=== PATIENT | female | born 1965 | race Two or more races ===

== ENCOUNTER 2024-05-15 13:49 | Emergency (ER) | payer MEDICARE, MEDICAID, SELFPAY ==
[2024-05-15] VITALS (8 sets, daily range): BP systolic 103–125; BP diastolic 66–76; PULSE 85–108; RESP 17–20; TEMP 36.8–37.8; O2SAT 91–99
--- NOTE | 2024-05-15 13:56 | EDNOTE_ITS ---
ED General RME/HPI General Chief complaint: Shortness of Breath/Dyspnea Stated complaint: SOB Time Seen by Provider: 05/15/24 13:55 Arrival date/time: 05/15/24 13:49 CC: Shortness of breath HPI ongoing for 1 week, EMS report the patient has been worsening shortness of breath from the [facility] where the patient is currently residing. EMS reports stable vital signs with an oxygen saturation of 93% on 6 L nasal cannula. Patient has a history of pulmonary fibrosis. EMS report that she has been recovering from a respiratory infection , but has not significant improved. Patient is awake and alert. States that she is usually on 3 L nasal cannula however that has been turned up to 4 in the past 3 to 4 days and to 5 today due to shortness of breath. Related Data Home Medications ?Medication ?Instructions ?Recorded ?Confirmed Levothyroxine * (SYNTHROID *) 125 mcg PO ACBR #0 tabs 07/30/15 07/04/23 atorvastatin 20 mg tablet (Lipitor) 20 mg PO QHS 01/13/24 01/13/24 furosemide 40 mg tablet 40 mg PO QAM 01/13/24 01/13/24 spironolactone 25 mg tablet 25 mg PO QDAY 01/13/24 01/13/24 tizanidine 2 mg tablet 2 mg PO Q8H PRN 01/13/24 01/13/24 Previous Rx's ?Medication ?Instructions ?Recorded ondansetron 4 mg disintegrating 4 mg PO Q8H PRN nausea and 07/12/23 tablet vomiting #20 tabs sertraline 25 mg tablet 25 mg PO QDAY 30 days #30 tabs 07/12/23 levofloxacin 750 mg tablet 750 mg PO Q24H #7 tabs 05/15/24 Allergies Allergy/AdvReac Type Severity Reaction Status Date / Time codeine Allergy Severe Chest Pain Verified 01/13/24 11:59 diphenhydramine Allergy Severe Chest Pain Verified 01/13/24 11:59 [From Benadryl] hydrocodone bit Allergy Severe DIZZY, Verified 01/13/24 11:59 DYSPNEA tramadol Allergy Verified 01/13/24 11:59 Review of Systems Review of Systems Narrative Review of Systems: GEN: No fever, no chills, no weight loss EYES: No discharge, no visual changes, no pain HEENT: No ear pain, no congestion, no sore throat PULM: + shortness of breath, no cough, no congestion CV: No chest pain, no dyspnea on exertion, no palpitations GI: No nausea, no vomiting, no diarrhea, no pain, no constipation : No frequency, no urgency, no dysuria MUSC/SKEL: No joint pain, no back pain SKIN: No rash PSYCH: No hallucinations, no depression HEME/LYMPH: No easy bleeding or bruising tendencies NEURO: No weakness, no headache Past Medical History Past Medical History NEUROLOGIC: Negative Cerebrovascular Accident, Migraine or Head Trauma CARDIAC: Positive Cardiac Disorders, Hypercholesterolemia and Edema; Negative Congestive Heart Failure RESPIRATORY: Positive Chronic Obstructive Pulmonary Disease (COPD), Pulmonary Fibrosis, Dyspnea, Cough and Sputum Production; Negative Asthma GENITOURINARY: Negative Renal Disease REPRODUCTIVE: Positive Previous Pregnancies (); Negative Pelvic Inflammatory Disease (+ for cervical CA) ENT: Negative Head Trauma ENDOCRINE: Positive Hypothyroidism; Negative Diabetes Mellitus Type 1 or Diabetes Mellitus Type 2 HEMATOLOGIC: Positive Anemia (in july); Negative Sickle Cell Disease PSYCHO/SOCIAL: Positive Anxiety OTHER HISTORY: Positive Hospitalization (july 2023), Chemotherapy (last october 2021), Radiation Therapy (october 2021), Cancer and Cervical Cancer; Negative Blood Transfusions or Anesthesia Reactions Social History SMOKING STATUS: Never smoker ED Exam Narrative Physical exam: [General: Mild discomfort but not in any acute distress Head normocephalic HEENT: Within acceptable limits Neck is supple nontender Chest equal chest rise nontender to palpation Respiratory: End expiratory crackles, pursed lip breathing, speaking with sentences of 5-6 words. CV: Rate rhythm is regular no murmurs rubs or clicks Abdomen is soft nontender no masses positive bowel sounds all 4 quadrants Back: No CVA tenderness no spinous process tenderness from cervical spine thoracic and lumbar spine Skin: Intact no petechiae rash induration ulceration or crepitus Extremities: Moving all extremity against resistance cap refill less than 2 seconds neurosensory intact Neuro: Awake alert oriented x2, person and place, Glascow coma 15 no focal deficits] Course Quality Measures none Orders Category Date Time Status EKG (ED ONLY) *Do not use* NOW Care 05/15/24 14:01 Completed EKG (ED Only) Stat Exams 05/15/24 14:01 Draft XR chest 1V Stat Exams 05/15/24 14:01 Completed B-Type Natriuretic Peptide Stat Lab 05/15/24 15:03 Completed Blood Culture (Lab) Stat Lab 05/15/24 16:18 Received CBC Stat Lab 05/15/24 15:03 Completed Comprehensive Metabolic Panel Stat Lab 05/15/24 15:03 Completed Drug Screen,Urine Stat Lab 05/15/24 18:13 Completed LDH (Lactate Dehydrogenase) Stat Lab 05/15/24 15:03 Completed Lactic Acid [Lactate (Lactic Acid)] Stat Lab 05/15/24 16:18 Completed Magnesium Stat Lab 05/15/24 15:03 Completed Partial Thromboplastin Time Stat Lab 05/15/24 15:03 Completed Procalcitonin Stat Lab 05/15/24 16:18 Completed Prothrombin Time with INR Stat Lab 05/15/24 15:03 Completed Troponin I Stat Lab 05/15/24 15:03 Completed Urinalysis Stat Lab 05/15/24 18:13 Received Acetaminophen Tab [Tylenol Tab] Med 05/15/24 16:03 Discontinued 650 mg PO X1 ONE Sodium Chloride 0.9% 1000 ml [Ns] 1,000 ml Med 05/15/24 16:03 Discontinued IV 999 mls/hr cefTRIAXone/D5w 1gm IV premix [Rocephin/D5w 1gm IV Med 05/15/24 17:08 Discontinued premix] 50 ml IV X1 Vital Signs Vital signs: Vital Signs Temperature 99.0 F 05/15/24 13:52 Pulse Rate 105 H 05/15/24 13:52 Respiratory Rate 18 05/15/24 13:52 Blood Pressure 124/76 05/15/24 13:52 Pulse Oximetry (%) 96 05/15/24 13:52 Oxygen Delivery Method Nasal Cannula 05/15/24 13:52 Oxygen Flow Rate 8 05/15/24 13:52 [facility] Patient data External records reviewed:: [facility] previous records and EMS form Clinical information provided by:: patient and EMS Social determinants that could affect healthcare access:: none Patient has the following chronic illnesses:: Pulmonary fibrosis congestive heart failure recurrent pleural effusion anemia, cervical cancer with chemoradiation How is presenting disease/condition affected by chronic disease/condition?: e xacerbated by Evaluation data The following diagnostics were reviewed and interpreted by me:: lab results and radiology exam(s) Lab and/or radiology exams considered but not ordered:: EKG performed at 1531 shows a ventricular rate of 90 HI interval 128 QRS of 9 7 QTc of 396 this is normal sinus rhythm nonspecific T wave abnormality. CBC shows no acute leukocytosis anemia thrombocytopenia Coags within acceptable limits CMP shows no significant electrolyte imbalances renal impairment transaminitis or T. bili elevation Mag 1.9 Troponin is mildly elevated at 0.067 but has been elevated similarly in the past BNP is 248 Interpretation Summary: Questionable pneumonia on top of the pulmonary fibrosis. Patient is afebrile lactic is negative Pro-Madan is negative. Patient is a DNR selective treatment. This time we will give her IV antibiotics and discharge her back to the assisted care facility. Chest x-ray shows a possible superimposed pneumonia on her pulmonary fibrosis. Patient does not have a white count or fever, dressed with antibiotics little bit of fluid. Patient's oxygen saturations maintaining at 90% on 5 L nasal cannula at this time patient will be discharged back to the facility. Patient UDS also shows he is positive for fentanyl this could also be contributing to her hypoxemia although the fentanyl has a very short half-life. And patient is not on a fentanyl patch. Please note the patient is a DNR limited treatment. Medications Medications considered but not ordered:: None Medication administrations:: Medication Administration History Discontinued Medications Acetaminophen (Acetaminophen 325 Mg Tablet) 650 mg PO X1 ONE Stop: 05/15/24 16:04 Last Admin: 05/15/24 16:19 Dose: 650 mg Documented By: WANDA Sodium Chloride (Ns) 1,000 mls @ 999 mls/hr IV .Q1H1M ONE Stop: 05/15/24 17:03 Last Infusion: 05/15/24 18:13 Dose: Infused Documented By: Admin: 05/15/24 16:33 Dose: 999 mls/hr Documented By: WANDA Ceftriaxone Sodium/Dextrose (Rocephin/D5w 1gm Iv Premix) 50 mls @ 100 mls/hr IV X1 ONE Stop: 05/15/24 17:37 Last Admin: 05/15/24 17:50 Dose: 100 mls/hr Documented By: WANDA None Consultations Consultation(s) initiated? (list below): No Diagnosis Differential Diagnosis ED Complaint MDM: Pneumonia pulmonary fibrosis confusion Most likely diagnosis given after review of the tests above:: Pulmonary fibrosis, possible superimposed pneumonia. Admission Indicated Admission indicated?: not indicated Explain why admission is indicated or not indicated:: Stable for discharge Admission Request Was there a request for admission?: No Disposition Plan Disposition Plan: Discharge Discharge Attestation Discharge Attestation: The patient and all family members were given an opportunity to ask questions and understood the discharge instructions. Discharge instructions specifically effects, indications for sooner follow up or return to the emergency department, and the expected course of current diagnosis. Patient condition: Stable Medical Decision Making Differential Diagnosis Differential Diagnosis: Pneumonia pulmonary fibrosis confusion Lab Data 05/15/24 15:03 05/15/24 15:03 Labs: Lab Results 05/15/24 05/15/24 05/15/24 Range/Units 15:03 16:18 18:13 WBC 10.5 (3.6-11.0) Thou/mm3 RBC 4.13 (4.00-5.20) Miln/mm3 Hgb 11.8 L (12.0-16.0) g/dL Hct 38.9 (36.0-46.0) % MCV 94 (80-100) fL MCH 28.6 (25.0-35.0) pg MCHC 30.3 L (31.0-37.0) g/dl RDW Std Deviation 50.2 H (36.4-46.3) fL Plt Count 239 (140-440) Thou/mm3 Neut % (Auto) 73 (37-80) % Lymph % (Auto) 17 (10-50) % [place] % (Auto) 10 (0-12) % Eos % (Auto) 0 (0-10) % Baso % (Auto) 0 (0-2.5) % Neut # (Auto) 7.6 (1.8-7.7) Thou/mm3 Lymph # (Auto) 1.7 (1.0-4.8) Thou/mm3 [place] # (Auto) 1.1 H (0.0-0.8) Thou/mm3 Eos # (Auto) 0.0 (0.0-0.5) Thou/mm3 Baso # (Auto) 0.0 (0.0-0.2) Thou/mm3 Immature Gran # (Auto) 0.02 H (0.00-0.00) Thou/mm3 Absolute Nucleated RBC 0.00 (0.00-0.00) Thou/mm3 Immature Gran % 0 (0-0) % Nucleated RBC % 0 (0) /100 WBC PT 11.8 (9.0-12.2) Seconds INR 1.1 (0.9-1.3) APTT 30.3 (22.0-36.0) Seconds Sodium 137 (136-145) mMol/L Potassium 4.4 (3.4-5.1) mMol/L Chloride 98 (98-107) mMol/L Carbon Dioxide 34.0 H (20.0-31.0) mMol/L Anion Gap 5 L (7-16) BUN 14 (9-23) mg/dL Creatinine 0.7 (0.6-1.3) mg/dL Estim Creat Clear Calc 75.5 (>60) mL/min eGFR > 60 (60 - ) See Note BUN/Creatinine Ratio 20 (12-20) Ratio Glucose 112 H (74-106) mg/dL Calculated Osmolality 275 (275-295) Lactic Acid 1.0 (0.4-2.0) mMol/L Calcium 9.0 (8.3-10.6) mg/dL Corrected Calcium 9.0 (8.5-10.1) mg/dL Magnesium 1.9 (1.6-2.6) mg/dL Total Bilirubin 0.4 (0.3-1.2) mg/dL AST 29 (0-34) U/L ALT 18 (10-49) U/L Alkaline Phosphatase 82 (46-116) U/L Lactate Dehydrogenase 343 H (120-246) U/L Troponin I 0.067 H* (0.0-0.045) ng/mL B-Natriuretic Peptide 248 H (0-100) pg/mL Total Protein 7.6 (5.7-8.2) gm/dL Albumin 4.0 (3.5-5.0) gm/dL Globulin 3.6 H (2.3-3.5) gm/dL Albumin/Globulin Ratio 1.1 L (1.2-2.2) Procalcitonin 0.05 (0.0-0.49) ng/ml Urine Opiates Screen Negative (Negative) Urine Fentanyl Screen Positive A (Negative) Ur Barbiturates Screen Negative (Negative) U Amphetamin/Meth Scrn Negative (Negative) U Benzodiazepines Scrn Negative (Negative) U Cocaine Metab Screen Negative (Negative) U Marijuana (THC) Screen Negative (Negative) Discharge Plan Plan Patient Disposition: HOME (Self Care) Patient condition on transfer: Stable Prescriptions/Referrals Prescriptions/Med Rec: New levofloxacin 750 mg tablet 750 mg PO Q24H Qty: 7 0RF No Action furosemide 40 mg tablet 40 mg PO QAM atorvastatin [Lipitor] 20 mg tablet 20 mg PO QHS spironolactone 25 mg tablet 25 mg PO QDAY tizanidine 2 mg tablet 2 mg PO Q8H PRN Levothyroxine * (SYNTHROID *) 125 MCG tablet 125 mcg PO ACBR Qty: 0 ondansetron 4 mg tablet,disintegrating 4 mg PO Q8H MDD no more than 4 tabs a day PRN (Reason: nausea and vomiting) Qty: 20 0RF sertraline 25 mg tablet 25 mg PO QDAY 30 Days Qty: 30 2RF Referrals: No Primary/Family,Physician [Primary Care Provider] - In 1 week Desmond Martinez MD [Physician] - In 1 week Problem List Clinical Impression: Hypoxia, Pneumonia Patient/Caregiver Discharge Instructions Other Activity Instructions:: Take the medications as prescribed continue to stay on 5 L nasal cannula. Education Materials: ED Pneumonia (Adult) Print Language: Khmer Stand Alone Forms: Tammi Award Info., Patient Portal Info Letter, Work/School Release PA/AUTOMOTIVE CONSULTANT Supervising Physician PA/AUTOMOTIVE CONSULTANT Supervising Physician: Jose Eduardo Hernandez ENP
--- NOTE | 2024-05-15 14:01 | XR_ITS ---
Examination: AP chest single view Technique one AP portable semiupright chest single view Exam date and time: May 15, 2024 1513 hours Comparison September 04, 2023 INDICATIONS: Shortness breath chest pain several days. FINDINGS: Prominent CHF Mild to moderate enlargement left ventricle Prominent vascular congestion with bilateral perihilar edema Consider superimposed bilateral pneumonia Prominent osteopenia IMPRESSION: Prominent CHF Consider superimposed bilateral pneumonia
--- NOTE | 2024-05-15 14:01 | EKG_ITS ---
[facility] Test Date: 2024-05-15 Pat Name: TERESO BYRD Department: Room: - Gender: Female Networker: : 1965 Requested By: Jose Eduardo Rinaldi Order Number: [id number] Reading MD: Jose Eduardo Rinaldi Measurements Intervals [place] Rate: 98 P: 8 GA: 128 QRS: 85 QRSD: 97 T: 4 QT: 340 QTc: 436 Interpretive Statements SINUS RHYTHM NONSPECIFIC T-WAVE ABNORMALITY Compared to ECG 07/04/2023 15:52:23 T-wave abnormality now present Sinus tachycardia no longer present /store/S0/[id number].pdf
[2024-05-15 15:16] LABS: Basophils % (Auto) 0 % (0-2.5); Eosinophils % (Auto) 0 % (0-10); Hematocrit 38.9 % (36.0-46.0); Hemoglobin 11.8 g/dL (12.0-16.0); Immature Granulocytes % (Auto) 0 % (0-0); Immature Granulocytes Auto 0.02 Thou/mm3 (0.00-0.00); Lymphocytes # (Auto) 1.7 Thou/mm3 (1.0-4.8); Lymphocytes % (Auto) 17 % (10-50); Mean Corpuscular HGB Conc 30.3 g/dl (31.0-37.0); Mean Corpuscular Hemoglobin 28.6 pg (25.0-35.0); Mean Corpuscular Volume 94 fL (80-100); Monocytes # (Auto) 1.1 Thou/mm3 (0.0-0.8); Monocytes % (Auto) 10 % (0-12); Neutrophils # (Auto) 7.6 Thou/mm3 (1.8-7.7); Neutrophils % (Auto) 73 % (37-80); Nucleated Red Blood Cell % 0 /100 WBC (0); Platelet Count 239 Thou/mm3 (140-440); RDW Standard Deviation 50.2 fL (36.4-46.3); Red Blood Count 4.13 Miln/mm3 (4.00-5.20); White Blood Count 10.5 Thou/mm3 (3.6-11.0)
[2024-05-15 15:32] LABS: INR 1.1 (0.9-1.3); Partial Thromboplastin Time 30.3 Seconds (22.0-36.0); Prothrombin Time 11.8 Seconds (9.0-12.2)
[2024-05-15 15:36] LABS: B-Type Natriuretic Peptide 248 pg/mL (0-100)
[2024-05-15 15:45] LABS: Alanine Aminotransferase 18 U/L (10-49); Albumin/Globulin Ratio 1.1 (1.2-2.2); Alkaline Phosphatase 82 U/L (46-116); Anion Gap 5 (7-16); Aspartate Amino Transferase 29 U/L (0-34); BUN/Creatinine Ratio 20 Ratio (12-20); Bilirubin,Total 0.4 mg/dL (0.3-1.2); Blood Urea Nitrogen 14 mg/dL (9-23); Chloride 98 mMol/L (98-107); Creatinine (Component) 0.7 mg/dL (0.6-1.3); Estimated Creatinine Clearance 75.5 mL/min (>60); Globulin 3.6 gm/dL (2.3-3.5); Glucose 112 mg/dL (74-106); LDH (Lactate Dehydrogenase) 343 U/L (120-246); Magnesium 1.9 mg/dL (1.6-2.6); Osmolality,Calculated 275 (275-295); Potassium 4.4 mMol/L (3.4-5.1); Sodium 137 mMol/L (136-145); Total Protein 7.6 gm/dL (5.7-8.2); eGFR > 60 See Note
[2024-05-15 15:47] LABS: Troponin I 0.067 ng/mL (0.0-0.045)
--- NOTE | 2024-05-15 16:05 | PC.NURSE ---
Mack Hernandez SUPERVISING BAILIFF made aware that pt tachycardic in 108's with a rectal temp. of 100.0F. Per David, no SEPSIS alert initiation at this time.
[2024-05-15] MEDS: ACETAMINOPHEN 325 MG TABLET 650 MG PO (16:19)
[2024-05-15] MEDS: SODIUM CHLORIDE 0.9% 1000 ML 1,000 ML 999 ML IV (16:33)
[2024-05-15 16:59] LABS: Procalcitonin 0.05 ng/ml (0.0-0.49)
[2024-05-15] MEDS: cefTRIAXone/D5w 1gm IV premix 50 ML IV (17:50)
[2024-05-15 18:28] LABS: Collection Type, Urine Clean Catch
[2024-05-15 18:41] LABS: Amphetamine/Methamp Scrn,U Negative (Negative); Barbiturate Screen,Urine Negative (Negative); Benzodiazepines Screen,Urine Negative (Negative); Benzoylecgonine Screen, Ur Negative (Negative); Fentanyl Screen,Urine Positive (Negative); Opiate Screen,Urine Negative (Negative); THC Screen,Urine Negative (Negative)
--- NOTE | 2024-05-15 18:56 | PC.NURSE ---
SPOKE TO Shannan EDWARDS FROM [facility] FOR RN-RN REPORT; WILL HAVE [facility] SET UP TRANSPORTATION FOR PT BACK TO SNF.
[2024-05-15 19:06] LABS: Bacteria,Urine 1+; Bilirubin,Urine Negative (Negative); Blood,Urine Negative (Negative); Clarity,Urine Clear (Clear/Hazy); Color,Urine Colorless (Lt Yel-Yel); Glucose, Urine Negative (Negative); Ketones,Urine Negative (Negative); Leukocyte Esterase,Urine Negative (Negative); Nitrite,Urine Negative (Negative); PH,Urine 6.5 (5.0-7.0); Protein,Urine Negative (Neg - Trace); RBC,Urine 2 /hpf (0-3); Squamous Epithelial Cell,Urine < 1 /hpf (0-5); Urobilinogen,Urine Negative mg/dL (0.0-1.0); WBC,Urine 5 /hpf (0-5)
== END 2024-05-15 19:47 | disposition home or self-care (01) ==
PROVIDERS: Registered Nurse General Practice; Emergency Provider Emergency Medicine
DX: J18.9 Pneumonia, unspecified organism (principal); R09.02 Hypoxemia
CPT/HCPCS: 36415; 71045; 80053; 80307; 81001; 83605; 83615; 83735; 83880; 84145; 84484; 85025; 85610; 85730; 87040; 93005; 96360; 96361; 99284; J0696; J7030; A9270

== ENCOUNTER → 2025-01-12 | Outpatient (CLI) | payer MEDICARE, MEDICAID, SELFPAY ==
--- NOTE | 2025-01-12 10:30 | XR_ITS ---
Examination: CT chest with intravenous contrast CT abdomen with intravenous contrast CT pelvis with intravenous contrast 2-D coronal and sagittal reconstructions Time of exam: January 12, 2025 1114 hours, comparison October 14, 2023 INDICATIONS: Diagnosis cervical carcinoma 2 years ago, restaging CTDI: vol (mGy) : 41.32 DLP: (mGycm): 850 Technique: Multiple axial images of the chest, abdomen and pelvis with intravenous contrast, 3.0 mm slice thickness. Images obtained post intravenous injection Isovue 370 60 cc. 2-D sagittal and coronal reconstructions. Low dose protocols were performed. One or more of the following dose reduction techniques were used; automated exposure control, adjustment of the mA and/or KV according to patient size, use of iterative reconstruction technique. Findings: No thoracic aortic aneurysmal dilatation No pulmonary artery filling defects Subtle precarinal subcarinal and bilateral hilar as well as left tracheobronchial lymphadenopathy Prominent vascular congestion 8mm pulmonary nodule right upper lobe No visualized liver or splenic lesions Gallstones. No adrenal mass. No pancreatic mass. No hydronephrosis. 6 mm left lateral periaortic lymph node 18 mm fat-containing a buckle hernia. Normal appendix No pelvic mass Urinary bladder intact Severe osteopenia IMPRESSION: Heart failure pattern Subtle mediastinal lymphadenopathy Persistent 8mm pulmonary nodule right upper lobe, suggest continued CT chest post contrast follow-up No liver or splenic lesions No adrenal mass Stable 6 mm left lateral periaortic lymph node, no interval abdominal or pelvic lymphadenopathy
== END | disposition home or self-care (01) ==
PROVIDERS: PCP Hospitalist; Referring Provider Hospitalist; Visit Provider Hospitalist
DX: R59.0 Localized enlarged lymph nodes (principal); R91.1 Solitary pulmonary nodule; C53.9 Malignant neoplasm of cervix uteri, unspecified
CPT/HCPCS: 71260; 74177; A4649; Q9967

== ENCOUNTER 2025-02-09 16:40 | Inpatient (IN) | payer MEDICARE, MEDICAID, SELFPAY ==
[2025-02-09] VITALS (13 sets, daily range): BP systolic 102–156; BP diastolic 68–89; PULSE 80–104; RESP 12–35; TEMP 36.7–37.3; O2SAT 78–98
--- NOTE | 2025-02-09 16:59 | XR_ITS ---
EXAMINATION: AP chest portable upright single view TECHNIQUE: AP portable upright chest single view Date and time: February 09, 2025, 7205 hours INDICATIONS: Hypoxia shortness of breath today. FINDINGS: Moderate CHF Enlarged cardiac contour with prominent vascular congestion and perihilar edema Prominent osteopenia IMPRESSION: Moderate CHF
--- NOTE | 2025-02-09 16:59 | EKG_ITS ---
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
[2025-02-09 17:14] LABS: Collection Type, Urine Clean Catch
--- NOTE | 2025-02-09 17:18 | EDNOTE_ITS ---
ED SOB =RME/HPI General Chief Complaint: Shortness of Breath/Dyspnea Stated Complaint: SOB Time Seen by Provider: 02/09/25 16:49 Arrival date/time: 02/09/25 16:40 Limitations: no limitations RME / HPI RME / HPI Narrative: 59 year old female with history of pulmonary fibrosis on home oxygen, hypothyroidism, presents to the ED from [facility] for evaluation of shortness of breath today. Per medics, PA staff reported patient was saturating low 70s on room air and placed on 6L nasal cannula with improvement to 88%. On arrival to ED, patient was placed on 15L Oxy mask with improvement to 92%. Per medics, PA staff reported the patient is receiving 1 gram a day of Rocephin a day for pneumonia. In the ED, patient also complains of constipation and has not had a bowel movement for 4 days. Related Data Home Medications ?Medication ?Instructions ?Recorded ?Confirmed Levothyroxine * (SYNTHROID *) 125 mcg PO ACBR #0 tabs 07/30/14 07/04/23 atorvastatin 20 mg tablet (Lipitor) 20 mg PO QHS 01/1201/13/24 furosemide 40 mg tablet 40 mg PO QAM 01/13/24 spironolactone 25 mg tablet 25 mg PO QDAY 01/13/2404/25 tizanidine 2 mg tablet 2 mg PO Q8H PRN 01/13/2404/25 Previous Rx's ?Medication ?Instructions ?Recorded ondansetron 4 mg disintegrating 4 mg PO Q8H PRN nausea and 07/12/23 tablet vomiting #20 tabs sertraline 25 mg tablet 25 mg PO QDAY 30 days #30 ta bs 07/12/23 levofloxacin 750 mg tablet 750 mg PO Q24H #7 tabs 05/03 07/25 Allergies Allergy/AdvReac Type Severity Reaction Status Date / Time codeine Allergy Severe Chest Pain Verified 01/13/24 11:59 diphenhydramine (From Allergy Severe Chest Pain Verified 01/13/24 11:59 Benadryl) hydrocodone bit Allergy Severe DIZZY, Verified 01/13/24 11:59 DYSPNEA tramadol Allergy Verified 01/13/24 11:59 Review of Systems Review of Systems Systems Reviewed: All systems reviewed, normal except as documented Past Medical History Past Medical History CARDIAC: Positive Cardiac Disorders, Hypercholesterolemia and Edema RESPIRATORY: Positive Chronic Obstructive Pulmonary Disease (COPD), Pulmonary Fibrosis, Dyspnea, Cough and Sputum Production REPRODUCTIVE: Positive Previous Pregnancies ENDOCRINE: Positive Hypothyroidism HEMATOLOGIC: Positive Anemia PSYCHO/SOCIAL: Positive Anxiety OTHER HISTORY: Positive Hospitalization, Chemotherapy, Radiation Therapy, Cancer and Cervical Cancer Social History SMOKING STATUS: Never smoker ED Exam General Limitations: Present no limitations General appearance: Present alert and in no apparent distress Head Head exam: Present atraumatic, normocephalic and normal inspection Eye Eye exam: Present normal appearance, PERRL and EOMI ENT ENT exam: Present normal exam, normal oropharynx and mucous membranes moist Neck Neck exam: Present normal inspection, full ROM and trachea midline Chest Chest inspection: Present normal inspection and symmetric chest wall rise Respiratory Respiratory exam: Present other (Crackles bilateral lung burgess, no rales) Cardiovascular Cardiovascular exam: Present normal rhythm, tachycardia and normal heart sounds Abdominal Exam Abdominal exam: Present soft and normal bowel sounds; Absent tenderness, guarding, rebound or mass Extremities Exam Extremities exam: Present other (2+ edema bilateral lower extremities) Back Exam Back exam: Present normal inspection and full ROM Neurological Exam Neurological exam: Present alert, oriented X3 and CN II-XII intact Psychiatric Psychiatric exam: Present normal affect and normal mood Skin Skin exam: Present warm, dry, intact and normal color Course Quality Measures none Orders Category Date Time Status Bedside COVID-19 Antigen Test NOW Care 02/09/25 16:59 Active Bedside Influenza A&B Antigen Test NOW Care 02/09/25 17:[address] Screening NOW Care 02/09/25 20:23 Active Yard Operator NOW Care 02/09/25 16:59 Active Continuous Pulse Oximetry NOW Care 02/09/25 16:59 Completed EKG (ED ONLY) *Do not use* NOW Care 02/09/25 16:59 Completed In and Out Catheter X1 Care 02/09/25 16:59 Completed Insert IV NOW Care 02/09/25 16:59 Active MRI Screening NOW Care 02/10/25 02:53 Active Diet Cardiac Diet 02/10/[address] angio chest abdomen pelvis Stat Exams 02/09/25 20:23 Completed EKG (ED Only) Stat Exams 02/09/25 16:59 Draft MR MRCP Stat Exams 02/10/25 Completed XR chest 1V portable Stat Exams 02/09/25 16:59 Completed ABG [Arterial Blood Gas] Stat Lab 02/09/25 17:37 Completed BNP [B-Type Natriuretic Peptide] Stat Lab 02/09/25 17:20 Completed Blood Culture (Lab) Stat Lab 02/09/25 17:20 Results CBC Stat Lab 02/09/25 17:20 Completed Comprehensive Metabolic Panel Stat Lab 02/09/25 17:20 Completed D-Dimer Stat Lab 02/09/25 17:00 Completed FLU A&B [Influenza A & B Rapid Panel] Stat Lab 02/09/25 18:04 Completed Lactic Acid [Lactate (Lactic Acid)] Stat Lab 02/09/25 17:20 Completed Partial Thromboplastin Time Stat Lab 02/09/25 17:20 Completed Procalcitonin Stat Lab 02/09/25 17:20 Completed Prothrombin Time with INR Stat Lab 02/09/25 17:20 Completed Troponin I Stat Lab 02/09/25 17:20 Completed Urinalysis Stat Lab 02/09/25 17:10 Completed Albuterol/Ipratr Rt Quiana [Duoneb Rt Quiana] Med 02/09/25 17:01 Discontinued 3 ml INH X1 ONE Azithromycin Inj [Zithromax Inj] 500 mg Med 02/10/25 13:00 Discontinued Sodium Chloride 0.9% 250 ml [Ns] 250 ml IV 02/10/25 Azithromycin Inj [Zithromax Inj] 500 mg Med 02/09/25 17:01 Pending Sodium Chloride 0.9% 250 ml [Ns] 250 ml IV QDAY Azithromycin Inj [Zithromax Inj] 500 mg Med 02/09/25 17:15 Discontinued Sodium Chloride 0.9% 250 ml [Ns] 250 ml IV X1 Furosemide Inj [Lasix Inj] Med 02/09/25 17:33 Discontinued 40 mg IVP X1 ONE Sodium Chloride 0.9% 1000 ml [Ns] 1,000 ml Med 02/09/25 16:59 Discontinued IV 100 mls/hr cefTRIAXone [Rocephin] 2 gm Med 02/09/25 16:59 Discontinued SODIUM CHLORIDE 0.9% (Popper) [Ns 0.9% (P)] 50 ml IV X1 Late Tray Request Routine Oth 02/10/25 14:04 Active BiPAP / CPAP NEEDED RT 02/09/25 20:28 Active Oxygen Delivery NOW RT 02/09/25 16:59 Active Vital Signs Vital signs: Vital Signs Temperature 99.2 F 02/09/25 16:50 Pulse Rate 102 H 02/09/25 16:50 Respiratory Rate 20 02/09/25 16:50 Blood Pressure 129/88 H 02/09/25 16:50 Pulse Oximetry (%) 81 L 02/09/25 16:50 Oxygen Delivery Method Nasal Cannula 02/09/25 16:50 Oxygen Flow Rate 6 02/09/25 16:50 Shortness of Breath / Dyspnea MDM Narrative MDM Narrative:: Briana Dodd am scribing for and in the presence of Dr. Soriano. 1800p: Patient signed out to Dr. Soriano pending labs and final disposition. Patient data External records reviewed:: [facility] previous records, EMS form and Longterm records (I reviewed pmhx and medication list from [facility] ) Clinical information provided by:: patient and EMS Social determinants that could affect healthcare access:: none Patient has the following chronic illnesses:: pulmonary fibrosis on home oxygen, hypothyroidism How is presenting disease/condition affected by chronic disease/condition?: exacerbated by Evaluation data The following diagnostics were reviewed and interpreted by me:: lab results, radiology exam(s) and EKG tracing(s) (EKG @ 17:14p. Sinus tachycardia, rate 102, no STEMI. ) Lab and/or radiology exams considered but not ordered:: None Interpretation Summary: Ordering Physician: Rusty Soriano MD Date of Service: 02/09/25 Procedure(s): XR chest 1V portable Accession Number(s): [id number] cc: Rusty Soriano MD; Gary Strickland MD; NO PRIMARY/FAMILY,PHYSICIAN~ EXAMINATION: AP chest portable upright single view TECHNIQUE: AP portable upright chest single view Date and time: February 09, 2025, 7205 hours INDICATIONS: Hypoxia shortness of breath today. FINDINGS: Moderate CHF Enlarged cardiac contour with prominent vascular congestion and perihilar edema Prominent osteopenia IMPRESSION: Moderate CHF Dictated By: Gary Strickland MD Signed By: <Electronically signed by Gary Strickland MD in OV> 02/09/25 3801 Medications / Prescriptions Medications or Prescriptions considered but not ordered:: None Medication administrations:: Medication Administration History Azithromycin 500 mg/ Sodium (Chloride) 250 mls @ 250 mls/hr IV QDAY KATIE Stop: 10/17/25 17:00 Discontinued Medications Albuterol/Ipratropium (Albuterol/Ipratropium (Duoneb) Rt Quiana 3 Ml Nebu) 3 ml INH X1 ONE Stop: 02/09/25 17:02 Last Admin: 02/09/25 17:38 Dose: 3 ml Documented By: SC Furosemide (Furosemide Inj 10 Mg/Ml 4ml Vial) 40 mg IVP X1 ONE Stop: 02/09/25 17:34 Last Admin: 02/09/25 17:54 Dose: 40 mg Documented By: TM Ceftriaxone Sodium 2 gm/ (Sodium Chloride) 50 mls @ 100 mls/hr IV X1 ONE Stop: 02/09/25 17:28 Last Infusion: 02/09/25 18:13 Dose: Infused Documented By: Admin: 02/09/25 17:43 Dose: 100 mls/hr Documented By: TM Sodium Chloride (Ns) 1,000 mls @ 100 mls/hr IV .Q10H ONE Stop: 02/10/25 02:58 Last Infusion: 02/10/25 04:19 Dose: Infused Documented By: Admin: 02/09/25 17:38 Dose: 100 mls/hr Documented By: TM Azithromycin 500 mg/ Sodium (Chloride) 250 mls @ 250 mls/hr IV X1 ONE Stop: 02/09/25 18:14 Last Infusion: 02/09/25 19:07 Dose: Infused Documented By: Admin: 02/09/25 17:50 Dose: 250 mls/hr Documented By: TM Azithromycin 500 mg/ Sodium (Chloride) 250 mls @ 250 mls/hr IV 02/10/25 ONE Stop: 02/10/25 13:59 Last Infusion: 02/10/25 14:37 Dose: Infused Documented By: Admin: 02/10/25 13:32 Dose: 250 mls/hr Documented By: TM see above Consultations Consultation(s) initiated? (list below): No Diagnosis Shortness of Breath Differential Diagnosis: acute exacerbation of chronic obstructive airways disease, congestive heart failure and community acquired pneumonia Most likely diagnosis given after review of the tests above:: Pneumonia Admission Indicated Admission indicated?: not indicated Explain why admission is indicated or not indicated:: Signed out pending final disposition Admission Request Was there a request for admission?: No Disposition Plan Disposition Plan: other (specify) (Signed out to Dr. Howe ) Discharge Plan Prescriptions/Referrals Prescriptions/Med Rec: No Action furosemide 40 mg tablet 40 mg PO QAM atorvastatin [Lipitor] 20 mg tablet 20 mg PO QHS spironolactone 25 mg tablet 25 mg PO QDAY tizanidine 2 mg tablet 2 mg PO Q8H PRN Levothyroxine * (SYNTHROID *) 125 MCG tablet 125 mcg PO ACBR Qty: 0 ondansetron 4 mg tablet,disintegrating 4 mg PO Q8H MDD no more than 4 tabs a day PRN (Reason: nausea and vomiting) Qty: 20 0RF sertraline 25 mg tablet 25 mg PO QDAY 30 Days Qty: 30 2RF levofloxacin 750 mg tablet 750 mg PO Q24H Qty: 7 0RF Referrals: No Primary/Family,Physician [Primary Care Provider] - In 1 week Problem List Clinical Impression: Acute CHF, Ileus Patient/Caregiver Discharge Instructions Print Language: Hebrew
[2025-02-09 17:29] LABS: Bilirubin,Urine Negative (Negative); Blood,Urine Negative (Negative); Clarity,Urine Clear (Clear/Hazy); Color,Urine Yellow (Lt Yel-Yel); Glucose, Urine Negative (Negative); Hyaline Casts,Urine < 1 /hpf (0-1); Ketones,Urine Negative (Negative); Leukocyte Esterase,Urine Negative (Negative); Nitrite,Urine Negative (Negative); PH,Urine 6.5 (5.0-7.0); Protein,Urine 2+ (Neg - Trace); RBC,Urine 4 /hpf (0-3); Specific Gravity,Urine 1.040 (1.001-1.035); Squamous Epithelial Cell,Urine 1 /hpf (0-5); Urobilinogen,Urine 3.0 mg/dL (0.0-1.0); WBC,Urine 7 /hpf (0-5)
[2025-02-09] MEDS: ALBUTEROL/IPRATROPIUM (Duoneb) RT SOL 3 ML NEBU INH (17:38)
[2025-02-09] MEDS: SODIUM CHLORIDE 0.9% 1000 ML 1,000 ML 100 ML IV (17:38)
[2025-02-09] MEDS: cefTRIAXone 2 GM in SODIUM CHLORIDE 0.9% (Popper) 50 ML IV (17:43)
[2025-02-09 17:47] LABS: Base Excess 10 (-3-3); HCO3 39 mEq/L (20-26); Inspired O2, VO2 Liters 15 L/min; O2 Saturation 93 % (91-98); PCO2 77 mmHg (32.0-48.0); PO2 69 mmHg (83-108); Puncture Site Left Brachial; pH, Arterial 7.31 (7.35-7.45)
[2025-02-09 17:47] LABS: Lactate (Lactic Acid) 1.2 mMol/L (0.4-2.0)
[2025-02-09 17:48] LABS: Allen Test Performed/OK
[2025-02-09 17:49] LABS: Basophils # (Auto) 0.0 Thou/mm3 (0.0-0.2); Basophils % (Auto) 0 % (0-2.5); Eosinophils # (Auto) 0.0 Thou/mm3 (0.0-0.5); Eosinophils % (Auto) 0 % (0-10); Hematocrit 41.8 % (36.0-46.0); Hemoglobin 12.1 g/dL (12.0-16.0); Immature Granulocytes Auto 0.05 Thou/mm3 (0.00-0.00); Lymphocytes # (Auto) 1.0 Thou/mm3 (1.0-4.8); Lymphocytes % (Auto) 7 % (10-50); Mean Corpuscular HGB Conc 28.9 g/dl (31.0-37.0); Mean Corpuscular Hemoglobin 27.4 pg (25.0-35.0); Mean Corpuscular Volume 95 fL (80-100); Monocytes # (Auto) 0.8 Thou/mm3 (0.0-0.8); Monocytes % (Auto) 5 % (0-12); Neutrophils # (Auto) 12.9 Thou/mm3 (1.8-7.7); Neutrophils % (Auto) 87 % (37-80); Nucleated Red Blood Cell # 0.00 Thou/mm3 (0.00-0.00); Nucleated Red Blood Cell % 0 /100 WBC (0); Platelet Count 252 Thou/mm3 (140-440); RDW Standard Deviation 57.0 fL (36.4-46.3); Red Blood Count 4.41 Miln/mm3 (4.00-5.20); White Blood Count 14.8 Thou/mm3 (3.6-11.0)
[2025-02-09] MEDS: AZITHROMYCIN INJ 500 MG in SODIUM CHLORIDE 0.9% 250 ML 250 ML 250 MG IV (17:50)
[2025-02-09] MEDS: FUROSEMIDE INJ 10 MG/ML 4ML VIAL 40 MG IVP (17:54)
[2025-02-09 18:07] LABS: INR 1.1 (0.9-1.3); Partial Thromboplastin Time 27.0 Seconds (22.0-36.0); Prothrombin Time 11.9 Seconds (9.0-12.2)
[2025-02-09 18:21] LABS: Alanine Aminotransferase 26 U/L (10-49); Albumin, Serum 4.1 gm/dL (3.4-4.8); Albumin/Globulin Ratio 1.1 (1.2-2.2); Alkaline Phosphatase 111 U/L (46-116); Anion Gap 7 (7-16); Aspartate Amino Transferase 39 U/L (0-34); BUN/Creatinine Ratio 34 Ratio (12-20); Bilirubin,Total 0.4 mg/dL (0.3-1.2); Blood Urea Nitrogen 27 mg/dL (9-23); Calcium 9.5 mg/dL (8.3-10.6); Calcium (Corrected) 9.5 mg/dL (8.5-10.1); Carbon Dioxide 37.0 mMol/L (20.0-31.0); Chloride 100 mMol/L (98-107); Creatinine (Component) 0.8 mg/dL (0.6-1.3); Estimated Creatinine Clearance 2.7 mL/min (>60); Globulin 3.8 gm/dL (2.3-3.5); Glucose 118 mg/dL (74-106); Osmolality,Calculated 292 (275-295); Potassium 4.1 mMol/L (3.4-5.1); Procalcitonin 0.04 ng/ml (0.0-0.49); Sodium 144 mMol/L (136-145); Total Protein 7.9 gm/dL (5.7-8.2); eGFR > 60 See Note
--- NOTE | 2025-02-09 18:23 | PD.EDADDENDU ---
Emergency Room Addendum Addendum Narrative: 1800: Care assumed from Dr. Soriano (emergency physician). Past medical, surgical, social and family history reviewed. Vitals and home medications reviewed. Results and treatment plan discussed. I will assume the care of the patient at this time and will follow the patient, pending labs. The following addendum documentation note is intended to reflect any pending information, findings, or radiology results not included in the patient?s initial chart by the previous shift scribe. RADIOLOGY Chest/Abdomen/Pelvis CTA: Findings: No thoracic aortic aneurysm dilatation or dissection. Main pulmonary artery segment 33 mm No pulmonary artery emboli Bilateral hilar lymphadenopathy Prominent vascular congestion with extensive septal edema No visualized liver or splenic lesion Gallbladder is not visualized No pancreatic mass No renal or ureteral calculi, no hydronephrosis No bowel obstruction Normal appendix Calcific structure in the sigmoid colon Intact bladder No pelvic mass Severe osteopenia IMPRESSION: Prominent CHF Negative for pulmonary artery emboli Gallbladder is not visualized 28 mm calcified mass in the sigmoid colon without visualization of the gallbladder, I do not have a history of cholecystectomy, consider gallbladder ileus Recommend hepatobiliary sonography follow-up Kindly assumed care of this pleasant 59 y/o female with Hx of pulmonary fibrosis recently treated for PNA. Patient was hypoxic in the field with O2 sats in the 80 percentile correcting on low flow non-rebreather. D-Dimer markedly elevated prompting CTA. Patient diaeresis well and clinically stable. CT confirmed CHF in which patient will likely require in-house IV diaeresis however, patient also complains of RUQ abdominal pain and exam demonstrates marked tenderness prompting imaging of the abdomen/pelvis which demonstrates ? gall bladder ileus. MRCP will be obtained in the AM and final disposition will be determined. Fial diagnoses include acute CHF, Hypoxia, Hx of Pulmonary fibrosis, and R/O Gall Bladder Ileus. 06:00 - Care assumed by Dr. Feliz (emergency physician). Past medical, surgical, social and family history reviewed. Vitals and home medications reviewed. Results and treatment plan discussed. They will assume the care of the patient at this time and will follow the patient, pending MRCP.
[2025-02-09 18:29] LABS: Troponin I 0.055 ng/mL (0.0-0.045)
[2025-02-09 18:44] LABS: D-Dimer 3680 ng/mL (<600)
[2025-02-09 18:44] LABS: Influenza A Ag Negative; Influenza B Ag Negative
[2025-02-09 18:45] LABS: B-Type Natriuretic Peptide 1165 pg/mL (0-100)
--- NOTE | 2025-02-09 20:23 | XR_ITS ---
Examination: CTA chest, with intravenous contrast. CTA abdomen, with intravenous contrast. CTA pelvis, with intravenous contrast. 2-D sagittal and coronal reconstructions. 3-D reconstructions. Date and time of exam: February 09, 2025, 2047 hours INDICATIONS: Onset chest and abdominal pain today, clinical diagnosis pulmonary embolus CTDI vol (mgy) 13.19 DLP (MGycm) 669 Technique: Multiple CTA images, 2.0 mm slice thickness, obtained chest, abdomen, pelvis, with the high-resolution 64 slice scanner. 100 cc Isovue-370 is administered intravenously. Sagittal and coronal 2-D reconstructions are obtained. 3-D reconstructions, angiographic images are obtained. 3-D postprocessing, including vascular maximum intensity projections. Low dose protocols were performed. One or more of the following dose reduction techniques were used; automated exposure control, adjustment of the mA and/or KV according to patient size, use of iterative reconstruction technique. Findings: No thoracic aortic aneurysm dilatation or dissection. Main pulmonary artery segment 33 mm No pulmonary artery emboli Bilateral hilar lymphadenopathy Prominent vascular congestion with extensive septal edema No visualized liver or splenic lesion Gallbladder is not visualized No pancreatic mass No renal or ureteral calculi, no hydronephrosis No bowel obstruction Normal appendix Calcific structure in the sigmoid colon Intact bladder No pelvic mass Severe osteopenia IMPRESSION: Prominent CHF Negative for pulmonary artery emboli Gallbladder is not visualized 28 mm calcified mass in the sigmoid colon without visualization of the gallbladder, I do not have a history of cholecystectomy, consider gallbladder ileus Recommend hepatobiliary sonography follow-up
--- NOTE | 2025-02-09 20:35 | PC.RT ---
Patient placed on NIV of 12/6, RR12, FiO2 of 60% due to Respiratory distress and hypoxia. Patient tolerating settings as charted. Patient educated on how to remove mask if needed. NIV alarms on and audible.
[2025-02-10] VITALS (15 sets, daily range): BP systolic 106–125; BP diastolic 67–88; PULSE 78–100; RESP 12–30; TEMP 36.7–37.2; O2SAT 92–99
--- NOTE | 2025-02-10 | XR_ITS ---
MRI abdomen, without contrast. MRCP Date and time of exam: February 10, 2025, 1650 hours INDICATIONS: Abdominal pain shortness of breath chest pain today, CTA chest abdomen pelvis today prominent CHF gallbladder is not visualized 28 mm calcified mass in the sigmoid colon Technique: Multiple axial and coronal images of the abdomen have been obtained with the Siemens 1.5T MRI scanner. Images obtained included T1 weighted transverse images, T2-weighted transverse images, T2-weighted transverse images fat-suppressed, T2 weighted haste fat suppressed transverse images, T1 weighted images, in and out of phase images, T2-weighted coronal images, breath hold, T2 weighted haze coronal images as well as T2 weighted coronal thick slab images, MRCP. Findings: No focal liver lesions Gallbladder is not visualized Spleen is not enlarged Common hepatic common bile duct are not enlarged No pancreatic mass or edema No bowel obstruction Minimal bilateral hydronephrosis Edema in the subcutaneous fatty tissues at the flanks, clinical correlation advised IMPRESSION: Gallbladder is not visualized, I do not have a history of cholecystectomy, recommend gallbladder sonography follow-up as clinically warranted Common hepatic duct common bile duct normal size no stones Negative for pancreatitis No free fluid in the abdomen Aorta normal size
--- NOTE | 2025-02-10 06:26 | PD.EDADDENDU ---
Emergency Room Addendum Addendum Narrative: 0600: Care assumed from Dr. Howe, the previous shift emergency physician. Past medical, surgical, social and family history reviewed. Vitals and home medications reviewed. I will assume the care of the patient at this time, pending MRCP and final disposition. Please refer to the emergency department record for history and examination from initial visit.? Physical exam by me shows patient under no acute distress at this time. 1800: Patient was signed out to Dr. Howe. Past medical, surgical, social and family history reviewed. Vitals and home medications reviewed. Results and treatment plan discussed. They will assume the care of the patient at this time and will follow the patient, pending MRCP report.
--- NOTE | 2025-02-10 06:54 | PC.NURSE ---
PT DID WELL THROUGHOUT THE NIGHT, PT STATES SHE WOULS LIKE A BREAK FROM BIPAP IN A BIT, PT WAITING FOR MRCP THIS AM, NO COMPLAINTS THROUGHOUT THE NIGHT. WILL CONTINUE WITH PLAN OF CARE
[2025-02-10] MEDS: AZITHROMYCIN INJ 500 MG in SODIUM CHLORIDE 0.9% 250 ML 250 ML 250 MG IV (13:32)
--- NOTE | 2025-02-10 16:16 | PC.NURSE ---
1544 SPOKE W/RT AND MRI TO NOTIFY PT TAKEN OF BI-PAP PER MRI PT NEEDS TO BE OFF BI-PAP TO GET MRI, PT TOLERATING 6L NC WELL MAINTAINING 97%. MR STATED THEY WILL CALL BACK AT A LATER TIME TO COORDINATE PT GOING FOR IMG, PADDED PRODUCTS FINISHER MADE AWARE.
--- NOTE | 2025-02-10 16:51 | PC.NURSE ---
PT TO MRI AT THIS TIME.
--- NOTE | 2025-02-10 17:42 | PC.CC ---
Tyra Larkin is a 59-year-old female admitted for SOB. [employer] Salesperson made contact with Pt at bedside to complete initial and discuss discharge disposition. Pt brijesh Evans [phone] at bedside. Role and reason for the contact was explained to Pt. Demographic information was verified. Pt identified Brijesh Disla [phone] as surrogate decision maker. Pt needs support with all ADLs. Pt is bedbound and utilizes 4L of oxygen as source of DME. Pt?s choice of pharmacy is [facility]. PCP is [facility]. At time of discharge patient will return [facility], transportation will be needed. Discharge Plan: [facility] Next of Kin: Brijesh Disla [phone] PCP: [facility]
--- NOTE | 2025-02-10 18:07 | PD.EDADDENDU ---
Emergency Room Addendum Addendum Narrative: 1800: Care assumed from Dr. Feliz (emergency physician). Past medical, surgical, social and family history reviewed. Vitals and home medications reviewed. Results and treatment plan discussed. I will assume the care of the patient at this time and will follow the patient, pending MRCP radiology report. The following addendum documentation note is intended to reflect any pending information, findings, or radiology results not included in the patient?s initial chart by the previous shift scribe. RADIOLOGY Findings: No focal liver lesions Gallbladder is not visualized Spleen is not enlarged Common hepatic common bile duct are not enlarged No pancreatic mass or edema No bowel obstruction Minimal bilateral hydronephrosis Edema in the subcutaneous fatty tissues at the flanks, clinical correlation advised IMPRESSION: Gallbladder is not visualized, I do not have a history of cholecystectomy, recommend gallbladder sonography follow-up as clinically warranted Common hepatic duct common bile duct normal size no stones Negative for pancreatitis No free fluid in the abdomen Aorta normal size 19:26 - Discussed with resident for Dr. Torres for admission. Reviewed the patient?s HPI, PMHx, lab and/or radiology results. Discussed treatment plan. Will consult an admission to the hospitalist. Kindly asked to F/U on MRCP for this pleasant patient presenting with a acute CHF currently decreasing oxygen requirements. MRCP without acute process patient may likely require HIDA scan. Case discussed at length with hospitalist who agrees to access for observational hold. Final diagnosis acute exacerbation of CHF, Biliary colic, and Hx of Pulmonary fibrosis.
--- NOTE | 2025-02-10 20:41 | ECHO_ITS ---
Transthoracic Echo Report Ht (in): 60 Wt (lb): 162 Exam Location: Echo Lab Status: Inpatient Speedboat Driver: Carolyne Hall Indications: Procedure Performed: BP: 119 / 71 HR: 88 Technical Quality: Technically difficult study MEASUREMENTS (Male / Female) Normal Values 2D ECHO LV Diastolic Diameter PLAX 4.4 cm 4.2 - 5.9 / 3.9 - 5.3 cm LV Systolic Diameter PLAX 3.0 cm IVS Diastolic Thickness 0.6 cm 0.6 - 1.0 / 0.6 - 0.9 cm LVPW Diastolic Thickness 0.6 cm 0.6 - 1.0 / 0.6 - 0.9 cm LV Relative Wall Thickness 0.3 LVOT Diameter 1.9 cm Aortic Root Diameter 2.3 cm LA Systolic Diameter LX 2.8 cm 3.0 - 4.0 / 2.7 - 3.8 cm LV Ejection Fraction MOD BP 53.1 % >= 55 % LV Cardiac Index MOD BP 1245.6 cm?/min?m? LV Ejection Fraction MOD 4C 59.2 % LV Cardiac Index MOD 4C 2162.6 cm?/min?m? LV Ejection Fraction 4C AL 61.3 % LV Cardiac Index 4C AL 2367.7 cm?/min?m? LV Ejection Fraction MOD 2C 51.0 % LV Cardiac Index MOD 2C 716.0 cm?/min?m? LV Ejection Fraction 2C AL 48.4 % LV Cardiac Index 2C AL 705.1 cm?/min?m? LA Volume Index 15.4 cm?/m? 16 - 28 cm?/m? M-MODE Aortic Root Diameter MM 2.7 cm LA Systolic Diameter MM 3.4 cm LA Ao Ratio MM 1.3 AV Cusp Separation MM 1.7 cm DOPPLER AV Peak Velocity 151.0 cm/s AV Peak Gradient 9.1 mmHg AV Mean Gradient 5.0 mmHg AV Velocity Time Integral 27.9 cm LVOT Peak Velocity 105.0 cm/s LVOT Peak Gradient 4.4 mmHg LVOT Velocity Time Integral 16.8 cm LVOT Cardiac Index 2335.9 cm?/min?m? AV Area Cont Eq vti 1.7 cm? AV Area Cont Eq pk 2.0 cm? MV Area PHT 6.1 cm? Mitral E Point Velocity 52.4 cm/s Mitral A Point Velocity 51.4 cm/s Mitral E to A Ratio 1.0 LV E' Lateral Velocity 8.8 cm/s Mitral E to LV E' Lateral Ratio 5.9 LV E' Septal Velocity 6.2 cm/s Mitral E to LV E' Septal Ratio 8.5 TR Peak Velocity 376.0 cm/s TR Peak Gradient 56.6 mmHg FINDINGS Left Ventricle Normal left ventricular size, wall thickness, systolic function with no obvious regional wall motion abnormalities. Normal left ventricular diastolic filling pattern for age. The ejection fraction is visually estimated at 55-60 %. Right Ventricle The RV size is moderately increased with moderately decreases systolic function. The estimated right ventricular systolic pressure, 72 mmHg. RAP 15. Left Atrium The left atrium is normal by two-dimensional, color flow and Doppler imaging with no structural abnormalities, no thrombus formation present. Right Atrium The right atrial cavity size is severely increased. Atrial Septum The interatrial septum appears normal with no evidence of a shunt. Aorta The aorta is normal by two-dimensional, color flow and Doppler interrogation. Mitral Valve The mitral valve is normal by two-dimensional, color flow and Doppler interrogation. There is no significant mitral valve regurgitation, stenosis or prolapse. Aortic Valve The aortic valve is trileaflet and normal by two-dimensional, color flow and Doppler interrogation. There is no significant aortic valve regurgitation. Tricuspid Valve The tricuspid valve is normal by two-dimensional, color flow and Doppler interrogation. There is moderate tricuspid regurgitation. Pulmonic Valve The pulmonic valve is not well visualized. Vessels Less than 50% respiratory change in dimension of the inferior vena cava abnormal. Pericardium The pericardium is normal by two-dimensional imaging. There is no significant pericardial effusion. CONCLUSIONS Indication: CHF exacerbation Normal LV size, wall thickness. Normal LV diastolic filling pattern for age. Estimated EF at 55-60 %. The RV size is moderately increased with moderately decreases systolic function. The estimated RVSP, 72 mmHg. RAP 15. The RA cavity size is severely increased. Moderate TR. Less than 50% respiratory change in dimension of the inferior vena cava abnormal. Jaydon Cano (Electronically Signed) Final Date: 12 February 2025 07:37
--- NOTE | 2025-02-10 20:51 | PD.RESHP ---
Documentation for date of: 02/10/25 HPI History of Present Illness Chief complaint: Shortness of breath History of present illness: This is a 59 years old female with past medical history of CHF, hypothyroidism, anxiety presented to the ED with complaints of shortness of breath, leg swelling, abdominal pain, urinary frequency. At baseline she lives at her acute rehab and gets short of breath when she exerts. She has been experiencing shortness of breath and bilateral leg swelling since last 2 weeks. This leg swelling is progressively worsened and involves the abdomen face underneath the eyes and lips. She has been experiencing short of breath since 2 weeks even at rest. She denies any chest pain, chest palpitations but endorses occasional cough with sputum which is initially yellow in color but now it is clear. She admits she has been experiencing right upper quadrant abdominal pain after eating which is 10 out of 10 on pain scale on and off in nature since last 2 weeks. She endorses burning pain, frequency for 2 weeks but denies any flank pain, nausea and vomiting. ED visit today: Initial vitals BP 106/69, pulse rate 100, respiratory rate 20, temperature 98.3 saturating 88% on 4 L of oxygen. Pertinent labs are WBC 14.8 with neutrophil 87%, D-dimer 3680, BNP 1165, troponin 0.055 BUN 27, ABG?pH 7.31, pCO2 77, HCO3 39. Urine protein 3+, RBC 4+ creatinine clearance 2.7. Imaging chest x-ray on 02/09 shows enlarged cardiac contour with perihilar congestion Moderate CHF. EKG shows sinus tachycardia CT scan shows no gallbladder visualization and 28 mm calcified stone in sigmoid colon suspicious for gallbladder ileus. ED visit on 02/09-given Azithromycin 500 mg, ceftriaxone 2gm,1 L NS and furosemide Past medical history: Diagnosis of pulmonary fibrosis in 2019. CHF was diagnosed last year when she had exacerbation. History of hospitalization for pneumonia on 01/24. Hypothyroidism takes levothyroxine and anxiety takes sertraline. Past surgical history: 2 sections. Allergic history: Codeine, Benadryl, hydrocodone Social history: Denies alcohol smoking or any other drug usage. Review of Systems Review of Systems Systems Reviewed: All systems reviewed, normal except as documented Exam Vital Signs Temp Pulse Resp BP Pulse Ox O2 Del Method O2 Flow Rate 98.3 F 91 20 106/69 96 Nasal Cannula 5 02/10/25 18:14 02/10/25 18:14 02/10/25 18:14 02/10/25 18:14 02/10/25 18:14 02/10/25 18:14 02/10/25 18:14 FiO2 50 02/10/25 14:00 Narrative Exam GENERAL: NAD, AAOx3 HEENT: Moist mucosa. Eyes open, symmetrical, & clear CARDIO: Rapid regular rhythm Noted. No Murmurs. PULM: B/L Crackles noted on both lungs and wheezing. GI: Abdomen soft, distended and tenderness on RUQ ,suprapubic and left lower quadrant areas SKIN/MSK/EXT: No wounds/rashes/amputations, no pain on palpation.Edema on B/L legs upto knee 3+. Pedal pulses present B/L NEURO: AAOx3, no focal neuro deficits, able to move all 4 extremities Results: Labs 02/11/25 04:47 02/09/25 17:20 ABG Interpretation ABG results: 02/09/25 17:37 ABG pH 7.31 L ABG pCO2 77 H* ABG pO2 69 L ABG HCO3 39 H ABG O2 Saturation 93 ABG Base Excess 10 H Quality Measures Quality Measures none Medications Home Medications and Allergies Home Medications ?Medication ?Instructions ?Recorded ?Confirmed ?Type Levothyroxine * (SYNTHROID *) 125 mcg PO ACBR #0 tabs 07/30/14 02/11/25 History atorvastatin 20 mg tablet (Lipitor) 20 mg PO QHS hypercholesterolemia 01/13/24 02/11/25 History furosemide 40 mg tablet 40 mg PO QAM chf 01/13/24 02/11/25 History spironolactone 25 mg tablet 25 mg PO QDAY 01/13/24 02/11/25 History tizanidine 2 mg tablet 2 mg PO Q8H PRN muscle spasms 01/13/24 02/11/25 History acetaminophen 325 mg tablet 650 mg PO Q6H PRN fever or pain 02/11/25 02/11/25 History albuterol 90 mcg-budesonide 80 2 inh inhalation Q4H PRN shortness 02/11/25 02/11/25 History mcg/actuation HFA aerosol inhaler of breath aluminum-mag hydroxide-simethicone 10 ml PO Q8HR PRN acid indigestion 02/11/25 02/11/25 History 200 mg-200 mg-20 mg/5 mL oral susp (Advanced Antacid-Antigas) ascorbic acid (vitamin C) 500 mg 1,000 mg PO QDAY for supplement 02/11/25 02/11/25 History tablet (Vitamin C) azithromycin 250 mg tablet 250 mg PO QDAY pneumonia 02/11/25 02/11/25 History bisacodyl 10 mg rectal suppository 10 mg NC Q72H PRN constipation 02/11/25 02/11/25 History (Dulcolax (bisacodyl)) calcium carbonate 1,000 mg PO Q8HR PRN acid reflux 02/11/25 02/11/25 History ceftriaxone-lidocaine 1 g IM .pm pneumonia 02/11/25 02/11/25 History cranberry 1 tab PO DAILY supplement 02/11/25 02/11/25 History dextromethorphan HBr 15 ml PO [id number] PRN cough 02/11/25 02/11/25 History diclofenac sodium 1 % topical gel 1 ea topical Q12HR PRN mild pain 02/11/25 02/11/25 History (Arthritis Pain (diclofenac)) ipratropium 0.5 mg-albuterol 3 mg 3 ml inhalation Q6H PRN shortness 02/11/25 02/11/25 History (2.5 mg base)/3 mL nebulization of breath soln lactobacillus 1 cap PO DAILY probiotic supplement 02/11/25 02/11/25 History levothyroxine 150 mcg tablet 150 mcg PO QDAY hypothyroidism 02/11/25 02/11/25 History (Synthroid) magnesium hydroxide 400 mg/5 mL 30 ml PO Q72H PRN constipation 02/11/25 02/11/25 History oral suspension peg [id number] 1 1 drp ophthalmic (eye) Q4H PRN dry 02/11/25 02/11/25 History %-0.2 %-0.2 % eye drops eyes (Artificial Tears ([id number])) sertraline 25 mg tablet 50 mg PO HS depression 02/11/25 02/11/25 History simethicone 2 tab PO Q4HR PRN gas 02/11/25 02/11/25 History sodium phosphates 19 gram-7 118 ml NC Q72H PRN constipation 02/11/25 02/11/25 History gram/118 mL enema (Enema) zinc oxide 1 ea topical .q shift excoriation 02/11/25 02/11/25 History Allergies Allergy/AdvReac Type Severity Reaction Status Date / Time codeine Allergy Severe Chest Pain Verified 02/11/25 01:16 diphenhydramine (From Allergy Severe Chest Pain Verified 02/11/25 01:16 Benadryl) hydrocodone bit Allergy Severe DIZZY, Verified 02/11/25 01:16 DYSPNEA tramadol Allergy Verified 02/11/25 01:16 Visit Medications Acetaminophen (Acetaminophen 325 Mg Tablet) 650 mg PO Q6H PRN PRN Reason: Fever >100.4 Stop: 03/12/25 20:27 Acetaminophen (Acetaminophen 325 Mg Tablet) 650 mg PO Q6H PRN PRN Reason: PAIN SCALE 1-3 (mild Stop: 03/12/25 20:27 Bumetanide (Bumetanide Inj 0.25 Mg/Ml Vial 4 Ml) 1 mg IVP QDAY KATIE Stop: 03/13/25 08:59 Heparin Sodium (Porcine) (Heparin Sod Inj 5000 Unit/Ml Vial) 5,000 unit SC BID KATIE Stop: 02/24/25 20:59 Azithromycin 500 mg/ Sodium (Chloride) 250 mls @ 250 mls/hr IV QDAY KATIE Stop: 02/16/25 17:00 Azithromycin 500 mg/ Sodium (Chloride) 250 mls @ 250 mls/hr IV QDAY KATIE Stop: 02/17/25 20:44 Cefepime HCl 1 gm/ Sodium (Chloride) 50 mls @ 100 mls/hr IV Q8HR KATIE Stop: 02/17/25 20:43 Ondansetron HCl (Ondansetron Inj 2 Mg/Ml Inj 2 Ml) 4 mg IVP Q6H PRN; Protocol PRN Reason: NAUSEA OR VOMITING Stop: 03/12/25 20:27 Sennosides (Senna Tablet) 1 tab PO QDAY PRN; Protocol PRN Reason: constipation Stop: 03/12/25 20:27 Discontinued Medications Albuterol/Ipratropium (Albuterol/Ipratropium (Duoneb) Rt Quiana 3 Ml Nebu) 3 ml INH X1 ONE Stop: 02/09/25 17:02 Last Admin: 02/09/25 17:38 Dose: 3 ml Furosemide (Furosemide Inj 10 Mg/Ml 4ml Vial) 40 mg IVP X1 ONE Stop: 02/09/25 17:34 Last Admin: 02/09/25 17:54 Dose: 40 mg Ceftriaxone Sodium 2 gm/ (Sodium Chloride) 50 mls @ 100 mls/hr IV X1 ONE Stop: 02/09/25 17:28 Last Infusion: 02/09/25 18:13 Dose: Infused Sodium Chloride (Ns) 1,000 mls @ 100 mls/hr IV .Q10H ONE Stop: 02/10/25 02:58 Last Infusion: 02/10/25 04:19 Dose: Infused Azithromycin 500 mg/ Sodium (Chloride) 250 mls @ 250 mls/hr IV X1 ONE Stop: 02/09/25 18:14 Last Infusion: 02/09/25 19:07 Dose: Infused Azithromycin 500 mg/ Sodium (Chloride) 250 mls @ 250 mls/hr IV 02/10/25 ONE Stop: 02/10/25 13:59 Last Infusion: 02/10/25 14:37 Dose: Infused Assessment & Plan Plan This is a 59 years old female with past medical history of CHF, hypothyroidism, anxiety presented with shortness of breath, bilateral leg swelling, abdominal pain and burning pee. She was admitted for acute exacerbation of CHF. # Acute Exacerbation of CHF. # Pulmonary hypertension Shortness of breath, bilateral leg swelling, facial swelling. History of CHF and not taking water pills since 4 days Saturating 88% on 4 L of oxygen and pulse rate 100. On physical examination bilateral crackles over the both lungs. BNP 1165, D-dimer 368 0, Trope 0.055 Chest x-ray bilateral pulmonary congestion and enlarged cardiac contour. ?Ordered BiPAP. ?Ordered echo sees Dr. Garrido. ?Strict inputs and outputs and water restriction of 1.8 L. Strict weight monitoring. ?Bumex 1 g ordered. ?Ordered PT. # Acute hypoxic respiratory failure # Suspect atypical versus gram negative dalia pneumonia #pulmonary fibrosis WBC 14.8, ABG?pH 7.31, pCO2 77, HCO3 39 Sent for Blood cultures yesterday. ?Started on cefepime and azithromycin. ?Ordered ABG after starting BiPAP. #28mm calcified mass on sigmoid colon # Right upper quadrant pain Pain after meals since 2 weeks. ?CT abdomen and MRCP shows no gallbladder visualization but 28 mm calcified mass in sigmoid colon. - Will consult GI regarding calcified mass Consider Hida scan ?#Hypothyroidism Started on home medication levothyroxine 125 mcg. ?#Anxiety Started on home medication sertraline. Code status: Full DVT prophylaxis: Heparin Diet: Cardiac. Cardoza: None Lines: PIV Supplemental O2: BipaP Disposition: Tele I discussed this case with my senior Dr. Davenport and my attending Dr. Torres. Juarez Santos MD PGY1 Attending Provider Attestation/Addendum I, Debby Torres, DO, attest that I was physically present for the dodge portions of the service and evaluated the patient with the resident and I reviewed and discussed the case with the resident and agree with the resident's findings and plans of care as documented above Patient is an 59-year-old female with past medical history of pulmonary fibrosis on 4 L oxygen at home, hypothyroidism, cervical cancer status post chemoradiation, pulmonary hypertension who presented to the ED due to lethargy and worsening dyspnea on exertion.? She states that this has been ongoing for the past 2 weeks and progressively worse with swelling in her bilateral lower extremities and abdomen.? Patient at baseline is very weak and only able to transfer to use the restroom, but mostly wheelchair-bound.? Patient was recently treated for pneumonia at her SNF with Rocephin, but no improvements of her respiratory status.? She endorses having cough and productive sputum.? In the ED, patient was noted to have an elevated D-dimer.? She underwent chest abdomen pelvis CTA, particularly since she was noted to have abdominal pain on exam in the ED.? CTA shows prominent CHF, negative for pulmonary artery emboli and a calcified mass in the sigmoid colon.? An MRCP was done as the gallbladder was not visualized.? There are no stones in her common hepatic duct.? No evidence of pancreatitis or free fluid in the abdomen.? However, she is noted to have some edema that appears consistent with colopathy.? Patient is quite tender on palpation, particularly in the right upper quadrant.? She is noted also to have edema in her subcutaneous tissues on CT.? She was able to tolerate her diet in the ED and denies any nausea or, vomiting or diarrhea at this time.? Decision was made to admit patient to telemetry for further workup of acute on chronic respiratory failure secondary to acute CHF exacerbation.? Will start patient on azithromycin and cefepime as she is noted to still have some infiltrates in her right lower lobe.? Will start patient on Bumex 1 mg IV daily given worsening edema.? Will check TSH and repeat echocardiogram.? Patient denies any fevers or chills otherwise.? ABG showed CO2 retention, will place patient on BiPAP.? Will repeat ABG after BiPAP placement. Calcified colon mass noted on CTA, will consult GI as thaty may also be contributing to patient's abdominal pain.
[2025-02-10] MEDS: CEFEPIME INJ 1 GM in SODIUM CHLORIDE 0.9% (Popper) 50 ML IV (21:19)
[2025-02-10] MEDS: HEPARIN SOD INJ 5000 UNIT/ML VIAL SC (21:19)
[2025-02-10] MEDS: ATORVASTATIN CALCIUM 20 MG TABLET PO (21:19)
[2025-02-11] VITALS (14 sets, daily range): BP systolic 99–159; BP diastolic 63–109; PULSE 70–99; RESP 12–28; TEMP 36.6–37.1; O2SAT 90–99; BMI 32.3; BMI 12.0
[2025-02-11 00:12] LABS: Base Excess 9 (-3-3); HCO3 39 mEq/L (20-26); Inspired O2, VO2 Liters 6 L/min; O2 Saturation 94 % (91-98); PCO2 81 mmHg (32.0-48.0); PO2 72 mmHg (83-108); pH, Arterial 7.29 (7.35-7.45)
[2025-02-11 00:13] LABS: Allen Test Performed/OK; Puncture Site Left Radial
[2025-02-11 02:15] LABS: Base Excess 9 (-3-3); HCO3 39 mEq/L (20-26); Inspired Oxygen, FIO2 50 %; O2 Saturation 95 % (91-98); PCO2 79 mmHg (32.0-48.0); PO2 76 mmHg (83-108); pH, Arterial 7.30 (7.35-7.45)
[2025-02-11 02:17] LABS: Puncture Site Left Radial
[2025-02-11 02:18] LABS: Allen Test Performed/OK
[2025-02-11 05:06] LABS: Base Excess 10 (-3-3); HCO3 39 mEq/L (20-26); Inspired Oxygen, FIO2 50 %; O2 Saturation 95 % (91-98); PCO2 77 mmHg (32.0-48.0); PO2 73 mmHg (83-108); pH, Arterial 7.32 (7.35-7.45)
[2025-02-11 05:08] LABS: Allen Test Performed/OK; Puncture Site Left Radial
[2025-02-11] MEDS: CEFEPIME INJ 1 GM in SODIUM CHLORIDE 0.9% (Popper) 50 ML IV ×3 (05:16→21:52)
[2025-02-11] MEDS: LEVOTHYROXINE SODIUM 125 MCG TABLET PO (05:44)
[2025-02-11 05:47] LABS: Basophils # (Auto) 0.0 Thou/mm3 (0.0-0.2); Basophils % (Auto) 0 % (0-2.5); Eosinophils # (Auto) 0.0 Thou/mm3 (0.0-0.5); Eosinophils % (Auto) 0 % (0-10); Hematocrit 42.3 % (36.0-46.0); Hemoglobin 12.0 g/dL (12.0-16.0); Immature Granulocytes Auto 0.04 Thou/mm3 (0.00-0.00); Lymphocytes # (Auto) 1.1 Thou/mm3 (1.0-4.8); Lymphocytes % (Auto) 9 % (10-50); Mean Corpuscular HGB Conc 28.4 g/dl (31.0-37.0); Mean Corpuscular Hemoglobin 26.7 pg (25.0-35.0); Mean Corpuscular Volume 94 fL (80-100); Monocytes # (Auto) 1.6 Thou/mm3 (0.0-0.8); Monocytes % (Auto) 12 % (0-12); Neutrophils # (Auto) 10.3 Thou/mm3 (1.8-7.7); Neutrophils % (Auto) 78 % (37-80); Nucleated Red Blood Cell # 0.00 Thou/mm3 (0.00-0.00); Nucleated Red Blood Cell % 0 /100 WBC (0); Platelet Count 247 Thou/mm3 (140-440); RDW Standard Deviation 56.3 fL (36.4-46.3); Red Blood Count 4.49 Miln/mm3 (4.00-5.20); White Blood Count 13.1 Thou/mm3 (3.6-11.0)
[2025-02-11 06:22] LABS: Alanine Aminotransferase 25 U/L (10-49); Albumin, Serum 3.7 gm/dL (3.4-4.8); Albumin/Globulin Ratio 1.1 (1.2-2.2); Alkaline Phosphatase 111 U/L (46-116); Anion Gap 8 (7-16); Aspartate Amino Transferase 33 U/L (0-34); BUN/Creatinine Ratio 27 Ratio (12-20); Bilirubin,Total 0.4 mg/dL (0.3-1.2); Blood Urea Nitrogen 16 mg/dL (9-23); Calcium 9.4 mg/dL (8.3-10.6); Calcium (Corrected) 9.6 mg/dL (8.5-10.1); Carbon Dioxide 33.5 mMol/L (20.0-31.0); Cardiac Risk Estimate 4.2 RATIO (3.7-5.6); Chloride 102 mMol/L (98-107); Cholesterol 127 mg/dL (132-200); Creatinine (Component) 0.6 mg/dL (0.6-1.3); Estimated Creatinine Clearance 90.2 mL/min (>60); Globulin 3.5 gm/dL (2.3-3.5); Glucose 95 mg/dL (74-106); HDL Cholesterol 30 mg/dL (40-60); LDL Cholesterol,Calculated 83 mg/dL (0-130); Magnesium 2.5 mg/dL (1.6-2.6); Osmolality,Calculated 286 (275-295); Phosphorous 3.2 mg/dL (2.4-5.1); Potassium 4.7 mMol/L (3.4-5.1); Sodium 143 mMol/L (136-145); Thyroid Stimulating Hormone 0.36 uIU/mL (0.55-4.78); Total Protein 7.2 gm/dL (5.7-8.2); Triglycerides 68 mg/dL (30-150); eGFR > 60 See Note
--- NOTE | 2025-02-11 08:01 | PC.NURSE ---
Notified MD Quresh in regards to pts current full status d/t having a POLST from [facility] being DNR. Per md will come see pt to confirm code status and update
--- NOTE | 2025-02-11 08:19 | PC.RT ---
Patient taken off BIPAP to eat breakfast at 0808 and placed on 6L nasal cannula patient tolerated NC well saturation was 96/97. Educated patient to call once she was done eating or if she felt short of breath so bipap could be placed back on bipap.
[2025-02-11] MEDS: HEPARIN SOD INJ 5000 UNIT/ML VIAL SC ×2 (09:34→21:25)
[2025-02-11] MEDS: ACETAMINOPHEN 325 MG TABLET 650 MG PO (09:34)
[2025-02-11] MEDS: AZITHROMYCIN INJ 500 MG in SODIUM CHLORIDE 0.9% 250 ML 250 ML 250 MG IV (09:34)
[2025-02-11] MEDS: BUMETANIDE INJ 0.25 MG/ML VIAL 4 ML 1 MG IVP (09:35)
--- NOTE | 2025-02-11 09:45 | PD.RESPRO ---
Documentation for date of: 02/11/25 Subjective Subjective Interval history: Patient was admitted overnight. Reports two weeks of lower abdominal pain with associated shortness of breath and leg swelling. Denies any history of right upper quadrant pain. Reports that occasionally senior living hold her Lasix dose if her blood pressures are soft. Per daughter at bedside, patient has had stone in gallbladder for years now but no surgical intervention because they believed her heart was not in good condition. Had appointment with Dr. Bui tomorrow but has rescheduled. Labs reviewed. WBC 13.1, potassium 4.7, bicarb decreased from 37-33. BUN 16, creatinine 0.6 CTA showed no PE but is not visualized, Demeter calcified mass in sigmoid colon. MRCP realized. Bladder ultrasound, gallbladder not visualized. Continue IV diuresis of IV Bumex 1 mg daily. Continue cefepime and azithromycin for possible pneumonia. GI consulted for gallstone and sigmoid colon pain management with Tylenol and ketorolac as patient is allergic to codeine, hydrocodone and tramadol. Continue home medications of Synthroid and sertraline. Exam Vital Signs Temp Pulse Resp BP Pulse Ox O2 Del Method O2 Flow Rate 97.9 F 94 23 H 159/109 H 97 BiPAP 6 02/11/25 08:00 02/11/25 08:08 02/11/25 08:08 02/11/25 08:00 02/11/25 08:08 02/11/25 08:00 02/11/25 00:00 FiO2 50 02/11/25 08:08 Narrative Exam GENERAL: AOx3, in significant pain, breathing shallow due to pain HEENT: mucous membranes moist, bilateral sclera anicteric CARDIOVASCULAR: regular rate and rhythm, S1/S2 present, no murmurs appreciated PULMONARY: decreased breath sounds bilaterally, b/l crackles ABDOMINAL: soft, non-distended, no rebound/guarding, bowel sounds present, moderate tenderness to palpation lower abdomen/suprapubic EXTREMITIES: BLE trace pitting edema up to hips SKIN: warm and dry, intact, no rashes NEURO: CN II-XII grossly intact, no focal deficits, alert, following commands Objective Labs 02/11/25 04:47 02/11/25 04:47 Labs: Laboratory Results - last 24 hr 02/11/25 02/11/25 02/11/25 00:05 02:08 04:47 WBC 13.1 H RBC 4.49 Hgb 12.0 Hct 42.3 MCV 94 MCH 26.7 MCHC 28.4 L RDW Std Deviation 56.3 H Plt Count 247 Neut % (Auto) 78 Lymph % (Auto) 9 L Dolores % (Auto) 12 Eos % (Auto) 0 Baso % (Auto) 0 Neut # (Auto) 10.3 H Lymph # (Auto) 1.1 Dolores # (Auto) 1.6 H Eos # (Auto) 0.0 Baso # (Auto) 0.0 Immature Gran # (Auto) 0.04 H Absolute Nucleated RBC 0.00 Immature Gran % 0 Nucleated RBC % 0 Puncture Site Left Radial Left Radial ABG pH 7.29 L 7.30 L ABG pCO2 81 H* 79 H* ABG pO2 72 L 76 L ABG HCO3 39 H 39 H ABG O2 Saturation 94 95 ABG Base Excess 9 H 9 H Oxygen Liter Flow 6 FiO2 50 Sodium 143 Potassium 4.7 D Chloride 102 Carbon Dioxide 33.5 H Anion Gap 8 BUN 16 Creatinine 0.6 Estim Creat Clear Calc 90.2 eGFR > 60 BUN/Creatinine Ratio 27 H Glucose 95 Calculated Osmolality 286 Calcium 9.4 Corrected Calcium 9.6 Phosphorus 3.2 Magnesium 2.5 Total Bilirubin 0.4 AST 33 ALT 25 Alkaline Phosphatase 111 Total Protein 7.2 Albumin 3.7 Globulin 3.5 Albumin/Globulin Ratio 1.1 L Triglycerides 68 Cholesterol 127 L LDL Cholesterol, Calc 83 HDL Cholesterol 30 L Cholesterol/HDL Ratio 4.2 TSH 0.36 L 02/11/25 05:00 WBC RBC Hgb Hct MCV MCH MCHC RDW Std Deviation Plt Count Neut % (Auto) Lymph % (Auto) Dolores % (Auto) Eos % (Auto) Baso % (Auto) Neut # (Auto) Lymph # (Auto) Dolores # (Auto) Eos # (Auto) Baso # (Auto) Immature Gran # (Auto) Absolute Nucleated RBC Immature Gran % Nucleated RBC % Puncture Site Left Radial ABG pH 7.32 L ABG pCO2 77 H* ABG pO2 73 L ABG HCO3 39 H ABG O2 Saturation 95 ABG Base Excess 10 H Oxygen Liter Flow FiO2 50 Sodium Potassium Chloride Carbon Dioxide Anion Gap BUN Creatinine Estim Creat Clear Calc eGFR BUN/Creatinine Ratio Glucose Calculated Osmolality Calcium Corrected Calcium Phosphorus Magnesium Total Bilirubin AST ALT Alkaline Phosphatase Total Protein Albumin Globulin Albumin/Globulin Ratio Triglycerides Cholesterol LDL Cholesterol, Calc HDL Cholesterol Cholesterol/HDL Ratio TSH ABG Interpretation ABG results: 02/09/25 02/11/25 02/11/25 17:37 00:05 02:08 ABG pH 7.31 L 7.29 L 7.30 L ABG pCO2 77 H* 81 H* 79 H* ABG pO2 69 L 72 L 76 L ABG HCO3 39 H 39 H 39 H ABG O2 Saturation 93 94 95 ABG Base Excess 10 H 9 H 9 H 02/11/25 05:00 ABG pH 7.32 L ABG pCO2 77 H* ABG pO2 73 L ABG HCO3 39 H ABG O2 Saturation 95 ABG Base Excess 10 H Quality Measures Quality Measures none Assessment & Plan Assessment Current Active Medications: Generic Name Dose Route Start Last Admin Trade Name Freq PRN Reason Stop Dose Admin Acetaminophen 650 mg 02/10/25 20:28 Acetaminophen 325 Mg Tablet PO 03/12/25 20:27 Q6H PRN Fever >100.4 Acetaminophen 650 mg 02/10/25 20:28 Acetaminophen 325 Mg Tablet PO 03/12/25 20:27 Q6H PRN PAIN SCALE 1-3 (mild Atorvastatin Calcium 20 mg 02/10/25 21:00 02/10/25 21:19 Atorvastatin Calcium 20 Mg Tablet PO 03/12/25 20:59 20 mg HS KATIE Administration Bumetanide 1 mg 02/11/25 09:00 Bumetanide Inj 0.25 Mg/Ml Vial 4 Ml IVP 03/13/25 08:59 QDAY KATIE Heparin Sodium (Porcine) 5,000 unit 02/10/25 21:00 02/10/25 21:19 Heparin Sod Inj 5000 Unit/Ml Vial SC 02/24/25 20:59 5,000 unit BID KATIE Administration Azithromycin 500 mg/ Sodium 250 mls @ 250 mls/hr 02/11/25 09:00 Chloride IV 02/18/25 08:59 QDAY KATIE Cefepime HCl 1 gm/ Sodium 50 mls @ 100 mls/hr 02/11/25 06:00 02/11/25 05:16 Chloride IV 02/18/25 05:59 100 mls/hr Q8HR KATIE Administration Levothyroxine Sodium 125 mcg 02/11/25 06:00 02/11/25 05:44 Levothyroxine Sodium 125 Mcg Tablet PO 03/13/25 05:59 125 mcg ACBR KATIE Administration Ondansetron HCl 4 mg 02/10/25 20:28 Ondansetron Inj 2 Mg/Ml Inj 2 Ml IVP 03/12/25 20:27 Q6H PRN NAUSEA OR VOMITING Protocol Sennosides 1 tab 02/10/25 20:28 02/11/25 05:44 Senna Tablet PO 03/12/25 20:27 1 tab QDAY PRN Administration constipation Protocol Sertraline HCl 50 mg 02/11/25 21:00 Sertraline Hcl 25 Mg Tablet PO 03/13/25 20:59 HS KATIE Plan Tyra Larkin 59F pmhx significant for HFpEF (60-65%, 07/2023), 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 #Acute hypoxic respiratory failure 2/2 #Acute on chronic HFpEF (60-65%, 07/2023) #Respiratory acidosis #Leukocytosis #Moderate pulmonary hypertension #NSTEMI likely type II, 2/2 fluid overload Presents with dyspnea at rest, worsening SOB, BLE swelling, and facial swelling on home O2 4L. Patient reports rehab center occasionally holds her Lasix due to soft BP. On admission saturating 88% on 4 L of oxygen, HR 100, WBC 14.8, BNP 1165, D-dimer 368, troponin 0.055->0.028, ABG 7.31/77/69/39 with repeat ABGs pH 7.29-7.32. On physical examination bilateral crackles over the both lungs. Follows Dr. Garrido and Dr. Kim outpatient. 02/09 CXR bilateral pulmonary congestion and enlarged cardiac contour. 02/09 CTA chest/AP showed prominent CHF, negative for PE, bilateral hilar lymphadenopathy, GB not visualized, 28mm calcified mass in sigmoid colon wo visualization of GB BCx NGTD Ddx: likely HFpEF exacerbation vs worsening pulmonary fibrosis vs aspiration PNA vs CAP vs reactive leukocytosis Plan: - IV bumex 1 mg QD with net goal neg 2-3L over 24h - Cefepime (02/10- ) and azithromycin (02/11- - F/u echo - Strict I&Os, daily weights, 1.8L fluid restriction - BiPAP and supplemental O2 as needed to keep SpO2 >90% #28mm calcified mass on sigmoid colon, likely gallstone #Severe lower abdominal pain Pain after meals since 2 weeks 02/09 at lower abdomen/suprapubic area. Extremely tender to palpation. States no BM for the past 5 days prior to admission. Denies hx of cholcystectomy. 07/2023 Liver US, showed 2 cm gallstone. 08/2024 CTAP showed 3 cm gallstone with calcification. 10/2024 CTAP on reivew showed same large stone in GB. 02/09 CTA chest/AP showed prominent CHF, negative for PE, bilateral hilar lymphadenopathy, GB not visualized, 28mm calcified mass in sigmoid colon wo visualization of GB 02/10 MRCP: GB not visualized, common hepatic duct common bile duct normal size no stones, neg pancreatitis, no free fluid in abdomen, aorta normal size, minimal bilateral hydrenophrosis, edema in subcutaneous fatty tissues at the flanks 02/10 GB US: GB not visualized Plan: - GI consulted, recs appreciated #Hypothyroidism TSH low 0.36 T4 wnl 1.39. Plan: - Restart home medication levothyroxine 150 mcg ACBR #Anxiety Restart home medication sertraline 50 mg qhs #Pulmonary fibrosis 2/ pesticides Stated has appointment tomorrow with Dr. Kim. Has never been on medication for pulmonary fibrosis. Plan: - CTM O2 saturation and if patient cannot tolerate deescalation of O2 despite IV diuresis, consider consulting pulmonology Hospital management: Lines: PIV Diet: cardiac Bowel: Senna prn GI prophylaxis: famotidine 20 mg BID DVT prophylaxis: heparin q12h Disposition: med tele pending GI consult and for IV diuresis CODE STATUS: FULL CODE Plan of care discussed with attending Dr. Umanzor. Shaina Scott DO PGY-1 Internal Medicine Attending Provider Attestation/Addendum I have discussed and was present for the essential components of the history, physical examination, diagnosis, and treatment plan with the resident. I agree with the patient's care as documented by the resident and amended herein by me. Hira Umanzor DO. Although this document has been carefully reviewed, there may still be some phonetic and other typographical errors. These errors are purely grammatical due to imperfections in the software program and should not be construed in any way to compromise the substance of the patient's medical care during this visit.
--- NOTE | 2025-02-11 10:04 | XR_ITS ---
Examination: Abdomen sonogram, Limited Date and time of exam: February 11, 2025, 1210 hours INDICATIONS: Upper abdominal pain this week Technique: Real-time delaney scale transabdominal sonographic images of the upper abdomen obtained. Findings: Gallbladder not visualized Normal common bile duct 0.2 cm Pancreatic head 2.4 cm Liver 12.4 cm mildly irregular contour Normal hepatopetal portal venous flow Patent IVC IMPRESSION: Gallbladder not visualized. Normal common bile duct
[2025-02-11 11:34] LABS: Base Excess, Venous 12 (-3-3); O2 Saturation, Venous 100 % (96-97); PCO2, Venous 53 mmHg (36-56); PO2, Venous 147 mmHg (15-58); pH, Venous 7.47 (7.33-7.66)
[2025-02-11 13:11] LABS: Free T4 (Free Thyroxine) 1.39 ng/dL (0.89-1.76); Troponin I 0.028 ng/mL (0.0-0.045)
--- NOTE | 2025-02-11 14:52 | PC.SS ---
Rounding note: Dr. Washington consulted; patient has mass in colon. Patient to return to [facility] when appropriate.
[2025-02-11] MEDS: KETOROLAC INJ 30 MG/ML VIAL IVP (14:53)
--- NOTE | 2025-02-11 17:00 | PD.RESCONSUL ---
HPI Data of Consult Requesting Physician: Debby Torres DO Admitting Provider: Debby Torres DO Attending Provider: Debby Torres DO Primary Care Provider: Physician No Primary/Family Consult Narrative Reason for consult: 28mm suspected GB in the sigmoid colon History of present illness: Ms. Colon is a 59 yo woman with HFpEF (60-65 2023 echo), pesticide enduced pulmonary fibrosis, hypothyroidsim, depression, and known gall stones with no reported history of cholecystectomy who was admitted for acute hypoxic respiratory failure. On admission she endorced 02/09 post prandial lower abdominal pain. She has not had a BM for the pas 7 days. On this admission GB has not been visualized on imaging, CTAP, Abdominal US, nor MRCP. on prior imaging studies, a 2-3cm stone has been visualized on US and on CTAP in the GB. On this admission GB is abscent and in the sigmoid colon there is a 28cm mass, suspected to be the stone previously seen in the GB. Common hepatic duct and common bile duct are visualized. Pt is currently undergoing IV diuresis with Bumex for CHF exaccerbation and acute hypoxic respiratry failure. cc:: cc: Debby Torres DO Exam Vital Signs Temp Pulse Resp BP Pulse Ox O2 Del Method O2 Flow Rate 98.2 F 97 18 99/63 94 L Nasal Cannula 5 02/11/25 16:00 02/11/25 16:00 02/11/25 16:00 02/11/25 16:00 02/11/25 16:00 02/11/25 16:00 02/11/25 16:00 FiO2 50 02/11/25 08:08 Narrative Exam GENERAL: no acute distress, AAO x3, comfortably laying in bed HEENT: Head AT/ NC. Mucous membranes moist. PERRL. NECK: Supple, no lymphadenopathy, no carotid bruits. CARDIOVASCULAR: RRR. Normal S1/S2, No m/r/g. trace edema bilaterall RESPIRATORY: bilateral crackles. speaks in short sentences GASTROINTESTINAL: Abdomen soft, diffusely tender, worse suprapubic but tender to light palpation and percussion. Bowel sounds hypoactive MUSCULOSKELETAL:? No cyanosis or edema, no visible joint swelling. NEUROLOGICAL: CN II-XII grossly intact. No focal deficits. Sensation intact, symmetric. PSYCHIATRIC: Awake and alert, not agitated, normal mood and affect. SKIN: No obvious rashes, no jaundice, normal turgor. Results Labs 02/12/25 07:00 02/12/25 07:00 Labs: Short CBC 02/11/25 Range/Units 04:47 WBC 13.1 H (3.6-11.0) Thou/mm3 Hgb 12.0 (12.0-16.0) g/dL Hct 42.3 (36.0-46.0) % Plt Count 247 (140-440) Thou/mm3 BMP 02/11/25 04:47 Sodium 143 Potassium 4.7 D Chloride 102 Carbon Dioxide 33.5 H BUN 16 Creatinine 0.6 Glucose 95 Calcium 9.4 Cardiac Enzymes 02/11/25 Range/Units 11:20 Troponin I 0.028 (0.0-0.045) ng/mL Liver Function 02/11/25 Range/Units 04:47 Total Bilirubin 0.4 (0.3-1.2) mg/dL AST 33 (0-34) U/L ALT 25 (10-49) U/L Alkaline Phosphatase 111 (46-116) U/L Albumin 3.7 (3.4-4.8) gm/dL ABG Interpretation ABG results: 02/09/25 02/11/25 02/11/25 17:37 00:05 02:08 ABG pH 7.31 L 7.29 L 7.30 L ABG pCO2 77 H* 81 H* 79 H* ABG pO2 69 L 72 L 76 L ABG HCO3 39 H 39 H 39 H ABG O2 Saturation 93 94 95 ABG Base Excess 10 H 9 H 9 H VBG pH VBG pCO2 VBG pO2 VBG Base Excess 02/11/25 02/11/25 05:00 11:20 ABG pH 7.32 L ABG pCO2 77 H* ABG pO2 73 L ABG HCO3 39 H ABG O2 Saturation 95 ABG Base Excess 10 H VBG pH 7.47 VBG pCO2 53 VBG pO2 147 H VBG Base Excess 12 H Quality Measures Quality Measures VTE prophylaxis Medications Home Medications and Allergies Home Medications ?Medication ?Instructions ?Recorded ?Confirmed ?Type Levothyroxine * (SYNTHROID *) 125 mcg PO ACBR #0 tabs 07/30/14 02/11/25 History atorvastatin 20 mg tablet (Lipitor) 20 mg PO QHS hypercholesterolemia 01/13/24 02/11/25 History furosemide 40 mg tablet 40 mg PO QAM chf 01/13/24 02/11/25 History spironolactone 25 mg tablet 25 mg PO QDAY 01/13/24 02/11/25 History tizanidine 2 mg tablet 2 mg PO Q8H PRN muscle spasms 01/13/24 02/11/25 History acetaminophen 325 mg tablet 650 mg PO Q6H PRN fever or pain 02/11/25 02/11/25 History albuterol 90 mcg-budesonide 80 2 inh inhalation Q4H PRN shortness 02/11/25 02/11/25 History mcg/actuation HFA aerosol inhaler of breath aluminum-mag hydroxide-simethicone 10 ml PO Q8HR PRN acid indigestion 02/11/25 02/11/25 History 200 mg-200 mg-20 mg/5 mL oral susp (Advanced Antacid-Antigas) ascorbic acid (vitamin C) 500 mg 1,000 mg PO QDAY for supplement 02/11/25 02/11/25 History tablet (Vitamin C) azithromycin 250 mg tablet 250 mg PO QDAY pneumonia 02/11/25 02/11/25 History bisacodyl 10 mg rectal suppository 10 mg DC Q72H PRN constipation 02/11/25 02/11/25 History (Dulcolax (bisacodyl)) calcium carbonate 1,000 mg PO Q8HR PRN acid reflux 02/11/25 02/11/25 History ceftriaxone-lidocaine 1 g IM .pm pneumonia 02/11/25 02/11/25 History cranberry 1 tab PO DAILY supplement 02/11/25 02/11/25 History dextromethorphan HBr 15 ml PO [id number] PRN cough 02/11/25 02/11/25 History diclofenac sodium 1 % topical gel 1 ea topical Q12HR PRN mild pain 02/11/25 02/11/25 History (Arthritis Pain (diclofenac)) ipratropium 0.5 mg-albuterol 3 mg 3 ml inhalation Q6H PRN shortness 02/11/25 02/11/25 History (2.5 mg base)/3 mL nebulization of breath soln lactobacillus 1 cap PO DAILY probiotic supplement 02/11/25 02/11/25 History levothyroxine 150 mcg tablet 150 mcg PO QDAY hypothyroidism 02/11/25 02/11/25 History (Synthroid) magnesium hydroxide 400 mg/5 mL 30 ml PO Q72H PRN constipation 02/11/25 02/11/25 History oral suspension peg [id number] 1 1 drp ophthalmic (eye) Q4H PRN dry 02/11/25 02/11/25 History %-0.2 %-0.2 % eye drops eyes (Artificial Tears ([id number])) sertraline 25 mg tablet 50 mg PO HS depression 02/11/25 02/11/25 History simethicone 2 tab PO Q4HR PRN gas 02/11/25 02/11/25 History sodium phosphates 19 gram-7 118 ml DC Q72H PRN constipation 02/11/25 02/11/25 History gram/118 mL enema (Enema) zinc oxide 1 ea topical .q shift excoriation 02/11/25 02/11/25 History Allergies Allergy/AdvReac Type Severity Reaction Status Date / Time codeine Allergy Severe Chest Pain Verified 02/11/25 01:16 diphenhydramine (From Allergy Severe Chest Pain Verified 02/11/25 01:16 Benadryl) hydrocodone bit Allergy Severe DIZZY, Verified 02/11/25 01:16 DYSPNEA tramadol Allergy Verified 02/11/25 01:16 Visit Medications Acetaminophen (Acetaminophen 325 Mg Tablet) 650 mg PO Q6H PRN PRN Reason: Fever >100.4 Stop: 03/12/25 20:27 Acetaminophen (Acetaminophen 325 Mg Tablet) 650 mg PO Q6H PRN PRN Reason: PAIN SCALE 1-3 (mild Stop: 03/12/25 20:27 Last Admin: 02/11/25 09:34 Dose: 650 mg Atorvastatin Calcium (Atorvastatin Calcium 20 Mg Tablet) 20 mg PO HS KATIE Stop: 03/12/25 20:59 Last Admin: 02/10/25 21:19 Dose: 20 mg Bumetanide (Bumetanide Inj 0.25 Mg/Ml Vial 4 Ml) 1 mg IVP QDAY KATIE Stop: 03/13/25 08:59 Last Admin: 02/11/25 09:35 Dose: 1 mg Famotidine (Famotidine Inj 10 Mg/Ml Vial 2 Ml) 20 mg IVP BID [facility] Stop: 03/13/25 20:59 Heparin Sodium (Porcine) (Heparin Sod Inj 5000 Unit/Ml Vial) 5,000 unit SC BID KATIE Stop: 02/24/25 20:59 Last Admin: 02/11/25 09:34 Dose: 5,000 unit Azithromycin 500 mg/ Sodium (Chloride) 250 mls @ 250 mls/hr IV QDAY KATIE Stop: 02/18/25 08:59 Last Admin: 02/11/25 09:34 Dose: 250 mls/hr Cefepime HCl 1 gm/ Sodium (Chloride) 50 mls @ 100 mls/hr IV Q8HR [facility] Stop: 02/18/25 05:59 Last Admin: 02/11/25 14:54 Dose: 100 mls/hr Ketorolac Tromethamine (Ketorolac Inj 30 Mg/Ml Vial) 30 mg IVP Q6HR PRN PRN Reason: PAIN SCALE 6-10(Mod-Sev Stop: 02/16/25 12:21 Last Admin: 02/11/25 14:53 Dose: 30 mg Levothyroxine Sodium 125 mcg/ (Levothyroxine Sodium 25 mcg) 150 mcg PO ACBR [facility] Stop: 03/14/25 05:59 Ondansetron HCl (Ondansetron Inj 2 Mg/Ml Inj 2 Ml) 4 mg IVP Q6H PRN; Protocol PRN Reason: NAUSEA OR VOMITING Stop: 03/12/25 20:27 Sennosides (Senna Tablet) 1 tab PO QDAY PRN; Protocol PRN Reason: constipation Stop: 03/12/25 20:27 Last Admin: 02/11/25 05:44 Dose: 1 tab Sertraline HCl (Sertraline Hcl 25 Mg Tablet) 50 mg PO HS [facility] Stop: 03/13/25 20:59 Discontinued Medications Albuterol/Ipratropium (Albuterol/Ipratropium (Duoneb) Rt Quiana 3 Ml Nebu) 3 ml INH X1 ONE Stop: 02/09/25 17:02 Last Admin: 02/09/25 17:38 Dose: 3 ml Furosemide (Furosemide Inj 10 Mg/Ml 4ml Vial) 40 mg IVP X1 ONE Stop: 02/09/25 17:34 Last Admin: 02/09/25 17:54 Dose: 40 mg Ceftriaxone Sodium 2 gm/ (Sodium Chloride) 50 mls @ 100 mls/hr IV X1 ONE Stop: 02/09/25 17:28 Last Infusion: 02/09/25 18:13 Dose: Infused Sodium Chloride (Ns) 1,000 mls @ 100 mls/hr IV .Q10H ONE Stop: 02/10/25 02:58 Last Infusion: 02/10/25 04:19 Dose: Infused Azithromycin 500 mg/ Sodium (Chloride) 250 mls @ 250 mls/hr IV X1 ONE Stop: 02/09/25 18:14 Last Infusion: 02/09/25 19:07 Dose: Infused Azithromycin 500 mg/ Sodium (Chloride) 250 mls @ 250 mls/hr IV 02/10/25 ONE Stop: 02/10/25 13:59 Last Infusion: 02/10/25 14:37 Dose: Infused Azithromycin 500 mg/ Sodium (Chloride) 250 mls @ 250 mls/hr IV QDAY KATIE Stop: 02/17/25 08:59 Cefepime HCl 1 gm/ Sodium (Chloride) 50 mls @ 100 mls/hr IV X1 ONE Stop: 02/10/25 21:29 Last Infusion: 02/10/25 22:19 Dose: Infused Levothyroxine Sodium (Levothyroxine Sodium 125 Mcg Tablet) 125 mcg PO ACBR [facility] Stop: 03/13/25 05:59 Last Admin: 02/11/25 05:44 Dose: 125 mcg Levothyroxine Sodium (Levothyroxine Sodium 125 Mcg Tablet) 150 mcg PO ACBR [facility] Stop: 03/13/25 10:14 Levothyroxine Sodium (Levothyroxine Sodium 25 Mcg Tablet) 25 mcg PO X1 ONE Stop: 02/11/25 10:16 Last Admin: 02/11/25 11:47 Dose: Not Given Assessment & Plan Plan Ms. 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 She has not had BM to date and has diffusely tender abdomen. She also has history of abdominal surgeries and radiation. consider surgical consult. #28mm calcified mass on sigmoid colon, suspect gallstone #Severe lower abdominal pain Pain after meals since 2 weeks 02/09 at lower abdomen/suprapubic area. Extremely tender to palpation. States no BM for the past 5 days prior to admission. Denies hx of cholcystectomy. 07/2023 Liver US, showed 2 cm gallstone. 08/2024 CTAP showed 3 cm gallstone with calcification. 10/2024 CTAP on reivew showed same large stone in GB. 01/2025 CTA chest/AP showed prominent CHF, negative for PE, bilateral hilar lymphadenopathy, GB not visualized, 28mm calcified mass in sigmoid colon wo visualization of GB 01/2025 MRCP: GB not visualized, common hepatic duct common bile duct normal size no stones, neg pancreatitis, no free fluid in abdomen, aorta normal size, minimal bilateral hydrenophrosis, edema in subcutaneous fatty tissues at the flanks 01/2025 GB US: GB not visualized Anticipate that she will pass the stone naturally without intervention. Possible that she has obstruction of the cystic duct or fibrosis or scarring causing a shrunken GB. Her abdominal pain is diffuse, nonfocal. 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 Felix Roth MD PGY1 Attending Provider Attestation/Addendum Patient examined by me and evaluated by me All the laboratory workup and the imaging studies reviewed Plan is to get a CCK HIDA scan with ejection fraction tomorrow Further evaluation after above Thank you very much for the opportunity to participate in the care of this patient
--- NOTE | 2025-02-11 20:33 | XR_ITS ---
Examination: DOUGLAS, hepatobiliary radioisotope scan Date and time of exam: February 12, 2025, 1904 hours INDICATIONS: Upper abdominal pain elevated D-dimer, colic this week Technique: 5.9 mCi of 99M Hepatolite administered. Serial imaging then obtained from immediate through 60 minutes. Findings: Radioisotope activity within the liver is reasonably homogenous. Common bile duct small bowel activity noted Impression: No gallbladder activity
[2025-02-11] MEDS: FAMOTIDINE INJ 10 MG/ML VIAL 2 ML 20 MG IVP (21:19)
[2025-02-11] MEDS: ATORVASTATIN CALCIUM 20 MG TABLET PO (21:20)
[2025-02-11] MEDS: SERTRALINE HCL 25 MG TABLET 50 MG PO (21:20)
[2025-02-12] VITALS (11 sets, daily range): BP systolic 100–126; BP diastolic 74–80; PULSE 83–99; RESP 17–22; TEMP 36.2–36.8; O2SAT 91–99; BMI 32.3
[2025-02-12] MEDS: CEFEPIME INJ 1 GM in SODIUM CHLORIDE 0.9% (Popper) 50 ML IV ×3 (06:06→21:58)
[2025-02-12] MEDS: BUMETANIDE INJ 0.25 MG/ML VIAL 4 ML 1 MG IVP (08:11)
[2025-02-12] MEDS: HEPARIN SOD INJ 5000 UNIT/ML VIAL SC ×2 (08:13→20:30)
[2025-02-12] MEDS: FAMOTIDINE INJ 10 MG/ML VIAL 2 ML 20 MG IVP ×2 (08:13→20:32)
[2025-02-12] MEDS: AZITHROMYCIN INJ 500 MG in SODIUM CHLORIDE 0.9% 250 ML 250 ML 250 MG IV (08:13)
[2025-02-12 08:21] LABS: Basophils # (Auto) 0.0 Thou/mm3 (0.0-0.2); Basophils % (Auto) 0 % (0-2.5); Eosinophils # (Auto) 0.0 Thou/mm3 (0.0-0.5); Eosinophils % (Auto) 0 % (0-10); Hematocrit 44.0 % (36.0-46.0); Hemoglobin 12.6 g/dL (12.0-16.0); Immature Granulocytes Auto 0.03 Thou/mm3 (0.00-0.00); Lymphocytes # (Auto) 0.7 Thou/mm3 (1.0-4.8); Lymphocytes % (Auto) 8 % (10-50); Mean Corpuscular HGB Conc 28.6 g/dl (31.0-37.0); Mean Corpuscular Hemoglobin 26.9 pg (25.0-35.0); Mean Corpuscular Volume 94 fL (80-100); Monocytes # (Auto) 0.4 Thou/mm3 (0.0-0.8); Monocytes % (Auto) 5 % (0-12); Neutrophils # (Auto) 7.5 Thou/mm3 (1.8-7.7); Neutrophils % (Auto) 87 % (37-80); Nucleated Red Blood Cell # 0.00 Thou/mm3 (0.00-0.00); Nucleated Red Blood Cell % 0 /100 WBC (0); Platelet Count 286 Thou/mm3 (140-440); RDW Standard Deviation 56.9 fL (36.4-46.3); Red Blood Count 4.69 Miln/mm3 (4.00-5.20); White Blood Count 8.7 Thou/mm3 (3.6-11.0)
[2025-02-12 08:28] LABS: Alanine Aminotransferase 20 U/L (10-49); Albumin, Serum 3.6 gm/dL (3.4-4.8); Albumin/Globulin Ratio 1.0 (1.2-2.2); Alkaline Phosphatase 97 U/L (46-116); Anion Gap 8 (7-16); Aspartate Amino Transferase 23 U/L (0-34); BUN/Creatinine Ratio 49 Ratio (12-20); Bilirubin,Total 0.5 mg/dL (0.3-1.2); Blood Urea Nitrogen 34 mg/dL (9-23); Calcium 9.6 mg/dL (8.3-10.6); Calcium (Corrected) 9.9 mg/dL (8.5-10.1); Carbon Dioxide 36.3 mMol/L (20.0-31.0); Chloride 100 mMol/L (98-107); Creatinine (Component) 0.7 mg/dL (0.6-1.3); Estimated Creatinine Clearance 77.3 mL/min (>60); Globulin 3.5 gm/dL (2.3-3.5); Glucose 91 mg/dL (74-106); Magnesium 2.2 mg/dL (1.6-2.6); Osmolality,Calculated 294 (275-295); Phosphorous 3.9 mg/dL (2.4-5.1); Potassium 4.9 mMol/L (3.4-5.1); Sodium 144 mMol/L (136-145); Total Protein 7.1 gm/dL (5.7-8.2); eGFR > 60 See Note
[2025-02-12] MEDS: ALBUTEROL/IPRATROPIUM (Duoneb) RT SOL 3 ML NEBU INH (12:59)
--- NOTE | 2025-02-12 14:32 | ESPR_ITS ---
<Statement entered by Nadeem Diezt MD - 02/12/25 16:48> Patient was seen and examined at bedside this morning. No acute overnight events. Patient was given DuoNebs today for some wheezing and was given 1 dose of Diamox due to metabolic alkalosis likely secondary to diuresis. Patient also underwent HIDA scan today, pending read for prior to consulting general surgery for possible intervention. She was complaining of abdominal pain today. I have reviewed the note and agree with the resident's assessment & plan with exceptions as above. I have personally reviewed labs, imaging, home meds/prior records, examined the patient, formulated and discussed management plan with my attending Nadeem Dietz PGY2 Disclaimer: Even though this this note was dictated by speech recognition and even though it was carefully revised there may still be minor errors in wine maker due to voice recognition software. Documentation for date of: 02/12/25 Subjective Subjective Interval history: No acute overnight events. Patient seen and examined at bedside. Patient reports persistent however better abdominal pain that is alleviated with ketorolac and Tylenol. Denies right upper quadrant pain, chest pain or fever/chills. No new complaints. Reports that he uses albuterol nebulizer 3 times a day at rehab center. Vitals and labs reviewed. SBP [id number]. Heart rate 90s. Saturating 90% on 5 L nasal cannula. WBC decreased from 13.1 to 8.7. Hemoglobin stable low at 12.6. Bicarb increased from 33 to 36. BUN increased from 16-34. Creatinine stable 0.7. Started acetazolamide 500 mg x 1 and DuoNeb treatments every 6 hours as needed. Continue IV Bumex tomorrow. Continue cefepime and azithromycin. HIDA scan to be done today per GI. Possible surgical consultation depending on HIDA scan read and per GI. Exam Vital Signs Temp Pulse Resp BP Pulse Ox O2 Del Method O2 Flow Rate 97.8 F 95 20 122/80 99 Nasal Cannula 5 02/12/25 08:00 02/12/25 12:59 02/12/25 12:59 02/12/25 08:11 02/12/25 12:59 02/12/25 08:00 02/12/25 12:59 FiO2 50 02/11/25 08:08 Narrative Exam GENERAL: AOx3, sleeping comfortably, fatigued HEENT: mucous membranes moist, bilateral sclera anicteric CARDIOVASCULAR: regular rate and rhythm, S1/S2 present, no murmurs appreciated PULMONARY: decreased breath sounds bilaterally, b/l crackles at bases, mild wheezes ABDOMINAL: soft, non-distended, no rebound/guarding, bowel sounds present, m oderate tenderness to palpation lower abdomen/suprapubic EXTREMITIES: BLE trace pitting edema up to hips SKIN: warm and dry, intact, no rashes NEURO: CN II-XII grossly intact, no focal deficits, alert, following commands Objective Labs 02/12/25 07:00 02/12/25 07:00 Labs: Laboratory Results - last 24 hr 02/12/25 07:00 WBC 8.7 RBC 4.69 Hgb 12.6 Hct 44.0 MCV 94 MCH 26.9 MCHC 28.6 L RDW Std Deviation 56.9 H Plt Count 286 D Neut % (Auto) 87 H Lymph % (Auto) 8 L [place] % (Auto) 5 Eos % (Auto) 0 Baso % (Auto) 0 Neut # (Auto) 7.5 Lymph # (Auto) 0.7 L [place] # (Auto) 0.4 Eos # (Auto) 0.0 Baso # (Auto) 0.0 Immature Gran # (Auto) 0.03 H Absolute Nucleated RBC 0.00 Immature Gran % 0 Nucleated RBC % 0 Sodium 144 Potassium 4.9 Chloride 100 Carbon Dioxide 36.3 H Anion Gap 8 BUN 34 H Creatinine 0.7 Estim Creat Clear Calc 77.3 eGFR > 60 BUN/Creatinine Ratio 49 H Glucose 91 Calculated Osmolality 294 Calcium 9.6 Corrected Calcium 9.9 Phosphorus 3.9 Magnesium 2.2 Total Bilirubin 0.5 AST 23 ALT 20 Alkaline Phosphatase 97 Total Protein 7.1 Albumin 3.6 Globulin 3.5 Albumin/Globulin Ratio 1.0 L ABG Interpretation ABG results: 02/09/25 02/11/25 02/11/25 17:37 00:05 02:08 ABG pH 7.31 L 7.29 L 7.30 L ABG pCO2 77 H* 81 H* 79 H* ABG pO2 69 L 72 L 76 L ABG HCO3 39 H 39 H 39 H ABG O2 Saturation 93 94 95 ABG Base Excess 10 H 9 H 9 H VBG pH VBG pCO2 VBG pO2 VBG Base Excess 02/11/25 02/11/25 05:00 11:20 ABG pH 7.32 L ABG pCO2 77 H* ABG pO2 73 L ABG HCO3 39 H ABG O2 Saturation 95 ABG Base Excess 10 H VBG pH 7.47 VBG pCO2 53 VBG pO2 147 H VBG Base Excess 12 H Quality Measures Quality Measures VTE prophylaxis Assessment & Plan Assessment Current Active Medications: Generic Name Dose Route Start Last Admin Trade Name Freq PRN Reason Stop Dose Admin Acetaminophen 650 mg 02/10/25 20:28 Acetaminophen 325 Mg Tablet PO 03/12/25 20:27 Q6H PRN Fever >100.4 Acetaminophen 650 mg 02/10/25 20:28 02/11/25 09:34 Acetaminophen 325 Mg Tablet PO 03/12/25 20:27 650 mg Q6H PRN Administration PAIN SCALE 1-3 (mild Albuterol/Ipratropium 3 ml 02/12/25 11:26 Albuterol/Ipratropium (Duoneb) Rt Quiana 3 Ml Nebu INH 03/14/25 12:59 Q6HRRT PRN wheezing and SOB Atorvastatin Calcium 20 mg 02/10/25 21:00 02/11/25 21:20 Atorvastatin Calcium 20 Mg Tablet PO 03/12/25 20:59 20 mg HS KATIE Administration Bumetanide 1 mg 02/11/25 09:00 02/12/25 08:11 Bumetanide Inj 0.25 Mg/Ml Vial 4 Ml IVP 03/13/25 08:59 1 mg QDAY KATIE Administration Famotidine 20 mg 02/11/25 21:00 02/12/25 08:13 Famotidine Inj 10 Mg/Ml Vial 2 Ml IVP 03/13/25 20:59 20 mg BID KATEI Administration Heparin Sodium (Porcine) 5,000 unit 02/10/25 21:00 02/12/25 08:13 Heparin Sod Inj 5000 Unit/Ml Vial SC 02/24/25 20:59 5,000 unit BID KATIE Administration Azithromycin 500 mg/ Sodium 250 mls @ 250 mls/hr 02/11/25 09:00 02/12/25 08:13 Chloride IV 02/18/25 08:59 250 mls/hr QDAY KATIE Administration Cefepime HCl 1 gm/ Sodium 50 mls @ 100 mls/hr 02/11/25 06:00 02/12/25 13:47 Chloride IV 02/18/25 05:59 100 mls/hr Q8HR KATIE Administration Ketorolac Tromethamine 30 mg 02/11/25 12:22 02/11/25 14:53 Ketorolac Inj 30 Mg/Ml Vial IVP 02/16/25 12:21 30 mg Q6HR PRN Administration PAIN SCALE 6-10(Mod-Sev Levothyroxine Sodium 125 mcg/ 150 mcg 02/12/25 06:00 02/12/25 06:04 Levothyroxine Sodium 25 mcg PO 03/14/25 05:59 Not Given ACBR KATIE Ondansetron HCl 4 mg 02/10/25 20:28 Ondansetron Inj 2 Mg/Ml Inj 2 Ml IVP 03/12/25 20:27 Q6H PRN NAUSEA OR VOMITING Protocol Sennosides 1 tab 02/10/25 20:28 02/11/25 05:44 Senna Tablet PO 03/12/25 20:27 1 tab QDAY PRN Administration constipation Protocol Sertraline HCl 50 mg 02/11/25 21:00 02/11/25 21:20 Sertraline Hcl 25 Mg Tablet PO 03/13/25 20:59 25 mg HS KATIE Administration Plan Tyra Chaya 59F pmhx significant for HFpEF (60-65%, 07/2023), 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 ED 02/11 with lower abdominal pain, SOB, BLE swelling, and dysuria, admitted for acute on chronic HFpEF and for 28mm suspected GB stone in sigmoid colon. #Acute hypoxic respiratory failure 2/2 #Acute on chronic HFpEF (60-65%, 07/2023) #Severe pulmonary hypertension #NSTEMI likely type II, 2/2 fluid overload Presents with dyspnea at rest, worsening SOB, BLE swelling, and facial swelling on home O2 4L. Patient reports rehab center occasionally holds her Lasix due to soft BP. On admission saturating 88% on 4 L of oxygen, HR 100, WBC 14.8, BNP 1165, D-dimer 368, troponin 0.055->0.028, ABG 7.31/77/69/39 with repeat ABGs pH 7.29-7.32. On physical examination bilateral crackles over the both lungs. Follows Dr. Garrido and Dr. Kim outpatient. 02/09 CXR bilateral pulmonary congestion and enlarged cardiac contour. 02/09 CTA chest/AP showed prominent CHF, negative for PE, bilateral hilar lymphadenopathy, GB not visualized, 28mm calcified mass in sigmoid colon wo visualization of GB 02/10 TTE Normal LV size, wall thickness. Normal LV diastolic filling pattern for age. Estimated EF at 55-60 %. The RV size is moderately increased with moderately decreases systolic function. The estimated RVSP, 72 mmHg. RAP 15. The RA cavity size is severely increased. Moderate TR. Less than 50% respiratory change in dimension of the inferior vena cava abnormal. BCx NGTD Ddx: likely HFpEF exacerbation vs worsening pulmonary fibrosis vs aspiration PNA vs CAP vs reactive leukocytosis Plan: - IV bumex 1 mg QD with net goal neg 2-3L over 24h - Acetazolamide 500 mg x1 today due to contraction alkalosis, plan to resume bumex tomorrow - Cefepime (02/10- ) and azithromycin (02/11- - Strict I&Os, daily weights, 1.8L fluid restriction - BiPAP and supplemental O2 as needed to keep SpO2 >90% #28mm calcified mass on sigmoid colon, likely gallstone #Severe lower abdominal pain Pain after meals since 2 weeks 02/09 at lower abdomen/suprapubic area. Extremely tender to palpation. States no BM for the past 5 days prior to admission. Denies hx of cholcystectomy. 07/2023 Liver US, showed 2 cm gallstone. 08/2024 CTAP showed 3 cm gallstone with calcification. 10/2024 CTAP on reivew showed same large stone in GB. 02/09 CTA chest/AP showed prominent CHF, negative for PE, bilateral hilar lymphadenopathy, GB not visualized, 28mm calcified mass in sigmoid colon wo visualization of GB 02/10 MRCP: GB not visualized, common hepatic duct common bile duct normal size no stones, neg pancreatitis, no free fluid in abdomen, aorta normal size, minimal bilateral hydrenophrosis, edema in subcutaneous fatty tissues at the flanks 02/10 GB US: GB not visualized Plan: - GI consulted, recs appreciated: HIDA scan today #Hypothyroidism TSH low 0.36 T4 wnl 1.39. Plan: - Restart home medication levothyroxine 150 mcg ACBR #Anxiety Restart home medication sertraline 50 mg qhs #Pulmonary fibrosis 2/ pesticides Stated has appointment tomorrow with Dr. Kim. Has never been on medication for pulmonary fibrosis. Plan: - CTM O2 saturation and if patient cannot tolerate deescalation of O2 despite IV diuresis, consider consulting pulmonology - Duoneb q6h prn #Respiratory acidosis, resolved #Leukocytosis, resolved Hospital management: Lines: PIV Diet: cardiac Bowel: Senna prn GI prophylaxis: famotidine 20 mg BID DVT prophylaxis: heparin q12h Disposition: med tele pending GI consult and for IV diuresis CODE STATUS: FULL CODE Plan of care discussed with attending Dr. Umanzor. Shaina Scott DO PGY-1 Internal Medicine Attending Provider Attestation/Addendum I have discussed and was present for the essential components of the history, physical examination, diagnosis, and treatment plan with the resident. I agree with the patient's care as documented by the resident and amended herein by me. Hira Umanzor DO. Although this document has been carefully reviewed, there may still be some phonetic and other typographical errors. These errors are purely grammatical due to imperfections in the software program and should not be construed in any way to compromise the substance of the patient's medical care during this visit. Patient seen and evaluated this AM. No acute events overnight, vital signs stable, patient afebrile, CBC largely unremarkable, bicarb 36.3, BUN 34, normal creatinine. HIDA scan demonstrated no gallbladder activity however no ejection fraction was calculated, per gastroenterology, complete activity was noted and he would speak to the radiologist for an ejection fraction. Contrast material present in the CBD. We will wait for further recommendations. As far as the patient's colonic mass which possibly gallstone, will likely pass on its own in time. Echo was performed demonstrating RVSP of 72 and ejection fraction 55%. For the patient's pulmonary fibrosis, possible pneumonia and CHF exacerbation, will continue Bumex 1 mg IV daily, cefepime and azithromycin for now.
--- NOTE | 2025-02-12 19:19 | PD.IMPROG ---
Documentation for date of: 02/12/25 Subjective Subjective Interval history: CCK HIDA scan shows complete activity of the gallbladder as well as flow into the common bile duct however no ejection fraction was calculated I will speak with the radiologist Exam Vital Signs Temp Pulse Resp BP Pulse Ox O2 Del Method O2 Flow Rate 97.9 F 83 22 H 101/79 93 L Nasal Cannula 5 02/12/25 16:00 02/12/25 18:31 02/12/25 18:31 02/12/25 16:00 02/12/25 18:31 02/12/25 16:00 02/12/25 18:31 FiO2 50 02/11/25 08:08 Objective Labs 02/12/25 07:00 02/12/25 07:00 Labs: Laboratory Results - last 24 hr 02/12/25 07:00 WBC 8.7 RBC 4.69 Hgb 12.6 Hct 44.0 MCV 94 MCH 26.9 MCHC 28.6 L RDW Std Deviation 56.9 H Plt Count 286 D Neut % (Auto) 87 H Lymph % (Auto) 8 L [place] % (Auto) 5 Eos % (Auto) 0 Baso % (Auto) 0 Neut # (Auto) 7.5 Lymph # (Auto) 0.7 L [place] # (Auto) 0.4 Eos # (Auto) 0.0 Baso # (Auto) 0.0 Immature Gran # (Auto) 0.03 H Absolute Nucleated RBC 0.00 Immature Gran % 0 Nucleated RBC % 0 Sodium 144 Potassium 4.9 Chloride 100 Carbon Dioxide 36.3 H Anion Gap 8 BUN 34 H Creatinine 0.7 Estim Creat Clear Calc 77.3 eGFR > 60 BUN/Creatinine Ratio 49 H Glucose 91 Calculated Osmolality 294 Calcium 9.6 Corrected Calcium 9.9 Phosphorus 3.9 Magnesium 2.2 Total Bilirubin 0.5 AST 23 ALT 20 Alkaline Phosphatase 97 Total Protein 7.1 Albumin 3.6 Globulin 3.5 Albumin/Globulin Ratio 1.0 L Impressions Impression: No evidence of gallbladder disease as per the CCK HIDA scan ejection fraction so far is not calculated Not much right upper quadrant pain Advance diet as tolerated ABG Interpretation ABG results: 02/09/25 02/11/25 02/11/25 17:37 00:05 02:08 ABG pH 7.31 L 7.29 L 7.30 L ABG pCO2 77 H* 81 H* 79 H* ABG pO2 69 L 72 L 76 L ABG HCO3 39 H 39 H 39 H ABG O2 Saturation 93 94 95 ABG Base Excess 10 H 9 H 9 H VBG pH VBG pCO2 VBG pO2 VBG Base Excess 02/11/25 02/11/25 05:00 11:20 ABG pH 7.32 L ABG pCO2 77 H* ABG pO2 73 L ABG HCO3 39 H ABG O2 Saturation 95 ABG Base Excess 10 H VBG pH 7.47 VBG pCO2 53 VBG pO2 147 H VBG Base Excess 12 H Assessment & Plan Time Spent With Patient Time: Total time spent is greater than 50% in coordination of care (as documented) at patient's floor/unit and/or counseling patient:
[2025-02-12] MEDS: SERTRALINE HCL 25 MG TABLET 50 MG PO (20:31)
[2025-02-12] MEDS: ATORVASTATIN CALCIUM 20 MG TABLET PO (20:32)
[2025-02-13] VITALS (71 sets, daily range): BP systolic 68–122; BP diastolic 47–85; PULSE 71–112; RESP 0–32; TEMP 36.1–36.7; O2SAT 94–100; BMI 32.3
[2025-02-13] MEDS: LEVOTHYROXINE SODIUM 125 MCG, LEVOTHYROXINE SODIUM 25 MCG 150 MCG PO (05:37)
[2025-02-13 05:40] LABS: Basophils # (Auto) 0.0 Thou/mm3 (0.0-0.2); Basophils % (Auto) 1 % (0-2.5); Eosinophils # (Auto) 0.0 Thou/mm3 (0.0-0.5); Eosinophils % (Auto) 0 % (0-10); Hematocrit 47.1 % (36.0-46.0); Hemoglobin 13.4 g/dL (12.0-16.0); Immature Granulocytes Auto 0.01 Thou/mm3 (0.00-0.00); Lymphocytes # (Auto) 0.4 Thou/mm3 (1.0-4.8); Lymphocytes % (Auto) 9 % (10-50); Mean Corpuscular HGB Conc 28.5 g/dl (31.0-37.0); Mean Corpuscular Hemoglobin 26.6 pg (25.0-35.0); Mean Corpuscular Volume 94 fL (80-100); Monocytes # (Auto) 0.3 Thou/mm3 (0.0-0.8); Monocytes % (Auto) 6 % (0-12); Neutrophils # (Auto) 4.2 Thou/mm3 (1.8-7.7); Neutrophils % (Auto) 85 % (37-80); Nucleated Red Blood Cell # 0.02 Thou/mm3 (0.00-0.00); Nucleated Red Blood Cell % 0 /100 WBC (0); Platelet Count 281 Thou/mm3 (140-440); RDW Standard Deviation 56.8 fL (36.4-46.3); Red Blood Count 5.03 Miln/mm3 (4.00-5.20); White Blood Count 5.0 Thou/mm3 (3.6-11.0)
[2025-02-13] MEDS: CEFEPIME INJ 1 GM in SODIUM CHLORIDE 0.9% (Popper) 50 ML IV (05:44)
[2025-02-13 06:10] LABS: Alanine Aminotransferase 18 U/L (10-49); Albumin, Serum 3.8 gm/dL (3.4-4.8); Albumin/Globulin Ratio 1.0 (1.2-2.2); Alkaline Phosphatase 85 U/L (46-116); Anion Gap 8 (7-16); Aspartate Amino Transferase 28 U/L (0-34); BUN/Creatinine Ratio 36 Ratio (12-20); Bilirubin,Total 0.6 mg/dL (0.3-1.2); Blood Urea Nitrogen 25 mg/dL (9-23); Calcium 10.1 mg/dL (8.3-10.6); Calcium (Corrected) 10.3 mg/dL (8.5-10.1); Carbon Dioxide 33.9 mMol/L (20.0-31.0); Chloride 100 mMol/L (98-107); Creatinine (Component) 0.7 mg/dL (0.6-1.3); Estimated Creatinine Clearance 77.3 mL/min (>60); Globulin 3.8 gm/dL (2.3-3.5); Glucose 119 mg/dL (74-106); Magnesium 2.2 mg/dL (1.6-2.6); Osmolality,Calculated 288 (275-295); Phosphorous 3.4 mg/dL (2.4-5.1); Potassium 4.7 mMol/L (3.4-5.1); Sodium 142 mMol/L (136-145); Total Protein 7.6 gm/dL (5.7-8.2); eGFR > 60 See Note
[2025-02-13] MEDS: AZITHROMYCIN INJ 500 MG in SODIUM CHLORIDE 0.9% 250 ML 250 ML 250 MG IV (08:16)
[2025-02-13] MEDS: BUMETANIDE INJ 0.25 MG/ML VIAL 4 ML 1 MG IVP (08:16)
[2025-02-13] MEDS: HEPARIN SOD INJ 5000 UNIT/ML VIAL SC ×2 (08:17→21:48)
[2025-02-13] MEDS: FAMOTIDINE INJ 10 MG/ML VIAL 2 ML 20 MG IVP (08:17)
--- NOTE | 2025-02-13 09:05 | XR_ITS ---
EXAMINATION: AP chest single view TECHNIQUE: AP portable semiupright chest single view Date and time: February 13, 2025, 0946 hours, comparison February 09, 2025 INDICATIONS: Shortness of breath today FINDINGS: Free air beneath the right hemidiaphragm Enlarged cardiac contour with pulmonary vascular congestion and edema and/or pneumonia throughout the lungs Prominent osteopenia IMPRESSION: Pneumoperitoneum, clinical correlation advised Heart failure with possible superimposed bilateral pneumonia
--- NOTE | 2025-02-13 10:20 | XR_ITS ---
Examination: CT abdomen and pelvis without contrast. Coronal 3-D reconstructions. Sagittal 2-D reconstructions. Date and time of exam: February 13, 2025, 1050 hours INDICATIONS: Abdominal pain chest pain today, free air beneath the right hemidiaphragm on chest x-ray today CTDI: vol (mGy): 9.18 DLP: (mGycm): 556 Technique: Axial images of the abdomen have been obtained, 3 mm slice thickness Intravenous contrast material has not been administered. Low dose protocols were performed. One or more of the following dose reduction techniques were used; automated exposure control, adjustment of the mA and/or KV according to patient size, use of iterative reconstruction technique. Findings: Prominent vascular congestion Pneumonia and/or edema in the right lower and left lower lung zone Mild enlargement cardiac contour Extensive pneumoperitoneum Gallstones Gallbladder wall appears thickened No pancreatic or adrenal mass No renal or ureteral calculi, anasarca Mild free fluid throughout the abdomen Multiple abnormal small bowel loops, air and fluid distended with prominent wall thickening Air droplets outside the abnormal small bowel loops Normal appendix There remains a calcific mass in the sigmoid colon, 26 mm which may represent gallstone ileus Urinary bladder intact Severe osteopenia IMPRESSION: Prominent vascular congestion Pneumonia and/or edema in the lower lung zones Extensive pneumoperitoneum Cholelithiasis, but gallbladder wall appears thickened suspicious for cholecystitis Multiple abnormal small bowel loops air and fluid distended with prominent wall thickening, differential would include small bowel obstruction, ischemic bowel There remains a calcified mass in the sigmoid colon, 26 mm, consider gallstone ileus Recommend surgical consultation
[2025-02-13] MEDS: metroNIDAZOLE/NS 500 MG IVPB 500 MG/100 ML BAG 200 MG IV ×2 (11:21→21:48)
[2025-02-13 11:42] LABS: Lactate (Lactic Acid) 1.5 mMol/L (0.4-2.0)
[2025-02-13 12:05] LABS: Albumin, Serum 3.8 gm/dL (3.4-4.8); Anion Gap 6 (7-16); BUN/Creatinine Ratio 44 Ratio (12-20); Blood Urea Nitrogen 35 mg/dL (9-23); Calcium 9.8 mg/dL (8.3-10.6); Calcium (Corrected) 10.0 mg/dL (8.5-10.1); Carbon Dioxide 36.9 mMol/L (20.0-31.0); Chloride 99 mMol/L (98-107); Creatinine (Component) 0.8 mg/dL (0.6-1.3); Estimated Creatinine Clearance 67.7 mL/min (>60); Glucose 149 mg/dL (74-106); Osmolality,Calculated 294 (275-295); Phosphorous 3.1 mg/dL (2.4-5.1); Potassium 4.6 mMol/L (3.4-5.1); Sodium 142 mMol/L (136-145); eGFR > 60 See Note
--- NOTE | 2025-02-13 12:14 | PD.SURCONS ---
HPI Consult details Consult date: 02/13/25 Reason for consultation narrative: Pneumoperitoneum History of present illness: 59-year-old female with history of pulmonary fibrosis, CHF, hypothyroid, hyperlipidemia, cervical cancer status post chemo and radiation and history of large gallstone was admitted with CHF exacerbation. CT scan of chest, abdomen and pelvis was obtained, in addition to other findings she was noted to have a large stone in the sigmoid colon. During hospitalization she developed acute onset of abdominal pain, repeat CT scan revealed pneumoperitoneum likely from the large stone in sigmoid colon. Meds Home Medications and Allergies Home Medications ?Medication ?Instructions ?Recorded ?Confirmed ?Type Levothyroxine * (SYNTHROID *) 125 mcg PO ACBR #0 tabs 07/30/14 02/11/25 History atorvastatin 20 mg tablet (Lipitor) 20 mg PO QHS hypercholesterolemia 01/13/24 02/11/25 History furosemide 40 mg tablet 40 mg PO QAM chf 01/13/24 02/11/25 History spironolactone 25 mg tablet 25 mg PO QDAY 01/13/24 02/11/25 History tizanidine 2 mg tablet 2 mg PO Q8H PRN muscle spasms 01/13/24 02/11/25 History acetaminophen 325 mg tablet 650 mg PO Q6H PRN fever or pain 02/11/25 02/11/25 History albuterol 90 mcg-budesonide 80 2 inh inhalation Q4H PRN shortness 02/11/25 02/11/25 History mcg/actuation HFA aerosol inhaler of breath aluminum-mag hydroxide-simethicone 10 ml PO Q8HR PRN acid indigestion 02/11/25 02/11/25 History 200 mg-200 mg-20 mg/5 mL oral susp (Advanced Antacid-[place]) ascorbic acid (vitamin C) 500 mg 1,000 mg PO QDAY for supplement 02/11/25 02/11/25 History tablet (Vitamin C) azithromycin 250 mg tablet 250 mg PO QDAY pneumonia 02/11/25 02/11/25 History bisacodyl 10 mg rectal suppository 10 mg ME Q72H PRN constipation 02/11/25 02/11/25 History (Dulcolax (bisacodyl)) calcium carbonate 1,000 mg PO Q8HR PRN acid reflux 02/11/25 02/11/25 History ceftriaxone-lidocaine 1 g IM .pm pneumonia 02/11/25 02/11/25 History cranberry 1 tab PO DAILY supplement 02/11/25 02/11/25 History dextromethorphan HBr 15 ml PO [id number] PRN cough 02/11/25 02/11/25 History diclofenac sodium 1 % topical gel 1 ea topical Q12HR PRN mild pain 02/11/25 02/11/25 History (Arthritis Pain (diclofenac)) ipratropium 0.5 mg-albuterol 3 mg 3 ml inhalation Q6H PRN shortness 02/11/25 02/11/25 History (2.5 mg base)/3 mL nebulization of breath soln lactobacillus 1 cap PO DAILY probiotic supplement 02/11/25 02/11/25 History levothyroxine 150 mcg tablet 150 mcg PO QDAY hypothyroidism 02/11/25 02/11/25 History (Synthroid) magnesium hydroxide 400 mg/5 mL 30 ml PO Q72H PRN constipation 02/11/25 02/11/25 History oral suspension peg [id number] 1 1 drp ophthalmic (eye) Q4H PRN dry 02/11/25 02/11/25 History %-0.2 %-0.2 % eye drops eyes (Artificial Tears ([id number])) sertraline 25 mg tablet 50 mg PO HS depression 02/11/25 02/11/25 History simethicone 2 tab PO Q4HR PRN gas 02/11/25 02/11/25 History sodium phosphates 19 gram-7 118 ml ME Q72H PRN constipation 02/11/25 02/11/25 History gram/118 mL enema (Enema) zinc oxide 1 ea topical .q shift excoriation 02/11/25 02/11/25 History Allergies Allergy/AdvReac Type Severity Reaction Status Date / Time codeine Allergy Severe Chest Pain Verified 02/11/25 01:16 diphenhydramine (From Allergy Severe Chest Pain Verified 02/11/25 01:16 Benadryl) hydrocodone bit Allergy Severe DIZZY, Verified 02/11/25 01:16 DYSPNEA tramadol Allergy Verified 02/11/25 01:16 Exam Vital Signs Temp Pulse Resp BP Pulse Ox O2 Del Method O2 Flow Rate 97.2 F 94 23 H 118/70 99 BiPAP 5 02/13/25 08:00 02/13/25 08:16 02/13/25 08:00 02/13/25 08:16 02/13/25 08:00 02/13/25 08:00 02/13/25 08:00 FiO2 60 02/13/25 08:00 Constitutional Constitutional: obtunded Routine Abdominal Exam Comments: Abdomen is distended and rigid with diffuse peritonitis Assessment & Plan Additional Assessment Additional comments: Pneumoperitoneum likely from perforated sigmoid colon Plan Patient will require emergent exploratory laparotomy, possible bowel resection and colostomy. Patient appears to be confused and obtunded, risks, benefits and alternatives to procedure discussed with patient's daughter Romana Stiles via telephone conversation that was witnessed by patient's nurse and residents. Risks include but not limited to infection, bleeding, injury to bowel, surround neurovascular structures, possible malfunctioning and or necrosis of colostomy, prolonged need for ventilator support, possible need for tracheostomy discussed with patient's daughter via telephone conversation. All her questions answered, she voiced understanding and gave verbal consent to proceed with the operation.
--- NOTE | 2025-02-13 14:57 | ESPR_ITS ---
<Statement entered by Nadeem Dietz MD - 02/13/25 17:48> I have reviewed the note and agree with the resident's assessment & plan with exceptions as below. I have personally reviewed labs, imaging, home meds/prior records, examined the patient, formulated and discussed management plan with my attending Patient was seen and evaluated at bedside this morning. No acute events, but on my assessment patient appeared to be more lethargic and appeared to be more confused as well. She also appeared to be in more respiratory distress with increased respiratory rate and increased work of breathing. She also seem uncomfortable when abdomen was palpated she seems to be grimacing and crackles were heard bilateral on auscultation of the lungs. Given this chest x-ray was ordered as which showed pneumoperitoneum therefore abdomen/pelvis CT was ordered to confirm stat and GI specialist was updated. At this time general surgery was also consulted as high suspicion for perforation and free air in the abdomen. General surgery saw the patient and patient's daughter consented for surgical intervention at this time therefore patient was taken into the OR for emergent surgery and postoperatively patient will be upgraded to the ICU given history of pulmonary fibrosis and other comorbidities. Nadeem Dietz PGY2 Disclaimer: Even though this this note was dictated by speech recognition and even though it was carefully revised there may still be minor errors in pharmaceutical salesperson due to voice recognition software. Documentation for date of: 02/13/25 Subjective Subjective Interval history: No acute overnight events. Patient seen examined at bedside. Patient is on BiPAP however appears more confused and oriented x 1 only to name. Able to communicate that she has diffuse abdominal pain. Guarding on abdominal palpation. Vitals labs reviewed. SBP [id number]. Heart rate high 90s low 100s. Respiration rate high 20s low 30s. Saturating 99% on BiPAP. Significant labs include bicarb 33, BUN 25. Afternoon BMP bicarb 36, BUN 35. Due to continued abdominal pain and altered mental status, chest x-ray ordered showing pneumoperitoneum PE. CTAP ordered showing extensive pneumoperitoneum. Surgery consulted, plan for ex lap today. As patient was confused, daughter Romana was called and consensus was made to proceed with surgery. Patient will require ICU level of care postsurgery. Exam Vital Signs Temp Pulse Resp BP Pulse Ox O2 Del Method O2 Flow Rate 98.1 F 98 29 H 122/80 95 BiPAP 5 02/13/25 12:00 02/13/25 12:00 02/13/25 12:00 02/13/25 12:00 02/13/25 12:00 02/13/25 12:00 02/13/25 12:00 FiO2 60 02/13/25 12:00 Narrative Exam GENERAL: Alert, oriented x1 (name only), pale, diaphoretic HEENT: mucous membranes dry, bilateral sclera anicteric CARDIOVASCULAR: regular rate and rhythm, S1/S2 present, no murmurs appreciated PULMONARY: decreased breath sounds bilaterally, b/l crackles at bases, mild wheezes ABDOMINAL: soft, non-distended, no rebound/guarding, bowel sounds present, d iffuse abdominal tenderness to palpation greatest lower abdomen/suprapubic EXTREMITIES: BLE trace pitting edema up to hips SKIN: warm and dry, intact, no rashes NEURO: CN II-XII grossly intact, alert, following commands Objective Labs 02/14/25 04:32 02/14/25 04:32 Labs: Laboratory Results - last 24 hr 02/13/25 02/13/25 05:00 11:32 WBC 5.0 D RBC 5.03 Hgb 13.4 Hct 47.1 H MCV 94 MCH 26.6 MCHC 28.5 L RDW Std Deviation 56.8 H Plt Count 281 Neut % (Auto) 85 H Lymph % (Auto) [address] [place] % (Auto) 6 Eos % (Auto) 0 Baso % (Auto) 1 Neut # (Auto) 4.2 Lymph # (Auto) 0.[address] [place] # (Auto) 0.3 Eos # (Auto) 0.0 Baso # (Auto) 0.0 Immature Gran # (Auto) 0.01 H Absolute Nucleated RBC 0.02 H Immature Gran % 0 Nucleated RBC % 0 Sodium 142 142 Potassium 4.7 4.6 Chloride 100 99 Carbon Dioxide 33.9 H 36.9 H Anion Gap 8 6 L BUN 25 H 35 H Creatinine 0.7 0.8 Estim Creat Clear Calc 77.3 67.7 eGFR > 60 > 60 BUN/Creatinine Ratio 36 H 44 H Glucose 119 H 149 H Calculated Osmolality 288 294 Lactic Acid 1.5 Calcium 10.1 9.8 Corrected Calcium 10.3 H 10.0 Phosphorus 3.4 3.1 Magnesium 2.2 Total Bilirubin 0.6 AST 28 ALT 18 Alkaline Phosphatase 85 Total Protein 7.6 Albumin 3.8 3.8 Globulin 3.8 H Albumin/Globulin Ratio 1.0 L ABG Interpretation ABG results: 02/09/25 02/11/25 02/11/25 17:37 00:05 02:08 ABG pH 7.31 L 7.29 L 7.30 L ABG pCO2 77 H* 81 H* 79 H* ABG pO2 69 L 72 L 76 L ABG HCO3 39 H 39 H 39 H ABG O2 Saturation 93 94 95 ABG Base Excess 10 H 9 H 9 H VBG pH VBG pCO2 VBG pO2 VBG Base Excess 02/11/25 02/11/25 05:00 11:20 ABG pH 7.32 L ABG pCO2 77 H* ABG pO2 73 L ABG HCO3 39 H ABG O2 Saturation 95 ABG Base Excess 10 H VBG pH 7.47 VBG pCO2 53 VBG pO2 147 H VBG Base Excess 12 H Quality Measures Quality Measures VTE prophylaxis Assessment & Plan Assessment Current Active Medications: Generic Name Dose Route Start Last Admin Trade Name Freq PRN Reason Stop Dose Admin Acetaminophen 650 mg 02/10/25 20:28 Acetaminophen 325 Mg Tablet PO 03/12/25 20:27 Q6H PRN Fever >100.4 Acetaminophen 650 mg 02/10/25 20:28 02/11/25 09:34 Acetaminophen 325 Mg Tablet PO 03/12/25 20:27 650 mg Q6H PRN Administration PAIN SCALE 1-3 (mild Albuterol/Ipratropium 3 ml 02/12/25 11:26 Albuterol/Ipratropium (Duoneb) Rt Quiana 3 Ml Nebu INH 03/14/25 12:59 Q6HRRT PRN wheezing and SOB Atorvastatin Calcium 20 mg 02/10/25 21:00 02/12/25 20:32 Atorvastatin Calcium 20 Mg Tablet PO 03/12/25 20:59 20 mg HS KATIE Administration Bumetanide 1 mg 02/11/25 09:00 02/13/25 08:16 Bumetanide Inj 0.25 Mg/Ml Vial 4 Ml IVP 03/13/25 08:59 1 mg QDAY KATIE Administration Heparin Sodium (Porcine) 5,000 unit 02/10/25 21:00 02/13/25 08:17 Heparin Sod Inj 5000 Unit/Ml Vial SC 02/24/25 20:59 5,000 unit BID KATIE Administration Hydromorphone HCl 0.5 mg 02/13/25 11:03 Hydromorphone Inj 2 Mg/Ml Vial IVP 02/18/25 11:02 Q4HR PRN PAIN SCALE 7-10 (Severe Azithromycin 500 mg/ Sodium 250 mls @ 250 mls/hr 02/11/25 09:00 02/13/25 08:16 Chloride IV 02/18/25 08:59 250 mls/hr QDAY KATIE Administration Cefepime HCl 1 gm/ Sodium 50 mls @ 100 mls/hr 02/11/25 06:00 02/13/25 13:39 Chloride IV 02/18/25 05:59 Not Given Q8HR KATIE Metronidazole 500 mg in 100 mls @ 200 mls/hr 02/13/25 11:08 02/13/25 13:40 Flagyl 500 Mg Iv IV 02/20/25 11:07 Not Given Q8HR KATIE Levothyroxine Sodium 125 mcg/ 150 mcg 02/12/25 06:00 02/13/25 05:37 Levothyroxine Sodium 25 mcg PO 03/14/25 05:59 150 mcg ACBR KATIE Administration Ondansetron HCl 4 mg 02/10/25 20:28 Ondansetron Inj 2 Mg/Ml Inj 2 Ml IVP 03/12/25 20:27 Q6H PRN NAUSEA OR VOMITING Protocol Pantoprazole Sodium 40 mg 02/13/25 11:15 02/13/25 11:20 Pantoprazole Inj 40 Mg Vial IVP 03/15/25 11:14 40 mg QDAY KATIE Administration Sennosides 1 tab 02/10/25 20:28 02/13/25 05:37 Senna Tablet PO 03/12/25 20:27 1 tab QDAY PRN Administration constipation Protocol Sertraline HCl 50 mg 02/11/25 21:00 02/12/25 20:31 Sertraline Hcl 25 Mg Tablet PO 03/13/25 20:59 25 mg HS KATIE Administration Plan Tyra Larkin 59F pmhx significant for HFpEF (60-65%, 07/2023), 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 #Bowel perforation #Severe lower abdominal pain #28mm calcified mass on sigmoid colon, likely gallstone Pain after meals since 2 weeks 02/09 at lower abdomen/suprapubic area. Extremely tender to palpation. States no BM for the past 5 days prior to admission. Denies hx of cholcystectomy. 07/2023 Liver US, showed 2 cm gallstone. 08/2024 CTAP showed 3 cm gallstone with calcification. 10/2024 CTAP on reivew showed same large stone in GB. 02/09 CTA chest/AP showed prominent CHF, negative for PE, bilateral hilar lymphadenopathy, GB not visualized, 28mm calcified mass in sigmoid colon wo visualization of GB 02/10 MRCP: GB not visualized, common hepatic duct common bile duct normal size no stones, neg pancreatitis, no free fluid in abdomen, aorta normal size, minimal bilateral hydrenophrosis, edema in subcutaneous fatty tissues at the flanks; GB US: GB not visualized On 02/13, patient appeared more confused with significant abdominal tenderness and SOB. CXR: pneumoperitoneum; CTAP: Prominent vascular congestion, pneumonia and/or edema in lower lung zones, extensive pneumoperitoneum, cholelithiasis but gallbladder wall appears thickened but no abnormal small air and fluid distended with prominent wall thickening, remains calcified mass in sigmoid colon 26 mm. Plan: - GI consulted, recs appreciated - Surgery consulted, recs appreciated: ex lap today with possible bowel resection and colostomy - Patient will require ICU level of care post surgery due to pulmonary fibrosis #Acute hypoxic respiratory failure 2/2 #Acute on chronic HFpEF (60-65%, 07/2023) #Severe pulmonary hypertension #NSTEMI likely type II, 2/2 fluid overload Presents with dyspnea at rest, worsening SOB, BLE swelling, and facial swelling on home O2 4L. Patient reports rehab center occasionally holds her Lasix due to soft BP. On admission saturating 88% on 4 L of oxygen, HR 100, WBC 14.8, BNP 1165, D-dimer 368, troponin 0.055->0.028, ABG 7.31/77/69/39 with repeat ABGs pH 7.29-7.32. On physical examination bilateral crackles over the both lungs. Follows Dr. Garrido and Dr. Kim outpatient. 02/09 CXR bilateral pulmonary congestion and enlarged cardiac contour. 02/09 CTA chest/AP showed prominent CHF, negative for PE, bilateral hilar lymphadenopathy, GB not visualized, 28mm calcified mass in sigmoid colon wo visualization of GB 02/10 TTE Normal LV size, wall thickness. Normal LV diastolic filling pattern for age. Estimated EF at 55-60 %. The RV size is moderately increased with moderately decreases systolic function. The estimated RVSP, 72 mmHg. RAP 15. The RA cavity size is severely increased. Moderate TR. Less than 50% respiratory change in dimension of the inferior vena cava abnormal. BCx NGTD Ddx: likely HFpEF exacerbation vs worsening pulmonary fibrosis vs aspiration PNA vs CAP vs reactive leukocytosis Plan: - IV bumex 1 mg QD with net goal neg 2-3L over 24h - Cefepime (02/10- ) and azithromycin (02/11- - Strict I&Os, daily weights, 1.8L fluid restriction - BiPAP and supplemental O2 as needed to keep SpO2 >90% #Hypothyroidism TSH low 0.36 T4 wnl 1.39. Plan: - Restart home medication levothyroxine 150 mcg ACBR #Anxiety Restart home medication sertraline 50 mg qhs #Pulmonary fibrosis / pesticides Stated has appointment tomorrow with Dr. Kim. Has never been on medication for pulmonary fibrosis. Plan: - CTM O2 saturation and if patient cannot tolerate deescalation of O2 despite IV diuresis, consider consulting pulmonology - Duoneb q6h prn #Respiratory acidosis, resolved #Leukocytosis, resolved Hospital management: Lines: PIV Diet: NPO now Bowel: Senna prn GI prophylaxis: famotidine 20 mg BID DVT prophylaxis: heparin q12h Disposition: bowel perforation, surgery, ICU post surgery CODE STATUS: FULL CODE Plan of care discussed with attending Dr. Wolff and PGY-2 Dr. Hanna. Shaina Scott DO PGY-1 Internal Medicine Attending Provider Attestation/Addendum I have examined the patient, reviewed labs and imaging findings, discussed the case with the resident(s), and reviewed entered orders. I agree with the plan of care as outlined in this note, with these additional summaries/recommendations: Patient seen at bedside. Chest x-ray was obtained this morning which revealed pneumoperitoneum. She then underwent CT of abdomen and pelvis which showed extensive pneumoperitoneum with abnormal small bowel loops and fluid distended with prominent wall thickening, and 26 mm gallstone ileus. Given these findings stat surgical consultation was obtained. Patient will be taken for ex lap. Patient is encephalopathic and consent obtained via daughter with all risks and benefits of surgery explained. Continue pain management postoperatively. Patient also diagnosed with acute hypoxic respiratory failure and has underlying pulmonary hypertension. Given this history she will likely require ICU monitoring postsurgery. Continue breathing treatments as needed. We will follow-up with patient postoperatively. Please see residents note for additional details and management. Dr. New MD
--- NOTE | 2025-02-13 15:46 | PD.SUROPNT ---
Date of Procedure 02/13/25 Pre Op Diagnosis Pneumoperitoneum Post Op Diagnosis Perforated sigmoid colon from a large gallstone Feculent peritonitis Procedure Exploratory laparotomy, sigmoid colectomy, end descending colostomy Findings Large gallstone causing large perforation in sigmoid colon. Moderate amount of feculent fluid in the pelvis and throughout the abdomen Anesthesia GETA Pathology / specimen Other (Sigmoid colon) Estimated Blood Loss 100 Condition Critical Disposition ICU Surgeon Jossie Velez MD Surgical Staff Operation Date: 02/13/25 13:15 Case Staff Anesthesiologist: Dickson Guerrero RN First Assistant: Di Brady
[2025-02-13] MEDS: RINGERS LACTATED 1000 ML 1,000 ML 999 ML IV (16:15)
[2025-02-13] MEDS: MIDAZOLAM/NS 100 MG IVPB 100 MG/100 ML BAG IV (16:44)
[2025-02-13] MEDS: fentaNYL 2,500 MCG/250 ML BAG 2,500 MCG/250 ML BAG IV (16:46)
[2025-02-13] MEDS: SODIUM CHLORIDE 0.9% 1000 ML 1,000 ML 999 ML IV (17:15)
[2025-02-13 17:22] LABS: Base Excess 6 (-3-3); HCO3 36 mEq/L (20-26); Inspired Oxygen, FIO2 60 %; O2 Saturation 96 % (91-98); PCO2 89 mmHg (32.0-48.0); PO2 86 mmHg (83-108); pH, Arterial 7.22 (7.35-7.45)
[2025-02-13 17:23] LABS: Allen Test Not Performed; Puncture Site Left Radial
--- NOTE | 2025-02-13 17:35 | XR_ITS ---
EXAMINATION: AP chest single view TECHNIQUE: AP portable supine chest single view Date and time: February 13, 2025, 1753 hours, comparison February 13, 2025 0946 hours INDICATIONS: Post central line placement. FINDINGS: Right intraobserver central line tip right atrium, no pneumothorax Again noted extensive bilateral pneumonia and/or pulmonary edema Endotracheal tube tip 23 mm above brian IMPRESSION: Interval right internal jugular central line tip, right atrium No pneumothorax
--- NOTE | 2025-02-13 17:49 | ESOP_ITS ---
<Statement entered by Tunde Sethi MD - 02/16/25 09:45> Attending Attestation: I was present for entire procedure. No immediate complications. Follow up chest film with no post procedure PTX and adequate position of tip of the catheter. PROCEDURES: Procedure Date / Time 02/13/25 3480 Procedure Narrative Procedure Narrative: Right IJV central Line placement A time out was performed. My hands were washed immediately prior to the procedure. I wore a surgical cap, mask with protective eyewear, full gown and sterile gloves throughout the procedure. The patient was placed in Trendelenburg position. Right chest region was prepped using chlorhexidine scrub and draped in sterile fashion using a full drape and sterile probe cover and sterile gel employed. The medial and lateral heads of the sternocleidomastoid muscle were identified as was the carotid pulse. The Right Internal Jugular vein was identified using the ultrasound. Anesthesia was achieved over the vein using 1% lidocaine. Using real-time out of plane guidance, the introducer needle was inserted into the Right Internal Jugular vein under direct ultrasound visualization. Venous blood was withdrawn. The syringe was removed and a guidewi re was advanced into the introducer needle. The guidewire was visualized in the Internal Jugular Vein by ultrasound. A small incision was made at the skin surface with a scalpel and the introducer needle was exchanged for a dilator over the guidewire. After appropriate dilation was obtained, the dilator was exchanged over the wire for a central venous catheter. The wire was removed and the catheter was sutured in place. A sterile sorbaview shield was placed over the catheter at the insertion site. The patient tolerated the procedure without any hemodynamic compromise. At time of procedure completion, all ports aspirated and flushed properly. Post-procedure chest x-ray is pending at this time. Estimated blood loss is <5cc. -- Proceedure performed under the supervision of ICU attending,Dr Jossie Payne MD PGY1 Central Line Placement Right IJ: Indication(s): poor, or inadequate peripheral venous access Informed consent obtained: obtained from surrogate decision maker Time out done, and the following verified: correct patient, side and site, procedure, patient position and implants and/or equipment Patient placed on monitor/pulse ox: Yes Hand Hygiene: scrub, soap & water, alcohol-based hand rub and other Max Sterile Barrier Techniques used: cap, mask, sterile gown and sterile gloves Central line prep: Chlorhexidine scrub and sterile drapes applied Local anesthesia used: other anesthetic (Patient sedated - fentanyl ggt) Amount of anesthesia used (mL): 0 (Fentanyl ggt sedation) Ultrasound used for placement: Yes Sterile Technique if Ultrasound used, including sterile gel: yes Central line lumen inserted: triple Post procedure: sutured in place, good blood return, all ports aspirated, flushed, capped and sterile dressing applied Post procedure x-ray: tip of catheter in good position and no pneumothorax seen Patient tolerated procedure: well and no complications EBL(ml): 1 Complications: none
[2025-02-13] MEDS: cefTRIAXone 2 GM in SODIUM CHLORIDE 0.9% (Popper) 50 ML IV (18:13)
--- NOTE | 2025-02-13 18:27 | ESCONSULT_ITS ---
<Statement entered by Donato Hendrix MD - 02/13/25 20:47> I discussed and supervised with the production internship physician who took care of this patient. I personally saw and examined the patient. I agree with most of the assessment and plan. Disclaimer: Despite multiple revisions, due to the dictation software being used, the document bellow may not be free of grammatical errors including phonetic/typographic errors. However, this does not deter from our commitment to providing health care in the patient's best interest in mind. Plan of care discussed with attending Physician Dr. 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 At baseline she lives at her acute rehab and gets short of breath when she exerts. She has been experiencing shortness of breath and bilateral leg swelling since last 2 weeks. This leg swelling is progressively worsened and involves the abdomen face underneath the eyes and lips. She has been experiencing short of breath since 2 weeks even at rest. She denies any chest pain, chest palpitations but endorses occasional cough with sputum which is initially yellow in color but now it is clear. ED visit: Initial vitals BP 106/69, pulse rate 100, respiratory rate 20, temperature 98.3 saturating 88% on 4 L of oxygen. Pertinent ED labs are WBC 14.8 with neutrophil 87%, D-dimer 3680, BNP 1165, troponin 0.055 BUN 27, ABG?pH 7.31, pCO2 77, HCO3 39. Urine protein 3+, RBC 4+ creatinine clearance 2.7. Imaging chest x-ray on 02/09 shows enlarged cardiac contour with perihilar congestion Moderate CHF. EKG shows sinus tachycardia. CT scan shows no gallbladder visualization and 28 mm calcified stone in sigmoid colon suspicious for gallbladder ileus.In the ED, was given Azithromycin 500 mg, ceftriaxone 2gm,1 L NS and furosemide. Hospital course Interval History: Patient initially was diuresed daily with bumex 1 mg daily (now being held for soft BP) for dyspnea and leg swelling. Has been on cefepime and azithromycin for possible pneumonia. GI consulted for gallstone and sigmoid colon pain management with Tylenol and ketorolac as patient is allergic to codeine, hydrocodone and tramadol. Abdomina pain marginally decreased 2 days after admission, had been stable. Possible surgical consultation depending on HIDA scan read and per GI. Today patient was noted to be on BiPAP but confused and A&O x1 to only to name, stating she had dfifuse abdominal pain. CXR ordered and showed pneumoperitoneum. CTAP showed similar thing, surgery was consulted and planned for ex lap today after patient's daughter Romana was asked and approved for consent. Patient planned to be upgraded to ICU after surgery needing ICU level care, given history of pulmonary fibrosis and other comorbidities. cc:: cc: Tex Umanzor, DO Exam Vital Signs Temp Pulse Resp BP Pulse Ox O2 Del Method O2 Flow Rate 98.1 F 100 9 L 81/57 L 96 BiPAP 5 02/13/25 12:00 02/13/25 17:25 02/13/25 17:25 02/13/25 17:25 02/13/25 17:25 02/13/25 12:00 02/13/25 12:00 FiO2 60 02/13/25 16:20 Narrative Exam GENERAL: Alert, oriented x1 (name only), pale, diaphoretic HEENT: mucous membranes dry, bilateral sclera anicteric CARDIOVASCULAR: regular rate and rhythm, S1/S2 present, no murmurs appreciated PULMONARY: decreased breath sounds bilaterally, b/l crackles at bases, mild wheezes ABDOMINAL: soft, non-distended, no rebound/guarding, bowel sounds present, d iffuse abdominal tenderness to palpation greatest lower abdomen/suprapubic EXTREMITIES: BLE trace pitting edema up to hips SKIN: warm and dry, intact, no rashes NEURO: CN II-XII grossly intact, alert, following commands Results Labs 02/18/25 04:20 02/18/25 04:20 Labs: Short CBC 02/13/25 Range/Units 05:00 WBC 5.0 D (3.6-11.0) Thou/mm3 Hgb 13.4 (12.0-16.0) g/dL Hct 47.1 H (36.0-46.0) % Plt Count 281 (140-440) Thou/mm3 BMP 02/13/25 02/13/25 05:00 11:32 Sodium 142 142 Potassium 4.7 4.6 Chloride 100 99 Carbon Dioxide 33.9 H 36.9 H BUN 25 H 35 H Creatinine 0.7 0.8 Glucose 119 H 149 H Calcium 10.1 9.8 Liver Function 02/13/25 02/13/25 Range/Units 05:00 11:32 Total Bilirubin 0.6 (0.3-1.2) mg/dL AST 28 (0-34) U/L ALT 18 (10-49) U/L Alkaline Phosphatase 85 (46-116) U/L Albumin 3.8 3.8 (3.4-4.8) gm/dL ABG Interpretation ABG results: 02/09/25 02/11/25 02/11/25 17:37 00:05 02:08 ABG pH 7.31 L 7.29 L 7.30 L ABG pCO2 77 H* 81 H* 79 H* ABG pO2 69 L 72 L 76 L ABG HCO3 39 H 39 H 39 H ABG O2 Saturation 93 94 95 ABG Base Excess 10 H 9 H 9 H VBG pH VBG pCO2 VBG pO2 VBG Base Excess 02/11/25 02/11/25 02/13/25 05:00 11:20 17:05 ABG pH 7.32 L 7.22 L D ABG pCO2 77 H* 89 H* D ABG pO2 73 L 86 ABG HCO3 39 H 36 H ABG O2 Saturation 95 96 ABG Base Excess 10 H 6 H VBG pH 7.47 VBG pCO2 53 VBG pO2 147 H VBG Base Excess 12 H Quality Measures Quality Measures VTE prophylaxis Medications Home Medications and Allergies Home Medications ?Medication ?Instructions ?Recorded ?Confirmed ?Type Levothyroxine * (SYNTHROID *) 125 mcg PO ACBR #0 tabs 07/30/14 02/11/25 History atorvastatin 20 mg tablet (Lipitor) 20 mg PO QHS hyper cholesterolemia 01/13/24 02/11/25 History furosemide 40 mg tablet 40 mg PO QAM chf 01/13/24 History spironolactone 25 mg tablet 25 mg PO QDAY 01/13/2404/26 History tizanidine 2 mg tablet 2 mg PO Q8H PRN muscle spasm s 01/13/24 02/11/25 History acetaminophen 325 mg tablet 650 mg PO Q6H PRN fever or pain 02/11/25 02/11/25 History albuterol 90 mcg-budesonide 80 2 inh inhalation Q4H NE N shortness 02/11/25 02/11/25 History mcg/actuation HFA aerosol inhaler of breath aluminum-mag hydroxide-simethicone 10 ml PO Q8HR PRN a martha indigestion 02/11/25 02/11/25 History 200 mg-200 mg-20 mg/5 mL oral susp (Advanced Antacid-[place]as) ascorbic acid (vitamin C) 500 mg 1,000 mg PO QDAY for supplement 02/11/25 02/11/25 History tablet (Vitamin C) azithromycin 250 mg tablet 250 mg PO QDAY pneumonia 02/11/25 History bisacodyl 10 mg rectal suppository 10 mg NE Q72H PRN c onstipation 02/11/25 02/11/25 History (Dulcolax (bisacodyl)) calcium carbonate 1,000 mg PO Q8HR PRN acid re flux 02/11/25 02/11/25 History ceftriaxone-lidocaine 1 g IM .pm pneumonia 5 02/11/25 History cranberry 1 tab PO DAILY supplement 02/11/25 History dextromethorphan HBr 15 ml PO [id number] PRN cough 1 02/11/25 History diclofenac sodium 1 % topical gel 1 ea topical Q12HR P RN mild pain 02/11/25 02/11/25 History (Arthritis Pain (diclofenac)) ipratropium 0.5 mg-albuterol 3 mg 3 ml inhalation Q6H PRN shortness 02/11/25 02/11/25 History (2.5 mg base)/3 mL nebulization of breath soln lactobacillus 1 cap PO DAILY probiotic sup plement 02/11/25 02/11/25 History levothyroxine 150 mcg tablet 150 mcg PO QDAY hypothyro idism 02/11/25 02/11/25 History (Synthroid) magnesium hydroxide 400 mg/5 mL 30 ml PO Q72H PRN cons tipation 02/11/25 02/11/25 History oral suspension peg [id number] 1 1 drp ophthalmic (eye) Q4H PRN dry 02/11/25 02/11/25 History %-0.2 %-0.2 % eye drops eyes (Artificial Tears ([id number])) sertraline 25 mg tablet 50 mg PO HS depression 02/1102/11/25 History simethicone 2 tab PO Q4HR PRN gas 02/11/25 History sodium phosphates 19 gram-7 118 ml NE Q72H PRN constip ation 02/11/25 02/11/25 History gram/118 mL enema (Enema) zinc oxide 1 ea topical .q shift excori ation 02/11/25 02/11/25 History Allergies Allergy/AdvReac Type Severity Reaction Status Date / Time codeine Allergy Severe Chest Pain Verified 02/11/25 01:16 diphenhydramine (From Allergy Severe Chest Pain Verified 02/11/25 01:16 Benadryl) hydrocodone bit Allergy Severe DIZZY, Verified 02/11/25 01:16 DYSPNEA tramadol Allergy Verified 02/11/25 01:16 Visit Medications Acetaminophen (Acetaminophen 325 Mg Tablet) 650 mg PO Q6H PRN PRN Reason: Fever >100.4 Stop: 03/12/25 20:27 Acetaminophen (Acetaminophen 325 Mg Tablet) 650 mg PO Q6H PRN PRN Reason: PAIN SCALE 1-3 (mild Stop: 03/12/25 20:27 Last Admin: 02/11/25 09:34 Dose: 650 mg Albuterol/Ipratropium (Albuterol/Ipratropium (Duoneb) Rt Quiana 3 Ml Nebu) 3 ml INH Q6HRRT PRN PRN Reason: wheezing and SOB Stop: 03/14/25 12:59 Atorvastatin Calcium (Atorvastatin Calcium 20 Mg Tablet) 20 mg PO HS KATIE Stop: 03/12/25 20:59 Last Admin: 02/12/25 20:32 Dose: 20 mg Bumetanide (Bumetanide Inj 0.25 Mg/Ml Vial 4 Ml) 1 mg IVP QDAY [facility] On Hold: 02/13/25 15:07 Stop: 03/13/25 08:59 Last Admin: 02/13/25 08:16 Dose: 1 mg Heparin Sodium (Porcine) (Heparin Sod Inj 5000 Unit/Ml Vial) 5,000 unit SC BID [facility] Stop: 02/24/25 20:59 Last Admin: 02/13/25 08:17 Dose: 5,000 unit Hydromorphone HCl (Hydromorphone Inj 2 Mg/Ml Vial) 0.5 mg IVP Q4HR PRN PRN Reason: PAIN SCALE 7-10 (Severe Stop: 02/18/25 11:02 Azithromycin 500 mg/ Sodium (Chloride) 250 mls @ 250 mls/hr IV QDAY [facility] Stop: 02/18/25 08:59 Last Admin: 02/13/25 08:16 Dose: 250 mls/hr Metronidazole (Flagyl 500 Mg Iv) 500 mg in 100 mls @ 200 mls/hr IV Q8HR [facility] Stop: 02/20/25 11:07 Last Admin: 02/13/25 13:40 Dose: Not Given Ceftriaxone Sodium 2 gm/ (Sodium Chloride) 50 mls @ 100 mls/hr IV QDAY [facility] Stop: 02/20/25 15:16 Last Admin: 02/13/25 18:13 Dose: 100 mls/hr Fentanyl Citrate (Sublimaze Inj 2,500 Mcg/250 Ml Bag) 2,500 mcg in 250 mls @ 2.5 mls/hr IV .Q24H PRN; Protocol PRN Reason: PER PROTOCOL Stop: 02/18/25 16:20 Last Admin: 02/13/25 16:46 Dose: 25 mcg/hr, 2.5 mls/hr Midazolam HCl (Versed Pf Inj In Ns Premix) 100 mg in 100 mls @ 1 mls/hr IV .Q24H PRN; Protocol PRN Reason: PER PROTOCOL Stop: 02/18/25 16:20 Last Admin: 02/13/25 16:44 Dose: 1 mg/hr, 1 mls/hr Norepinephrine/Dextrose (Levophed In D5w 8mg/250ml) 8 mg in 250 mls @ 7.032 mls/hr IV .Q24H PRN; Protocol PRN Reason: PER PROTOCOL Stop: 03/15/25 16:21 Levothyroxine Sodium 125 mcg/ (Levothyroxine Sodium 25 mcg) 150 mcg PO ACBR KATIE Stop: 03/14/25 05:59 Last Admin: 02/13/25 05:37 Dose: 150 mcg Ondansetron HCl (Ondansetron Inj 2 Mg/Ml Inj 2 Ml) 4 mg IVP Q6H PRN; Protocol PRN Reason: NAUSEA OR VOMITING Stop: 03/12/25 20:27 Pantoprazole Sodium (Pantoprazole Inj 40 Mg Vial) 40 mg IVP QDAY KATIE Stop: 03/15/25 11:14 Last Admin: 02/13/25 11:20 Dose: 40 mg Sennosides (Senna Tablet) 1 tab PO QDAY PRN; Protocol PRN Reason: constipation Stop: 03/12/25 20:27 Last Admin: 02/13/25 05:37 Dose: 1 tab Sertraline HCl (Sertraline Hcl 25 Mg Tablet) 50 mg PO HS [facility] Stop: 03/13/25 20:59 Last Admin: 02/12/25 20:31 Dose: 25 mg Discontinued Medications Acetazolamide Sodium (Acetazolamide Sod 500 Mg Vial) 500 mg IVP X1 ONE Stop: 02/12/25 11:26 Last Admin: 02/12/25 13:39 Dose: 500 mg Albuterol/Ipratropium (Albuterol/Ipratropium (Duoneb) Rt Quiana 3 Ml Nebu) 3 ml INH X1 ONE Stop: 02/09/25 17:02 Last Admin: 02/09/25 17:38 Dose: 3 ml Albuterol/Ipratropium (Albuterol/Ipratropium (Duoneb) Rt Quiana 3 Ml Nebu) 3 ml INH X1 ONE Stop: 02/12/25 11:27 Last Admin: 02/12/25 12:59 Dose: 3 ml Famotidine (Famotidine Inj 10 Mg/Ml Vial 2 Ml) 20 mg IVP BID KATIE Stop: 03/13/25 20:59 Last Admin: 02/13/25 08:17 Dose: 20 mg Furosemide (Furosemide Inj 10 Mg/Ml 4ml Vial) 40 mg IVP X1 ONE Stop: 02/09/25 17:34 Last Admin: 02/09/25 17:54 Dose: 40 mg Hydromorphone HCl (Hydromorphone Inj 2 Mg/Ml Vial) 1 mg IVP X1 ONE Stop: 02/13/25 16:11 Ceftriaxone Sodium 2 gm/ (Sodium Chloride) 50 mls @ 100 mls/hr IV X1 ONE Stop: 02/09/25 17:28 Last Infusion: 02/09/25 18:13 Dose: Infused Sodium Chloride (Ns) 1,000 mls @ 100 mls/hr IV .Q10H ONE Stop: 02/10/25 02:58 Last Infusion: 02/10/25 04:19 Dose: Infused Azithromycin 500 mg/ Sodium (Chloride) 250 mls @ 250 mls/hr IV X1 ONE Stop: 02/09/25 18:14 Last Infusion: 02/09/25 19:07 Dose: Infused Azithromycin 500 mg/ Sodium (Chloride) 250 mls @ 250 mls/hr IV 02/10/25 ONE Stop: 02/10/25 13:59 Last Infusion: 02/10/25 14:37 Dose: Infused Azithromycin 500 mg/ Sodium (Chloride) 250 mls @ 250 mls/hr IV QDAY KATIE Stop: 02/17/25 08:59 Cefepime HCl 1 gm/ Sodium (Chloride) 50 mls @ 100 mls/hr IV Q8HR KATIE Stop: 02/18/25 05:59 Last Admin: 02/13/25 13:39 Dose: Not Given Cefepime HCl 1 gm/ Sodium (Chloride) 50 mls @ 100 mls/hr IV X1 ONE Stop: 02/10/25 21:29 Last Infusion: 02/10/25 22:19 Dose: Infused Lactated Ringer's (Lactated Ringers) 500 mls @ 999 mls/hr IV .Q31M ONE Stop: 02/13/25 11:34 Last Admin: 02/13/25 11:14 Dose: Not Given Lactated Ringer's (Lactated Ringers) 1,000 mls @ 999 mls/hr IV .Q1H1M ONE Stop: 02/13/25 17:10 Last Admin: 02/13/25 16:15 Dose: 999 mls/hr Sodium Chloride (Ns) 1,000 mls @ 999 mls/hr IV .Q1H1M ONE Stop: 02/13/25 17:10 Last Admin: 02/13/25 17:15 Dose: 999 mls/hr Propofol (Diprivan Ivpb) 1,000 mg in 100 mls @ 2.25 mls/hr IV .Q24H PRN; Protocol PRN Reason: PER PROTOCOL Stop: 03/15/25 16:11 Fentanyl Citrate (Sublimaze Inj 2,500 Mcg/250 Ml Bag) 2,500 mcg in 250 mls @ 2.5 mls/hr IV .Q24H PRN; Protocol PRN Reason: PER PROTOCOL Stop: 02/18/25 16:13 Ketorolac Tromethamine (Ketorolac Inj 30 Mg/Ml Vial) 30 mg IVP Q6HR PRN PRN Reason: PAIN SCALE 6-10(Mod-Sev Stop: 02/16/25 12:21 Last Admin: 02/11/25 14:53 Dose: 30 mg Levothyroxine Sodium (Levothyroxine Sodium 125 Mcg Tablet) 125 mcg PO ACBR KATIE Stop: 03/13/25 05:59 Last Admin: 02/11/25 05:44 Dose: 125 mcg Levothyroxine Sodium (Levothyroxine Sodium 125 Mcg Tablet) 150 mcg PO ACBR KATIE Stop: 03/13/25 10:14 Levothyroxine Sodium (Levothyroxine Sodium 25 Mcg Tablet) 25 mcg PO X1 ONE Stop: 02/11/25 10:16 Last Admin: 02/11/25 11:47 Dose: Not Given Assessment & Plan Plan Tyra Chaya 59F pmhx significant for HFpEF (60-65%, 07/2023), 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 Planned to upgrade to ICU needing ICU level care, ex-lap surgery today, and given history of pulmonary fibrosis and other comorbidities. Neurology #Acute Encephalopathy DDx: Infection (GI) vs acidosis vs less likely metabolic vs toxic Dx: -Patient A&Ox1 this morning from baseline of x3 -CXR and CTAP showed pneumoperitoneum -No notable electrolyte abnormalities, no toxins noted Rx: -Treating underlying infection with abx, surgery ex-lap today. Cardiovascular #Acute on chronic HFpEF (60-65%, 07/2023) #Severe pulmonary hypertension DDx: Dx: -Presents with dyspnea at rest, worsening SOB, BLE swelling, and facial swelling -Lasix reportedly occasionally held due to soft BP outpatient at rehab center -BNP 1165 -02/10 TTE Normal LV size, wall thickness. Normal LV diastolic filling pattern for age. Estimated EF at 55-60 %. The RV size is moderately increased with moderately decreases systolic function. The estimated RVSP, 72 mmHg. RAP 15. The RA cavity size is severely increased. Moderate TR. Less than 50% respiratory change in dimension of the inferior vena cava abnormal. Rx: -HOLDING IV bumex 1 mg qd -Strict I&Os, daily weights, 1.8L fluid restriction #NSTEMI likely type II, 2/2 fluid overload Dx: -troponin 0.055->0.028 Rx: -will monitor for chest pain #HLD Dx: -Lipid panel unremarkable other than mildly decreased HDL, 30. Rx: -Continuing home med atorvastatin 20 mg po hs Respiratory #Acute hypoxic respiratory failure DDx: combination of acute on chronic heart failure exacerbation vs worsening pulmonary fibrosis vs aspiration PNA vs CAP, less likely PE Dx: -Presents with dyspnea at rest, worsening SOB, BLE swelling, and facial swelling on home O2 4L. On physical examination bilateral crackles over the both lungs. Follows Dr. Garrido and Dr. Kim outpatient. -On admission saturating 88% on 4 L of oxygen -ABG 7.31/77/69/39 with repeat ABGs pH 7.29-7.32. 02/09 CXR bilateral pulmonary congestion and enlarged cardiac contour. 02/09 CTA chest/AP showed prominent CHF, negative for PE Rx: - Ceftriaxone (02/13- and azithromycin (02/11- - BiPAP and supplemental O2 as needed to keep SpO2 >90% RRx: -Cefepime (02/10 - 02/13) #Pulmonary fibrosis 2/2 pesticides Stated has appointment tomorrow with Dr. Kim. Has never been on medication for pulmonary fibrosis. Plan: - CTM O2 saturation and if patient cannot tolerate deescalation of O2 despite IV diuresis, consider consulting pulmonology - Duoneb q6h prn GI and F/E/N #Bowel perforation #Severe lower abdominal pain #28mm calcified mass on sigmoid colon, likely gallstone - On admission patient had pain after meals since 2 weeks 02/09 at lower abdomen/suprapubic area. Extremely tender to palpation. Stated no BM for the past 5 days prior to admission. Denies hx of cholcystectomy. -02/09 CTA chest/AP: GB not visualized, 28mm calcified mass in sigmoid colon w/o visualization of GB -02/10 MRCP: GB not visualized, common hepatic duct common bile duct normal size no stones, neg pancreatitis, no free fluid in abdomen, aorta normal size, minimal bilateral hydrenophrosis, edema in subcutaneous fatty tissues at the flanks; GB US: GB not visualized -On 02/13, patient appeared more confused with significant abdominal tenderness and SOB. CXR: pneumoperitoneum; CTAP: Extensive pneumoperitoneum, cholelithiasis but gallbladder wall appears thickened but no abnormal small air and fluid distended with prominent wall thickening, remains calcified mass in sigmoid colon 26 mm. Rx: - GI consulted, recs appreciated - Surgery consulted, recs appreciated: ex lap today with possible bowel resection and colostomy - Patient will require ICU level of care post surgery due to pulmonary fibrosis Renal No acute problems Heme No acute problems Endo #hypothyroidism Dx: -TSH 0.36, T4 1.39 Rx: -Continuing home med levothyroxine 150 mcg ACBR ID #Likely GI infection Patient's imaging showing pneumoperitonitis (perforation) likely cause of infection Dx: -02/09 Blood cultures x2 No growth after 48 hours -02/11 MRSA nares positive -02/13 No white count, afebrile Rx: -Ceftriaxone (02/13- and azithromycin (02/11- -02/13 - Blood cultures x2 ordered RRx: -Cefepime (02/10 - 02/13) Disposition: ICU after ex-lap DVT prophylaxis: heparin 5000 u sc bid GI prophylaxis: Protonix 40 mg IV qday Diet: NPO Cardoza: yes Lines: Peripherals Drips: n/a Vent: n/a CODE STATUS: Full Code Patient plan of care was discussed with the attending physician, Dr. Sethi & senior resident Dr. Simeon Payne MD PGY-1 Attending Provider Attestation/Addendum Patient seen and examined with the above resident, Clive Payne MD. I agree with the findings, assessment, and plan of care as documented except for any differences below. Patient post-op after exploratory laporatomy for colonic perforation 2/2 gall stone. Patient remains on low dose vasopressor support with septic shock. May prove difficult to extubate due to underlying pulmonary fibrosis from prior pesticide exposure. Empiric antibiotics initiated for intarbdominal infection treatment with cefepime/ flagyl, stop azithromycin. Appropriate prophylaxis started. Total critical care time: I personally spent 40 minutes for review of physiologic parameters, directing plan of care, coordination of care with other specialists, and counseling patient's family at bedside. This is exclusive of time spent teaching housestaff or performing any separate billable procedures. Patient remains at significant risk for further morbidity and mortality warranting close monitoring and care only available in the ICU. Critical care services required for septic shock, perforated vicsus s/p partial colectomy/ diverting ostomy, acute respirtaory failure, and acute encephalopathy.
[2025-02-13 18:43] LABS: Basophils # (Auto) 0.1 Thou/mm3 (0.0-0.2); Basophils % (Auto) 1 % (0-2.5); Eosinophils # (Auto) 0.0 Thou/mm3 (0.0-0.5); Eosinophils % (Auto) 0 % (0-10); Hematocrit 37.7 % (36.0-46.0); Hemoglobin 10.9 g/dL (12.0-16.0); Immature Granulocytes Auto 0.03 Thou/mm3 (0.00-0.00); Lymphocytes # (Auto) 0.5 Thou/mm3 (1.0-4.8); Lymphocytes % (Auto) 7 % (10-50); Mean Corpuscular HGB Conc 28.9 g/dl (31.0-37.0); Mean Corpuscular Hemoglobin 27.0 pg (25.0-35.0); Mean Corpuscular Volume 94 fL (80-100); Monocytes # (Auto) 0.3 Thou/mm3 (0.0-0.8); Monocytes % (Auto) 4 % (0-12); Neutrophils # (Auto) 6.8 Thou/mm3 (1.8-7.7); Neutrophils % (Auto) 88 % (37-80); Nucleated Red Blood Cell # 0.04 Thou/mm3 (0.00-0.00); Nucleated Red Blood Cell % 1 /100 WBC (0); Platelet Count 274 Thou/mm3 (140-440); RDW Standard Deviation 57.1 fL (36.4-46.3); Red Blood Count 4.03 Miln/mm3 (4.00-5.20); White Blood Count 7.7 Thou/mm3 (3.6-11.0)
[2025-02-13] MEDS: Norepinephrine/D5W 8mg/250ml 8 MG/250 ML BAG 7.032 MG IV (18:43)
[2025-02-13 18:56] LABS: Anion Gap 6 (7-16); BUN/Creatinine Ratio 49 Ratio (12-20); Blood Urea Nitrogen 34 mg/dL (9-23); Calcium 8.4 mg/dL (8.3-10.6); Carbon Dioxide 35.3 mMol/L (20.0-31.0); Chloride 103 mMol/L (98-107); Creatinine (Component) 0.7 mg/dL (0.6-1.3); Estimated Creatinine Clearance 77.3 mL/min (>60); Glucose 124 mg/dL (74-106); Osmolality,Calculated 295 (275-295); Potassium 4.3 mMol/L (3.4-5.1); Sodium 144 mMol/L (136-145); eGFR > 60 See Note
[2025-02-13 19:06] LABS: Base Excess 7 (-3-3); HCO3 35 mEq/L (20-26); Inspired O2, VO2 Liters 99 L/min; Inspired Oxygen, FIO2 60 %; O2 Saturation 100 % (91-98); PCO2 70 mmHg (32.0-48.0); PO2 137 mmHg (83-108); pH, Arterial 7.31 (7.35-7.45)
[2025-02-13 19:07] LABS: Puncture Site Right Radial
[2025-02-13 19:08] LABS: Allen Test Performed/OK
--- NOTE | 2025-02-13 20:08 | PD.IMPROG ---
Documentation for date of: 02/13/25 Subjective Subjective Interval history: Sigmoid perforation status post exploratory laparotomy due to most likely the large gallstone Exam Vital Signs Temp Pulse Resp BP Pulse Ox O2 Del Method O2 Flow Rate 98.1 F 86 22 H 99/66 99 BiPAP 5 02/13/25 12:00 02/13/25 19:50 02/13/25 19:20 02/13/25 19:50 02/13/25 19:50 02/13/25 12:00 02/13/25 12:00 FiO2 60 02/13/25 19:50 Objective Labs 02/13/25 18:06 02/13/25 18:06 Labs: Laboratory Results - last 24 hr 02/13/25 02/13/25 02/13/25 05:00 11:32 17:05 WBC 5.0 D RBC 5.03 Hgb 13.4 Hct 47.1 H MCV 94 MCH 26.6 MCHC 28.5 L RDW Std Deviation 56.8 H Plt Count 281 Neut % (Auto) 85 H Lymph % (Auto) 9 L Barnwell % (Auto) 6 Eos % (Auto) 0 Baso % (Auto) 1 Neut # (Auto) 4.2 Lymph # (Auto) 0.4 L Barnwell # (Auto) 0.3 Eos # (Auto) 0.0 Baso # (Auto) 0.0 Immature Gran # (Auto) 0.01 H Absolute Nucleated RBC 0.02 H Immature Gran % 0 Nucleated RBC % 0 Puncture Site Left Radial ABG pH 7.22 L D ABG pCO2 89 H* D ABG pO2 86 ABG HCO3 36 H ABG O2 Saturation 96 ABG Base Excess 6 H Oxygen Liter Flow FiO2 60 Sodium 142 142 Potassium 4.7 4.6 Chloride 100 99 Carbon Dioxide 33.9 H 36.9 H Anion Gap 8 6 L BUN 25 H 35 H Creatinine 0.7 0.8 Estim Creat Clear Calc 77.3 67.7 eGFR > 60 > 60 BUN/Creatinine Ratio 36 H 44 H Glucose 119 H 149 H Calculated Osmolality 288 294 Lactic Acid 1.5 Calcium 10.1 9.8 Corrected Calcium 10.3 H 10.0 Phosphorus 3.4 3.1 Magnesium 2.2 Total Bilirubin 0.6 AST 28 ALT 18 Alkaline Phosphatase 85 Total Protein 7.6 Albumin 3.8 3.8 Globulin 3.8 H Albumin/Globulin Ratio 1.0 L 02/13/25 02/13/25 18:06 18:58 WBC 7.7 D RBC 4.03 Hgb 10.9 L D Hct 37.7 MCV 94 MCH 27.0 MCHC 28.9 L RDW Std Deviation 57.1 H Plt Count 274 Neut % (Auto) 88 H Lymph % (Auto) 7 L Barnwell % (Auto) 4 Eos % (Auto) 0 Baso % (Auto) 1 Neut # (Auto) 6.8 Lymph # (Auto) 0.5 L Barnwell # (Auto) 0.3 Eos # (Auto) 0.0 Baso # (Auto) 0.1 Immature Gran # (Auto) 0.03 H Absolute Nucleated RBC 0.04 H Immature Gran % 0 Nucleated RBC % 1 H Puncture Site Right Radial ABG pH 7.31 L ABG pCO2 70 H D ABG pO2 137 H D ABG HCO3 35 H ABG O2 Saturation 100 H ABG Base Excess 7 H Oxygen Liter Flow 99 FiO2 60 Sodium 144 Potassium 4.3 Chloride 103 Carbon Dioxide 35.3 H Anion Gap 6 L BUN 34 H Creatinine 0.7 Estim Creat Clear Calc 77.3 eGFR > 60 BUN/Creatinine Ratio 49 H Glucose 124 H Calculated Osmolality 295 Lactic Acid Calcium 8.4 Corrected Calcium Phosphorus Magnesium Total Bilirubin AST ALT Alkaline Phosphatase Total Protein Albumin Globulin Albumin/Globulin Ratio Impressions Impression: Sigmoid colon perforation most likely due to large gallstone calcified status post exploratory laparotomy Continue current management ABG Interpretation ABG results: 02/09/25 02/11/25 02/11/25 17:37 00:05 02:08 ABG pH 7.31 L 7.29 L 7.30 L ABG pCO2 77 H* 81 H* 79 H* ABG pO2 69 L 72 L 76 L ABG HCO3 39 H 39 H 39 H ABG O2 Saturation 93 94 95 ABG Base Excess 10 H 9 H 9 H VBG pH VBG pCO2 VBG pO2 VBG Base Excess 02/11/25 02/11/25 02/13/25 05:00 11:20 17:05 ABG pH 7.32 L 7.22 L D ABG pCO2 77 H* 89 H* D ABG pO2 73 L 86 ABG HCO3 39 H 36 H ABG O2 Saturation 95 96 ABG Base Excess 10 H 6 H VBG pH 7.47 VBG pCO2 53 VBG pO2 147 H VBG Base Excess 12 H 02/13/25 18:58 ABG pH 7.31 L ABG pCO2 70 H D ABG pO2 137 H D ABG HCO3 35 H ABG O2 Saturation 100 H ABG Base Excess 7 H VBG pH VBG pCO2 VBG pO2 VBG Base Excess Assessment & Plan Time Spent With Patient Time: Total time spent is greater than 50% in coordination of care (as documented) at patient's floor/unit and/or counseling patient:
[2025-02-14] VITALS (137 sets, daily range): BP systolic 68–126; BP diastolic 52–75; PULSE 34–188; RESP 10–27; TEMP 36.7–37.9; O2SAT 43–100; BMI 33.8
[2025-02-14 00:15] LABS: Base Excess 4 (-3-3); HCO3 35 mEq/L (20-26); Inspired Oxygen, FIO2 55 %; O2 Saturation 97 % (91-98); PCO2 97 mmHg (32.0-48.0); PO2 95 mmHg (83-108)
[2025-02-14 00:16] LABS: Allen Test Performed/OK; Puncture Site Right Radial; pH, Arterial 7.17 (7.35-7.45)
--- NOTE | 2025-02-14 00:45 | PC.NURSE ---
informed Dr Trinh of low urine output 10cc in last 2 hrs
[2025-02-14] MEDS: ACETAMINOPHEN IVPB 1,000 MG/100 ML VIAL 250 MG IV (01:19)
--- NOTE | 2025-02-14 01:26 | PC.RT ---
Due to ABG and co2 incline, Vent mode was changed to provide a Volume and RR was increased. MD was bedside and aware of changes. Also sent to [facility] for approval.. End Co2 dropped from 80's to 60's. MD is aware of Peak pressures but it is expected if we want to ventilate and decrease the Co2.
[2025-02-14] MEDS: RINGERS LACTATED 1000 ML 500 ML 999 ML IV (01:32)
[2025-02-14 02:08] LABS: Base Excess, Venous 7 (-3-3); O2 Saturation, Venous 93 % (96-97); PCO2, Venous 70 mmHg (36-56); PO2, Venous 64 mmHg (15-58); pH, Venous 7.31 (7.33-7.66)
[2025-02-14 02:09] LABS: Lactate (Lactic Acid) 1.2 mMol/L (0.4-2.0)
[2025-02-14 05:11] LABS: Base Excess 7 (-3-3); HCO3 35 mEq/L (20-26); Inspired Oxygen, FIO2 55 %; O2 Saturation 100 % (91-98); PCO2 63 mmHg (32.0-48.0); PO2 129 mmHg (83-108); pH, Arterial 7.35 (7.35-7.45)
[2025-02-14] MEDS: metroNIDAZOLE/NS 500 MG IVPB 500 MG/100 ML BAG 200 MG IV ×3 (05:14→21:00)
[2025-02-14 05:18] LABS: Allen Test Not Performed; Puncture Site Right Radial
[2025-02-14 05:19] LABS: Basophils # (Auto) 0.0 Thou/mm3 (0.0-0.2); Basophils % (Auto) 0 % (0-2.5); Eosinophils # (Auto) 0.0 Thou/mm3 (0.0-0.5); Eosinophils % (Auto) 0 % (0-10); Hematocrit 40.1 % (36.0-46.0); Hemoglobin 11.7 g/dL (12.0-16.0); Immature Granulocytes Auto 0.15 Thou/mm3 (0.00-0.00); Lymphocytes # (Auto) 1.0 Thou/mm3 (1.0-4.8); Lymphocytes % (Auto) 5 % (10-50); Mean Corpuscular HGB Conc 29.2 g/dl (31.0-37.0); Mean Corpuscular Hemoglobin 27.1 pg (25.0-35.0); Mean Corpuscular Volume 93 fL (80-100); Monocytes # (Auto) 0.6 Thou/mm3 (0.0-0.8); Monocytes % (Auto) 3 % (0-12); Neutrophils # (Auto) 16.9 Thou/mm3 (1.8-7.7); Neutrophils % (Auto) 91 % (37-80); Nucleated Red Blood Cell # 0.07 Thou/mm3 (0.00-0.00); Nucleated Red Blood Cell % 0 /100 WBC (0); Platelet Count 378 Thou/mm3 (140-440); RDW Standard Deviation 56.4 fL (36.4-46.3); Red Blood Count 4.32 Miln/mm3 (4.00-5.20); White Blood Count 18.6 Thou/mm3 (3.6-11.0)
[2025-02-14 05:51] LABS: Alanine Aminotransferase 12 U/L (10-49); Albumin, Serum 2.9 gm/dL (3.4-4.8); Albumin/Globulin Ratio 1.0 (1.2-2.2); Alkaline Phosphatase 68 U/L (46-116); Anion Gap 7 (7-16); Aspartate Amino Transferase 32 U/L (0-34); BUN/Creatinine Ratio 47 Ratio (12-20); Bilirubin,Total 0.4 mg/dL (0.3-1.2); Blood Urea Nitrogen 42 mg/dL (9-23); Calcium 9.4 mg/dL (8.3-10.6); Calcium (Corrected) 10.3 mg/dL (8.5-10.1); Carbon Dioxide 35.6 mMol/L (20.0-31.0); Chloride 101 mMol/L (98-107); Creatinine (Component) 0.9 mg/dL (0.6-1.3); Estimated Creatinine Clearance 61.5 mL/min (>60); Globulin 2.9 gm/dL (2.3-3.5); Glucose 114 mg/dL (74-106); Magnesium 2.6 mg/dL (1.6-2.6); Osmolality,Calculated 298 (275-295); Phosphorous 3.2 mg/dL (2.4-5.1); Potassium 4.4 mMol/L (3.4-5.1); Sodium 144 mMol/L (136-145); Total Protein 5.8 gm/dL (5.7-8.2); eGFR > 60 See Note
[2025-02-14] MEDS: cefTRIAXone 2 GM in SODIUM CHLORIDE 0.9% (Popper) 50 ML IV (08:40)
[2025-02-14] MEDS: HEPARIN SOD INJ 5000 UNIT/ML VIAL SC ×2 (08:41→21:00)
--- NOTE | 2025-02-14 10:43 | PD.SURPROG ---
Documentation for date of: 02/14/25 Subjective Subjective Narrative: Patient is seen and examined in ICU. Currently intubated. Overnight she had low urine output. Her pressor requirement is decreasing Exam Vital Signs Temp Pulse Resp BP Pulse Ox O2 Del Method O2 Flow Rate 98.2 F 80 25 H 94/60 99 Mechanical Ventilation 5 02/14/25 08:15 02/14/25 10:06 02/14/25 06:38 02/14/25 10:06 02/14/25 10:06 02/14/25 03:30 02/13/25 12:00 FiO2 55 02/14/25 10:06 Constitutional Comments: Intubated Routine Abdominal Exam Comments: Abdomen is soft and mildly distended. Incision with dressings clean, dry and intact. Colostomy is pink, present, mildly edematous, not productive at this time Assessment & Plan Assessment Additional comments: Postop day #1 status post exploratory laparotomy with sigmoid colectomy and end colostomy Plan Continue IV antibiotics. Sedations have been turned off in anticipation for weaning from the ventilator and possible extubation. PROCEDURES: Procedures Exploratory laparotomy, sigmoid colectomy, end descending colostomy
[2025-02-14] MEDS: RINGERS LACTATED 1000 ML 1,000 ML 999 ML IV (11:06)
[2025-02-14] MEDS: BUMETANIDE INJ 0.25 MG/ML VIAL 4 ML 1 MG IVP (11:09)
--- NOTE | 2025-02-14 12:26 | ESPR_ITS ---
<Statement entered by Donato Hendrix MD - 02/14/25 12:31> I discussed and supervised with the internet sourcer physician who took care of this patient. I personally saw and examined the patient. I agree with most of the assessment and plan. Disclaimer: Despite multiple revisions, due to the dictation software being used, the document bellow may not be free of grammatical errors including phonetic/typographic errors. However, this does not deter from our commitment to providing health care in the patient's best interest in mind. Plan of care discussed with attending Physician Dr. 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 At baseline she lives at her acute rehab and gets short of breath when she exerts. She has been experiencing shortness of breath and bilateral leg swelling since last 2 weeks. This leg swelling is progressively worsened and involves the abdomen face underneath the eyes and lips. She has been experiencing short of breath since 2 weeks even at rest. She denies any chest pain, chest palpitations but endorses occasional cough with sputum which is initially yellow in color but now it is clear. ED visit: Initial vitals BP 106/69, pulse rate 100, respiratory rate 20, temperature 98.3 saturating 88% on 4 L of oxygen. Pertinent ED labs are WBC 14.8 with neutrophil 87%, D-dimer 3680, BNP 1165, troponin 0.055 BUN 27, ABG?pH 7.31, pCO2 77, HCO3 39. Urine protein 3+, RBC 4+ creatinine clearance 2.7. Imaging chest x-ray on 02/09 shows enlarged cardiac contour with perihilar congestion Moderate CHF. EKG shows sinus tachycardia. CT scan shows no gallbladder visualization and 28 mm calcified stone in sigmoid colon suspicious for gallbladder ileus.In the ED, was given Azithromycin 500 mg, ceftriaxone 2gm,1 L NS and furosemide. Hospital course Interval History 02/10 - 02/13 Patient initially was diuresed daily with bumex 1 mg daily (now being held for soft BP) for dyspnea and leg swelling. Has been on cefepime and azithromycin for possible pneumonia. GI consulted for gallstone and sigmoid colon pain management with Tylenol and ketorolac as patient is allergic to codeine, hydrocodone and tramadol. Abdomina pain marginally decreased 2 days after admission, had been stable. Possible surgical consultation depending on HIDA scan read and per GI. Today patient was noted to be on BiPAP but confused and A&O x1 to only to name, stating she had dfifuse abdominal pain. CXR ordered and showed pneumoperitoneum. CTAP showed similar thing, surgery was consulted and planned for ex lap today after patient's daughter Romana was asked and approved for consent. Patient planned to be upgraded to ICU after surgery needing ICU level care, given history of pulmonary fibrosis and other comorbidities. 02/14/2025: Overnight patient was changed from pressure control ventilation to PRVC due to some decrease in blood pressure and after patient's ABG at midnight showed pH 7.17 and pco2 97. Repeat ABG later in the morning was improved at 7.35 pH and pco2 of 63 after vent settings were adjusted. Patient was on levophed 0.07 overnight with MAP's > 65. Patient was given 500 ml bolu and had cheetah done showing fluid responsiveness. Patient was noted to have 10-15 cc/hr of urine overnight. Patient's RASS was set to -5, had sedation decreased, RASS was -1/-2 on reassessment. Patient started appearing to be in pain and had RASS score goal was decreased back to -5. Patient did not have any bowel movements overnight. In the morning on assessment patient's vitals were notable for MAP 69, saturating 99% O2 on 55%FiO2. In the morning, in attempt to wean patient off of sedation, we turned off the Versed and continued the fentanyl at 25 mcg/hr. Exam Vital Signs Temp Pulse Resp BP Pulse Ox O2 Del Method O2 Flow Rate 98.2 F 97 25 H 107/62 97 Mechanical Ventilation 5 02/14/25 12:00 02/14/25 12:00 02/14/25 06:38 02/14/25 12:00 02/14/25 12:00 02/14/25 03:30 02/13/25 12:00 FiO2 55 02/14/25 10:06 Narrative Exam General: Sedated, Intubated. Skin: Warm, dry, intact, no obvious rash. HENT: NCAT, PERRL, not icteric. External ears normal. No rhinorrhea. Dry mucous membranes Cardiovascular: Regular rate and rhythm, no murmur, +S1/S2. Respiratory: Lungs CTAB GI: Soft, nontender, non-distended. Abdominal Wound s/p ex-lap dressed clean/intact. No guarding or rebound tenderness. : No suprapubic tenderness. No flank tenderness bilaterally. Extremities: trace bilateral lower extremity edema up to hip, no cyanosis, no clubbing. Extremity pulses present Neuro: PERRL, gag reflex intact; RASS -4. Objective Labs 02/18/25 04:20 02/18/25 04:20 Labs: Laboratory Results - last 24 hr 02/13/25 02/13/25 02/13/25 17:05 18:06 18:58 WBC 7.7 D RBC 4.03 Hgb 10.9 L D Hct 37.7 MCV 94 MCH 27.0 MCHC 28.9 L RDW Std Deviation 57.1 H Plt Count 274 Neut % (Auto) 88 H Lymph % (Auto) 7 L Carlisle % (Auto) 4 Eos % (Auto) 0 Baso % (Auto) 1 Neut # (Auto) 6.8 Lymph # (Auto) 0.5 L Carlisle # (Auto) 0.3 Eos # (Auto) 0.0 Baso # (Auto) 0.1 Immature Gran # (Auto) 0.03 H Absolute Nucleated RBC 0.04 H Immature Gran % 0 Nucleated RBC % 1 H Puncture Site Left Radial Right Radial ABG pH 7.22 L D 7.31 L ABG pCO2 89 H* D 70 H D ABG pO2 86 137 H D ABG HCO3 36 H 35 H ABG O2 Saturation 96 100 H ABG Base Excess 6 H 7 H VBG pH VBG pCO2 VBG pO2 VBG O2 Sat (Alexsander) VBG Base Excess Oxygen Liter Flow 99 FiO2 60 60 Sodium 144 Potassium 4.3 Chloride 103 Carbon Dioxide 35.3 H Anion Gap 6 L BUN 34 H Creatinine 0.7 Estim Creat Clear Calc 77.3 eGFR > 60 BUN/Creatinine Ratio 49 H Glucose 124 H Calculated Osmolality 295 Lactic Acid Calcium 8.4 Corrected Calcium Phosphorus Magnesium Total Bilirubin AST ALT Alkaline Phosphatase Total Protein Albumin Globulin Albumin/Globulin Ratio 02/14/25 02/14/25 02/14/25 00:08 01:56 04:32 WBC 18.6 H D RBC 4.32 Hgb 11.7 L Hct 40.1 MCV 93 MCH 27.1 MCHC 29.2 L RDW Std Deviation 56.4 H Plt Count 378 D Neut % (Auto) 91 H Lymph % (Auto) 5 L Carlisle % (Auto) 3 Eos % (Auto) 0 Baso % (Auto) 0 Neut # (Auto) 16.9 H Lymph # (Auto) 1.0 Carlisle # (Auto) 0.6 Eos # (Auto) 0.0 Baso # (Auto) 0.0 Immature Gran # (Auto) 0.15 H Absolute Nucleated RBC 0.07 H Immature Gran % 1 H Nucleated RBC % 0 Puncture Site Right Radial ABG pH 7.17 L* D ABG pCO2 97 H* D ABG pO2 95 D ABG HCO3 35 H ABG O2 Saturation 97 ABG Base Excess 4 H VBG pH 7.31 L VBG pCO2 70 H D VBG pO2 64 H D VBG O2 Sat (Alexsander) 93 L VBG Base Excess 7 H Oxygen Liter Flow FiO2 55 Sodium 144 Potassium 4.4 Chloride 101 Carbon Dioxide 35.6 H Anion Gap 7 BUN 42 H Creatinine 0.9 Estim Creat Clear Calc 61.5 eGFR > 60 BUN/Creatinine Ratio 47 H Glucose 114 H Calculated Osmolality 298 H Lactic Acid 1.2 Calcium 9.4 Corrected Calcium 10.3 H Phosphorus 3.2 Magnesium 2.6 Total Bilirubin 0.4 AST 32 ALT 12 Alkaline Phosphatase 68 Total Protein 5.8 Albumin 2.9 L D Globulin 2.9 Albumin/Globulin Ratio 1.0 L 02/14/25 04:50 WBC RBC Hgb Hct MCV MCH MCHC RDW Std Deviation Plt Count Neut % (Auto) Lymph % (Auto) Carlisle % (Auto) Eos % (Auto) Baso % (Auto) Neut # (Auto) Lymph # (Auto) Carlisle # (Auto) Eos # (Auto) Baso # (Auto) Immature Gran # (Auto) Absolute Nucleated RBC Immature Gran % Nucleated RBC % Puncture Site Right Radial ABG pH 7.35 D ABG pCO2 63 H D ABG pO2 129 H D ABG HCO3 35 H ABG O2 Saturation 100 H ABG Base Excess 7 H VBG pH VBG pCO2 VBG pO2 VBG O2 Sat (Alexsander) VBG Base Excess Oxygen Liter Flow FiO2 55 Sodium Potassium Chloride Carbon Dioxide Anion Gap BUN Creatinine Estim Creat Clear Calc eGFR BUN/Creatinine Ratio Glucose Calculated Osmolality Lactic Acid Calcium Corrected Calcium Phosphorus Magnesium Total Bilirubin AST ALT Alkaline Phosphatase Total Protein Albumin Globulin Albumin/Globulin Ratio ABG Interpretation ABG results: 02/09/25 02/11/25 02/11/25 17:37 00:05 02:08 ABG pH 7.31 L 7.29 L 7.30 L ABG pCO2 77 H* 81 H* 79 H* ABG pO2 69 L 72 L 76 L ABG HCO3 39 H 39 H 39 H ABG O2 Saturation 93 94 95 ABG Base Excess 10 H 9 H 9 H VBG pH VBG pCO2 VBG pO2 VBG Base Excess 02/11/25 02/11/25 02/13/25 05:00 11:20 17:05 ABG pH 7.32 L 7.22 L D ABG pCO2 77 H* 89 H* D ABG pO2 73 L 86 ABG HCO3 39 H 36 H ABG O2 Saturation 95 96 ABG Base Excess 10 H 6 H VBG pH 7.47 VBG pCO2 53 VBG pO2 147 H VBG Base Excess 12 H 02/13/25 02/14/25 02/14/25 18:58 00:08 01:56 ABG pH 7.31 L 7.17 L* D ABG pCO2 70 H D 97 H* D ABG pO2 137 H D 95 D ABG HCO3 35 H 35 H ABG O2 Saturation 100 H 97 ABG Base Excess 7 H 4 H VBG pH 7.31 L VBG pCO2 70 H D VBG pO2 64 H D VBG Base Excess 7 H 02/14/25 04:50 ABG pH 7.35 D ABG pCO2 63 H D ABG pO2 129 H D ABG HCO3 35 H ABG O2 Saturation 100 H ABG Base Excess 7 H VBG pH VBG pCO2 VBG pO2 VBG Base Excess Quality Measures Quality Measures VTE prophylaxis Assessment & Plan Assessment Current Active Medications: Generic Name Dose Route Start Last Admin Trade Name Freq PRN Reason Stop Dose Admin Acetaminophen 650 mg 02/10/25 20:28 Acetaminophen 325 Mg Tablet PO 03/12/25 20:27 Q6H PRN Fever >100.4 Acetaminophen 650 mg 02/10/25 20:28 02/11/25 09:34 Acetaminophen 325 Mg Tablet PO 03/12/25 20:27 650 mg Q6H PRN Administration PAIN SCALE 1-3 (mild Albuterol/Ipratropium 3 ml 02/12/25 11:26 Albuterol/Ipratropium (Duoneb) Rt Quiana 3 Ml Nebu INH 03/14/25 12:59 Q6HRRT PRN wheezing and SOB Atorvastatin Calcium 20 mg 02/10/25 21:00 02/13/25 21:39 Atorvastatin Calcium 20 Mg Tablet PO 03/12/25 20:59 Not Given HS KATIE Bumetanide 1 mg 02/11/25 09:00 02/13/25 08:16 Bumetanide Inj 0.25 Mg/Ml Vial 4 Ml IVP 03/13/25 08:59 1 mg On Hold: 02/13/25 15:07 QDAY KATIE Administration Heparin Sodium (Porcine) 5,000 unit 02/10/25 21:00 02/14/25 08:41 Heparin Sod Inj 5000 Unit/Ml Vial SC 02/24/25 20:59 5,000 unit BID KATIE Administration Hydromorphone HCl 0.5 mg 02/13/25 11:03 Hydromorphone Inj 2 Mg/Ml Vial IVP 02/18/25 11:02 On Hold: 02/14/25 08:31 Q4HR PRN Comment: PATIENT RECEIVING PAIN SCALE 7-10 (Severe FENTANYL gtts. Metronidazole 500 mg in 100 mls @ 200 mls/hr 02/13/25 11:08 02/14/25 05:14 Flagyl 500 Mg Iv IV 02/20/25 11:07 200 mls/hr Q8HR KATIE Administration Ceftriaxone Sodium 2 gm/ 50 mls @ 100 mls/hr 02/13/25 15:17 02/14/25 08:40 Sodium Chloride IV 02/20/25 15:16 100 mls/hr QDAY KATIE Administration Fentanyl Citrate 2,500 mcg in 250 mls @ 2.5 mls/hr 02/13/25 16:21 02/14/25 11:05 Sublimaze Inj 2,500 Mcg/250 Ml Bag IV 02/18/25 16:20 0 mcg/hr .Q24H PRN 0 mls/hr PER PROTOCOL Titration Protocol 25 MCG/HR Midazolam HCl 100 mg in 100 mls @ 1 mls/hr 02/13/25 16:21 02/14/25 08:30 Versed Pf Inj In Ns Premix IV 02/18/25 16:20 0 mg/hr .Q24H PRN 0 mls/hr PER PROTOCOL Titration Protocol 1 MG/HR Norepinephrine/Dextrose 8 mg in 250 mls @ 7.032 mls/hr 02/13/25 16:22 02/14/25 11:00 Levophed In D5w 8mg/250ml IV 03/15/25 16:21 0.07 mcg/kg/min .Q24H PRN 9.845 mls/hr PER PROTOCOL Titration Protocol 0.05 MCG/KG/MIN Levothyroxine Sodium 125 mcg/ 150 mcg 02/12/25 06:00 02/13/25 05:37 Levothyroxine Sodium 25 mcg PO 03/14/25 05:59 150 mcg On Hold: 02/14/25 01:15 ACBR KATIE Administration Levothyroxine Sodium 112.5 mcg 02/14/25 01:20 02/14/25 08:45 Levothyroxine Inj 100 Mcg Vial IV 03/16/25 01:19 112.5 mcg DAILY KATIE Administration Ondansetron HCl 4 mg 02/10/25 20:28 Ondansetron Inj 2 Mg/Ml Inj 2 Ml IVP 03/12/25 20:27 Q6H PRN NAUSEA OR VOMITING Protocol Pantoprazole Sodium 40 mg 02/13/25 11:15 02/14/25 08:46 Pantoprazole Inj 40 Mg Vial IVP 03/15/25 11:14 40 mg QDAY KATIE Administration Sennosides 1 tab 02/10/25 20:28 02/13/25 05:37 Senna Tablet PO 03/12/25 20:27 1 tab QDAY PRN Administration constipation Protocol Sertraline HCl 50 mg 02/11/25 21:00 02/13/25 21:39 Sertraline Hcl 25 Mg Tablet PO 03/13/25 20:59 Not Given HS KATIE Plan Tyra Larkin 59F pmhx significant for HFpEF (60-65%, 07/2023), 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 Planned to upgrade to ICU needing ICU level care, ex-lap surgery today, and given history of pulmonary fibrosis and other comorbidities. Neurology #[facility] In setting of altered mental status 02/13 pre surgery. Dx: -RASS goal of -5, sedation temporarily decreased 02/14 AM, found to be in pain, put sedation back on. Found to have RASS -5 on 02/14 AM assessment. Rx: -Turned off Versed sedation -Continuing low dose Fentanyl sedation #Acute Encephalopathy, resolved DDx: Infection (GI) vs acidosis vs less likely metabolic vs toxic Dx: -Patient A&Ox1 02/13 from baseline of x3 -CXR and CTAP showed pneumoperitoneum -No notable electrolyte abnormalities, no toxins noted Rx: -Treating underlying infection with abx, surgery ex-lap today. Cardiovascular #Sepsis #Hypotension DDx: GI infection vs less likely pneumonia Dx: -MAP has been upper 60s today and overnight on Levophed -Pneumoperitoneum on imaging, s/p partial colectomy, colostomy Rx: -Treating underlying infection with abx -Levophed currently with MAP goal >65 #Acute on chronic HFpEF (60-65%, 07/2023) #Severe pulmonary hypertension DDx: Dx: -Presents with dyspnea at rest, worsening SOB, BLE swelling, and facial swelling -Lasix reportedly occasionally held due to soft BP outpatient at rehab center -BNP 1165 -02/10 TTE Normal LV size, wall thickness. Normal LV diastolic filling pattern for age. Estimated EF at 55-60 %. The RV size is moderately increased with moderately decreases systolic function. The estimated RVSP, 72 mmHg. RAP 15. The RA cavity size is severely increased. Moderate TR. Less than 50% respiratory change in dimension of the inferior vena cava abnormal. Rx: -Gave Bumex 1 mg x1 for to help kidney after 1 L bolus given -Strict I&Os, daily weights, 1.8L fluid restriction #NSTEMI likely type II, 2/2 fluid overload, resolved Dx: -troponin 0.055->0.028 Rx: -will monitor for chest pain #HLD Dx: -Lipid panel unremarkable other than mildly decreased HDL, 30. Rx: -Continuing home med atorvastatin 20 mg po hs Respiratory #Mechanical Ventilation DDx: due to airway protection in setting of altered mental status before surgery 02/13 Dx: -02/14 ABG pH 7.35, pco2 63, po2 129, Bicarb 35 -Patient likely has contraction alkalosis from diuretic use -Will plan to put on pressure support for mentation assessment in AM -Continue vent settings for now #Acute hypoxic respiratory failure, resolved DDx: combination of acute on chronic heart failure exacerbation vs worsening pulmonary fibrosis vs aspiration PNA vs CAP, less likely PE Dx: -Presents with dyspnea at rest, worsening SOB, BLE swelling, and facial swelling on home O2 4L. On physical examination bilateral crackles over the both lungs. Follows Dr. Garrido and Dr. Kim outpatient. -On admission saturating 88% on 4 L of oxygen -ABG 7.31/77/69/39 with repeat ABGs pH 7.29-7.32. 02/09 CXR bilateral pulmonary congestion and enlarged cardiac contour. 02/09 CTA chest/AP showed prominent CHF, negative for PE Rx: - Ceftriaxone (02/13- and Flagyl (02/13- - Mechanical Ventilated RRx: -Cefepime (02/10 - 02/13), azithromycin (02/11-02/13) -BiPAP (02/11 - 02/13) #Pulmonary fibrosis 2/2 pesticides Stated has appointment tomorrow with Dr. Kim. Has never been on medication for pulmonary fibrosis. Plan: - CTM O2 saturation and if patient cannot tolerate deescalation of O2 despite IV diuresis, consider consulting pulmonology - Duoneb q6h prn GI and F/E/N #Bowel perforation #Severe lower abdominal pain #28mm calcified mass on sigmoid colon, likely gallstone - On admission patient had pain after meals since 2 weeks 02/09 at lower abdomen/suprapubic area. Extremely tender to palpation. Stated no BM for the past 5 days prior to admission. Denies hx of cholcystectomy. -02/09 CTA chest/AP: GB not visualized, 28mm calcified mass in sigmoid colon w/o visualization of GB -02/10 MRCP: GB not visualized, common hepatic duct common bile duct normal size no stones, neg pancreatitis, no free fluid in abdomen, aorta normal size, minimal bilateral hydrenophrosis, edema in subcutaneous fatty tissues at the flanks; GB US: GB not visualized -On 02/13, patient appeared more confused with significant abdominal tenderness and SOB. CXR: pneumoperitoneum; CTAP: Extensive pneumoperitoneum, cholelithiasis but gallbladder wall appears thickened but no abnormal small air and fluid distended with prominent wall thickening, remains calcified mass in sigmoid colon 26 mm. Rx: - GI consulted, recs appreciated - Surgery consulted, recs appreciated: s/p ex lap with possible bowel resection &colostomy 02/13 - Will start tube feeds when Levophed is weaned - Patient will require ICU level of care post surgery due to pulmonary fibrosis Renal #ERMELINDA DDx: pre-renal vs intra-renal. fluid losses from surgery vs dehydration vs contrast use vs abdominal compartment syndrome. Patient did have surgery yesterday and has been NPO. Patient was given contrast for scans. Patient's abdomen is not hard or distended, less likely abd compartment syndrome. Dx: - Cr 1.0 (baseline around ~0.7), BUN 43 - Urine output has been decreased - Gave 1 L LR bolus this morning with 1 mg bumex following resulting in improved urine output. Heme #leukocytosis DDx: Surgery yesterday vs infection vs inflammation Dx: -WBC 18.6 (7.7 Rx: -Treating underlying infection. #anemia DDx: surgery vs IV fluids Dx: -Hgb 11.6, stable Rx: -will continue to trend hgb, monitor for signs of bleeding Endo #hypothyroidism Dx: -home med levothyroxine 150 mcg ACBR -TSH 0.36, T4 1.39 Rx: -On Levothyroxine IV 112.5 mg IV qd ID #Likely GI infection Patient's imaging showing pneumoperitonitis (perforation) likely cause of infection Dx: -02/09 Blood cultures x2 No growth after 48 hours -02/11 MRSA POSITIVE (NARES) -02/13 No white count, afebrile Rx: -Ceftriaxone (02/13- and Flagyl (02/13- -02/13 - GPC x1 blood cx RRx: -azithromycin (02/11-02/13) -Cefepime DC'd (02/10 - 02/13) Disposition: ICU s/p ex-lap partial colectomy, colostomy (02/13) DVT prophylaxis: heparin 5000 u sc bid GI prophylaxis: Protonix 40 mg IV qday Diet: NPO Cardoza: yes Lines: Peripherals, Central Line Drips: Levophed Vent: A/CMV, VC CODE STATUS: Full Code Patient plan of care was discussed with the attending physician, Dr. Sethi & senior resident Dr. Simeon Payne MD PGY-1 Attending Provider Attestation/Addendum Patient seen and examined with the above resident, Clive Payne MD. I agree with the findings, assessment, and plan of care as documented except for any differences below. Given improvement, stop sedation with versed and being weaning fentanyl to comfort. Component of renal injury in setting of septic shock. Maintain MAP>65 and optimize fluid status. Appropriate resuscitation with plan to challenge with fluids for limited UOP. If fails to improve, consider bumex alternatively- taken at home with HFpEF. Maintain on antibiotic regimen, ceftriaxone/ flagyl likely adequate for GI organisms unless clinically or micro data suggest otherwise. Aggressively wean pressors and initiate TF when cleared form surgical perspective. Started on prophylaxis appropriately. Total critical care time: I personally spent 35 minutes for review of physiologic parameters, directing plan of care, coordination of care with other specialists, and counseling patient's family at bedside. This is exclusive of time spent teaching housestaff or performing any separate billable procedures. Patient remains at significant risk for further morbidity and mortality warranting close monitoring and care only available in the ICU. Critical care services required for septic shock, perforated vicsus s/p partial colectomy/ diverting ostomy, acute respirtaory failure, and acute renal failure.
[2025-02-14] MEDS: EPINEPHrine INJ 0.1 MG/ML SYRINGE 10ML 1 MG IVP (13:21)
[2025-02-14] MEDS: AMIODARONE 50 MG/ML 150 MG IV (13:26)
[2025-02-14] MEDS: AMIODARONE 360 MG IVPB 360 MG/200 ML BAG 16.667 MG IV (13:29)
[2025-02-14] MEDS: MIDAZOLAM INJ 1 MG/ML VIAL 2 ML 2.5 MG IVP (13:30)
[2025-02-14] MEDS: SODIUM CHLORIDE 0.9% 1000 ML 1,000 ML 999 ML IV (13:34)
[2025-02-14 13:45] LABS: Lactate (Lactic Acid) 3.5 mMol/L (0.4-2.0)
[2025-02-14 13:48] LABS: Basophils # (Auto) 0.0 Thou/mm3 (0.0-0.2); Basophils % (Auto) 0 % (0-2.5); Eosinophils # (Auto) 0.0 Thou/mm3 (0.0-0.5); Eosinophils % (Auto) 0 % (0-10); Hematocrit 39.3 % (36.0-46.0); Hemoglobin 11.6 g/dL (12.0-16.0); Immature Granulocytes Auto 0.24 Thou/mm3 (0.00-0.00); Lymphocytes # (Auto) 1.7 Thou/mm3 (1.0-4.8); Lymphocytes % (Auto) 8 % (10-50); Mean Corpuscular HGB Conc 29.5 g/dl (31.0-37.0); Mean Corpuscular Hemoglobin 26.9 pg (25.0-35.0); Mean Corpuscular Volume 91 fL (80-100); Monocytes # (Auto) 0.6 Thou/mm3 (0.0-0.8); Monocytes % (Auto) 3 % (0-12); Neutrophils # (Auto) 20.4 Thou/mm3 (1.8-7.7); Neutrophils % (Auto) 89 % (37-80); Nucleated Red Blood Cell # 0.13 Thou/mm3 (0.00-0.00); Nucleated Red Blood Cell % 1 /100 WBC (0); Platelet Count 421 Thou/mm3 (140-440); RDW Standard Deviation 56.1 fL (36.4-46.3); Red Blood Count 4.31 Miln/mm3 (4.00-5.20); White Blood Count 23.0 Thou/mm3 (3.6-11.0)
[2025-02-14 13:53] LABS: Base Excess, Venous 2 (-3-3); O2 Saturation, Venous 99 % (96-97); PCO2, Venous 55 mmHg (36-56); PO2, Venous 118 mmHg (15-58); pH, Venous 7.34 (7.33-7.66)
--- NOTE | 2025-02-14 13:56 | EVENTNT_ITS ---
<Statement entered by Tunde Sethi MD - 02/16/25 09:42> I was present and directed plan of care as documented. Documentation for date of: 02/14/25 Event Note Event Note: At around 13:20 pm, patient was desaturating rapidly after being found with her jaw clamped hard down on her ET tube. Patient had shock pads put on. Patient was then bradycardic to 30s and then was given 1 mg epinephrine at 13:21 followed by patient going into Vtach with a pulse. Patient had a new pulse ox put on. Patient's blood sugar was noted to be 99 at 13:26. At 13:26, patient was given Amiodarone 150 mg for Vtach. At 13:28, AED synchronized. At 13:29, Amiodarone ggt was started. At 13:30, EKG was done that showed afib. Patient was given Versed 2.5 mg. At 13:32, AED was synchronized and charged to 100 J, 'CLEAR' was announced and patient was shocked into sinus tachycardia. 13:34, Patient was then given 1 L NS bolus. Labs were drawn at 13:37. Levo was started at 0.07 and then immediately increased to 0.1 at 13:38. At 13:40 bronchoscopy was done which was unremarkable. At 13:42, patient was put back on mechanical ventilation. Patient's MAP was increasing and was at 69 at the conclusion of the event with oxygen saturations in the high 90s. Stat CXR and VBG were ordered after. Patient plan of care was discussed with the attending physician, Dr. Sethi & senior resident Dr. Simeon Payne MD PGY-1
--- NOTE | 2025-02-14 14:00 | XR_ITS ---
EXAMINATION: AP chest single view TECHNIQUE: AP portable semiupright chest single view Date and time: February 14, 2025, 1402 hours, comparison February 13, 2025 INDICATIONS: Acute hypoxia O2 desaturation today. FINDINGS: Tracheal tube 2.9 cm above brian. Moderate CHF, moderate enlargement cardiac contour prominent vascular congestion and perihilar edema Consider superimposed bilateral pneumonia Right internal jugular central line tip satisfactory position. IMPRESSION: Moderate CHF Consider superimposed bilateral pneumonia throughout the lungs
[2025-02-14 14:18] LABS: Alanine Aminotransferase 15 U/L (10-49); Albumin, Serum 3.1 gm/dL (3.4-4.8); Albumin/Globulin Ratio 1.0 (1.2-2.2); Alkaline Phosphatase 69 U/L (46-116); Anion Gap 11 (7-16); Aspartate Amino Transferase 44 U/L (0-34); BUN/Creatinine Ratio 43 Ratio (12-20); Bilirubin,Total 0.3 mg/dL (0.3-1.2); Blood Urea Nitrogen 43 mg/dL (9-23); Calcium 9.2 mg/dL (8.3-10.6); Calcium (Corrected) 9.9 mg/dL (8.5-10.1); Carbon Dioxide 29.3 mMol/L (20.0-31.0); Chloride 103 mMol/L (98-107); Creatinine (Component) 1.0 mg/dL (0.6-1.3); Estimated Creatinine Clearance 55.3 mL/min (>60); Globulin 3.1 gm/dL (2.3-3.5); Glucose 143 mg/dL (74-106); Magnesium 2.6 mg/dL (1.6-2.6); Osmolality,Calculated 297 (275-295); Phosphorous 5.1 mg/dL (2.4-5.1); Potassium 4.4 mMol/L (3.4-5.1); Sodium 143 mMol/L (136-145); Total Protein 6.2 gm/dL (5.7-8.2); eGFR > 60 See Note
--- NOTE | 2025-02-14 14:20 | PC.SS ---
HIGH SCHOOL B[employer] TEACHER confirmed that patient?s daughter, Romana Hughes ; has agreed to designate brother, Carlo Disla ; as surrogate medical decision maker.? ICU resident present to witness confirmation.? HIGH SCHOOL BAND TEACHER updated ICU community action worker.
[2025-02-14 14:22] LABS: Base Excess, Venous 3 (-3-3); O2 Saturation, Venous 76 % (96-97); PCO2, Venous 70 mmHg (36-56); PO2, Venous 44 mmHg (15-58); pH, Venous 7.27 (7.33-7.66)
[2025-02-14 14:23] LABS: Troponin I 0.072 ng/mL (0.0-0.045)
[2025-02-14 14:24] LABS: B-Type Natriuretic Peptide 801 pg/mL (0-100)
[2025-02-14] MEDS: Norepinephrine/D5W 8mg/250ml 8 MG/250 ML BAG 28.13 MG IV (15:29)
--- NOTE | 2025-02-14 15:38 | PC.DIETICIAN ---
Nutrition prescription Vital 1.2 at 20 ml/hr via OG tube by pump. Advance 10 ml every 8 hrs to goal rate of 50 ml/hr x 22 hrs. If no IV fluids, water flushes of 25 ml/hr (or per MD). -Hold TF for one hour before and after levothyroxine administration-
[2025-02-14 15:51] LABS: Band Neutrophils (Manual) 29 % (0-6); Lymphocytes (Manual) 7 % (20-44); Monocytes (Manual) 3 % (2-9); Neutrophils (Manual) 57 % (50-70)
[2025-02-14 15:52] LABS: Metamyelocytes (Manual) 2 % (0-0); Myelocytes (Manual) 2 % (0-0)
--- NOTE | 2025-02-14 16:13 | PC.NURSE ---
at approximately 1315 patient began to bite on tube which lead to desaturating into the 50s, pt blood pressure was in the 80s. 1 mg of epinephrine given per MD orders at bedside. Pt began to go into Ventricular tachycardia and was then synchronized and cardioverted . pts heart rate was still in the 180, amiodarone bolus given and infusion was started , levophed increased per MD, patient stablized
[2025-02-14 16:44] LABS: Reflex Lactate? Y
[2025-02-14 17:19] LABS: Lactic Acid, 3 HR 1.0 mMol/L (0.4-2.0)
[2025-02-14 17:48] LABS: Ammonia < 10 uMol/L (11-32)
[2025-02-14 19:49] LABS: Albumin, Serum 3.2 gm/dL (3.4-4.8); Anion Gap 7 (7-16); BUN/Creatinine Ratio 56 Ratio (12-20); Blood Urea Nitrogen 45 mg/dL (9-23); Calcium 9.1 mg/dL (8.3-10.6); Calcium (Corrected) 9.7 mg/dL (8.5-10.1); Carbon Dioxide 34.3 mMol/L (20.0-31.0); Chloride 103 mMol/L (98-107); Creatinine (Component) 0.8 mg/dL (0.6-1.3); Estimated Creatinine Clearance 67.5 mL/min (>60); Glucose 124 mg/dL (74-106); Magnesium 2.2 mg/dL (1.6-2.6); Osmolality,Calculated 299 (275-295); Phosphorous 2.7 mg/dL (2.4-5.1); Potassium 4.2 mMol/L (3.4-5.1); Sodium 144 mMol/L (136-145); eGFR > 60 See Note
--- NOTE | 2025-02-14 20:37 | ESPR_ITS ---
Documentation for date of: 02/14/25 Subjective Subjective Interval history: Patient is status post sigmoid colectomy and end colostomy Had a stormy afternoon with desaturation going into V. tach and atrial fibrillation requiring cardioversion On pressors Levophed for hypotension Mechanically ventilated Exam Vital Signs Temp Pulse Resp BP Pulse Ox O2 Del Method O2 Flow Rate 99.3 F 89 25 H 100/64 99 Mechanical Ventilation 5 02/14/25 20:00 02/14/25 20:30 02/14/25 06:38 02/14/25 20:30 02/14/25 20:30 02/14/25 03:30 02/13/25 12:00 FiO2 50 02/14/25 19:50 Objective Labs 02/14/25 13:37 02/14/25 19:24 Labs: Laboratory Results - last 24 hr 02/14/25 02/14/25 02/14/25 00:08 01:56 04:32 WBC 18.6 H D RBC 4.32 Hgb 11.7 L Hct 40.1 MCV 93 MCH 27.1 MCHC 29.2 L RDW Std Deviation 56.4 H Plt Count 378 D Neut % (Auto) 91 H Lymph % (Auto) 5 L [place] % (Auto) 3 Eos % (Auto) 0 Baso % (Auto) 0 Neut # (Auto) 16.9 H Lymph # (Auto) 1.0 [place] # (Auto) 0.6 Eos # (Auto) 0.0 Baso # (Auto) 0.0 Immature Gran # (Auto) 0.15 H Absolute Nucleated RBC 0.07 H Immature Gran % 1 H Neutrophils % (Manual) Monocytes % (Manual) Metamyelocytes % Myelocytes % Nucleated RBC % 0 Band Neutrophils Lymphocytes (Manual) Puncture Site Right Radial ABG pH 7.17 L* D ABG pCO2 97 H* D ABG pO2 95 D ABG HCO3 35 H ABG O2 Saturation 97 ABG Base Excess 4 H VBG pH 7.31 L VBG pCO2 70 H D VBG pO2 64 H D VBG O2 Sat ([place]) 93 L VBG Base Excess 7 H FiO2 55 Sodium 144 Potassium 4.4 Chloride 101 Carbon Dioxide 35.6 H Anion Gap 7 BUN 42 H Creatinine 0.9 Estim Creat Clear Calc 61.5 eGFR > 60 BUN/Creatinine Ratio 47 H Glucose 114 H Calculated Osmolality 298 H Lactic Acid 1.2 Calcium 9.4 Corrected Calcium 10.3 H Phosphorus 3.2 Magnesium 2.6 Total Bilirubin 0.4 AST 32 ALT 12 Alkaline Phosphatase 68 Ammonia Troponin I B-Natriuretic Peptide Total Protein 5.8 Albumin 2.9 L D Globulin 2.9 Albumin/Globulin Ratio 1.0 L 02/14/25 02/14/25 02/14/25 04:50 13:37 16:44 WBC 23.0 H RBC 4.31 Hgb 11.6 L Hct 39.3 MCV 91 MCH 26.9 MCHC 29.5 L RDW Std Deviation 56.1 H Plt Count 421 D Neut % (Auto) 89 H Lymph % (Auto) 8 L [place] % (Auto) 3 Eos % (Auto) 0 Baso % (Auto) 0 Neut # (Auto) 20.4 H Lymph # (Auto) 1.7 [place] # (Auto) 0.6 Eos # (Auto) 0.0 Baso # (Auto) 0.0 Immature Gran # (Auto) 0.24 H Absolute Nucleated RBC 0.13 H Immature Gran % 1 H Neutrophils % (Manual) 57 Monocytes % (Manual) 3 Metamyelocytes % 2 H Myelocytes % 2 H Nucleated RBC % 1 H Band Neutrophils 29 H Lymphocytes (Manual) 7 L Puncture Site Right Radial ABG pH 7.35 D ABG pCO2 63 H D ABG pO2 129 H D ABG HCO3 35 H ABG O2 Saturation 100 H ABG Base Excess 7 H VBG pH 7.34 VBG pCO2 55 D VBG pO2 118 H D VBG O2 Sat ([place]) 99 H VBG Base Excess 2 FiO2 55 Sodium 143 Potassium 4.4 Chloride 103 Carbon Dioxide 29.3 Anion Gap 11 BUN 43 H Creatinine 1.0 Estim Creat Clear Calc 55.3 L eGFR > 60 BUN/Creatinine Ratio 43 H Glucose 143 H Calculated Osmolality 297 H Lactic Acid 3.5 H 1.0 Calcium 9.2 Corrected Calcium 9.9 Phosphorus 5.1 Magnesium 2.6 Total Bilirubin 0.3 AST 44 H ALT 15 Alkaline Phosphatase 69 Ammonia Troponin I 0.072 H* B-Natriuretic Peptide 801 H* Total Protein 6.2 Albumin 3.1 L Globulin 3.1 Albumin/Globulin Ratio 1.0 L 02/14/25 02/14/25 02/14/25 17:13 19:24 Unknown WBC RBC Hgb Hct MCV MCH MCHC RDW Std Deviation Plt Count Neut % (Auto) Lymph % (Auto) [place] % (Auto) Eos % (Auto) Baso % (Auto) Neut # (Auto) Lymph # (Auto) [place] # (Auto) Eos # (Auto) Baso # (Auto) Immature Gran # (Auto) Absolute Nucleated RBC Immature Gran % Neutrophils % (Manual) Monocytes % (Manual) Metamyelocytes % Myelocytes % Nucleated RBC % Band Neutrophils Lymphocytes (Manual) Puncture Site ABG pH ABG pCO2 ABG pO2 ABG HCO3 ABG O2 Saturation ABG Base Excess VBG pH 7.27 L VBG pCO2 70 H D VBG pO2 44 D VBG O2 Sat ([place]) 76 L VBG Base Excess 3 FiO2 Sodium 144 Potassium 4.2 Chloride 103 Carbon Dioxide 34.3 H Anion Gap 7 BUN 45 H Creatinine 0.8 Estim Creat Clear Calc 67.5 eGFR > 60 BUN/Creatinine Ratio 56 H Glucose 124 H Calculated Osmolality 299 H Lactic Acid Calcium 9.1 Corrected Calcium 9.7 Phosphorus 2.7 Magnesium 2.2 Total Bilirubin AST ALT Alkaline Phosphatase Ammonia < 10 L Troponin I B-Natriuretic Peptide Total Protein Albumin 3.2 L Globulin Albumin/Globulin Ratio Impressions Impression: Status post sigmoid colectomy with end colostomy Cardiac arrhythmias with desaturation requiring cardioversion Hypotension requiring pressor support with Levophed Continue postoperative care ABG Interpretation ABG results: 02/09/25 02/11/25 02/11/25 17:37 00:05 02:08 ABG pH 7.31 L 7.29 L 7.30 L ABG pCO2 77 H* 81 H* 79 H* ABG pO2 69 L 72 L 76 L ABG HCO3 39 H 39 H 39 H ABG O2 Saturation 93 94 95 ABG Base Excess 10 H 9 H 9 H VBG pH VBG pCO2 VBG pO2 VBG Base Excess 02/11/25 02/11/25 02/13/25 05:00 11:20 17:05 ABG pH 7.32 L 7.22 L D ABG pCO2 77 H* 89 H* D ABG pO2 73 L 86 ABG HCO3 39 H 36 H ABG O2 Saturation 95 96 ABG Base Excess 10 H 6 H VBG pH 7.47 VBG pCO2 53 VBG pO2 147 H VBG Base Excess 12 H 02/13/25 02/14/25 02/14/25 18:58 00:08 01:56 ABG pH 7.31 L 7.17 L* D ABG pCO2 70 H D 97 H* D ABG pO2 137 H D 95 D ABG HCO3 35 H 35 H ABG O2 Saturation 100 H 97 ABG Base Excess 7 H 4 H VBG pH 7.31 L VBG pCO2 70 H D VBG pO2 64 H D VBG Base Excess 7 H 02/14/25 02/14/25 02/14/25 04:50 13:37 Unknown ABG pH 7.35 D ABG pCO2 63 H D ABG pO2 129 H D ABG HCO3 35 H ABG O2 Saturation 100 H ABG Base Excess 7 H VBG pH 7.34 7.27 L VBG pCO2 55 D 70 H D VBG pO2 118 H D 44 D VBG Base Excess 2 3 Assessment & Plan Time Spent With Patient Time: Total time spent is greater than 50% in coordination of care (as documented) at patient's floor/unit and/or counseling patient:
[2025-02-14] MEDS: Magnesium Sulfate 2 GM Ivpb 2 GM/50 ML BAG IV (22:00)
[2025-02-15] VITALS (102 sets, daily range): BP systolic 88–110; BP diastolic 52–69; PULSE 72–101; RESP 18–29; TEMP 36.5–37.4; O2SAT 90–100
[2025-02-15 02:19] LABS: Albumin, Serum 2.6 gm/dL (3.4-4.8); Anion Gap 6 (7-16); BUN/Creatinine Ratio 88 Ratio (12-20); Blood Urea Nitrogen 53 mg/dL (9-23); Calcium 8.6 mg/dL (8.3-10.6); Calcium (Corrected) 9.7 mg/dL (8.5-10.1); Carbon Dioxide 36.5 mMol/L (20.0-31.0); Chloride 104 mMol/L (98-107); Creatinine (Component) 0.6 mg/dL (0.6-1.3); Estimated Creatinine Clearance 90.0 mL/min (>60); Glucose 115 mg/dL (74-106); Magnesium 2.7 mg/dL (1.6-2.6); Osmolality,Calculated 305 (275-295); Phosphorous 2.6 mg/dL (2.4-5.1); Potassium 4.3 mMol/L (3.4-5.1); Sodium 146 mMol/L (136-145); eGFR > 60 See Note
[2025-02-15] MEDS: ALBUMIN HUMAN-KJDA 25% IVPB 25 GM/100 ML BTL IV (02:47)
[2025-02-15] MEDS: fentaNYL 2,500 MCG/250 ML BAG 2,500 MCG/250 ML BAG IV (03:00)
[2025-02-15] MEDS: Norepinephrine/D5W 8mg/250ml 8 MG/250 ML BAG 16.878 MG IV (04:00)
[2025-02-15 04:16] LABS: Base Excess 8 (-3-3); HCO3 35 mEq/L (20-26); Inspired Oxygen, FIO2 40 %; O2 Saturation 93 % (91-98); PCO2 57 mmHg (32.0-48.0); PO2 63 mmHg (83-108); pH, Arterial 7.39 (7.35-7.45)
[2025-02-15 04:19] LABS: Allen Test Performed/OK; Puncture Site Right Radial
[2025-02-15 05:03] LABS: Basophils # (Auto) 0.0 Thou/mm3 (0.0-0.2); Basophils % (Auto) 0 % (0-2.5); Eosinophils # (Auto) 0.0 Thou/mm3 (0.0-0.5); Eosinophils % (Auto) 0 % (0-10); Hematocrit 32.1 % (36.0-46.0); Hemoglobin 9.6 g/dL (12.0-16.0); Immature Granulocytes Auto 0.14 Thou/mm3 (0.00-0.00); Lymphocytes # (Auto) 1.4 Thou/mm3 (1.0-4.8); Lymphocytes % (Auto) 7 % (10-50); Mean Corpuscular HGB Conc 29.9 g/dl (31.0-37.0); Mean Corpuscular Hemoglobin 26.4 pg (25.0-35.0); Mean Corpuscular Volume 88 fL (80-100); Monocytes # (Auto) 0.7 Thou/mm3 (0.0-0.8); Monocytes % (Auto) 4 % (0-12); Neutrophils # (Auto) 17.1 Thou/mm3 (1.8-7.7); Neutrophils % (Auto) 89 % (37-80); Nucleated Red Blood Cell # 0.00 Thou/mm3 (0.00-0.00); Nucleated Red Blood Cell % 0 /100 WBC (0); Platelet Count 336 Thou/mm3 (140-440); RDW Standard Deviation 54.0 fL (36.4-46.3); Red Blood Count 3.64 Miln/mm3 (4.00-5.20); White Blood Count 19.3 Thou/mm3 (3.6-11.0)
[2025-02-15] MEDS: metroNIDAZOLE/NS 500 MG IVPB 500 MG/100 ML BAG 200 MG IV ×3 (05:09→21:53)
[2025-02-15 05:22] LABS: Alanine Aminotransferase 13 U/L (10-49); Albumin, Serum 3.3 gm/dL (3.4-4.8); Albumin/Globulin Ratio 1.3 (1.2-2.2); Alkaline Phosphatase 62 U/L (46-116); Anion Gap 6 (7-16); Aspartate Amino Transferase 41 U/L (0-34); BUN/Creatinine Ratio 72 Ratio (12-20); Bilirubin,Total 0.4 mg/dL (0.3-1.2); Blood Urea Nitrogen 43 mg/dL (9-23); Calcium 9.3 mg/dL (8.3-10.6); Calcium (Corrected) 9.9 mg/dL (8.5-10.1); Carbon Dioxide 35.2 mMol/L (20.0-31.0); Chloride 104 mMol/L (98-107); Creatinine (Component) 0.6 mg/dL (0.6-1.3); Estimated Creatinine Clearance 90.0 mL/min (>60); Globulin 2.6 gm/dL (2.3-3.5); Glucose 110 mg/dL (74-106); Magnesium 2.6 mg/dL (1.6-2.6); Osmolality,Calculated 300 (275-295); Phosphorous 2.3 mg/dL (2.4-5.1); Potassium 4.0 mMol/L (3.4-5.1); Sodium 145 mMol/L (136-145); Total Protein 5.9 gm/dL (5.7-8.2); eGFR > 60 See Note
[2025-02-15] MEDS: cefTRIAXone 2 GM in SODIUM CHLORIDE 0.9% (Popper) 50 ML IV (08:21)
[2025-02-15] MEDS: HEPARIN SOD INJ 5000 UNIT/ML VIAL SC ×2 (08:21→20:26)
[2025-02-15 10:18] LABS: Base Excess 6 (-3-3); HCO3 35 mEq/L (20-26); Inspired Oxygen, FIO2 50 %; O2 Saturation 92 % (91-98); PCO2 83 mmHg (32.0-48.0); PO2 72 mmHg (83-108); pH, Arterial 7.24 (7.35-7.45)
[2025-02-15 10:20] LABS: Allen Test Performed/OK; Puncture Site Right Radial
--- NOTE | 2025-02-15 10:23 | ESPR_ITS ---
<Statement entered by Donato Hendrix MD - 02/15/25 18:07> Patient was seen and examined at the bedside in ICU . Patient had a RAAS goal is -2. Patient opened her eyes spontaneously off sedation. She was found to have 2+ pitting edema both lower extremities. Neurological signs shows improvement. Will continue with Bumex 1 mg as patient has been responding to diuresis well. Goal of urine output is 1 to 1.5 L. VBG and BMP will be followed in afternoon showed improvement in VBG with mild contraction alkalosis.. Tube feedings were started with vital and NG tube was placed. Neutra-Phos was given x 1. Blood cultures grew 1 out of 2 GPC likely contamination. Will continue ceftriaxone and Flagyl until 02/16 to complete course. 25 mcg fentanyl was added every 6 as needed for agitation or respiratory distress. Patient failed extubation today given pH dropped to 7.24, pCO2 83. Given respiratory acidosis with hypercapnia. Will attempt extubation tomorrow morning. All labs and orders were reviewed. I discussed and supervised with the intern retail physician who took care of this patient. I personally saw and examined the patient. I agree with most of the assessment and plan. Disclaimer: Despite multiple revisions, due to the dictation software being used, the document bellow may not be free of grammatical errors including phonetic/typographic errors. However, this does not deter from our commitment to providing health care in the patient's best interest in mind. Plan of care discussed with attending Physician Dr. 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 At baseline she lives at her acute rehab and gets short of breath when she exerts. She has been experiencing shortness of breath and bilateral leg swelling since last 2 weeks. This leg swelling is progressively worsened and involves the abdomen face underneath the eyes and lips. She has been experiencing short of breath since 2 weeks even at rest. She denies any chest pain, chest palpitations but endorses occasional cough with sputum which is initially yellow in color but now it is clear. ED visit: Initial vitals BP 106/69, pulse rate 100, respiratory rate 20, temperature 98.3 saturating 88% on 4 L of oxygen. Pertinent ED labs are WBC 14.8 with neutrophil 87%, D-dimer 3680, BNP 1165, troponin 0.055 BUN 27, ABG?pH 7.31, pCO2 77, HCO3 39. Urine protein 3+, RBC 4+ creatinine clearance 2.7. Imaging chest x-ray on 02/09 shows enlarged cardiac contour with perihilar congestion Moderate CHF. EKG shows sinus tachycardia. CT scan shows no gallbladder visualization and 28 mm calcified stone in sigmoid colon suspicious for gallbladder ileus.In the ED, was given Azithromycin 500 mg, ceftriaxone 2gm,1 L NS and furosemide. Hospital course Interval History 02/10 - 02/13 Patient initially was diuresed daily with bumex 1 mg daily (now being held for soft BP) for dyspnea and leg swelling. Has been on cefepime and azithromycin for possible pneumonia. GI consulted for gallstone and sigmoid colon pain management with Tylenol and ketorolac as patient is allergic to codeine, hydrocodone and tramadol. Abdomina pain marginally decreased 2 days after admission, had been stable. Possible surgical consultation depending on HIDA scan read and per GI. Today patient was noted to be on BiPAP but confused and A&O x1 to only to name, stating she had dfifuse abdominal pain. CXR ordered and showed pneumoperitoneum. CTAP showed similar thing, surgery was consulted and planned for ex lap today after patient's daughter Romana was asked and approved for consent. Patient planned to be upgraded to ICU after surgery needing ICU level care, given history of pulmonary fibrosis and other comorbidities. 02/14/2025: Overnight patient was changed from pressure control ventilation to PRVC due to some decrease in blood pressure and after patient's ABG at midnight showed pH 7.17 and pco2 97. Repeat ABG later in the morning was improved at 7.35 pH and pco2 of 63 after vent settings were adjusted. Patient was on levophed 0.07 overnight with MAP's > 65. Patient was given 500 ml bolu and had cheetah done showing fluid responsiveness. Patient was noted to have 10-15 cc/hr of urine overnight. Patient's RASS was set to -5, had sedation decreased, RASS was -1/-2 on reassessment. Patient started appearing to be in pain and had RASS score goal was decreased back to -5. Patient did not have any bowel movements overnight. In the morning on assessment patient's vitals were notable for MAP 69, saturating 99% O2 on 55%FiO2. In the morning, in attempt to wean patient off of sedation, we turned off the Versed and continued the fentanyl at 25 mcg/hr. 02/15/2025: Yesterday afternoon patient had an event requiring shock from AED, patient has since been stable, refer to event note in chart for more information. Patient did well overnight, maintaining good electrolyte levels on repeat bmp's overnight. Patient was down titrated on levophed to 0.08 mcg/kg/min overnight and this morning was further decreased to 0.06 mcg/kg/min. Patient's urine output overnight was at a rate of 50 cc/hr, improved after being given bumex previous day. Patient's vitals this morning were stable with BP being notable with a MAP of 67, trending in the upper 60s. Patient on examination had a RASS of -2, mentation continues to improve as sedation is removed from body (no sedation ggt currently). Overview of plan for the day inculdes continuing bumex and scheduling it with a goal urine output of 1.5/2 L (Patient is +5L during hospital course). Her repeat ABG and chem panel showed continued elevation of bicarb at ~35, will get an afternoon BMP and VBG, if bicarb is 38- 40, will plan to start diamox. Antibiotics will be scheduled to end for a total of 7 day course since the first abx (cefepime on 02/10) was started (last day given will be 02/16). Will start tube feeds today as patient is not ready for extubation currently given ABG this morning showed elevated pco2. Exam Vital Signs Temp Pulse Resp BP Pulse Ox O2 Del Method O2 Flow Rate 98.4 F 99 25 H 104/61 93 L Mechanical Ventilation 5 02/15/25 07:00 02/15/25 09:15 02/14/25 06:38 02/15/25 09:15 02/15/25 09:15 02/15/25 04:00 02/13/25 12:00 FiO2 40 02/15/25 08:00 Narrative Exam General: OFF sedation. Intubated. Skin: Warm, dry, intact, no obvious rash. HENT: NCAT, PERRL, not icteric. External ears normal. No rhinorrhea. Dry mucous membranes Cardiovascular: Regular rate and rhythm, no murmur, +S1/S2. Respiratory: Lungs CTAB GI: Soft, nontender, non-distended. Abdominal Wound s/p ex-lap dressed clean/intact. No guarding or rebound tenderness. : No suprapubic tenderness. No flank tenderness bilaterally. Extremities: trace bilateral lower extremity edema up to hip, no cyanosis, no clubbing. Extremity pulses present Neuro: PERRL, gag reflex intact; RASS -2. Objective Labs 02/15/25 04:20 02/15/25 15:32 Labs: Laboratory Results - last 24 hr 02/14/25 02/14/25 02/14/25 13:37 16:44 17:13 WBC 23.0 H RBC 4.31 Hgb 11.6 L Hct 39.3 MCV 91 MCH 26.9 MCHC 29.5 L RDW Std Deviation 56.1 H Plt Count 421 D Neut % (Auto) 89 H Lymph % (Auto) 8 L Hockley % (Auto) 3 Eos % (Auto) 0 Baso % (Auto) 0 Neut # (Auto) 20.4 H Lymph # (Auto) 1.7 Hockley # (Auto) 0.6 Eos # (Auto) 0.0 Baso # (Auto) 0.0 Immature Gran # (Auto) 0.24 H Absolute Nucleated RBC 0.13 H Immature Gran % 1 H Neutrophils % (Manual) 57 Monocytes % (Manual) 3 Metamyelocytes % 2 H Myelocytes % 2 H Nucleated RBC % 1 H Band Neutrophils 29 H Lymphocytes (Manual) 7 L Puncture Site ABG pH ABG pCO2 ABG pO2 ABG HCO3 ABG O2 Saturation ABG Base Excess VBG pH 7.34 VBG pCO2 55 D VBG pO2 118 H D VBG O2 Sat (Alexsander) 99 H VBG Base Excess 2 FiO2 Sodium 143 Potassium 4.4 Chloride 103 Carbon Dioxide 29.3 Anion Gap 11 BUN 43 H Creatinine 1.0 Estim Creat Clear Calc 55.3 L eGFR > 60 BUN/Creatinine Ratio 43 H Glucose 143 H Calculated Osmolality 297 H Lactic Acid 3.5 H 1.0 Calcium 9.2 Corrected Calcium 9.9 Phosphorus 5.1 Magnesium 2.6 Total Bilirubin 0.3 AST 44 H ALT 15 Alkaline Phosphatase 69 Ammonia < 10 L Troponin I 0.072 H* B-Natriuretic Peptide 801 H* Total Protein 6.2 Albumin 3.1 L Globulin 3.1 Albumin/Globulin Ratio 1.0 L 02/14/25 02/14/25 02/15/25 19:24 Unknown 01:25 WBC RBC Hgb Hct MCV MCH MCHC RDW Std Deviation Plt Count Neut % (Auto) Lymph % (Auto) Hock[place] % (Auto) Eos % (Auto) Baso % (Auto) Neut # (Auto) Lymph # (Auto) Hock[place] # (Auto) Eos # (Auto) Baso # (Auto) Immature Gran # (Auto) Absolute Nucleated RBC Immature Gran % Neutrophils % (Manual) Monocytes % (Manual) Metamyelocytes % Myelocytes % Nucleated RBC % Band Neutrophils Lymphocytes (Manual) Puncture Site ABG pH ABG pCO2 ABG pO2 ABG HCO3 ABG O2 Saturation ABG Base Excess VBG pH 7.27 L VBG pCO2 70 H D VBG pO2 44 D VBG O2 Sat (Alexsander) 76 L VBG Base Excess 3 FiO2 Sodium 144 146 H Potassium 4.2 4.3 Chloride 103 104 Carbon Dioxide 34.3 H 36.5 H Anion Gap 7 6 L BUN 45 H 53 H Creatinine 0.8 0.6 Estim Creat Clear Calc 67.5 90.0 eGFR > 60 > 60 BUN/Creatinine Ratio 56 H 88 H Glucose 124 H 115 H Calculated Osmolality 299 H 305 H Lactic Acid Calcium 9.1 8.6 Corrected Calcium 9.7 9.7 Phosphorus 2.7 2.6 Magnesium 2.2 2.7 H Total Bilirubin AST ALT Alkaline Phosphatase Ammonia Troponin I B-Natriuretic Peptide Total Protein Albumin 3.2 L 2.6 L D Globulin Albumin/Globulin Ratio 02/15/25 02/15/25 02/15/25 04:06 04:20 10:13 WBC 19.3 H RBC 3.64 L Hgb 9.6 L D Hct 32.1 L MCV 88 MCH 26.4 MCHC 29.9 L RDW Std Deviation 54.0 H Plt Count 336 D Neut % (Auto) 89 H Lymph % (Auto) 7 L Hockley % (Auto) 4 Eos % (Auto) 0 Baso % (Auto) 0 Neut # (Auto) 17.1 H Lymph # (Auto) 1.4 Hockley # (Auto) 0.7 Eos # (Auto) 0.0 Baso # (Auto) 0.0 Immature Gran # (Auto) 0.14 H Absolute Nucleated RBC 0.00 Immature Gran % 1 H Neutrophils % (Manual) Monocytes % (Manual) Metamyelocytes % Myelocytes % Nucleated RBC % 0 Band Neutrophils Lymphocytes (Manual) Puncture Site Right Radial Right Radial ABG pH 7.39 7.24 L D ABG pCO2 57 H 83 H* D ABG pO2 63 L D 72 L ABG HCO3 35 H 35 H ABG O2 Saturation 93 92 ABG Base Excess 8 H 6 H VBG pH VBG pCO2 VBG pO2 VBG O2 Sat (Alexsander) VBG Base Excess FiO2 40 50 Sodium 145 Potassium 4.0 Chloride 104 Carbon Dioxide 35.2 H Anion Gap 6 L BUN 43 H Creatinine 0.6 Estim Creat Clear Calc 90.0 eGFR > 60 BUN/Creatinine Ratio 72 H Glucose 110 H Calculated Osmolality 300 H Lactic Acid Calcium 9.3 Corrected Calcium 9.9 Phosphorus 2.3 L Magnesium 2.6 Total Bilirubin 0.4 AST 41 H ALT 13 Alkaline Phosphatase 62 Ammonia Troponin I B-Natriuretic Peptide Total Protein 5.9 Albumin 3.3 L D Globulin 2.6 Albumin/Globulin Ratio 1.3 ABG Interpretation ABG results: 02/09/25 02/11/25 02/11/25 17:37 00:05 02:08 ABG pH 7.31 L 7.29 L 7.30 L ABG pCO2 77 H* 81 H* 79 H* ABG pO2 69 L 72 L 76 L ABG HCO3 39 H 39 H 39 H ABG O2 Saturation 93 94 95 ABG Base Excess 10 H 9 H 9 H VBG pH VBG pCO2 VBG pO2 VBG Base Excess 02/11/25 02/11/25 02/13/25 05:00 11:20 17:05 ABG pH 7.32 L 7.22 L D ABG pCO2 77 H* 89 H* D ABG pO2 73 L 86 ABG HCO3 39 H 36 H ABG O2 Saturation 95 96 ABG Base Excess 10 H 6 H VBG pH 7.47 VBG pCO2 53 VBG pO2 147 H VBG Base Excess 12 H 02/13/25 02/14/25 02/14/25 18:58 00:08 01:56 ABG pH 7.31 L 7.17 L* D ABG pCO2 70 H D 97 H* D ABG pO2 137 H D 95 D ABG HCO3 35 H 35 H ABG O2 Saturation 100 H 97 ABG Base Excess 7 H 4 H VBG pH 7.31 L VBG pCO2 70 H D VBG pO2 64 H D VBG Base Excess 7 H 02/14/25 02/14/25 02/14/25 04:50 13:37 Unknown ABG pH 7.35 D ABG pCO2 63 H D ABG pO2 129 H D ABG HCO3 35 H ABG O2 Saturation 100 H ABG Base Excess 7 H VBG pH 7.34 7.27 L VBG pCO2 55 D 70 H D VBG pO2 118 H D 44 D VBG Base Excess 2 3 02/15/25 02/15/25 04:06 10:13 ABG pH 7.39 7.24 L D ABG pCO2 57 H 83 H* D ABG pO2 63 L D 72 L ABG HCO3 35 H 35 H ABG O2 Saturation 93 92 ABG Base Excess 8 H 6 H VBG pH VBG pCO2 VBG pO2 VBG Base Excess Quality Measures Quality Measures VTE prophylaxis Assessment & Plan Assessment Current Active Medications: Generic Name Dose Route Start Last Admin Trade Name Freq PRN Reason Stop Dose Admin Acetaminophen 650 mg 02/10/25 20:28 Acetaminophen 325 Mg Tablet PO 03/12/25 20:27 Q6H PRN Fever >100.4 Acetaminophen 650 mg 02/10/25 20:28 02/11/25 09:34 Acetaminophen 325 Mg Tablet PO 03/12/25 20:27 650 mg Q6H PRN Administration PAIN SCALE 1-3 (mild Albuterol/Ipratropium 3 ml 02/12/25 11:26 Albuterol/Ipratropium (Duoneb) Rt Quiana 3 Ml Nebu INH 03/14/25 12:59 Q6HRRT PRN wheezing and SOB Atorvastatin Calcium 20 mg 02/10/25 21:00 02/14/25 20:28 Atorvastatin Calcium 20 Mg Tablet PO 03/12/25 20:59 Not Given HS KATIE Bumetanide 1 mg 02/11/25 09:00 02/13/25 08:16 Bumetanide Inj 0.25 Mg/Ml Vial 4 Ml IVP 03/13/25 08:59 1 mg On Hold: 02/13/25 15:07 QDAY KATIE Administration Heparin Sodium (Porcine) 5,000 unit 02/10/25 21:00 02/15/25 08:21 Heparin Sod Inj 5000 Unit/Ml Vial SC 02/24/25 20:59 5,000 unit BID KATIE Administration Hydromorphone HCl 0.5 mg 02/13/25 11:03 Hydromorphone Inj 2 Mg/Ml Vial IVP 02/18/25 11:02 On Hold: 02/14/25 08:31 Q4HR PRN Comment: PATIENT RECEIVING PAIN SCALE 7-10 (Severe FENTANYL gtts. Metronidazole 500 mg in 100 mls @ 200 mls/hr 02/13/25 11:08 02/15/25 05:09 Flagyl 500 Mg Iv IV 02/20/25 11:07 200 mls/hr Q8HR KAITE Administration Ceftriaxone Sodium 2 gm/ 50 mls @ 100 mls/hr 02/13/25 15:17 02/15/25 08:21 Sodium Chloride IV 02/20/25 15:16 100 mls/hr QDAY KATIE Administration Norepinephrine/Dextrose 8 mg in 250 mls @ 7.032 mls/hr 02/13/25 16:22 02/15/25 08:00 Levophed In D5w 8mg/250ml IV 03/15/25 16:21 0.06 mcg/kg/min .Q24H PRN 8.439 mls/hr PER PROTOCOL Titration Protocol 0.05 MCG/KG/MIN Fentanyl Citrate 2,500 mcg in 250 mls @ 2.5 mls/hr 02/14/25 16:22 02/15/25 07:23 Sublimaze Inj 2,500 Mcg/250 Ml Bag IV 02/18/25 16:20 0 mcg/hr .Q24H PRN 0 mls/hr PER PROTOCOL Titration Protocol 25 MCG/HR Propofol 1,000 mg in 100 mls @ 2.346 mls/hr 02/14/25 16:22 Diprivan Ivpb IV 03/16/25 16:21 .Q24H PRN PER PROTOCOL Protocol 5 MCG/KG/MIN Amiodarone HCl/Dextrose 360 mg in 200 mls @ 16.667 mls/hr 02/14/25 13:15 02/15/25 09:19 Nexterone Ivpb IV 02/15/25 13:14 Not Given .Q12H AKTIE Levothyroxine Sodium 125 mcg/ 150 mcg 02/12/25 06:00 02/13/25 05:37 Levothyroxine Sodium 25 mcg PO 03/14/25 05:59 150 mcg On Hold: 02/14/25 01:15 ACBR KATIE Administration Levothyroxine Sodium 112.5 mcg 02/14/25 01:20 02/15/25 09:19 Levothyroxine Inj 100 Mcg Vial IV 03/16/25 01:19 Not Given DAILY KATIE Ondansetron HCl 4 mg 02/10/25 20:28 Ondansetron Inj 2 Mg/Ml Inj 2 Ml IVP 03/12/25 20:27 Q6H PRN NAUSEA OR VOMITING Protocol Pantoprazole Sodium 40 mg 02/13/25 11:15 02/15/25 08:21 Pantoprazole Inj 40 Mg Vial IVP 03/15/25 11:14 40 mg QDAY KATIE Administration Sennosides 1 tab 02/10/25 20:28 02/13/25 05:37 Senna Tablet PO 03/12/25 20:27 1 tab QDAY PRN Administration constipation Protocol Sertraline HCl 50 mg 02/11/25 21:00 02/14/25 20:28 Sertraline Hcl 25 Mg Tablet PO 03/13/25 20:59 Not Given HS KATIE Plan Tyra Carnesnicholasjim 59F pmhx significant for HFpEF (60-65%, 07/2023), 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 Planned to upgrade to ICU needing ICU level care, ex-lap surgery today, and given history of pulmonary fibrosis and other comorbidities. Neurology #Sedation, Titrated off In setting of altered mental status 02/13 pre surgery. Dx: -RASS goal of -5. -02/15: Patient RASS of -2; patient's ABG's indicate not ready for extubation. Rx: -Ordered fentanyl 25 mcg IV q8hr PRN for breakthrough pain or agitation -Will continue to monitor mentation #Acute Encephalopathy, resolved DDx: Infection (GI) vs acidosis vs less likely metabolic vs toxic Dx: -Patient A&Ox1 02/13 from baseline of x3 -CXR and CTAP showed pneumoperitoneum -No notable electrolyte abnormalities, no toxins noted Rx: -Treating underlying infection with abx, surgery ex-lap today. Cardiovascular #Sepsis #Hypotension DDx: GI infection vs inflammatory response in setting of bowel perforation Dx: -MAP has been upper 60s today and overnight on Levophed 0.08 mcg/kg/min Rx: -Treating underlying infection with abx -Continuing Levophed (down titrating) currently with MAP goal >65 #Acute on chronic HFpEF (60-65%, 07/2023) #Severe pulmonary hypertension DDx: Dx: -Presents with dyspnea at rest, worsening SOB, BLE swelling, and facial swelling, BNP 1165 -02/10 TTE Normal LV size, wall thickness. Normal LV diastolic filling pattern for age. Estimated EF at 55-60 %. The RV size is moderately increased with moderately decreases systolic function. The estimated RVSP, 72 mmHg. RAP 15. The RA cavity size is severely increased. Moderate TR. Less than 50% respiratory change in dimension of the inferior vena cava abnormal. -02/14: Gave Bumex 1 mg x1 for to help kidney after 1 L bolus given Rx: -Started Bumex 1 mg IV qday -Strict I&Os, daily weights, 1.8L fluid restriction #NSTEMI likely type II, 2/2 fluid overload, resolved Dx: -troponin 0.055->0.028 Rx: -will monitor for chest pain #HLD Dx: -Lipid panel unremarkable other than mildly decreased HDL, 30. Rx: -Continuing home med atorvastatin 20 mg po hs Respiratory #Mechanical Ventilation DDx: due to airway protection in setting of altered mental status before surgery 02/13 Dx: -02/14 ABG pH 7.35, pco2 63, po2 129, Bicarb 35 -02/15 ABG pH 7.39, pco2 57, po2 63, Bicarb 35; -02/15 REPEAT ABG: pH 7.24 pco2 83, po2 72, Bicarb 35. Mentation improved, however worsening pco2 makes it inappropriate for patient to attempt SBT -Patient likely has contraction alkalosis from diuretic use Rx: -Spontaneous pressure support vent settings for now #Acute hypoxic respiratory failure, resolved DDx: combination of acute on chronic heart failure exacerbation vs worsening pulmonary fibrosis vs aspiration PNA vs CAP, less likely PE Dx: -Presents with dyspnea at rest, worsening SOB, BLE swelling, and facial swelling on home O2 4L. On physical examination bilateral crackles over the both lungs. Follows Dr. Garrido and Dr. Kim outpatient. -On admission saturating 88% on 4 L of oxygen -ABG 7.31/77/69/39 with repeat ABGs pH 7.29-7.32. 02/09 CXR bilateral pulmonary congestion and enlarged cardiac contour. 02/09 CTA chest/AP showed prominent CHF, negative for PE Rx: - Ceftriaxone (02/13- and Flagyl (02/13- - Last day for ABX planned to be 02/16, meaning total abx course will have been 7 days (since start, which was cefepime on 02/10). - Mechanical Ventilated RRx: -Cefepime (02/10 - 02/13), azithromycin (02/11-02/13) -BiPAP (02/11 - 02/13) #Pulmonary fibrosis 2/2 pesticides Stated has appointment tomorrow with Dr. Kim. Has never been on medication for pulmonary fibrosis. Plan: - CTM O2 saturation and if patient cannot tolerate deescalation of O2 despite IV diuresis, consider consulting pulmonology - Duoneb q6h prn GI and F/E/N #Bowel perforation #Severe lower abdominal pain #28mm calcified mass on sigmoid colon, likely gallstone #Tube Feeds - On admission patient had pain after meals since 2 weeks 02/09 at lower abdomen/suprapubic area. Extremely tender to palpation. Stated no BM for the past 5 days prior to admission. Denies hx of cholcystectomy. -02/09 CTA chest/AP: GB not visualized, 28mm calcified mass in sigmoid colon w/o visualization of GB -02/10 MRCP: GB not visualized, common hepatic duct common bile duct normal size no stones, neg pancreatitis, no free fluid in abdomen, aorta normal size, minimal bilateral hydrenophrosis, edema in subcutaneous fatty tissues at the flanks; GB US: GB not visualized -On 02/13, patient appeared more confused with significant abdominal tenderness and SOB. CXR: pneumoperitoneum; CTAP: Extensive pneumoperitoneum, cholelithiasis but gallbladder wall appears thickened but no abnormal small air and fluid distended with prominent wall thickening, remains calcified mass in sigmoid colon 26 mm. Rx: - Will start tube feeds today; may have to pause at a later time pending mentation and extubation status. - GI consulted, recs appreciated - Surgery consulted, recs appreciated: s/p ex lap with possible bowel resection &colostomy 02/13 - Patient will require ICU level of care post surgery due to pulmonary fibrosis Renal #ERMELINDA DDx: pre-renal vs intra-renal. fluid losses from surgery vs dehydration vs contrast use vs abdominal compartment syndrome. Patient did have surgery yesterday and has been NPO. Patient was given contrast for scans. Patient's abdomen is not hard or distended, less likely abd compartment syndrome. Dx: - 02/15: Cr 0.6 (baseline around ~0.7), BUN 43 - Urine output improving after 02/14's 1 L bolus along with bumex 1mg IV x1. Rx: -Scheduled Bumex 1 mg IV qd Heme #leukocytosis DDx: Surgery yesterday vs infection vs inflammation Dx: -WBC 19.3 (23), afebrile Rx: -Treating underlying infection. #anemia DDx: surgery vs IV fluids Dx: -Hgb 9.6(11.6), stable, no signs of bleeding Rx: -will continue to trend hgb, monitor for signs of bleeding Endo #hypothyroidism Dx: -home med levothyroxine 150 mcg ACBR -TSH 0.36, T4 1.39 Rx: -On Levothyroxine IV 112.5 mg IV qd ID #Likely GI infection Patient's imaging showing pneumoperitonitis (perforation) likely cause of infection Dx: -02/09 Blood cultures x2 No growth after 48 hours -02/11 MRSA POSITIVE (NARES) -02/13 No white count, afebrile -02/13 - GPC 1/2 blood cx, likely contaminant Rx: - Ceftriaxone (02/13- and Flagyl (02/13- - Last day for ABX planned to be 02/16, meaning total abx course will have been 7 days (since start, which was cefepime on 02/10). RRx: -azithromycin (02/11-02/13) -Cefepime DC'd (02/10 - 02/13) Disposition: ICU s/p ex-lap partial colectomy, colostomy (02/13) DVT prophylaxis: heparin 5000 u sc bid GI prophylaxis: Protonix 40 mg IV qday Diet: Tube feeds Cardoza: yes Lines: Peripherals, Central Line Drips: Levophed Vent: Yes CODE STATUS: Full Code Patient plan of care was discussed with the attending physician, Dr. Sethi & senior resident Dr. Simeon Payne MD PGY-1 Attending Provider Attestation/Addendum Patient seen and examined with the above resident, Clive Payne MD. I agree with the findings, assessment, and plan of care as documented except for any differences below. Patient tolerated SBT today without issue. However low TV on minimal pressure support. She remains relatively lethargic but improved form yesterday. Patient's follow up blood gas analysis showed significant respiratory acidosis. TF started with no plan for extubation. Family visit in afternoon with improved mentation and plan to trial SBT in AM to wean again. Patient's pain adequately controlled. Making good urine but remains about 5L positive for admission. If compliance improves due to clearance of pulmonary edema will also facilitate weaning. Extubation to [facility] will shorten ventilation time. Duncan to try this in AM. Continue antibiotics for feculent peritonitis post ex-lap. Patient and family updated at bedside. Total critical care time: I personally spent 45 minutes for review of physiologic parameters, directing plan of care, coordination of care with other specialists, and counseling patient's family at bedside. This is exclusive of time spent teaching housestaff or performing any separate billable procedures. Patient remains at significant risk for further morbidity and mortality warranting close monitoring and care only available in the ICU. Critical care services required for acute on chronic hypoxic respiratory failure, perforated viscus due to gallstone s/p partial colectomy and ostomy placement, acute renal failure, CHF.
--- NOTE | 2025-02-15 11:04 | XR_ITS ---
EXAMINATION: AP chest single view TECHNIQUE: AP portable upright chest single view Date and time: February 15, 2025, 1126 hours INDICATIONS: Post orogastric tube placement FINDINGS: Orogastric tube in the stomach, the tip is below the level of the film Endotracheal tube tip 3.8 cm above brian Right internal jugular central line tip right atrium Prominent vascular congestion with extensive bilateral pneumonia and/or pulmonary edema again noted Prominent osteopenia IMPRESSION: Orogastric tube is in the stomach, the tip is below the level of the film
[2025-02-15] MEDS: BUMETANIDE INJ 0.25 MG/ML VIAL 4 ML 1 MG IVP (11:34)
--- NOTE | 2025-02-15 12:58 | PD.SURPROG ---
Documentation for date of: 02/15/25 Subjective Subjective Narrative: Patient is seen and examined. Still intubated and sedated. She failed attempted extubation. Her urinary output improved. Colostomy has not been functioning yet Exam Vital Signs Temp Pulse Resp BP Pulse Ox O2 Del Method O2 Flow Rate 98.4 F 80 25 H 95/61 99 Mechanical Ventilation 5 02/15/25 12:00 02/15/25 12:30 02/14/25 06:38 02/15/25 12:30 02/15/25 12:30 02/15/25 12:00 02/13/25 12:00 FiO2 50 02/15/25 12:00 Constitutional Constitutional: no acute distress Routine Abdominal Exam Comments: Abdomen is soft and mildly distended. Incision is clean, dry and intact. Colostomy is pink, patent and present with some edema, not productive Assessment & Plan Assessment Additional comments: Postop day #2 status post exploratory laparotomy with sigmoid colectomy and end colostomy Plan May start trickle tube feeding. Continue IV antibiotics PROCEDURES: Procedures Exploratory laparotomy, sigmoid colectomy, end descending colostomy
[2025-02-15] MEDS: NAPH,KPH MBDB 1 PACKET (1.5 GM) NG (13:20)
[2025-02-15 15:43] LABS: Base Excess, Venous 12 (-3-3); O2 Saturation, Venous 76 % (96-97); PCO2, Venous 58 mmHg (36-56); PO2, Venous 38 mmHg (15-58); pH, Venous 7.42 (7.33-7.66)
[2025-02-15 15:58] LABS: Anion Gap 5 (7-16); BUN/Creatinine Ratio 76 Ratio (12-20); Blood Urea Nitrogen 38 mg/dL (9-23); Calcium 9.2 mg/dL (8.3-10.6); Carbon Dioxide 38.5 mMol/L (20.0-31.0); Chloride 102 mMol/L (98-107); Creatinine (Component) 0.5 mg/dL (0.6-1.3); Estimated Creatinine Clearance 108.4 mL/min (>60); Glucose 105 mg/dL (74-106); Osmolality,Calculated 297 (275-295); Potassium 4.0 mMol/L (3.4-5.1); Sodium 145 mMol/L (136-145); eGFR > 60 See Note
--- NOTE | 2025-02-15 16:17 | PC.SS ---
Update: Patient remains intubated. Failed extubation today. Patient is not receiving sedation. Tube feeding in place. Patient receiving pressor support. Afebrile. Plan to re-attempt extubation tomorrow.
[2025-02-15] MEDS: fentaNYL CIT INJ 50 mCg/ML AMP 2ML 25 MCG IVP (19:57)
[2025-02-15] MEDS: SERTRALINE HCL 25 MG TABLET 50 MG PO (20:25)
[2025-02-15] MEDS: ATORVASTATIN CALCIUM 20 MG TABLET PO (20:26)
--- NOTE | 2025-02-15 20:58 | PD.IMPROG ---
Documentation for date of: 02/15/25 Subjective Subjective Interval history: No activity in the colostomy bag yet On metronidazole and ceftriaxone On fentanyl and propofol drip On on pressor support with norepinephrine\ Remains mechanically ventilated Exam Vital Signs Temp Pulse Resp BP Pulse Ox O2 Del Method O2 Flow Rate 97.7 F 79 25 H 99/61 98 Mechanical Ventilation 5 02/15/25 20:00 02/15/25 20:15 02/15/25 18:14 02/15/25 20:15 02/15/25 20:15 02/15/25 16:00 02/13/25 12:00 FiO2 40 02/15/25 18:14 Objective Labs 02/15/25 04:20 02/15/25 15:32 Labs: Laboratory Results - last 24 hr 02/15/25 02/15/25 02/15/25 01:25 04:06 04:20 WBC 19.3 H RBC 3.64 L Hgb 9.6 L D Hct 32.1 L MCV 88 MCH 26.4 MCHC 29.9 L RDW Std Deviation 54.0 H Plt Count 336 D Neut % (Auto) 89 H Lymph % (Auto) 7 L [place] % (Auto) 4 Eos % (Auto) 0 Baso % (Auto) 0 Neut # (Auto) 17.1 H Lymph # (Auto) 1.4 [place] # (Auto) 0.7 Eos # (Auto) 0.0 Baso # (Auto) 0.0 Immature Gran # (Auto) 0.14 H Absolute Nucleated RBC 0.00 Immature Gran % 1 H Nucleated RBC % 0 Puncture Site Right Radial ABG pH 7.39 ABG pCO2 57 H ABG pO2 63 L D ABG HCO3 35 H ABG O2 Saturation 93 ABG Base Excess 8 H VBG pH VBG pCO2 VBG pO2 VBG O2 Sat ([place]) VBG Base Excess FiO2 40 Sodium 146 H 145 Potassium 4.3 4.0 Chloride 104 104 Carbon Dioxide 36.5 H 35.2 H Anion Gap 6 L 6 L BUN 53 H 43 H Creatinine 0.6 0.6 Estim Creat Clear Calc 90.0 90.0 eGFR > 60 > 60 BUN/Creatinine Ratio 88 H 72 H Glucose 115 H 110 H Calculated Osmolality 305 H 300 H Calcium 8.6 9.3 Corrected Calcium 9.7 9.9 Phosphorus 2.6 2.3 L Magnesium 2.7 H 2.6 Total Bilirubin 0.4 AST 41 H ALT 13 Alkaline Phosphatase 62 Total Protein 5.9 Albumin 2.6 L D 3.3 L D Globulin 2.6 Albumin/Globulin Ratio 1.3 02/15/25 02/15/25 10:13 15:32 WBC RBC Hgb Hct MCV MCH MCHC RDW Std Deviation Plt Count Neut % (Auto) Lymph % (Auto) [place] % (Auto) Eos % (Auto) Baso % (Auto) Neut # (Auto) Lymph # (Auto) [place] # (Auto) Eos # (Auto) Baso # (Auto) Immature Gran # (Auto) Absolute Nucleated RBC Immature Gran % Nucleated RBC % Puncture Site Right Radial ABG pH 7.24 L D ABG pCO2 83 H* D ABG pO2 72 L ABG HCO3 35 H ABG O2 Saturation 92 ABG Base Excess 6 H VBG pH 7.42 VBG pCO2 58 H D VBG pO2 38 VBG O2 Sat ([place]) 76 L VBG Base Excess 12 H FiO2 50 Sodium 145 Potassium 4.0 Chloride 102 Carbon Dioxide 38.5 H Anion Gap 5 L BUN 38 H Creatinine 0.5 L Estim Creat Clear Calc 108.4 eGFR > 60 BUN/Creatinine Ratio 76 H Glucose 105 Calculated Osmolality 297 H Calcium 9.2 Corrected Calcium Phosphorus Magnesium Total Bilirubin AST ALT Alkaline Phosphatase Total Protein Albumin Globulin Albumin/Globulin Ratio Impressions Impression: Status post exploratory laparotomy with end colostomy in the setting of perforated sigmoid colon due to large calcified gallstone Remains mechanically intubated On pressor support with norepinephrine Fully sedated On broad-spectrum antibiotic coverage metronidazole and Rocephin Continue current management ABG Interpretation ABG results: 02/09/25 02/11/25 02/11/25 17:37 00:05 02:08 ABG pH 7.31 L 7.29 L 7.30 L ABG pCO2 77 H* 81 H* 79 H* ABG pO2 69 L 72 L 76 L ABG HCO3 39 H 39 H 39 H ABG O2 Saturation 93 94 95 ABG Base Excess 10 H 9 H 9 H VBG pH VBG pCO2 VBG pO2 VBG Base Excess 02/11/25 02/11/25 02/13/25 05:00 11:20 17:05 ABG pH 7.32 L 7.22 L D ABG pCO2 77 H* 89 H* D ABG pO2 73 L 86 ABG HCO3 39 H 36 H ABG O2 Saturation 95 96 ABG Base Excess 10 H 6 H VBG pH 7.47 VBG pCO2 53 VBG pO2 147 H VBG Base Excess 12 H 02/13/25 02/14/25 02/14/25 18:58 00:08 01:56 ABG pH 7.31 L 7.17 L* D ABG pCO2 70 H D 97 H* D ABG pO2 137 H D 95 D ABG HCO3 35 H 35 H ABG O2 Saturation 100 H 97 ABG Base Excess 7 H 4 H VBG pH 7.31 L VBG pCO2 70 H D VBG pO2 64 H D VBG Base Excess 7 H 02/14/25 02/14/25 02/14/25 04:50 13:37 Unknown ABG pH 7.35 D ABG pCO2 63 H D ABG pO2 129 H D ABG HCO3 35 H ABG O2 Saturation 100 H ABG Base Excess 7 H VBG pH 7.34 7.27 L VBG pCO2 55 D 70 H D VBG pO2 118 H D 44 D VBG Base Excess 2 3 02/15/25 02/15/25 02/15/25 04:06 10:13 15:32 ABG pH 7.39 7.24 L D ABG pCO2 57 H 83 H* D ABG pO2 63 L D 72 L ABG HCO3 35 H 35 H ABG O2 Saturation 93 92 ABG Base Excess 8 H 6 H VBG pH 7.42 VBG pCO2 58 H D VBG pO2 38 VBG Base Excess 12 H Assessment & Plan Time Spent With Patient Time: Total time spent is greater than 50% in coordination of care (as documented) at patient's floor/unit and/or counseling patient:
[2025-02-16] VITALS (109 sets, daily range): BP systolic 81–115; BP diastolic 47–85; PULSE 77–103; RESP 16–29; TEMP 36.2–37.2; O2SAT 89–100
[2025-02-16] MEDS: metroNIDAZOLE/NS 500 MG IVPB 500 MG/100 ML BAG 200 MG IV (05:14)
[2025-02-16 05:47] LABS: Base Excess, Venous 11 (-3-3); O2 Saturation, Venous 82 % (96-97); PCO2, Venous 65 mmHg (36-56); PO2, Venous 49 mmHg (15-58); pH, Venous 7.38 (7.33-7.66)
[2025-02-16 06:42] LABS: Alanine Aminotransferase 14 U/L (10-49); Albumin, Serum 3.0 gm/dL (3.4-4.8); Albumin/Globulin Ratio 1.1 (1.2-2.2); Alkaline Phosphatase 76 U/L (46-116); Anion Gap 10 (7-16); Aspartate Amino Transferase 44 U/L (0-34); BUN/Creatinine Ratio 76 Ratio (12-20); Bilirubin,Total 0.3 mg/dL (0.3-1.2); Blood Urea Nitrogen 38 mg/dL (9-23); Calcium 9.1 mg/dL (8.3-10.6); Calcium (Corrected) 9.9 mg/dL (8.5-10.1); Carbon Dioxide 34.6 mMol/L (20.0-31.0); Chloride 102 mMol/L (98-107); Creatinine (Component) 0.5 mg/dL (0.6-1.3); Estimated Creatinine Clearance 111.1 mL/min (>60); Globulin 2.7 gm/dL (2.3-3.5); Glucose 95 mg/dL (74-106); Magnesium 2.2 mg/dL (1.6-2.6); Osmolality,Calculated 301 (275-295); Phosphorous 2.0 mg/dL (2.4-5.1); Potassium 4.5 mMol/L (3.4-5.1); Sodium 147 mMol/L (136-145); Total Protein 5.7 gm/dL (5.7-8.2); eGFR > 60 See Note
[2025-02-16 06:52] LABS: Basophils # (Auto) 0.0 Thou/mm3 (0.0-0.2); Basophils % (Auto) 0 % (0-2.5); Eosinophils # (Auto) 0.0 Thou/mm3 (0.0-0.5); Eosinophils % (Auto) 0 % (0-10); Hematocrit 33.2 % (36.0-46.0); Hemoglobin 10.2 g/dL (12.0-16.0); Immature Granulocytes Auto 0.18 Thou/mm3 (0.00-0.00); Lymphocytes # (Auto) 1.3 Thou/mm3 (1.0-4.8); Lymphocytes % (Auto) 7 % (10-50); Mean Corpuscular HGB Conc 30.7 g/dl (31.0-37.0); Mean Corpuscular Hemoglobin 26.6 pg (25.0-35.0); Mean Corpuscular Volume 87 fL (80-100); Monocytes # (Auto) 0.5 Thou/mm3 (0.0-0.8); Monocytes % (Auto) 3 % (0-12); Neutrophils # (Auto) 16.2 Thou/mm3 (1.8-7.7); Neutrophils % (Auto) 89 % (37-80); Nucleated Red Blood Cell # 0.03 Thou/mm3 (0.00-0.00); Nucleated Red Blood Cell % 0 /100 WBC (0); Platelet Count 303 Thou/mm3 (140-440); RDW Standard Deviation 53.1 fL (36.4-46.3); Red Blood Count 3.83 Miln/mm3 (4.00-5.20); White Blood Count 18.2 Thou/mm3 (3.6-11.0)
[2025-02-16] MEDS: HEPARIN SOD INJ 5000 UNIT/ML VIAL SC ×3 (08:11→21:23)
[2025-02-16] MEDS: cefTRIAXone 2 GM in SODIUM CHLORIDE 0.9% (Popper) 50 ML IV (08:12)
[2025-02-16] MEDS: BUMETANIDE INJ 0.25 MG/ML VIAL 4 ML 1 MG IVP ×2 (08:13→17:38)
--- NOTE | 2025-02-16 10:47 | PD.INTPROG ---
Documentation for date of: 02/16/25 Subjective Subjective Interval history: Patient did not require sedation overnight. Complaining of abdominal pain. Peak pressures remain elevated. No fever. UOP responded well to bumex, net negative 1L in last 24 hours. 400cc UOP this AM after bumex bolus. Patient with PS 20 to maintain TV >300 and RR remains in high 20s/ low 30s. Off levophed completely since this AM. Critical Care Note Critical care time (min.): 40 Exam Vital Signs Temp Pulse Resp BP Pulse Ox O2 Del Method O2 Flow Rate 97.2 F 92 25 H 94/59 L 93 L Mechanical Ventilation 5 02/16/25 08:00 02/16/25 10:13 02/16/25 06:07 02/16/25 09:15 02/16/25 10:13 02/15/25 16:00 02/13/25 12:00 FiO2 50 02/16/25 10:13 Narrative Exam GEN: NAD, intubated and appropriate, able to express/ mouth words HEENT: PERRL, dry mucus membranes, ETT in place NECK: RIJ CVC, site C/D/I, supple CVS: S1/S2+ RRR no R/M/G PULM: clear anteriorly ABD: soft/ tender to palpation, no guarding/ rebound, BS+ EXT: 2+ pedal edema, pulses intact, no swelling in UE BL NEURO: nonfocal, able to write, appropriately responds to commands Physical Exam Completion Physical Exam Complete?: Yes Objective - Reconciliation Analyst Labs 02/16/25 06:39 02/16/25 05:30 Labs: Laboratory Results - last 24 hr 02/15/25 02/16/25 02/16/25 15:32 05:30 06:39 WBC 18.2 H RBC 3.83 L Hgb 10.2 L Hct 33.2 L MCV 87 MCH 26.6 MCHC 30.7 L RDW Std Deviation 53.1 H Plt Count 303 D Neut % (Auto) 89 H Lymph % (Auto) 7 L [place] % (Auto) 3 Eos % (Auto) 0 Baso % (Auto) 0 Neut # (Auto) 16.2 H Lymph # (Auto) 1.3 [place] # (Auto) 0.5 Eos # (Auto) 0.0 Baso # (Auto) 0.0 Immature Gran # (Auto) 0.18 H Absolute Nucleated RBC 0.03 H Immature Gran % 1 H Nucleated RBC % 0 VBG pH 7.42 7.38 VBG pCO2 58 H D 65 H VBG pO2 38 49 VBG O2 Sat (Alexsander) 76 L 82 L VBG Base Excess 12 H 11 H Sodium 145 147 H Potassium 4.0 4.5 D Chloride 102 102 Carbon Dioxide 38.5 H 34.6 H Anion Gap 5 L 10 BUN 38 H 38 H Creatinine 0.5 L 0.5 L Estim Creat Clear Calc 108.4 111.1 eGFR > 60 > 60 BUN/Creatinine Ratio 76 H 76 H Glucose 105 95 Calculated Osmolality 297 H 301 H Calcium 9.2 9.1 Corrected Calcium 9.9 Phosphorus 2.0 L Magnesium 2.2 Total Bilirubin 0.3 AST 44 H ALT 14 Alkaline Phosphatase 76 D Total Protein 5.7 Albumin 3.0 L Globulin 2.7 Albumin/Globulin Ratio 1.1 L Assessment & Plan Additional Plan Additional Plan: Tyra Chaya 59F pmhx significant for HFpEF (60-65%, 07/2023), 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 Planned to upgrade to ICU needing ICU level care, ex-lap surgery today, and given history of pulmonary fibrosis and other comorbidities. Neurology #Sedation, Titrated off In setting of altered mental status 02/13 pre surgery. Dx: -RASS goal of -5. -02/15: Patient RASS of -2; patient's ABG's indicate not ready for extubation. Rx: -Resting comfortably off sedation - Pain control with PRN tylenol and dilaudid #Acute Encephalopathy, resolved DDx: Infection (GI) vs acidosis vs less likely metabolic vs toxic Dx: -Patient A&Ox1 02/13 from baseline of x3 -CXR and CTAP showed pneumoperitoneum -No notable electrolyte abnormalities, no toxins noted Rx: -Treating underlying infection with abx, back to baseline with clearance of sedatives Cardiovascular #Sepsis #Hypotension DDx: GI infection vs inflammatory response in setting of bowel perforation Dx: -MAP has been upper 60s today and overnight on Levophed 0.08 mcg/kg/min Rx: -Treating underlying infection with abx -Weaned off levophed this AM #Acute on chronic HFpEF (60-65%, 07/2023) #Severe pulmonary hypertension DDx: Dx: -Presents with dyspnea at rest, worsening SOB, BLE swelling, and facial swelling, BNP 1165 -02/10 TTE Normal LV size, wall thickness. Normal LV diastolic filling pattern for age. Estimated EF at 55-60 %. The RV size is moderately increased with moderately decreases systolic function. The estimated RVSP, 72 mmHg. RAP 15. The RA cavity size is severely increased. Moderate TR. Less than 50% respiratory change in dimension of the inferior vena cava abnormal. -02/14: Gave Bumex 1 mg x1 for to help kidney, after 1 L bolus given and no significant UOP Rx: -Continue on Bumex 1 mg IV BID, recheck electrolytes this afternoon -Strict I&Os, daily weights, 1.8L fluid restriction -Remains 4.5L net positive for admission #NSTEMI likely type II, 2/2 fluid overload, resolved Dx: -troponin 0.055->0.028 Rx: Nothing to do #HLD Dx: -Lipid panel unremarkable other than mildly decreased HDL, 30. Rx: -Continuing home med atorvastatin 20 mg po hs Respiratory #Acute hypoxic respiratory failure, resolved DDx: combination of acute on chronic heart failure exacerbation vs worsening pulmonary fibrosis vs aspiration PNA vs CAP, less likely PE Dx: -Presents with dyspnea at rest, worsening SOB, BLE swelling, and facial swelling on home O2 4L. On physical examination bilateral crackles over the both lungs. Follows Dr. Garrido and Dr. Kim outpatient. -On admission saturating 88% on 4 L of oxygen -ABG 7.31/77/69/39 with repeat ABGs pH 7.29-7.32. 02/09 CXR bilateral pulmonary congestion and enlarged cardiac contour. 02/09 CTA chest/AP showed prominent CHF, negative for PE Rx: - Ceftriaxone (02/13- and Flagyl (02/13- - Last day for ABX planned to be 02/16, meaning total abx course will have been 7 days (since start, which was cefepime on 02/10). - Mechanical Ventilated- tolerate high TV for patient comfort until pain controlled, flow adjusted to tolerate higher pressures RRx: -Cefepime (02/10 - 02/13), azithromycin (02/11-02/13) -BiPAP (02/11 - 02/13) #Pulmonary fibrosis / pesticides Stated has appointment tomorrow with Dr. Kim. Has never been on medication for pulmonary fibrosis. Plan: - CTM O2 saturation and if patient cannot tolerate deescalation of O2 despite IV diuresis - Duoneb q6h prn GI and F/E/N #Bowel perforation #Severe lower abdominal pain #28mm calcified mass on sigmoid colon, likely gallstone #Tube Feeds - On admission patient had pain after meals since 2 weeks 02/09 at lower abdomen/suprapubic area. Extremely tender to palpation. Stated no BM for the past 5 days prior to admission. Denies hx of cholcystectomy. -02/09 CTA chest/AP: GB not visualized, 28mm calcified mass in sigmoid colon w/o visualization of GB -02/10 MRCP: GB not visualized, common hepatic duct common bile duct normal size no stones, neg pancreatitis, no free fluid in abdomen, aorta normal size, minimal bilateral hydrenophrosis, edema in subcutaneous fatty tissues at the flanks; GB US: GB not visualized -On 02/13, patient appeared more confused with significant abdominal tenderness and SOB. CXR: pneumoperitoneum; CTAP: Extensive pneumoperitoneum, cholelithiasis but gallbladder wall appears thickened but no abnormal small air and fluid distended with prominent wall thickening, remains calcified mass in sigmoid colon 26 mm. Rx: - Continue on tube feeds - GI consulted, recs appreciated - Surgery consulted, recs appreciated: s/p ex lap with possible bowel resection &colostomy 02/13 Renal #ERMELINDA DDx: pre-renal vs intra-renal. fluid losses from surgery vs dehydration vs contrast use vs abdominal compartment syndrome. Patient did have surgery yesterday and has been NPO. Patient was given contrast for scans. Patient's abdomen is not hard or distended, less likely abd compartment syndrome. Dx: - 02/15: Cr 0.6 (baseline around ~0.7), BUN 43 - Urine output improving after 02/14's 1 L bolus along with bumex 1mg IV x1. Rx: -Scheduled Bumex 1 mg IV BID Heme #leukocytosis DDx: Surgery 02/13 vs infection vs inflammation Dx: -WBC 18.2, afebrile Rx: -Treating underlying infection #anemia DDx: surgery vs IV fluids Dx: -Hgb 10.2(9.6), stable, no signs of bleeding Rx: -will continue to trend hgb, monitor for signs of bleeding Endo #hypothyroidism Dx: -home med levothyroxine 150 mcg ACBR -TSH 0.36, T4 1.39 Rx: -On Levothyroxine IV 112.5 mg IV qd ID #Feculent peritonitis Patient's imaging showing pneumoperitonitis (perforation) likely cause of infection Dx: -02/09 Blood cultures x2 No growth after 48 hours -02/11 MRSA POSITIVE (NARES) -02/13 No white count, afebrile -02/13 - GPC 05/04 blood cx, likely contaminant Rx: - Ceftriaxone (02/13- and Flagyl (02/13- - Last day for ABX planned to be 02/16, meaning total abx course will have been 7 days (since start, which was cefepime on 02/10). RRx: -azithromycin (02/11-02/13) -Cefepime DC'd (02/10 - 02/13) Disposition: ICU s/p ex-lap partial colectomy, colostomy (02/13) DVT prophylaxis: heparin 5000u SC TID GI prophylaxis: Protonix 40 mg IV qday Diet: Tube feeds Cardoza: yes Lines: Peripherals, Central Line ( plan to remove) Drips: Levophed Vent: Yes CODE STATUS: Full Code Provider Notation Provider Notation: Although this document has been carefully reviewed, there may still be some phonetic and other typographical errors. These errors are purely grammatical due to imperfections in the software program and should not be construed in any way to compromise the substance of the patient's medical care during this visit. Thank you for the opportunity and privilege in assisting you with this patient's care and management.
[2025-02-16] MEDS: ACETAMINOPHEN 325 MG TABLET 650 MG PO (11:06)
[2025-02-16] MEDS: ONDANSETRON INJ 2 MG/ML INJ 2 ML 4 MG IVP (11:44)
--- NOTE | 2025-02-16 12:03 | PC.PT ---
PT eval received to help transfer patient in ICU. Upon chart review, patient is a intermediate designer resident at [facility] and is bedbound at baseline. Patient was approached to assist with transfer but lacks strength in the B LE score 0/5 for SLR. Patient had limited B UE motion as well as being mechanically ventilated at this time. PT educated MD and RN at bedside that patient is not a candidate for acute care physical therapy at this time due to her low baseline functional status and poor strength. Patient is unsure of the last time she was up and out of her bed at [facility]. Will cancel PT eval as patient is not a candidate for PT at this time.
[2025-02-16] MEDS: Norepinephrine/D5W 8mg/250ml 8 MG/250 ML BAG 2.813 MG IV (14:49)
[2025-02-16 14:50] LABS: Anion Gap 5 (7-16); BUN/Creatinine Ratio 75 Ratio (12-20); Blood Urea Nitrogen 30 mg/dL (9-23); Calcium 8.7 mg/dL (8.3-10.6); Carbon Dioxide 38.1 mMol/L (20.0-31.0); Chloride 102 mMol/L (98-107); Creatinine (Component) 0.4 mg/dL (0.6-1.3); Estimated Creatinine Clearance 138.8 mL/min (>60); Glucose 112 mg/dL (74-106); Osmolality,Calculated 295 (275-295); Potassium 4.2 mMol/L (3.4-5.1); Sodium 145 mMol/L (136-145); eGFR > 60 See Note
--- NOTE | 2025-02-16 16:04 | PC.SS ---
Update: Patient remains intubated. Off sedation. Patient receiving pressor support. Afebrile. NPO. Receiving IV antibiotics. Dr. Velez consulting.
--- NOTE | 2025-02-16 18:54 | ESPR_ITS ---
Documentation for date of: 02/16/25 Subjective Subjective Interval history: Minimal activity in the colostomy bag Exam Vital Signs Temp Pulse Resp BP Pulse Ox O2 Del Method O2 Flow Rate 99 F 96 25 H 87/53 L 96 Mechanical Ventilation 5 02/16/25 16:54 02/16/25 18:26 02/16/25 06:07 02/16/25 18:15 02/16/25 18:26 02/15/25 16:00 02/13/25 12:00 FiO2 40 02/16/25 18:26 Objective Labs 02/16/25 06:39 02/16/25 14:15 Labs: Laboratory Results - last 24 hr 02/16/25 02/16/25 02/16/25 05:30 06:39 14:15 WBC 18.2 H RBC 3.83 L Hgb 10.2 L Hct 33.2 L MCV 87 MCH 26.6 MCHC 30.7 L RDW Std Deviation 53.1 H Plt Count 303 D Neut % (Auto) 89 H Lymph % (Auto) 7 L [place] % (Auto) 3 Eos % (Auto) 0 Baso % (Auto) 0 Neut # (Auto) 16.2 H Lymph # (Auto) 1.3 [place] # (Auto) 0.5 Eos # (Auto) 0.0 Baso # (Auto) 0.0 Immature Gran # (Auto) 0.18 H Absolute Nucleated RBC 0.03 H Immature Gran % 1 H Nucleated RBC % 0 VBG pH 7.38 VBG pCO2 65 H VBG pO2 49 VBG O2 Sat (Alexsander) 82 L VBG Base Excess 11 H Sodium 147 H 145 Potassium 4.5 D 4.2 Chloride 102 102 Carbon Dioxide 34.6 H 38.1 H Anion Gap 10 5 L BUN 38 H 30 H Creatinine 0.5 L 0.4 L Estim Creat Clear Calc 111.1 138.8 eGFR > 60 > 60 BUN/Creatinine Ratio 76 H 75 H Glucose 95 112 H Calculated Osmolality 301 H 295 Calcium 9.1 8.7 Corrected Calcium 9.9 Phosphorus 2.0 L Magnesium 2.2 Total Bilirubin 0.3 AST 44 H ALT 14 Alkaline Phosphatase 76 D Total Protein 5.7 Albumin 3.0 L Globulin 2.7 Albumin/Globulin Ratio 1.1 L Impressions Impression: Status post resection of left colon with end colostomy minimal activity Off pressors at the moment Continue current management ABG Interpretation ABG results: 10/10/25 10/12/25 10/12/25 17:37 00:05 02:08 ABG pH 7.31 L 7.29 L 7.30 L ABG pCO2 77 H* 81 H* 79 H* ABG pO2 69 L 72 L 76 L ABG HCO3 39 H 39 H 39 H ABG O2 Saturation 93 94 95 ABG Base Excess 10 H 9 H 9 H VBG pH VBG pCO2 VBG pO2 VBG Base Excess 02/11/25 02/11/25 02/13/25 05:00 11:20 17:05 ABG pH 7.32 L 7.22 L D ABG pCO2 77 H* 89 H* D ABG pO2 73 L 86 ABG HCO3 39 H 36 H ABG O2 Saturation 95 96 ABG Base Excess 10 H 6 H VBG pH 7.47 VBG pCO2 53 VBG pO2 147 H VBG Base Excess 12 H 02/13/25 02/14/25 02/14/25 18:58 00:08 01:56 ABG pH 7.31 L 7.17 L* D ABG pCO2 70 H D 97 H* D ABG pO2 137 H D 95 D ABG HCO3 35 H 35 H ABG O2 Saturation 100 H 97 ABG Base Excess 7 H 4 H VBG pH 7.31 L VBG pCO2 70 H D VBG pO2 64 H D VBG Base Excess 7 H 02/14/25 02/14/25 02/14/25 04:50 13:37 Unknown ABG pH 7.35 D ABG pCO2 63 H D ABG pO2 129 H D ABG HCO3 35 H ABG O2 Saturation 100 H ABG Base Excess 7 H VBG pH 7.34 7.27 L VBG pCO2 55 D 70 H D VBG pO2 118 H D 44 D VBG Base Excess 2 3 02/15/25 02/15/25 02/15/25 04:06 10:13 15:32 ABG pH 7.39 7.24 L D ABG pCO2 57 H 83 H* D ABG pO2 63 L D 72 L ABG HCO3 35 H 35 H ABG O2 Saturation 93 92 ABG Base Excess 8 H 6 H VBG pH 7.42 VBG pCO2 58 H D VBG pO2 38 VBG Base Excess 12 H 02/16/25 05:30 ABG pH ABG pCO2 ABG pO2 ABG HCO3 ABG O2 Saturation ABG Base Excess VBG pH 7.38 VBG pCO2 65 H VBG pO2 49 VBG Base Excess 11 H Assessment & Plan Time Spent With Patient Time: Total time spent is greater than 50% in coordination of care (as documented) at patient's floor/unit and/or counseling patient:
[2025-02-17] VITALS (105 sets, daily range): BP systolic 83–113; BP diastolic 46–74; PULSE 76–107; RESP 18–30; TEMP 36.6–37.2; O2SAT 85–99; BMI 34.3
[2025-02-17] MEDS: HEPARIN SOD INJ 5000 UNIT/ML VIAL SC (05:16)
[2025-02-17] MEDS: BUMETANIDE INJ 0.25 MG/ML VIAL 4 ML 1 MG IVP ×2 (05:16→10:17)
[2025-02-17 06:02] LABS: Basophils # (Auto) 0.1 Thou/mm3 (0.0-0.2); Basophils % (Auto) 0 % (0-2.5); Eosinophils # (Auto) 0.0 Thou/mm3 (0.0-0.5); Eosinophils % (Auto) 0 % (0-10); Hematocrit 33.9 % (36.0-46.0); Hemoglobin 10.3 g/dL (12.0-16.0); Immature Granulocytes Auto 0.24 Thou/mm3 (0.00-0.00); Lymphocytes # (Auto) 1.4 Thou/mm3 (1.0-4.8); Lymphocytes % (Auto) 7 % (10-50); Mean Corpuscular HGB Conc 30.4 g/dl (31.0-37.0); Mean Corpuscular Hemoglobin 26.8 pg (25.0-35.0); Mean Corpuscular Volume 88 fL (80-100); Monocytes # (Auto) 0.9 Thou/mm3 (0.0-0.8); Monocytes % (Auto) 4 % (0-12); Neutrophils # (Auto) 18.4 Thou/mm3 (1.8-7.7); Neutrophils % (Auto) 88 % (37-80); Nucleated Red Blood Cell # 0.03 Thou/mm3 (0.00-0.00); Nucleated Red Blood Cell % 0 /100 WBC (0); Platelet Count 342 Thou/mm3 (140-440); RDW Standard Deviation 54.8 fL (36.4-46.3); Red Blood Count 3.85 Miln/mm3 (4.00-5.20); White Blood Count 21.0 Thou/mm3 (3.6-11.0)
[2025-02-17 06:11] LABS: Alanine Aminotransferase 12 U/L (10-49); Albumin, Serum 3.0 gm/dL (3.4-4.8); Albumin/Globulin Ratio 1.2 (1.2-2.2); Alkaline Phosphatase 80 U/L (46-116); Anion Gap 7 (7-16); Aspartate Amino Transferase 38 U/L (0-34); BUN/Creatinine Ratio 73 Ratio (12-20); Bilirubin,Total 0.4 mg/dL (0.3-1.2); Blood Urea Nitrogen 29 mg/dL (9-23); Calcium 8.8 mg/dL (8.3-10.6); Calcium (Corrected) 9.6 mg/dL (8.5-10.1); Carbon Dioxide 39.7 mMol/L (20.0-31.0); Chloride 102 mMol/L (98-107); Creatinine (Component) 0.4 mg/dL (0.6-1.3); Estimated Creatinine Clearance 136.2 mL/min (>60); Globulin 2.5 gm/dL (2.3-3.5); Glucose 93 mg/dL (74-106); Magnesium 2.0 mg/dL (1.6-2.6); Osmolality,Calculated 301 (275-295); Phosphorous 2.2 mg/dL (2.4-5.1); Potassium 3.9 mMol/L (3.4-5.1); Sodium 149 mMol/L (136-145); Total Protein 5.5 gm/dL (5.7-8.2); eGFR > 60 See Note
--- NOTE | 2025-02-17 08:55 | PD.SURPROG ---
Documentation for date of: 02/17/25 Subjective Subjective Narrative: Patient was seen and examined. Still intubated. She had high output from NG tube yesterday, only 100 cc overnight. She is more awake this morning Exam Vital Signs Temp Pulse Resp BP Pulse Ox O2 Del Method O2 Flow Rate 97.9 F 84 25 H 92/54 L 96 Mechanical Ventilation 5 02/17/25 04:00 02/17/25 06:45 02/16/25 06:07 02/17/25 06:45 02/17/25 06:45 02/17/25 04:00 02/13/25 12:00 FiO2 40 02/17/25 05:51 Constitutional Constitutional: no acute distress Routine Abdominal Exam Comments: Abdomen is soft and mildly distended. Incision is clean, dry and intact. Colostomy is present Stilnoct productive Assessment & Plan Assessment Additional comments: Postop day #4 status post exploratory laparotomy with sigmoid colectomy and end colostomy Plan Clamp the NG tube and start patient on Reglan. Continue care per ICU team PROCEDURES: Procedures Exploratory laparotomy, sigmoid colectomy, end descending colostomy
--- NOTE | 2025-02-17 09:35 | XR_ITS ---
EXAMINATION: AP chest single view TECHNIQUE: AP portable supine chest single view Date and time: February 17, 2025, 10 0 4:00 a.m., comparison February 15, 2025 INDICATIONS: Severe pneumonia, hypoxic respiratory failure this week FINDINGS: Extensive bilateral lung opacity again noted consistent with pneumonia with mild associated heart failure including moderately enlarged cardiac contour Endotracheal tube tip 3.5 cm above brian Orogastric tube in the stomach Right internal jugular central line tip right atrium IMPRESSION: Severe bilateral pneumonia/ARDS Mild associated heart failure
[2025-02-17] MEDS: metroNIDAZOLE/NS 500 MG IVPB 500 MG/100 ML BAG 200 MG IV ×2 (10:16→22:17)
[2025-02-17] MEDS: cefTRIAXone/D5w 2gm 2 GM/50 ML BAG IV (10:22)
--- NOTE | 2025-02-17 10:57 | PD.INTPROG ---
Documentation for date of: 02/17/25 Subjective Subjective Interval history: Repeat patient with no acute events overnight. Remains afebrile. Patient with no acute complaints this morning. Patient transition to pressure support, tidal volumes remain around 300 cc with pressure support of 10 showing significant improvement. Net negative fluid balance 3-1/2 L in the last 24 hours. Near euvolemia for this hospitalization considering insensible losses over the past few days. Patient's white count did increase with cessation of antibiotics yesterday. Resumed antibiotics this morning. Chest x-ray at bedside showed left basilar pneumonia remains persistent versus atelectasis though I favor pneumonia given presence of air bronchograms. No family at bedside this morning during rounds for update. Family was updated yesterday prior to end of day. Critical Care Note Critical care time (min.): 35 Exam Vital Signs Temp Pulse Resp BP Pulse Ox O2 Del Method O2 Flow Rate 98.2 F 87 25 H 102/59 L 95 Mechanical Ventilation 5 02/17/25 08:00 02/17/25 10:30 02/16/25 06:07 02/17/25 10:30 02/17/25 10:30 02/17/25 08:00 02/13/25 12:00 FiO2 40 02/17/25 09:38 Narrative Exam GEN: NAD, intubated and appropriate, able to express/ mouth words HEENT: PERRL, dry mucus membranes, ETT in place NECK: RIJ CVC, site C/D/I, supple CVS: S1/S2+ RRR no R/M/G PULM: clear anteriorly ABD: soft/ tender to palpation, no guarding/ rebound, BS+ EXT: 1+ pedal edema, pulses intact, no swelling in UE BL NEURO: nonfocal, able to write, appropriately responds to commands Physical Exam Completion Physical Exam Complete?: Yes Objective - Home Demonstration Agent Labs 02/17/25 04:32 02/17/25 04:32 Labs: Laboratory Results - last 24 hr 02/16/25 02/17/25 14:15 04:32 WBC 21.0 H RBC 3.85 L Hgb 10.3 L Hct 33.9 L MCV 88 MCH 26.8 MCHC 30.4 L RDW Std Deviation 54.8 H Plt Count 342 D Neut % (Auto) 88 H Lymph % (Auto) 7 L [place] % (Auto) 4 Eos % (Auto) 0 Baso % (Auto) 0 Neut # (Auto) 18.4 H Lymph # (Auto) 1.4 [place] # (Auto) 0.9 H Eos # (Auto) 0.0 Baso # (Auto) 0.1 Immature Gran # (Auto) 0.24 H Absolute Nucleated RBC 0.03 H Immature Gran % 1 H Nucleated RBC % 0 Sodium 145 149 H Potassium 4.2 3.9 Chloride 102 102 Carbon Dioxide 38.1 H 39.7 H Anion Gap 5 L 7 BUN 30 H 29 H Creatinine 0.4 L 0.4 L Estim Creat Clear Calc 138.8 136.2 eGFR > 60 > 60 BUN/Creatinine Ratio 75 H 73 H Glucose 112 H 93 Calculated Osmolality 295 301 H Calcium 8.7 8.8 Corrected Calcium 9.6 Phosphorus 2.2 L Magnesium 2.0 Total Bilirubin 0.4 AST 38 H ALT 12 Alkaline Phosphatase 80 Total Protein 5.5 L Albumin 3.0 L Globulin 2.5 Albumin/Globulin Ratio 1.2 Critical care time Critical Care Time Attestation: Patient remains at significant risk for further morbidity and mortality warranting close monitoring and care only available in ICU. Critical risk care services required for acute on chronic hypoxic respiratory failure, severe sepsis/septic shock, viscus perforation secondary to gallstone impaction, acute kidney injury. 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 Planned to upgrade to ICU needing ICU level care, ex-lap surgery today, and given history of pulmonary fibrosis and other comorbidities. Neurology #Sedation, Titrated off In setting of altered mental status 02/13 pre surgery. Dx: -RASS goal of -5. -02/15: Patient RASS of -2; patient's ABG's indicate not ready for extubation. Rx: -Resting comfortably off sedation - Pain control with PRN tylenol and dilaudid #Acute Encephalopathy, resolved DDx: Infection (GI) vs acidosis vs less likely metabolic vs toxic Dx: -Patient A&Ox1 02/13 from baseline of x3 -CXR and CTAP showed pneumoperitoneum -No notable electrolyte abnormalities, no toxins noted Rx: -Treating underlying infection with abx, back to baseline with clearance of sedatives Cardiovascular #Sepsis #Hypotension DDx: GI infection vs inflammatory response in setting of bowel perforation Dx: -MAP has been upper 60s today and overnight on Levophed 0.08 mcg/kg/min Rx: -Treating underlying infection with abx -Weaned off levophed this AM, intermittent requirement persists, will consider transition to p.o. midodrine once bowel rest has ended #Acute on chronic HFpEF (60-65%, 07/2023) #Severe pulmonary hypertension DDx: Dx: -Presents with dyspnea at rest, worsening SOB, BLE swelling, and facial swelling, BNP 1165 -02/10 TTE Normal LV size, wall thickness. Normal LV diastolic filling pattern for age. Estimated EF at 55-60 %. The RV size is moderately increased with moderately decreases systolic function. The estimated RVSP, 72 mmHg. RAP 15. The RA cavity size is severely increased. Moderate TR. Less than 50% respiratory change in dimension of the inferior vena cava abnormal. -02/14: Gave Bumex 1 mg x1 for to help kidney, after 1 L bolus given and no significant UOP Rx: -Continue on Bumex 1 mg IV daily, recheck electrolytes this afternoon -Dosing of Diamox to combat contraction alkalosis which will make weaning more difficult for mechanical ventilation -Strict I&Os, daily weights, 1.8L fluid restriction -Remains 1.5L net positive for admission #NSTEMI likely type II, 2/2 fluid overload, resolved Dx: -troponin 0.055->0.028 Rx: Nothing to do #HLD Dx: -Lipid panel unremarkable other than mildly decreased HDL, 30. Rx: -Continuing home med atorvastatin 20 mg po hs Respiratory #Acute hypoxic respiratory failure, resolved DDx: combination of acute on chronic heart failure exacerbation vs worsening pulmonary fibrosis vs aspiration PNA vs CAP, less likely PE Dx: -Presents with dyspnea at rest, worsening SOB, BLE swelling, and facial swelling on home O2 4L. On physical examination bilateral crackles over the both lungs. Follows Dr. Garrido and Dr. Kim outpatient. -On admission saturating 88% on 4 L of oxygen -ABG 7.31/77/69/39 with repeat ABGs pH 7.29-7.32. 02/09 CXR bilateral pulmonary congestion and enlarged cardiac contour. 02/09 CTA chest/AP showed prominent CHF, negative for PE Rx: - Ceftriaxone (02/13- and Flagyl (02/13- - Last day for ABX planned to be 02/16, meaning total abx course will have been 7 days (since start, which was cefepime on 02/10). - Mechanical Ventilated- tolerate high TV for patient comfort until pain controlled, flow adjusted to tolerate higher pressures RRx: -Cefepime (02/10 - 02/13), azithromycin (02/11-02/13) -BiPAP (02/11 - 02/13) - Chest x-ray 02/17 left basilar pneumonia/VAP - Resumption of antibiotics, extend course for 10 days - Repeat tracheal culture - Extend spectrum for healthcare associated infection should the patient develop fever or worsening gas exchange/pulmonary mechanics #Pulmonary fibrosis 2/ pesticides Stated has appointment tomorrow with Dr. Kim. Has never been on medication for pulmonary fibrosis. Plan: - CTM O2 saturation and if patient cannot tolerate deescalation of O2 despite IV diuresis - Duoneb q6h prn GI and F/E/N #Bowel perforation #Severe lower abdominal pain #28mm calcified mass on sigmoid colon, likely gallstone #Tube Feeds - On admission patient had pain after meals since 2 weeks 02/09 at lower abdomen/suprapubic area. Extremely tender to palpation. Stated no BM for the past 5 days prior to admission. Denies hx of cholcystectomy. -02/09 CTA chest/AP: GB not visualized, 28mm calcified mass in sigmoid colon w/o visualization of GB -02/10 MRCP: GB not visualized, common hepatic duct common bile duct normal size no stones, neg pancreatitis, no free fluid in abdomen, aorta normal size, minimal bilateral hydrenophrosis, edema in subcutaneous fatty tissues at the flanks; GB US: GB not visualized -On 02/13, patient appeared more confused with significant abdominal tenderness and SOB. CXR: pneumoperitoneum; CTAP: Extensive pneumoperitoneum, cholelithiasis but gallbladder wall appears thickened but no abnormal small air and fluid distended with prominent wall thickening, remains calcified mass in sigmoid colon 26 mm. Rx: - GI consulted, recs appreciated - Surgery consulted, recs appreciated: s/p ex lap with possible bowel resection &colostomy 02/13 - Continue bowel rest after episode of vomiting yesterday; NG clamped at request of surgical service Renal #ERMELINDA DDx: pre-renal vs intra-renal. fluid losses from surgery vs dehydration vs contrast use vs abdominal compartment syndrome. Patient did have surgery yesterday and has been NPO. Patient was given contrast for scans. Patient's abdomen is not hard or distended, less likely abd compartment syndrome. Dx: - 02/15: Cr 0.6 (baseline around ~0.7), BUN 43 - Urine output improving after 02/14's 1 L bolus along with bumex 1mg IV x1. Rx: -Scheduled Bumex 1 mg IV daily -Addition of Diamox this afternoon, consider repeat dosing tomorrow Heme #Leukocytosis DDx: Surgery 02/13 vs infection vs inflammation Dx: -WBC 18.2, afebrile Rx: -Treating underlying infection #Anemia DDx: surgery vs IV fluids Dx: -Hgb 10.2(9.6), stable, no signs of bleeding Rx: -will continue to trend Hgb, monitor for signs of bleeding Endo #hypothyroidism Dx: -home med levothyroxine 150 mcg ACBR -TSH 0.36, T4 1.39 Rx: -On Levothyroxine IV 112.5 mg IV qd ID #Feculent peritonitis Patient's imaging showing pneumoperitonitis (perforation) likely cause of infection Dx: -02/09 Blood cultures x2 No growth after 48 hours -02/11 MRSA POSITIVE (NARES) -02/13 No white count, afebrile -02/13 - GPC 1/2 blood cx, likely contaminant- staph hominis Rx: - Ceftriaxone (02/13- and Flagyl (02/13- - Last day for ABX planned to be 02/19, meaning total abx course will have been 10 days (since start, which was cefepime on 02/10). RRx: -Azithromycin (02/11-02/13) -Cefepime DC'd (02/10 - 02/13) Disposition: ICU s/p ex-lap partial colectomy, colostomy (02/13) DVT prophylaxis: Lovenox GI prophylaxis: Protonix 40 mg IV qday Diet: Tube feeds Cardoza: yes Lines: Peripherals Drips: Levophed Vent: Yes CODE STATUS: Full Code Provider Notation Provider Notation: Although this document has been carefully reviewed, there may still be some phonetic and other typographical errors. These errors are purely grammatical due to imperfections in the software program and should not be construed in any way to compromise the substance of the patient's medical care during this visit. Thank you for the opportunity and privilege in assisting you with this patient's care and management.
[2025-02-17] MEDS: METOCLOPRAMIDE INJ 5 MG/ML VIAL 2 ML 10 MG IVP ×2 (11:19→17:42)
[2025-02-17] MEDS: ENOXAPARIN SOD INJ 40 MG/0.4 ML SYRINGE SC (11:19)
--- NOTE | 2025-02-17 12:23 | ESPR_ITS ---
Documentation for date of: 02/17/25 Subjective Subjective Interval history: Good activity in the colostomy bag Once patient gets extubated can start the feeding Leukocytosis patient on antibiotics basically left lower lobe pneumonia Exam Vital Signs Temp Pulse Resp BP Pulse Ox O2 Del Method O2 Flow Rate 97.9 F 94 25 H 95/56 L 93 L Mechanical Ventilation 5 02/17/25 11:00 02/17/25 11:30 02/16/25 06:07 02/17/25 11:30 02/17/25 11:30 02/17/25 11:00 02/13/25 12:00 FiO2 45 02/17/25 11:15 Objective Labs 02/17/25 04:32 02/17/25 04:32 Labs: Laboratory Results - last 24 hr 02/16/25 02/17/25 14:15 04:32 WBC 21.0 H RBC 3.85 L Hgb 10.3 L Hct 33.9 L MCV 88 MCH 26.8 MCHC 30.4 L RDW Std Deviation 54.8 H Plt Count 342 D Neut % (Auto) 88 H Lymph % (Auto) 7 L [place] % (Auto) 4 Eos % (Auto) 0 Baso % (Auto) 0 Neut # (Auto) 18.4 H Lymph # (Auto) 1.4 [place] # (Auto) 0.9 H Eos # (Auto) 0.0 Baso # (Auto) 0.1 Immature Gran # (Auto) 0.24 H Absolute Nucleated RBC 0.03 H Immature Gran % 1 H Nucleated RBC % 0 Sodium 145 149 H Potassium 4.2 3.9 Chloride 102 102 Carbon Dioxide 38.1 H 39.7 H Anion Gap 5 L 7 BUN 30 H 29 H Creatinine 0.4 L 0.4 L Estim Creat Clear Calc 138.8 136.2 eGFR > 60 > 60 BUN/Creatinine Ratio 75 H 73 H Glucose 112 H 93 Calculated Osmolality 295 301 H Calcium 8.7 8.8 Corrected Calcium 9.6 Phosphorus 2.2 L Magnesium 2.0 Total Bilirubin 0.4 AST 38 H ALT 12 Alkaline Phosphatase 80 Total Protein 5.5 L Albumin 3.0 L Globulin 2.5 Albumin/Globulin Ratio 1.2 Impressions Impression: Status post left colonic resection with end colostomy working very well Advance diet once patient is extubated ABG Interpretation ABG results: 02/09/25 02/11/25 02/11/25 17:37 00:05 02:08 ABG pH 7.31 L 7.29 L 7.30 L ABG pCO2 77 H* 81 H* 79 H* ABG pO2 69 L 72 L 76 L ABG HCO3 39 H 39 H 39 H ABG O2 Saturation 93 94 95 ABG Base Excess 10 H 9 H 9 H VBG pH VBG pCO2 VBG pO2 VBG Base Excess 02/11/25 02/11/25 02/13/25 05:00 11:20 17:05 ABG pH 7.32 L 7.22 L D ABG pCO2 77 H* 89 H* D ABG pO2 73 L 86 ABG HCO3 39 H 36 H ABG O2 Saturation 95 96 ABG Base Excess 10 H 6 H VBG pH 7.47 VBG pCO2 53 VBG pO2 147 H VBG Base Excess 12 H 02/13/25 02/14/25 02/14/25 18:58 00:08 01:56 ABG pH 7.31 L 7.17 L* D ABG pCO2 70 H D 97 H* D ABG pO2 137 H D 95 D ABG HCO3 35 H 35 H ABG O2 Saturation 100 H 97 ABG Base Excess 7 H 4 H VBG pH 7.31 L VBG pCO2 70 H D VBG pO2 64 H D VBG Base Excess 7 H 02/14/25 02/14/25 02/14/25 04:50 13:37 Unknown ABG pH 7.35 D ABG pCO2 63 H D ABG pO2 129 H D ABG HCO3 35 H ABG O2 Saturation 100 H ABG Base Excess 7 H VBG pH 7.34 7.27 L VBG pCO2 55 D 70 H D VBG pO2 118 H D 44 D VBG Base Excess 2 3 02/15/25 02/15/25 02/15/25 04:06 10:13 15:32 ABG pH 7.39 7.24 L D ABG pCO2 57 H 83 H* D ABG pO2 63 L D 72 L ABG HCO3 35 H 35 H ABG O2 Saturation 93 92 ABG Base Excess 8 H 6 H VBG pH 7.42 VBG pCO2 58 H D VBG pO2 38 VBG Base Excess 12 H 02/16/25 05:30 ABG pH ABG pCO2 ABG pO2 ABG HCO3 ABG O2 Saturation ABG Base Excess VBG pH 7.38 VBG pCO2 65 H VBG pO2 49 VBG Base Excess 11 H Assessment & Plan Time Spent With Patient Time: Total time spent is greater than 50% in coordination of care (as documented) at patient's floor/unit and/or counseling patient:
[2025-02-17 14:56] LABS: Anion Gap 9 (7-16); BUN/Creatinine Ratio 70 Ratio (12-20); Blood Urea Nitrogen 28 mg/dL (9-23); Calcium 8.4 mg/dL (8.3-10.6); Carbon Dioxide 39.1 mMol/L (20.0-31.0); Chloride 100 mMol/L (98-107); Creatinine (Component) 0.4 mg/dL (0.6-1.3); Estimated Creatinine Clearance 136.2 mL/min (>60); Glucose 96 mg/dL (74-106); Magnesium 2.0 mg/dL (1.6-2.6); Osmolality,Calculated 299 (275-295); Phosphorous 2.6 mg/dL (2.4-5.1); Potassium 4.2 mMol/L (3.4-5.1); Sodium 148 mMol/L (136-145); eGFR > 60 See Note
[2025-02-17] MEDS: SODIUM CHLORIDE RT 10% 15 ML NEBU 5 ML INH (15:22)
[2025-02-17] MEDS: WATER, STERILE INJ 10 ML VIAL 5 ML IV (15:23)
[2025-02-17] MEDS: Norepinephrine/D5W 8mg/250ml 8 MG/250 ML BAG 5.626 MG IV (15:26)
[2025-02-18] VITALS (103 sets, daily range): BP systolic 79–126; BP diastolic 45–76; PULSE 78–110; RESP 0–33; TEMP 36.2–37.4; O2SAT 74–100
[2025-02-18] MEDS: METOCLOPRAMIDE INJ 5 MG/ML VIAL 2 ML 10 MG IVP ×4 (00:35→17:37)
[2025-02-18 00:40] LABS: Base Excess, Venous 11 (-3-3); O2 Saturation, Venous 81 % (96-97); PCO2, Venous 64 mmHg (36-56); PO2, Venous 44 mmHg (15-58); pH, Venous 7.39 (7.33-7.66)
[2025-02-18 04:29] LABS: Base Excess 10 (-3-3); HCO3 37 mEq/L (20-26); Inspired Oxygen, FIO2 40 %; O2 Saturation 97 % (91-98); PCO2 64 mmHg (32.0-48.0); PO2 84 mmHg (83-108); pH, Arterial 7.37 (7.35-7.45)
[2025-02-18 04:30] LABS: Allen Test Performed/OK; Puncture Site Left Radial
[2025-02-18 04:59] LABS: Basophils # (Auto) 0.1 Thou/mm3 (0.0-0.2); Basophils % (Auto) 0 % (0-2.5); Eosinophils # (Auto) 0.0 Thou/mm3 (0.0-0.5); Eosinophils % (Auto) 0 % (0-10); Hematocrit 35.4 % (36.0-46.0); Hemoglobin 10.7 g/dL (12.0-16.0); Immature Granulocytes Auto 0.37 Thou/mm3 (0.00-0.00); Lymphocytes # (Auto) 1.5 Thou/mm3 (1.0-4.8); Lymphocytes % (Auto) 7 % (10-50); Mean Corpuscular HGB Conc 30.2 g/dl (31.0-37.0); Mean Corpuscular Hemoglobin 26.8 pg (25.0-35.0); Mean Corpuscular Volume 89 fL (80-100); Monocytes # (Auto) 1.0 Thou/mm3 (0.0-0.8); Monocytes % (Auto) 5 % (0-12); Neutrophils # (Auto) 20.0 Thou/mm3 (1.8-7.7); Neutrophils % (Auto) 87 % (37-80); Nucleated Red Blood Cell # 0.05 Thou/mm3 (0.00-0.00); Nucleated Red Blood Cell % 0 /100 WBC (0); Platelet Count 373 Thou/mm3 (140-440); RDW Standard Deviation 54.9 fL (36.4-46.3); Red Blood Count 4.00 Miln/mm3 (4.00-5.20); White Blood Count 22.9 Thou/mm3 (3.6-11.0)
[2025-02-18 05:02] LABS: Base Excess, Venous 10 (-3-3); O2 Saturation, Venous 98 % (96-97); PCO2, Venous 60 mmHg (36-56); PO2, Venous 90 mmHg (15-58); pH, Venous 7.40 (7.33-7.66)
[2025-02-18 05:22] LABS: Alanine Aminotransferase 10 U/L (10-49); Albumin, Serum 2.9 gm/dL (3.4-4.8); Albumin/Globulin Ratio 1.1 (1.2-2.2); Alkaline Phosphatase 77 U/L (46-116); Anion Gap 7 (7-16); Aspartate Amino Transferase 36 U/L (0-34); BUN/Creatinine Ratio 45 Ratio (12-20); Bilirubin,Total 0.4 mg/dL (0.3-1.2); Blood Urea Nitrogen 18 mg/dL (9-23); Calcium 8.6 mg/dL (8.3-10.6); Calcium (Corrected) 9.5 mg/dL (8.5-10.1); Carbon Dioxide 37.1 mMol/L (20.0-31.0); Chloride 102 mMol/L (98-107); Creatinine (Component) 0.4 mg/dL (0.6-1.3); Estimated Creatinine Clearance 136.2 mL/min (>60); Globulin 2.7 gm/dL (2.3-3.5); Glucose 82 mg/dL (74-106); Magnesium 2.0 mg/dL (1.6-2.6); Osmolality,Calculated 291 (275-295); Phosphorous 2.4 mg/dL (2.4-5.1); Potassium 3.6 mMol/L (3.4-5.1); Sodium 146 mMol/L (136-145); Total Protein 5.6 gm/dL (5.7-8.2); eGFR > 60 See Note
[2025-02-18] MEDS: metroNIDAZOLE/NS 500 MG IVPB 500 MG/100 ML BAG 200 MG IV ×3 (06:15→21:35)
[2025-02-18 07:49] LABS: Base Excess 9 (-3-3); HCO3 37 mEq/L (20-26); Inspired Oxygen, FIO2 40 %; PCO2 67 mmHg (32.0-48.0); PO2 63 mmHg (83-108); pH, Arterial 7.35 (7.35-7.45)
[2025-02-18 07:52] LABS: Allen Test Performed/OK; O2 Saturation 95 % (91-98); Puncture Site Right Radial
[2025-02-18] MEDS: ENOXAPARIN SOD INJ 40 MG/0.4 ML SYRINGE SC (08:15)
[2025-02-18] MEDS: BUMETANIDE INJ 0.25 MG/ML VIAL 4 ML 1 MG IVP ×2 (08:16→08:39)
[2025-02-18] MEDS: cefTRIAXone/D5w 2gm 2 GM/50 ML BAG IV (08:16)
[2025-02-18] MEDS: POT PHOS 15 mMol in NS 250 ML 15 MMOL/250 ML BAG 62.5 MMOL IV (10:38)
[2025-02-18] MEDS: VANCOMYCIN/D5W 1,250 MG IVPB 250 ML 120 MG IV (11:15)
[2025-02-18] MEDS: CEFEPIME INJ 2 GM in SODIUM CHLORIDE 0.9% (Popper) 50 ML IV ×2 (11:16→21:40)
--- NOTE | 2025-02-18 11:34 | PC.SS ---
SS update: Patient receiving pressor support.
--- NOTE | 2025-02-18 11:45 | ESPR_ITS ---
<Statement entered by Darin Terrell MD - 02/18/25 17:48> Patient seen and examined at bedside. I discussed and supervised with the tech intern physician who took care of this patient. I personally saw and examined the patient. I agree with most of the assessment and plan. Patient extubated, placed on HFNC. Started on clear liquid diet. Broadened antibiotics to Vancomycin and cefepime in setting of worsening WBCs, pending sputum culture. Will continue to monitor in ICU overnight, probable downgrade tomorrow. Plan of care discussed with attending Dr. Sethi. 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 At baseline she lives at her acute rehab and gets short of breath when she exerts. She has been experiencing shortness of breath and bilateral leg swelling since last 2 weeks. This leg swelling is progressively worsened and involves the abdomen face underneath the eyes and lips. She has been experiencing short of breath since 2 weeks even at rest. She denies any chest pain, chest palpitations but endorses occasional cough with sputum which is initially yellow in color but now it is clear. ED visit: Initial vitals BP 106/69, pulse rate 100, respiratory rate 20, temperature 98.3 saturating 88% on 4 L of oxygen. Pertinent ED labs are WBC 14.8 with neutrophil 87%, D-dimer 3680, BNP 1165, troponin 0.055 BUN 27, ABG?pH 7.31, pCO2 77, HCO3 39. Urine protein 3+, RBC 4+ creatinine clearance 2.7. Imaging chest x-ray on 02/09 shows enlarged cardiac contour with perihilar congestion Moderate CHF. EKG shows sinus tachycardia. CT scan shows no gallbladder visualization and 28 mm calcified stone in sigmoid colon suspicious for gallbladder ileus.In the ED, was given Azithromycin 500 mg, ceftriaxone 2gm,1 L NS and furosemide. MedTele (02/10 - 02/13): Patient initially was diuresed daily with bumex 1 mg daily (now being held for soft BP) for dyspnea and leg swelling. Has been on cefepime and azithromycin for possible pneumonia. GI consulted for gallstone and sigmoid colon pain management with Tylenol and ketorolac as patient is allergic to codeine, hydrocodone and tramadol. Abdomina pain marginally decreased 2 days after admission, had been stable. Possible surgical consultation depending on HIDA scan read and per GI. Today patient was noted to be on BiPAP but confused and A&O x1 to only to name, stating she had dfifuse abdominal pain. CXR ordered and showed pneumoperitoneum. CTAP showed similar thing, surgery was consulted and planned for ex lap today after patient's daughter Romana was asked and approved for consent. Patient planned to be upgraded to ICU after surgery needing ICU level care, given history of pulmonary fibrosis and other comorbidities. L ICU Course: 02/18/2025: VBG overnight: pH 7.40, pCO2 60, pO2 90, O2 saturation 98%. Patient transition back to pressure support around 7AM this morning and successfully extubated today. Patient is no on any sedation. Patient is still on levophed 0.02. Per surgery, patient may start on liquid diet. Despite resuming antibiotics yesterday, WBC count continues to trend upward. Highest temp in past 24 hours was 99.4?F. Due to concern for pseudomonal pneumonia, ceftriaxone was switched to cefepime. Vancomycin was also started. Urine output over the past 12 hours was approximately 600 mL. Net negative fluid balance of ~2 liters over the past 24 hours. 02/17/2025: No acute events overnight. Remains afebrile. Patient with no acute complaints this morning. Patient transition to pressure support, tidal volumes remain around 300 cc with pressure support of 10 showing significant improvement. Net negative fluid balance 3-1/2 L in the last 24 hours. Near euvolemia for this hospitalization considering insensible losses over the past few days. Patient's white count did increase with cessation of antibiotics yesterday. Resumed antibiotics this morning. Chest x-ray at bedside showed left basilar pneumonia remains persistent versus atelectasis though I favor pneumonia given presence of air bronchograms. No family at bedside this morning during rounds for update. Family was updated yesterday prior to end of day. 02/16/2025: Patient did not require sedation overnight. Complaining of abdominal pain. Peak pressures remain elevated. No fever. UOP responded well to bumex, net negative 1L in last 24 hours. 400cc UOP this AM after bumex bolus. Patient with PS 20 to maintain TV >300 and RR remains in high 20s/ low 30s. Off levophed completely since this AM. 02/15/2025: Yesterday afternoon patient had an event requiring shock from AED, patient has since been stable, refer to event note in chart for more information. Patient did well overnight, maintaining good electrolyte levels on repeat bmp's overnight. Patient was down titrated on levophed to 0.08 mcg/kg/min overnight and this morning was further decreased to 0.06 mcg/kg/min. Patient's urine output overnight was at a rate of 50 cc/hr, improved after being given bumex previous day. Patient's vitals this morning were stable with BP being notable with a MAP of 67, trending in the upper 60s. Patient on examination had a RASS of -2, mentation continues to improve as sedation is removed from body (no sedation ggt currently). Overview of plan for the day inculdes continuing bumex and scheduling it with a goal urine output of 1.5/2 L (Patient is +5L during hospital course). Her repeat ABG and chem panel showed continued elevation of bicarb at ~35, will get an afternoon BMP and VBG, if bicarb is 38- 40, will plan to start diamox. Antibiotics will be scheduled to end for a total of 7 day course since the first abx (cefepime on 02/10) was started (last day given will be 02/16). Will start tube feeds today as patient is not ready for extubation currently given ABG this morning showed elevated pco2. 02/14/2025: Overnight patient was changed from pressure control ventilation to PRVC due to some decrease in blood pressure and after patient's ABG at midnight showed pH 7.17 and pco2 97. Repeat ABG later in the morning was improved at 7.35 pH and pco2 of 63 after vent settings were adjusted. Patient was on levophed 0.07 overnight with MAP's > 65. Patient was given 500 ml bolu and had cheetah done showing fluid responsiveness. Patient was noted to have 10-15 cc/hr of urine overnight. Patient's RASS was set to -5, had sedation decreased, RASS was -1/-2 on reassessment. Patient started appearing to be in pain and had RASS score goal was decreased back to -5. Patient did not have any bowel movements overnight. In the morning on assessment patient's vitals were notable for MAP 69, saturating 99% O2 on 55%FiO2. In the morning, in attempt to wean patient off of sedation, we turned off the Versed and continued the fentanyl at 25 mcg/hr. Exam Vital Signs Temp Pulse Resp BP Pulse Ox O2 Del Method O2 Flow Rate 99.4 F 92 22 H 125/72 93 L Mechanical Ventilation 40 02/18/25 04:00 02/18/25 10:48 02/18/25 10:48 02/18/25 08:39 02/18/25 10:48 02/18/25 04:00 02/18/25 10:48 FiO2 40 02/18/25 10:48 Narrative Exam Physical Exam General: Awake and in no acute distress. Able to respond to commands. Head: Normocephalic, atraumatic. Eyes: Pupils equally round and reactive to light. Anicteric. Mouth/Throat/Neck: Dry mucous membranes. ETT and NG tube removed. Bandage over area of where right IJ central line was. No central line present. Heart: Regular rate and rhythm, no murmurs. No JVD. Lungs: Clear to auscultation with no wheezing or crackles. Non-labored respirations, symmetric chest rise, no use of accessory muscles. Abdomen: Soft, tender to palpation. No guarding or rebound tenderness. Neurologic: No gross neurological deficit, and patient able to move all 4 extremities. Extremities: 1+ pedal edema. Posterior tibial pulses are 2+ bilaterally. 2+ radial pulse bilaterally. No clubbing or cyanosis. No mottling. Skin: No rash. Psychiatric: Cooperative, appropriate mood and affect Objective Labs 02/18/25 04:20 02/18/25 04:20 Labs: Laboratory Results - last 24 hr 02/17/25 02/18/25 02/18/25 14:19 00:26 04:20 WBC 22.9 H RBC 4.00 Hgb 10.7 L Hct 35.4 L MCV 89 MCH 26.8 MCHC 30.2 L RDW Std Deviation 54.9 H Plt Count 373 D Neut % (Auto) 87 H Lymph % (Auto) 7 L [place] % (Auto) 5 Eos % (Auto) 0 Baso % (Auto) 0 Neut # (Auto) 20.0 H Lymph # (Auto) 1.5 [place] # (Auto) 1.0 H Eos # (Auto) 0.0 Baso # (Auto) 0.1 Immature Gran # (Auto) 0.37 H Absolute Nucleated RBC 0.05 H Immature Gran % 2 H Nucleated RBC % 0 Puncture Site ABG pH ABG pCO2 ABG pO2 ABG HCO3 ABG O2 Saturation ABG Base Excess VBG pH 7.39 7.40 VBG pCO2 64 H 60 H VBG pO2 44 90 H D VBG O2 Sat (Alexsander) 81 L 98 H VBG Base Excess 11 H 10 H FiO2 Sodium 148 H 146 H Potassium 4.2 3.6 D Chloride 100 102 Carbon Dioxide 39.1 H 37.1 H Anion Gap 9 7 BUN 28 H 18 Creatinine 0.4 L 0.4 L Estim Creat Clear Calc 136.2 136.2 eGFR > 60 > 60 BUN/Creatinine Ratio 70 H 45 H Glucose 96 82 Calculated Osmolality 299 H 291 Calcium 8.4 8.6 Corrected Calcium 9.5 Phosphorus 2.6 2.4 Magnesium 2.0 2.0 Total Bilirubin 0.4 AST 36 H ALT 10 Alkaline Phosphatase 77 Total Protein 5.6 L Albumin 2.9 L Globulin 2.7 Albumin/Globulin Ratio 1.1 L 02/18/25 02/18/25 04:21 07:43 WBC RBC Hgb Hct MCV MCH MCHC RDW Std Deviation Plt Count Neut % (Auto) Lymph % (Auto) [place] % (Auto) Eos % (Auto) Baso % (Auto) Neut # (Auto) Lymph # (Auto) [place] # (Auto) Eos # (Auto) Baso # (Auto) Immature Gran # (Auto) Absolute Nucleated RBC Immature Gran % Nucleated RBC % Puncture Site Left Radial Right Radial ABG pH 7.37 D 7.35 ABG pCO2 64 H D 67 H ABG pO2 84 63 L D ABG HCO3 37 H 37 H ABG O2 Saturation 97 95 ABG Base Excess 10 H 9 H VBG pH VBG pCO2 VBG pO2 VBG O2 Sat (Alexsander) VBG Base Excess FiO2 40 40 Sodium Potassium Chloride Carbon Dioxide Anion Gap BUN Creatinine Estim Creat Clear Calc eGFR BUN/Creatinine Ratio Glucose Calculated Osmolality Calcium Corrected Calcium Phosphorus Magnesium Total Bilirubin AST ALT Alkaline Phosphatase Total Protein Albumin Globulin Albumin/Globulin Ratio ABG Interpretation ABG results: 02/09/25 02/11/25 02/11/25 17:37 00:05 02:08 ABG pH 7.31 L 7.29 L 7.30 L ABG pCO2 77 H* 81 H* 79 H* ABG pO2 69 L 72 L 76 L ABG HCO3 39 H 39 H 39 H ABG O2 Saturation 93 94 95 ABG Base Excess 10 H 9 H 9 H VBG pH VBG pCO2 VBG pO2 VBG Base Excess 02/11/25 02/11/25 02/13/25 05:00 11:20 17:05 ABG pH 7.32 L 7.22 L D ABG pCO2 77 H* 89 H* D ABG pO2 73 L 86 ABG HCO3 39 H 36 H ABG O2 Saturation 95 96 ABG Base Excess 10 H 6 H VBG pH 7.47 VBG pCO2 53 VBG pO2 147 H VBG Base Excess 12 H 02/13/25 02/14/25 02/14/25 18:58 00:08 01:56 ABG pH 7.31 L 7.17 L* D ABG pCO2 70 H D 97 H* D ABG pO2 137 H D 95 D ABG HCO3 35 H 35 H ABG O2 Saturation 100 H 97 ABG Base Excess 7 H 4 H VBG pH 7.31 L VBG pCO2 70 H D VBG pO2 64 H D VBG Base Excess 7 H 02/14/25 02/14/25 02/14/25 04:50 13:37 Unknown ABG pH 7.35 D ABG pCO2 63 H D ABG pO2 129 H D ABG HCO3 35 H ABG O2 Saturation 100 H ABG Base Excess 7 H VBG pH 7.34 7.27 L VBG pCO2 55 D 70 H D VBG pO2 118 H D 44 D VBG Base Excess 2 3 02/15/25 02/15/25 02/15/25 04:06 10:13 15:32 ABG pH 7.39 7.24 L D ABG pCO2 57 H 83 H* D ABG pO2 63 L D 72 L ABG HCO3 35 H 35 H ABG O2 Saturation 93 92 ABG Base Excess 8 H 6 H VBG pH 7.42 VBG pCO2 58 H D VBG pO2 38 VBG Base Excess 12 H 02/16/25 02/18/25 02/18/25 05:30 00:26 04:20 ABG pH ABG pCO2 ABG pO2 ABG HCO3 ABG O2 Saturation ABG Base Excess VBG pH 7.38 7.39 7.40 VBG pCO2 65 H 64 H 60 H VBG pO2 49 44 90 H D VBG Base Excess 11 H 11 H 10 H 02/18/25 02/18/25 04:21 07:43 ABG pH 7.37 D 7.35 ABG pCO2 64 H D 67 H ABG pO2 84 63 L D ABG HCO3 37 H 37 H ABG O2 Saturation 97 95 ABG Base Excess 10 H 9 H VBG pH VBG pCO2 VBG pO2 VBG Base Excess Quality Measures Quality Measures VTE prophylaxis Assessment & Plan Assessment Current Active Medications: Generic Name Dose Route Start Last Admin Trade Name Freq PRN Reason Stop Dose Admin Acetaminophen 650 mg 02/10/25 20:28 Acetaminophen 325 Mg Tablet PO 03/12/25 20:27 Q6H PRN Fever >100.4 Acetaminophen 650 mg 02/10/25 20:28 02/16/25 11:06 Acetaminophen 325 Mg Tablet PO 03/12/25 20:27 650 mg Q6H PRN Administration PAIN SCALE 1-3 (mild Albuterol/Ipratropium 3 ml 02/12/25 11:26 Albuterol/Ipratropium (Duoneb) Rt Quiana 3 Ml Nebu INH 03/14/25 12:59 Q6HRRT PRN wheezing and SOB Atorvastatin Calcium 20 mg 02/10/25 21:00 02/17/25 20:38 Atorvastatin Calcium 20 Mg Tablet PO 03/12/25 20:59 Not Given HS KATIE Bumetanide 1 mg 02/18/25 09:00 02/18/25 08:39 Bumetanide Inj 0.25 Mg/Ml Vial 4 Ml IVP 03/20/25 08:59 1 mg QDAY KATIE Administration Enoxaparin Sodium 40 mg 02/17/25 11:15 02/18/25 08:15 Enoxaparin Sod Inj 40 Mg/0.4 Ml Syringe SC 03/03/25 11:14 40 mg QDAY KATIE Administration Fentanyl Citrate 25 mcg 02/15/25 16:43 02/15/25 19:57 Fentanyl Cit Inj 50 Mcg/Ml Amp 2ml IVP 02/20/25 10:45 25 mcg Q8H PRN Administration Breakthrough Pain or agitation Protocol Norepinephrine/Dextrose 8 mg in 250 mls @ 7.032 mls/hr 02/13/25 16:22 02/18/25 10:00 Levophed In D5w 8mg/250ml IV 03/15/25 16:21 0.02 mcg/kg/min .Q24H PRN 2.813 mls/hr PER PROTOCOL Titration Protocol 0.05 MCG/KG/MIN Fentanyl Citrate 2,500 mcg in 250 mls @ 2.5 mls/hr 02/14/25 16:22 02/15/25 07:23 Sublimaze Inj 2,500 Mcg/250 Ml Bag IV 02/18/25 16:20 0 mcg/hr .Q24H PRN 0 mls/hr PER PROTOCOL Titration Protocol 25 MCG/HR Propofol 1,000 mg in 100 mls @ 2.346 mls/hr 02/14/25 16:22 Diprivan Ivpb IV 03/16/25 16:21 .Q24H PRN PER PROTOCOL Protocol 5 MCG/KG/MIN Metronidazole 500 mg in 100 mls @ 200 mls/hr 02/17/25 09:38 02/18/25 06:15 Flagyl 500 Mg Iv IV 02/24/25 09:37 200 mls/hr Q8HR KATIE Administration Potassium Phosphate 15 mmol in 250 mls @ 62.5 mls/hr 02/18/25 08:52 02/18/25 10:38 Pot Phos 15 Mmol In Ns 250 Ml IV 02/18/25 12:51 62.5 mls/hr X1 ONE Administration Vancomycin HCl/Dextrose 250 mls @ 120 mls/hr 02/18/25 10:45 02/18/25 11:15 Vancomycin/D5w 1,250 Mg Ivpb IV 02/18/25 12:49 120 mls/hr X1 ONE Administration Cefepime HCl 2 gm/ Sodium 50 mls @ 100 mls/hr 02/18/25 10:42 02/18/25 11:16 Chloride IV 02/25/25 10:41 100 mls/hr Q8HR KATIE Administration Levothyroxine Sodium 125 mcg/ 150 mcg 02/12/25 06:00 02/13/25 05:37 Levothyroxine Sodium 25 mcg PO 03/14/25 05:59 150 mcg On Hold: 02/14/25 01:15 ACBR KATIE Administration Levothyroxine Sodium 112.5 mcg 02/14/25 01:20 02/18/25 08:16 Levothyroxine Inj 100 Mcg Vial IV 03/16/25 01:19 112.5 mcg DAILY KATIE Administration Metoclopramide HCl 10 mg 02/17/25 12:00 02/18/25 11:16 Metoclopramide Inj 5 Mg/Ml Vial 2 Ml IVP 03/19/25 11:59 10 mg Q6HR KATIE Administration Protocol Ondansetron HCl 4 mg 02/10/25 20:28 02/16/25 11:44 Ondansetron Inj 2 Mg/Ml Inj 2 Ml IVP 03/12/25 20:27 4 mg Q6H PRN Administration NAUSEA OR VOMITING Protocol Pantoprazole Sodium 40 mg 02/13/25 11:15 02/18/25 08:17 Pantoprazole Inj 40 Mg Vial IVP 03/15/25 11:14 40 mg QDAY KATIE Administration Pharmacy Consult 1 each 02/18/25 10:45 Vancomycin Pharmacy To Dose 1 Each Each IV 03/20/25 10:44 QDAY PRN CONSULT Sennosides 1 tab 02/10/25 20:28 02/13/25 05:37 Senna Tablet PO 03/12/25 20:27 1 tab QDAY PRN Administration constipation Protocol Sertraline HCl 50 mg 02/11/25 21:00 02/17/25 20:38 Sertraline Hcl 25 Mg Tablet PO 03/13/25 20:59 Not Given HS KATIE Plan 59 year-old female with HFpEF, pulmonary fibrosis, s/p cervical CA, hypothyroidism, and anxiety, admitted for acute on chronic HFpEF, hospital course complicated by bowel perforation (s/p ex-lap 02/13), now in ICU with acute on chronic hypoxic respiratory failure and septic shock likely 2/2 viscus perforation from gallstone impaction. Neurology #Chemical sedation, Titrated off In setting of altered mental status 02/13 pre surgery. Treatment Plan: - Titrated off sedation. #Acute Encephalopathy (resolved) DDx: Infection (GI) vs acidosis vs less likely metabolic vs toxic. Diagnostic Test: - Patient A&Ox1 02/13 from baseline of x3. - CXR and CTAP showed pneumoperitoneum. - No notable electrolyte abnormalities, no toxins noted. Treatment Plan: - Continue to treat underlying infection with antibiotics. - Back to baseline after titrated off sedatives. Cardiovascular #Sepsis #Hypotension DDx: GI infection (bowel perforation) vs inflammatory response in setting of bowel perforation. S/p exploratory laparotomy, sigmoid colectomy, end descending colostomy on 02/13 for perforated sigmoid colon from a large gallstone, feculent peritonitis. Diagnostic Test: - Persistent leukocytosis. - Initial blood culture (02/09) negative. - 02/13 blood culture with Staph hominis - likely contaminant, but will treat due to MDR pattern. - MRSA screen 02/11: positive. - Sputum culture 02/17: pending. - CTAP 02/13: prominent vascular congestion, pneumonia and/or edema in the lower lung zones, extensive pneumoperitoneum, cholelithiasis, but gallbladder wall appears thickened suspicious for cholecystitis, multiple abnormal small bowel loops air and fluid distended with prominent wall thickening, calcified mass in the sigmoid colon, 26 mm, consider gallstone ileus. - CXR 02/17: severe bilateral pneumonia/ARDS. Treatment Review (completed) - Cardoza and central line removed on 02/17 as potential sources of infection. - Cefepime (02/10 - 02/13). - Azithromycin (02/11-02/13). - Ceftriaxone (02/13-02/18). Treatment Plan: - Cefepime for pseudomonal coverage (switched from ceftriaxone) (02/18 - 02/20). - Flagyl continued for anaerobic coverage (02/13 - 02/20). - Added vancomycin for Staph hominis on blood culture (02/18-). - Sputum culture pending - if positive for pseudomonas, will treat as new pneumonia (7-day course). - Initially on Levophed for septic shock; weaned off briefly on 02/17 but remains intermittently hypotensive. Currently on low-dose Levophed at 0.02 mcg/kg/min with MAPs in the upper 60s. Continue to monitor hemodynamics closely and wean as tolerated. #Acute on chronic HFpEF (60-65%, 07/2023) #Severe pulmonary hypertension Diagnostic Test: - Presents with dyspnea at rest, worsening SOB, BLE swelling, and facial swelling, BNP 1165. - 02/10 TTE Normal LV size, wall thickness. Normal LV diastolic filling pattern for age. Estimated EF at 55-60 %. The RV size is moderately increased with moderately decreases systolic function. The estimated RVSP, 72 mmHg. RAP 15. The RA cavity size is severely increased. Moderate TR. Less than 50% respiratory change in dimension of the inferior vena cava abnormal. Treatment Plan: - Continue on Bumex 1mg IV daily. - Diamox 500mg x1 was given on 02/17 to combat contraction alkalosis from Bumex. - Strict I&Os, daily weights. - 1.8L fluid restriction. - Fluid balance -12.132 mL as of 02/18. #NSTEMI likely type II, 2/2 fluid overload (resolved) Diagnostic Test: - Troponin 0.055->0.028. Treatment Plan: - No treatment needed at this time. #Hyperlipidemia Diagnostic Test: - Lipid panel unremarkable other than mildly decreased HDL, 30. Treatment Plan: - Continue home med atorvastatin 20 mg PO HS. Respiratory #Acute hypoxic respiratory failure (resolved) #Extubated on 02/18 DDx: combination of acute on chronic heart failure exacerbation vs worsening pulmonary fibrosis vs aspiration PNA vs CAP, less likely PE. Diagnostic Test: - Presents with dyspnea at rest, worsening SOB, BLE swelling, and facial swelling on home O2 4L. - On physical examination bilateral crackles over the both lungs. Follows Dr. Garrido and Dr. Kim outpatient. - On admission saturating 88% on 4 L of oxygen - ABG 7.31/77/69/39 with repeat ABGs pH 7.29-7.32. - 02/09 CXR bilateral pulmonary congestion and enlarged cardiac contour. - 02/09 CTA chest/AP showed prominent CHF, negative for PE. - 02/17 CXR: left basilar pneumonia/VAP. - Repeat tracheal culture pending. Treatment Review (completed): - Cefepime (02/10 - 02/13), azithromycin (02/11-02/13) - BiPAP (02/11 - 02/13) - Ceftriaxone (02/13-02/18) Treatment Plan - Cefepime for pseudomonal coverage (switched from ceftriaxone) (02/18 - 02/20). - Flagyl continued for anaerobic coverage (02/13 - 02/20). - Added Vancomycin for Staph hominis on blood culture (02/18-). - Sputum culture pending - if positive for pseudomonas, will treat as new pneumonia (7-day course). - Extubated on 02/18 and transitioned to high flow NC. #Pulmonary fibrosis 06/04 pesticides Stated has appointment tomorrow with Dr. Kim. Has never been on medication for pulmonary fibrosis. Treatment Plan: - Continue to monitor O2 saturation and if patient cannot tolerate deescalation of O2 despite IV diuresis. - Duoneb Q6H PRN. GI and F/E/N #Bowel perforation #Severe lower abdominal pain #28mm calcified mass on sigmoid colon, likely gallstone #Tube Feeds Diagnostic Test: - On admission patient had pain after meals since 2 weeks 02/09 at lower abdomen/suprapubic area. Extremely tender to palpation. Stated no BM for the past 5 days prior to admission. Denies hx of cholcystectomy. - 02/09 CTA chest/AP: GB not visualized, 28mm calcified mass in sigmoid colon w/o visualization of GB. - 02/10 MRCP: GB not visualized, common hepatic duct common bile duct normal size no stones, neg pancreatitis, no free fluid in abdomen, aorta normal size, minimal bilateral hydrenophrosis, edema in subcutaneous fatty tissues at the flanks; GB US: GB not visualized - On 02/13, patient appeared more confused with significant abdominal tenderness and SOB. CXR: pneumoperitoneum; CTAP: Extensive pneumoperitoneum, cholelithiasis but gallbladder wall appears thickened but no abnormal small air and fluid distended with prominent wall thickening, remains calcified mass in sigmoid colon 26 mm. Treatment Plan: - Surgery consulted, recs appreciated - S/p exploratory laparotomy with bowel resection and end colostomy on 02/13 for perforated sigmoid colon. - NG tube was placed per surgical team after patient had emesis following initiation of feeds on 02/16. NG tube in place. - Patient cleared by surgery to begin a liquid diet today. Renal #Acute kidney injury (resolved) DDx: pre-renal vs intra-renal. fluid losses from surgery vs dehydration vs contrast use vs abdominal compartment syndrome. Patient did have surgery yesterday and has been NPO. Patient was given contrast for scans. Patient's abdomen is not hard or distended, less likely abd compartment syndrome. Diagnostic Test: - 02/15: Cr 0.6 (baseline around ~0.7), BUN 43 - Urine output improving after 02/14's 1 L bolus along with bumex 1mg IV x1. Treatment Plan: - Bumex 1 mg IV daily. Heme #Leukocytosis DDx: Surgery 02/13 vs infection vs inflammation. Diagnostic Test: - WBC 18.2 --> 21.0 --> 22.9. Treatment Plan: - Continue to treat underlying infection. #Normocytic anemia DDx: surgery vs IV fluids Diagnostic Test - Hemoglobin on admission 12.1 - Low but stable - No signs of bleeding Treatment Plan: - Continue to trend Hgb - Monitor for signs of bleeding Endo #Hypothyroidism Diagnostic Test: - Home med levothyroxine 150 mcg ACBR - TSH 0.36, T4 1.39 Treatment Plan: - Levothyroxine IV 112.5 mg IV qd ID #Feculent peritonitis Diagnostic Test: - Patient's imaging showing pneumoperitonitis (perforation) likely cause of infection - 02/09 Blood cultures x2 No growth after 48 hours - 02/11 MRSA screen positive. - 02/13 - GPC / blood cx, likely contaminant- staph hominis. Treatment Review (completed): - Cefepime (02/10 - 02/13) - Azithromycin (02/11-02/13) - BiPAP (02/11 - 02/13) - Ceftriaxone (02/13-02/18) Treatment Plan - Cefepime for pseudomonal coverage (switched from ceftriaxone) (02/18 - 02/20). - Flagyl continued for anaerobic coverage (02/13 - 02/20). - Added vancomycin for Staph hominis on blood culture (02/18-). - Sputum culture pending - if positive for pseudomonas, will treat as new pneumonia (7-day course). Health Maintenance: Disposition: ICU s/p ex-lap partial colectomy, colostomy (02/13). Extubated 02/18, monitor in ICU overnight, probable downgrade tomorrow. DVT prophylaxis: Lovenox GI prophylaxis: Protonix 40 mg IV qday Diet: Liquid diet Cardoza: removed on 02/17. Lines: Peripherals. Central line removed on 02/17. Drips: Levophed Vent: extubated on 02/18. CODE STATUS: Full Code Patient plan of care was discussed with the senior resident, Dr. Terrell, and attending physician, Dr. Sethi. Estela Sarabia DO Internal Medicine, PGY-1 Attending Provider Attestation/Addendum Patient seen and examined with the above resident, Estela Sarabia DO. I agree with the findings, assessment, and plan of care as documented except for any differences below. Continued clinical improvement. Bowel rest for two days with NG decompression/ clamp. Extubated to [facility] with optimization of fluid status, net even for admission. Minimal pressor requirements linger, may persists as she diuresis on her own. Keep track of HCO3 and got acetazolamide yesterday with good effect. Swallow evaluation completed at bedside and did well. Started on diet after clearance with surgery. Clamp trial done since yesterday. No abdominal pain. Ostomy output overnight with starting to form stool.Cleared all sedation now and doing well with mentation back to baseline. Slow wean from oxygen given pulmonary fibrosis. Antibiotic extended due to persistent WBC which is still rising and low grade temp noted. Broaden to vancomycin and cefepime. Complete course based on LLL pneumonia and HCAP. Follow up cultures. Patient and family updated at the bedside. Total critical care time: I personally spent 50 minutes for review of physiologic parameters, directing plan of care, coordination of care with other specialists, and counseling patient's family at bedside. This is exclusive of time spent teaching housestaff or performing any separate billable procedures. Patient remains at significant risk for further morbidity and mortality warranting close monitoring and care only available in the ICU. Critical care services required for septic shock, perforated viscus s/p partial colectomy/ diverting ostomy, acute respiratory failure, and acute renal failure, HCAP/ VAP.
[2025-02-18] MEDS: fentaNYL CIT INJ 50 mCg/ML AMP 2ML 25 MCG IVP (16:09)
--- NOTE | 2025-02-18 17:31 | PD.IMPROG ---
Documentation for date of: 02/18/25 Subjective Subjective Interval history: Good activity in the colostomy bag Continue to advance diet as tolerated Exam Vital Signs Temp Pulse Resp BP Pulse Ox O2 Del Method O2 Flow Rate 98.0 F 91 17 97/53 L 95 Humidified Nasal Cannula 40 02/18/25 16:00 02/18/25 17:15 02/18/25 17:15 02/18/25 17:15 02/18/25 17:15 02/18/25 15:30 02/18/25 15:30 FiO2 45 02/18/25 15:30 Objective Labs 02/18/25 04:20 02/18/25 04:20 Labs: Laboratory Results - last 24 hr 02/18/25 02/18/25 02/18/25 00:26 04:20 04:21 WBC 22.9 H RBC 4.00 Hgb 10.7 L Hct 35.4 L MCV 89 MCH 26.8 MCHC 30.2 L RDW Std Deviation 54.9 H Plt Count 373 D Neut % (Auto) 87 H Lymph % (Auto) 7 L [place] % (Auto) 5 Eos % (Auto) 0 Baso % (Auto) 0 Neut # (Auto) 20.0 H Lymph # (Auto) 1.5 [place] # (Auto) 1.0 H Eos # (Auto) 0.0 Baso # (Auto) 0.1 Immature Gran # (Auto) 0.37 H Absolute Nucleated RBC 0.05 H Immature Gran % 2 H Nucleated RBC % 0 Puncture Site Left Radial ABG pH 7.37 D ABG pCO2 64 H D ABG pO2 84 ABG HCO3 37 H ABG O2 Saturation 97 ABG Base Excess 10 H VBG pH 7.39 7.40 VBG pCO2 64 H 60 H VBG pO2 44 90 H D VBG O2 Sat ([place]) 81 L 98 H VBG Base Excess 11 H 10 H FiO2 40 Sodium 146 H Potassium 3.6 D Chloride 102 Carbon Dioxide 37.1 H Anion Gap 7 BUN 18 Creatinine 0.4 L Estim Creat Clear Calc 136.2 eGFR > 60 BUN/Creatinine Ratio 45 H Glucose 82 Calculated Osmolality 291 Calcium 8.6 Corrected Calcium 9.5 Phosphorus 2.4 Magnesium 2.0 Total Bilirubin 0.4 AST 36 H ALT 10 Alkaline Phosphatase 77 Total Protein 5.6 L Albumin 2.9 L Globulin 2.7 Albumin/Globulin Ratio 1.1 L 02/18/25 07:43 WBC RBC Hgb Hct MCV MCH MCHC RDW Std Deviation Plt Count Neut % (Auto) Lymph % (Auto) [place] % (Auto) Eos % (Auto) Baso % (Auto) Neut # (Auto) Lymph # (Auto) [place] # (Auto) Eos # (Auto) Baso # (Auto) Immature Gran # (Auto) Absolute Nucleated RBC Immature Gran % Nucleated RBC % Puncture Site Right Radial ABG pH 7.35 ABG pCO2 67 H ABG pO2 63 L D ABG HCO3 37 H ABG O2 Saturation 95 ABG Base Excess 9 H VBG pH VBG pCO2 VBG pO2 VBG O2 Sat ([place]) VBG Base Excess FiO2 40 Sodium Potassium Chloride Carbon Dioxide Anion Gap BUN Creatinine Estim Creat Clear Calc eGFR BUN/Creatinine Ratio Glucose Calculated Osmolality Calcium Corrected Calcium Phosphorus Magnesium Total Bilirubin AST ALT Alkaline Phosphatase Total Protein Albumin Globulin Albumin/Globulin Ratio Impressions Impression: Status post sigmoid colectomy with end colostomy Patient improving postoperatively good activity in the colostomy Continue current management ABG Interpretation ABG results: 02/09/25 02/11/25 02/11/25 17:37 00:05 02:08 ABG pH 7.31 L 7.29 L 7.30 L ABG pCO2 77 H* 81 H* 79 H* ABG pO2 69 L 72 L 76 L ABG HCO3 39 H 39 H 39 H ABG O2 Saturation 93 94 95 ABG Base Excess 10 H 9 H 9 H VBG pH VBG pCO2 VBG pO2 VBG Base Excess 02/11/25 02/11/25 02/13/25 05:00 11:20 17:05 ABG pH 7.32 L 7.22 L D ABG pCO2 77 H* 89 H* D ABG pO2 73 L 86 ABG HCO3 39 H 36 H ABG O2 Saturation 95 96 ABG Base Excess 10 H 6 H VBG pH 7.47 VBG pCO2 53 VBG pO2 147 H VBG Base Excess 12 H 02/13/25 02/14/25 02/14/25 18:58 00:08 01:56 ABG pH 7.31 L 7.17 L* D ABG pCO2 70 H D 97 H* D ABG pO2 137 H D 95 D ABG HCO3 35 H 35 H ABG O2 Saturation 100 H 97 ABG Base Excess 7 H 4 H VBG pH 7.31 L VBG pCO2 70 H D VBG pO2 64 H D VBG Base Excess 7 H 02/14/25 02/14/25 02/14/25 04:50 13:37 Unknown ABG pH 7.35 D ABG pCO2 63 H D ABG pO2 129 H D ABG HCO3 35 H ABG O2 Saturation 100 H ABG Base Excess 7 H VBG pH 7.34 7.27 L VBG pCO2 55 D 70 H D VBG pO2 118 H D 44 D VBG Base Excess 2 3 02/15/25 02/15/25 02/15/25 04:06 10:13 15:32 ABG pH 7.39 7.24 L D ABG pCO2 57 H 83 H* D ABG pO2 63 L D 72 L ABG HCO3 35 H 35 H ABG O2 Saturation 93 92 ABG Base Excess 8 H 6 H VBG pH 7.42 VBG pCO2 58 H D VBG pO2 38 VBG Base Excess 12 H 02/16/25 02/18/25 02/18/25 05:30 00:26 04:20 ABG pH ABG pCO2 ABG pO2 ABG HCO3 ABG O2 Saturation ABG Base Excess VBG pH 7.38 7.39 7.40 VBG pCO2 65 H 64 H 60 H VBG pO2 49 44 90 H D VBG Base Excess 11 H 11 H 10 H 02/18/25 02/18/25 04:21 07:43 ABG pH 7.37 D 7.35 ABG pCO2 64 H D 67 H ABG pO2 84 63 L D ABG HCO3 37 H 37 H ABG O2 Saturation 97 95 ABG Base Excess 10 H 9 H VBG pH VBG pCO2 VBG pO2 VBG Base Excess Assessment & Plan Time Spent With Patient Time: Total time spent is greater than 50% in coordination of care (as documented) at patient's floor/unit and/or counseling patient:
[2025-02-18] MEDS: ACETAMINOPHEN 325 MG TABLET 650 MG PO (19:42)
[2025-02-18] MEDS: guaiFENesin SYRUP 200 MG/10 ML UDC NG (19:42)
[2025-02-18] MEDS: ATORVASTATIN CALCIUM 20 MG TABLET PO (21:21)
[2025-02-18] MEDS: SERTRALINE HCL 25 MG TABLET 50 MG PO (21:21)
[2025-02-18] MEDS: VANCOMYCIN/NS 1 GM IVPB 200 ML IV (21:34)
[2025-02-19] VITALS (73 sets, daily range): BP systolic 84–119; BP diastolic 47–68; PULSE 73–94; RESP 10–36; TEMP 36.9–37.2; O2SAT 86–100; BMI 32.4
[2025-02-19] MEDS: METOCLOPRAMIDE INJ 5 MG/ML VIAL 2 ML 10 MG IVP ×5 (00:23→23:41)
--- NOTE | 2025-02-19 00:41 | PC.RT ---
Pt Vapo Therm High Flow titrated to Fio2 55% and Flow 20L/M. Per Dr Gayathri LOTT, we are to wean off of HFNC and start gentle CPT via Vest Q3hrs
[2025-02-19] MEDS: CEFEPIME INJ 2 GM in SODIUM CHLORIDE 0.9% (Popper) 50 ML IV ×3 (05:09→21:01)
[2025-02-19] MEDS: metroNIDAZOLE/NS 500 MG IVPB 500 MG/100 ML BAG 200 MG IV ×3 (05:11→21:33)
[2025-02-19 06:44] LABS: Basophils # (Auto) 0.1 Thou/mm3 (0.0-0.2); Basophils % (Auto) 0 % (0-2.5); Eosinophils # (Auto) 0.1 Thou/mm3 (0.0-0.5); Eosinophils % (Auto) 1 % (0-10); Hematocrit 34.6 % (36.0-46.0); Hemoglobin 10.4 g/dL (12.0-16.0); Immature Granulocytes Auto 0.38 Thou/mm3 (0.00-0.00); Lymphocytes # (Auto) 1.5 Thou/mm3 (1.0-4.8); Lymphocytes % (Auto) 7 % (10-50); Mean Corpuscular HGB Conc 30.1 g/dl (31.0-37.0); Mean Corpuscular Hemoglobin 27.1 pg (25.0-35.0); Mean Corpuscular Volume 90 fL (80-100); Monocytes # (Auto) 0.9 Thou/mm3 (0.0-0.8); Monocytes % (Auto) 4 % (0-12); Neutrophils # (Auto) 17.9 Thou/mm3 (1.8-7.7); Neutrophils % (Auto) 86 % (37-80); Nucleated Red Blood Cell # 0.03 Thou/mm3 (0.00-0.00); Nucleated Red Blood Cell % 0 /100 WBC (0); Platelet Count 436 Thou/mm3 (140-440); RDW Standard Deviation 57.1 fL (36.4-46.3); Red Blood Count 3.84 Miln/mm3 (4.00-5.20); White Blood Count 20.8 Thou/mm3 (3.6-11.0)
[2025-02-19 07:01] LABS: Alanine Aminotransferase 11 U/L (10-49); Albumin, Serum 2.8 gm/dL (3.4-4.8); Albumin/Globulin Ratio 1.0 (1.2-2.2); Alkaline Phosphatase 75 U/L (46-116); Anion Gap 7 (7-16); Aspartate Amino Transferase 33 U/L (0-34); BUN/Creatinine Ratio 38 Ratio (12-20); Bilirubin,Total 0.4 mg/dL (0.3-1.2); Blood Urea Nitrogen 15 mg/dL (9-23); Calcium 8.5 mg/dL (8.3-10.6); Calcium (Corrected) 9.5 mg/dL (8.5-10.1); Carbon Dioxide 38.8 mMol/L (20.0-31.0); Chloride 100 mMol/L (98-107); Creatinine (Component) 0.4 mg/dL (0.6-1.3); Estimated Creatinine Clearance 133.9 mL/min (>60); Globulin 2.7 gm/dL (2.3-3.5); Glucose 100 mg/dL (74-106); Magnesium 1.7 mg/dL (1.6-2.6); Osmolality,Calculated 291 (275-295); Phosphorous 2.1 mg/dL (2.4-5.1); Potassium 3.5 mMol/L (3.4-5.1); Sodium 146 mMol/L (136-145); Total Protein 5.5 gm/dL (5.7-8.2); eGFR > 60 See Note
[2025-02-19] MEDS: RINGERS LACTATED 500 ML 500 ML 999 ML IV (08:00)
[2025-02-19] MEDS: Norepinephrine/D5W 8mg/250ml 8 MG/250 ML BAG 11.252 MG IV (08:00)
[2025-02-19] MEDS: SODIUM CHLORIDE 0.9% 500 ML 500 ML 999 ML IV (08:30)
[2025-02-19] MEDS: ENOXAPARIN SOD INJ 40 MG/0.4 ML SYRINGE SC (08:37)
[2025-02-19] MEDS: NAPH,KPH MBDB 1 PACKET (1.5 GM) PO (08:38)
[2025-02-19] MEDS: ACETAMINOPHEN 325 MG TABLET 650 MG PO ×2 (09:29→16:21)
[2025-02-19] MEDS: VANCOMYCIN/NS 1 GM IVPB 200 ML IV ×2 (09:49→14:54)
[2025-02-19] MEDS: LEVOTHYROXINE SODIUM 125 MCG, LEVOTHYROXINE SODIUM 25 MCG 150 MCG NG (10:26)
--- NOTE | 2025-02-19 11:16 | ESPR_ITS ---
<Statement entered by Darin Terrell MD - 02/19/25 16:09> Patient seen and examined at bedside. I discussed and supervised with the psychology intern physician who took care of this patient. I personally saw and examined the patient. I agree with most of the assessment and plan. Patient continues to have difficulty weaning off Levophed. Received 1 L bolus of 500 mL maintenance at 100 mL/h. Bumex held. Was able to be weaned off Levophed, although blood pressure remains low. Patient expressed fatigue, sore throat. Patient episode of choking on a sip of water with desaturation. Formal speech therapy eval was placed, patient placed on pur?ed diet, recommended only small sips of fluid. Patient having good bowel movements via colostomy bag. Patient remains on HFNC, saturating 90%. If patient's blood pressure remained stable, and lactate is normal, consider downgrade to floors for further management. Plan of care discussed with attending Dr. Sethi. 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 At baseline she lives at her acute rehab and gets short of breath when she exerts. She has been experiencing shortness of breath and bilateral leg swelling since last 2 weeks. This leg swelling is progressively worsened and involves the abdomen face underneath the eyes and lips. She has been experiencing short of breath since 2 weeks even at rest. She denies any chest pain, chest palpitations but endorses occasional cough with sputum which is initially yellow in color but now it is clear. ED visit: Initial vitals BP 106/69, pulse rate 100, respiratory rate 20, temperature 98.3 saturating 88% on 4 L of oxygen. Pertinent ED labs are WBC 14.8 with neutrophil 87%, D-dimer 3680, BNP 1165, troponin 0.055 BUN 27, ABG?pH 7.31, pCO2 77, HCO3 39. Urine protein 3+, RBC 4+ creatinine clearance 2.7. Imaging chest x-ray on 02/09 shows enlarged cardiac contour with perihilar congestion Moderate CHF. EKG shows sinus tachycardia. CT scan shows no gallbladder visualization and 28 mm calcified stone in sigmoid colon suspicious for gallbladder ileus.In the ED, was given Azithromycin 500 mg, ceftriaxone 2gm,1 L NS and furosemide. [facility]Tele (02/10 - 02/13): Patient initially was diuresed daily with bumex 1 mg daily (now being held for soft BP) for dyspnea and leg swelling. Has been on cefepime and azithromycin for possible pneumonia. GI consulted for gallstone and sigmoid colon pain management with Tylenol and ketorolac as patient is allergic to codeine, hydrocodone and tramadol. Abdomina pain marginally decreased 2 days after admission, had been stable. Possible surgical consultation depending on HIDA scan read and per GI. Today patient was noted to be on BiPAP but confused and A&O x1 to only to name, stating she had dfifuse abdominal pain. CXR ordered and showed pneumoperitoneum. CTAP showed similar thing, surgery was consulted and planned for ex lap today after patient's daughter Romana was asked and approved for consent. Patient planned to be upgraded to ICU after surgery needing ICU level care, given history of pulmonary fibrosis and other comorbidities. ICU Course: 02/19/2025: Overnight patient had MAP's of 60-62, needing increase in levophed to 0.08; down-titrating as BP permits. In the morning patient was initially saturating well on HFNC, but could not tolerate clear liquids and was placed NPO with speech referral for swallow evaluation. Patient continues to have good mentation, A&Ox3. Patient says she has a sore throat and abdominal pain when she coughs. Patient remains afebrile, but WBC continues to be elevated; continuing abx through 02/24. Patient's hgb is stable with no signs of bleeding. Bumex was held for patient's BP, was given 0.5 L IV fluid bolus. Plan to follow up swallow eval and will make sure patient's O2 saturation continues to do well. 02/18/2025: VBG overnight: pH 7.40, pCO2 60, pO2 90, O2 saturation 98%. Patient transition back to pressure support around 7AM this morning and successfully extubated today. Patient is no on any sedation. Patient is still on levophed 0.02. Per surgery, patient may start on liquid diet. Despite resuming antibiotics yesterday, WBC count continues to trend upward. Highest temp in past 24 hours was 99.4?F. Due to concern for pseudomonal pneumonia, ceftriaxone was switched to cefepime. Vancomycin was also started. Urine output over the past 12 hours was approximately 600 mL. Net negative fluid balance of ~2 liters over the past 24 hours. 02/17/2025: No acute events overnight. Remains afebrile. Patient with no acute complaints this morning. Patient transition to pressure support, tidal volumes remain around 300 cc with pressure support of 10 showing significant improvement. Net negative fluid balance 3-1/2 L in the last 24 hours. Near euvolemia for this hospitalization considering insensible losses over the past few days. Patient's white count did increase with cessation of antibiotics yesterday. Resumed antibiotics this morning. Chest x-ray at bedside showed left basilar pneumonia remains persistent versus atelectasis though I favor pneumonia given presence of air bronchograms. No family at bedside this morning during rounds for update. Family was updated yesterday prior to end of day. 02/16/2025: Patient did not require sedation overnight. Complaining of abdominal pain. Peak pressures remain elevated. No fever. UOP responded well to bumex, net negative 1L in last 24 hours. 400cc UOP this AM after bumex bolus. Patient with PS 20 to maintain TV >300 and RR remains in high 20s/ low 30s. Off levophed completely since this AM. 02/15/2025: Yesterday afternoon patient had an event requiring shock from AED, patient has since been stable, refer to event note in chart for more information. Patient did well overnight, maintaining good electrolyte levels on repeat bmp's overnight. Patient was down titrated on levophed to 0.08 mcg/kg/min overnight and this morning was further decreased to 0.06 mcg/kg/min. Patient's urine output overnight was at a rate of 50 cc/hr, improved after being given bumex previous day. Patient's vitals this morning were stable with BP being notable with a MAP of 67, trending in the upper 60s. Patient on examination had a RASS of -2, mentation continues to improve as sedation is removed from body (no sedation ggt currently). Overview of plan for the day inculdes continuing bumex and scheduling it with a goal urine output of 1.5/2 L (Patient is +5L during hospital course). Her repeat ABG and chem panel showed continued elevation of bicarb at ~35, will get an afternoon BMP and VBG, if bicarb is 38- 40, will plan to start diamox. Antibiotics will be scheduled to end for a total of 7 day course since the first abx (cefepime on 02/10) was started (last day given will be 02/16). Will start tube feeds today as patient is not ready for extubation currently given ABG this morning showed elevated pco2. 02/14/2025: Overnight patient was changed from pressure control ventilation to PRVC due to some decrease in blood pressure and after patient's ABG at midnight showed pH 7.17 and pco2 97. Repeat ABG later in the morning was improved at 7.35 pH and pco2 of 63 after vent settings were adjusted. Patient was on levophed 0.07 overnight with MAP's > 65. Patient was given 500 ml boluS and had cheetah done showing fluid responsiveness. Patient was noted to have 10-15 cc/hr of urine overnight. Patient's RASS was set to -5, had sedation decreased, RASS was -1/-2 on reassessment. Patient started appearing to be in pain and had RASS score goal was decreased back to -5. Patient did not have any bowel movements overnight. In the morning on assessment patient's vitals were notable for MAP 69, saturating 99% O2 on 55%FiO2. In the morning, in attempt to wean patient off of sedation, we turned off the Versed and continued the fentanyl at 25 mcg/hr. Exam Vital Signs Temp Pulse Resp BP Pulse Ox O2 Del Method O2 Flow Rate 99 F 87 13 95/53 L 97 High Flow Nasal Cannula 20 02/19/25 08:00 02/19/25 10:09 02/19/25 10:09 02/19/25 09:30 02/19/25 10:09 02/19/25 08:00 02/19/25 10:09 FiO2 55 02/19/25 10:09 Narrative Exam General: No acute distress; A&Ox3 Skin: Warm, dry, intact, no obvious rash. HENT: NCAT, EOMI/PERRL, not icteric. External ears normal. No rhinorrhea. Moist mucous membranes Cardiovascular: Regular rate and rhythm, no murmur, +S1/S2. Respiratory: Lungs CTAB GI: Some abdominal firmness, mild tenderness to palpation diffusely, non- distended. No guarding or rebound tenderness. Abdominal dressing clean, intact. Colostomy bag with good output, intact w/o leakage; bowel sounds present. : No suprapubic tenderness. No flank tenderness bilaterally. Extremities: +1/2 bilateral lower extremity edema, no cyanosis, no clubbing. Extremity pulses present Neuro: Grossly nonfocal. Moving all 4 extremities. CN not formally tested but appear grossly intact. Psychiatric: Cooperative, appropriate affect. Objective Labs 02/27/25 05:32 02/27/25 05:32 Labs: Laboratory Results - last 24 hr 02/19/25 04:24 WBC 20.8 H RBC 3.84 L Hgb 10.4 L Hct 34.6 L MCV 90 MCH 27.1 MCHC 30.1 L RDW Std Deviation 57.1 H Plt Count 436 D Neut % (Auto) 86 H Lymph % (Auto) 7 L Chambers % (Auto) 4 Eos % (Auto) 1 Baso % (Auto) 0 Neut # (Auto) 17.9 H Lymph # (Auto) 1.5 Chambers # (Auto) 0.9 H Eos # (Auto) 0.1 Baso # (Auto) 0.1 Immature Gran # (Auto) 0.38 H Absolute Nucleated RBC 0.03 H Immature Gran % 2 H Nucleated RBC % 0 Sodium 146 H Potassium 3.5 Chloride 100 Carbon Dioxide 38.8 H Anion Gap 7 BUN 15 Creatinine 0.4 L Estim Creat Clear Calc 133.9 eGFR > 60 BUN/Creatinine Ratio 38 H Glucose 100 Calculated Osmolality 291 Calcium 8.5 Corrected Calcium 9.5 Phosphorus 2.1 L Magnesium 1.7 Total Bilirubin 0.4 AST 33 ALT 11 Alkaline Phosphatase 75 Total Protein 5.5 L Albumin 2.8 L Globulin 2.7 Albumin/Globulin Ratio 1.0 L ABG Interpretation ABG results: 02/09/25 02/11/25 02/11/25 17:37 00:05 02:08 ABG pH 7.31 L 7.29 L 7.30 L ABG pCO2 77 H* 81 H* 79 H* ABG pO2 69 L 72 L 76 L ABG HCO3 39 H 39 H 39 H ABG O2 Saturation 93 94 95 ABG Base Excess 10 H 9 H 9 H VBG pH VBG pCO2 VBG pO2 VBG Base Excess 02/11/25 02/11/25 02/13/25 05:00 11:20 17:05 ABG pH 7.32 L 7.22 L D ABG pCO2 77 H* 89 H* D ABG pO2 73 L 86 ABG HCO3 39 H 36 H ABG O2 Saturation 95 96 ABG Base Excess 10 H 6 H VBG pH 7.47 VBG pCO2 53 VBG pO2 147 H VBG Base Excess 12 H 02/13/25 02/14/25 02/14/25 18:58 00:08 01:56 ABG pH 7.31 L 7.17 L* D ABG pCO2 70 H D 97 H* D ABG pO2 137 H D 95 D ABG HCO3 35 H 35 H ABG O2 Saturation 100 H 97 ABG Base Excess 7 H 4 H VBG pH 7.31 L VBG pCO2 70 H D VBG pO2 64 H D VBG Base Excess 7 H 02/14/25 02/14/25 02/14/25 04:50 13:37 Unknown ABG pH 7.35 D ABG pCO2 63 H D ABG pO2 129 H D ABG HCO3 35 H ABG O2 Saturation 100 H ABG Base Excess 7 H VBG pH 7.34 7.27 L VBG pCO2 55 D 70 H D VBG pO2 118 H D 44 D VBG Base Excess 2 3 02/15/25 02/15/25 02/15/25 04:06 10:13 15:32 ABG pH 7.39 7.24 L D ABG pCO2 57 H 83 H* D ABG pO2 63 L D 72 L ABG HCO3 35 H 35 H ABG O2 Saturation 93 92 ABG Base Excess 8 H 6 H VBG pH 7.42 VBG pCO2 58 H D VBG pO2 38 VBG Base Excess 12 H 02/16/25 02/18/25 02/18/25 05:30 00:26 04:20 ABG pH ABG pCO2 ABG pO2 ABG HCO3 ABG O2 Saturation ABG Base Excess VBG pH 7.38 7.39 7.40 VBG pCO2 65 H 64 H 60 H VBG pO2 49 44 90 H D VBG Base Excess 11 H 11 H 10 H 02/18/25 02/18/25 04:21 07:43 ABG pH 7.37 D 7.35 ABG pCO2 64 H D 67 H ABG pO2 84 63 L D ABG HCO3 37 H 37 H ABG O2 Saturation 97 95 ABG Base Excess 10 H 9 H VBG pH VBG pCO2 VBG pO2 VBG Base Excess Quality Measures Quality Measures VTE prophylaxis Assessment & Plan Assessment Current Active Medications: Generic Name Dose Route Start Last Admin Trade Name Freq PRN Reason Stop Dose Admin Acetaminophen 650 mg 02/10/25 20:28 Acetaminophen 325 Mg Tablet PO 03/12/25 20:27 Q6H PRN Fever >100.4 Acetaminophen 650 mg 02/10/25 20:28 02/19/25 09:29 Acetaminophen 325 Mg Tablet PO 03/12/25 20:27 650 mg Q6H PRN Administration PAIN SCALE 1-3 (mild Albuterol/Ipratropium 3 ml 02/12/25 11:26 Albuterol/Ipratropium (Duoneb) Rt Quiana 3 Ml Nebu INH 03/14/25 12:59 Q6HRRT PRN wheezing and SOB Atorvastatin Calcium 20 mg 02/10/25 21:00 02/18/25 21:21 Atorvastatin Calcium 20 Mg Tablet PO 03/12/25 20:59 20 mg HS KATIE Administration Bumetanide 1 mg 02/18/25 09:00 02/18/25 08:39 Bumetanide Inj 0.25 Mg/Ml Vial 4 Ml IVP 03/20/25 08:59 1 mg On Hold: 02/19/25 06:52 QDAY KATIE Administration Enoxaparin Sodium 40 mg 02/17/25 11:15 02/19/25 08:37 Enoxaparin Sod Inj 40 Mg/0.4 Ml Syringe SC 03/03/25 11:14 40 mg QDAY KATIE Administration Fentanyl Citrate 25 mcg 02/15/25 16:43 02/18/25 16:09 Fentanyl Cit Inj 50 Mcg/Ml Amp 2ml IVP 02/20/25 10:45 25 mcg Q8H PRN Administration Breakthrough Pain or agitation Protocol Norepinephrine/Dextrose 8 mg in 250 mls @ 7.032 mls/hr 02/13/25 16:22 02/19/25 07:10 Levophed In D5w 8mg/250ml IV 03/15/25 16:21 Infused .Q24H PRN Titration PER PROTOCOL Protocol 0.05 MCG/KG/MIN Propofol 1,000 mg in 100 mls @ 2.346 mls/hr 02/14/25 16:22 Diprivan Ivpb IV 03/16/25 16:21 .Q24H PRN PER PROTOCOL Protocol 5 MCG/KG/MIN Metronidazole 500 mg in 100 mls @ 200 mls/hr 02/17/25 09:38 02/19/25 05:11 Flagyl 500 Mg Iv IV 02/24/25 09:37 200 mls/hr Q8HR KATIE Administration Cefepime HCl 2 gm/ Sodium 50 mls @ 100 mls/hr 02/18/25 10:42 02/19/25 05:09 Chloride IV 02/25/25 10:41 100 mls/hr Q8HR KATIE Administration Vancomycin/Sodium Chloride 200 mls @ 120 mls/hr 02/19/25 09:00 02/19/25 09:49 Vancomycin/Ns 1 Gm Ivpb IV 02/26/25 08:59 120 mls/hr TID KATIE Administration Protocol Magnesium Sulfate 2 gm in 50 mls @ 25 mls/hr 02/19/25 10:21 Magnesium Sulfate Ivpb IV 02/19/25 12:20 X1 ONE Levothyroxine Sodium 112.5 mcg 02/14/25 01:20 02/19/25 10:22 Levothyroxine Inj 100 Mcg Vial IV 03/16/25 01:19 Not Given On Hold: 02/19/25 10:19 DAILY KATIE Comment: PO ORDER PLACED Levothyroxine Sodium 125 mcg/ 150 mcg 02/19/25 10:30 02/19/25 10:26 Levothyroxine Sodium 25 mcg NG 03/21/25 10:29 150 mcg ACBR KATIE Administration Metoclopramide HCl 10 mg 02/17/25 12:00 02/19/25 05:09 Metoclopramide Inj 5 Mg/Ml Vial 2 Ml IVP 03/19/25 11:59 10 mg Q6HR KATIE Administration Protocol Ondansetron HCl 4 mg 02/10/25 20:28 02/16/25 11:44 Ondansetron Inj 2 Mg/Ml Inj 2 Ml IVP 03/12/25 20:27 4 mg Q6H PRN Administration NAUSEA OR VOMITING Protocol Pantoprazole Sodium 40 mg 02/13/25 11:15 02/19/25 08:37 Pantoprazole Inj 40 Mg Vial IVP 03/15/25 11:14 40 mg QDAY KATIE Administration Pharmacy Consult 1 each 02/18/25 10:45 Vancomycin Pharmacy To Dose 1 Each Each IV 03/20/25 10:44 QDAY PRN CONSULT Sennosides 1 tab 02/10/25 20:28 02/13/25 05:37 Senna Tablet PO 03/12/25 20:27 1 tab QDAY PRN Administration constipation Protocol Sertraline HCl 50 mg 02/11/25 21:00 02/18/25 21:21 Sertraline Hcl 25 Mg Tablet PO 03/13/25 20:59 50 mg HS KATIE Administration Plan 59 year-old female with HFpEF, pulmonary fibrosis, s/p cervical CA, hypothyroidism, and anxiety, admitted for acute on chronic HFpEF, hospital course complicated by bowel perforation (s/p ex-lap 02/13), now in ICU with acute on chronic hypoxic respiratory failure and septic shock likely 2/2 viscus perforation from gallstone impaction. Neurology #Chemical sedation, Titrated off In setting of altered mental status 02/13 pre surgery. Treatment Plan: - Titrated off sedation. #Acute Encephalopathy (resolved) DDx: Infection (GI) vs acidosis vs less likely metabolic vs toxic. Diagnostic Test: - Patient A&Ox1 02/13 from baseline of x3. - CXR and CTAP showed pneumoperitoneum. - No notable electrolyte abnormalities, no toxins noted. Treatment Plan: - Continue to treat underlying infection with antibiotics. - Back to baseline after titrated off sedatives. Cardiovascular #Sepsis #Hypotension DDx: GI infection (bowel perforation) vs inflammatory response in setting of bowel perforation. S/p exploratory laparotomy, sigmoid colectomy, end descending colostomy on 02/13 for perforated sigmoid colon from a large gallstone, feculent peritonitis. Diagnostic Test: - Persistent leukocytosis. - Initial blood culture (02/09) negative. - 02/13 blood culture with Staph hominis - likely contaminant, but will treat due to MDR pattern. - MRSA screen 02/11: positive. - Sputum culture 02/17: pending. - CTAP 02/13: prominent vascular congestion, pneumonia and/or edema in the lower lung zones, extensive pneumoperitoneum, cholelithiasis, but gallbladder wall appears thickened suspicious for cholecystitis, multiple abnormal small bowel loops air and fluid distended with prominent wall thickening, calcified mass in the sigmoid colon, 26 mm, consider gallstone ileus. - CXR 02/17: severe bilateral pneumonia/ARDS. -02/17: Bedside Ultrasound showed collapsible IVC, gave 0.5 L bolus. Treatment Review (completed) - Cardoza and central line removed on 02/17 as potential sources of infection. - Cefepime (02/10 - 02/13). - Azithromycin (02/11-02/13). - Ceftriaxone (02/13-02/18). Treatment Plan: - Cefepime for pseudomonal coverage (switched from ceftriaxone) (02/18 - 02/20). - Flagyl continued for anaerobic coverage (02/13 - 02/20). - Added vancomycin for Staph hominis on blood culture (02/18-). - Will continue abx through 02/24 - Sputum culture pending - if positive for pseudomonas, will treat as new pneumonia (7-day course). - Currently on Levophed at 0.06 mcg/kg/min with MAPs in the upper 60s. Continue to monitor hemodynamics closely and wean as tolerated. #Acute on chronic HFpEF (60-65%, 07/2023) #Severe pulmonary hypertension Diagnostic Test: - Presents with dyspnea at rest, worsening SOB, BLE swelling, and facial swelling, BNP 1165. - 02/10 TTE Normal LV size, wall thickness. Normal LV diastolic filling pattern for age. Estimated EF at 55-60 %. The RV size is moderately increased with moderately decreases systolic function. The estimated RVSP, 72 mmHg. RAP 15. The RA cavity size is severely increased. Moderate TR. Less than 50% respiratory change in dimension of the inferior vena cava abnormal. -02/19: Bedside US showed ~50% collapsibility of IVC -> given 0.5 L bolus Treatment Plan: - Holding Bumex today 2/2 patient BP, ordered 500 ml LR bolus, will monitor and may give more IV fluid. - Diamox 500mg x1 was given on 02/17 to combat contraction alkalosis from Bumex. - Strict I&Os, daily weights. - 1.8L fluid restriction. - Fluid balance -12.132 mL as of 02/18. #NSTEMI likely type II, 2/2 fluid overload (resolved) Diagnostic Test: - Troponin 0.055->0.028. Treatment Plan: - No treatment needed at this time. #Hyperlipidemia Diagnostic Test: - Lipid panel unremarkable other than mildly decreased HDL, 30. Treatment Plan: - Continue home med atorvastatin 20 mg PO HS. Respiratory #Acute hypoxic respiratory failure (resolved) #Extubated on 02/18 DDx: combination of acute on chronic heart failure exacerbation vs worsening pulmonary fibrosis vs aspiration PNA vs CAP, less likely PE. Diagnostic Test: - Presents with dyspnea at rest, worsening SOB, BLE swelling, and facial swelling on home O2 4L. - On physical examination bilateral crackles over the both lungs. Follows Dr. Garrido and Dr. Kim outpatient. - On admission saturating 88% on 4 L of oxygen - ABG 7.31/77/69/39 with repeat ABGs pH 7.29-7.32. - 02/09 CXR bilateral pulmonary congestion and enlarged cardiac contour. - 02/09 CTA chest/AP showed prominent CHF, negative for PE. - 02/17 CXR: left basilar pneumonia/VAP. - Repeat tracheal culture pending. Treatment Review (completed): - Cefepime (02/10 - 02/13), azithromycin (02/11-02/13) - BiPAP (02/11 - 02/13) - Ceftriaxone (02/13-02/18) Treatment Plan - Cefepime for pseudomonal coverage (switched from ceftriaxone) (02/18 - 02/20). - Flagyl continued for anaerobic coverage (02/13 - 02/20). - Added Vancomycin for Staph hominis on blood culture (02/18-). - Sputum culture pending - if positive for pseudomonas, will treat as new pneumonia (7-day course). - Extubated on 02/18 and transitioned to high flow NC, continuing. #Pulmonary fibrosis / pesticides Stated has appointment tomorrow with Dr. Kim. Has never been on medication for pulmonary fibrosis. Treatment Plan: - Continue to monitor O2 saturation and if patient cannot tolerate deescalation of O2 despite IV diuresis. - Duoneb Q6H PRN. GI and F/E/N #Bowel perforation #Severe lower abdominal pain #28mm calcified mass on sigmoid colon, likely gallstone #Tube Feeds Diagnostic Test: - On admission patient had pain after meals since 2 weeks 02/09 at lower abdomen/suprapubic area. Extremely tender to palpation. Stated no BM for the past 5 days prior to admission. Denies hx of cholcystectomy. - 02/09 CTA chest/AP: GB not visualized, 28mm calcified mass in sigmoid colon w/o visualization of GB. - 02/10 MRCP: GB not visualized, common hepatic duct common bile duct normal size no stones, neg pancreatitis, no free fluid in abdomen, aorta normal size, minimal bilateral hydrenophrosis, edema in subcutaneous fatty tissues at the flanks; GB US: GB not visualized - On 02/13, patient appeared more confused with significant abdominal tenderness and SOB. CXR: pneumoperitoneum; CTAP: Extensive pneumoperitoneum, cholelithiasis but gallbladder wall appears thickened but no abnormal small air and fluid distended with prominent wall thickening, remains calcified mass in sigmoid colon 26 mm. Treatment Plan: - Surgery consulted, recs appreciated - S/p exploratory laparotomy with bowel resection and end colostomy on 02/13 for perforated sigmoid colon. - NG tube was placed per surgical team after patient had emesis following initiation of feeds on 02/16. NG tube in place. - Patient cleared by surgery to begin a liquid diet 02/18 - 02/19: Unable to tolerate clear liquids in AM; NPO, speech referred, pending swallow exam. Renal #Acute kidney injury (resolved) DDx: pre-renal vs intra-renal. fluid losses from surgery vs dehydration vs contrast use vs abdominal compartment syndrome. Patient did have surgery yesterday and has been NPO. Patient was given contrast for scans. Patient's abdomen is not hard or distended, less likely abd compartment syndrome. Diagnostic Test: - 02/15: Cr 0.6 (baseline around ~0.7), BUN 43 - Urine output improving after 02/14's 1 L bolus along with bumex 1mg IV x1. Treatment Plan: - Holding Bumex today 2/2 patient BP, ordered 500 ml LR bolus. Heme #Leukocytosis DDx: Surgery 02/13 vs infection vs inflammation. Diagnostic Test: - WBC Continues to be elevated Treatment Plan: - Continue to treat underlying infection. #Normocytic anemia DDx: surgery vs IV fluids Diagnostic Test - Hemoglobin on admission 12.1 - Low but stable - No signs of bleeding Treatment Plan: - Continue to trend Hgb - Monitor for signs of bleeding Endo #Hypothyroidism Diagnostic Test: - Home med levothyroxine 150 mcg ACBR - 02/11: TSH 0.36, T4 1.39 Treatment Plan: - Ordered home levo 150 mcg PO, will give through NG tube due to IV Levo being out of stock - Levothyroxine IV 112.5 mg IV qd ID #Feculent peritonitis Diagnostic Test: - Patient's imaging showing pneumoperitonitis (perforation) likely cause of infection - 02/09 Blood cultures x2 No growth after 48 hours - 02/11 MRSA screen positive. - 02/13 - GPC 05/04 blood cx, likely contaminant- staph hominis. Treatment Review (completed): - Cefepime (02/10 - 02/13) - Azithromycin (02/11-02/13) - BiPAP (02/11 - 02/13) - Ceftriaxone (02/13-02/18) Treatment Plan - Cefepime for pseudomonal coverage (switched from ceftriaxone) (02/18 - 02/20). - Flagyl continued for anaerobic coverage (02/13 - 02/20). - Added vancomycin for Staph hominis on blood culture (02/18-). - Will continue abx through 02/24 - Sputum culture pending - if positive for pseudomonas, will treat as new pneumonia (7-day course). Health Maintenance: Disposition: ICU s/p ex-lap partial colectomy, colostomy (02/13). Extubated 02/18, monitor in ICU, pending speech eval after not tolerating liquids 10/20 AM. DVT prophylaxis: Lovenox GI prophylaxis: Protonix 40 mg IV qday Diet: NPO, pending speech swallow evaluation Cardoza: removed on 02/17. Lines: Peripherals. Central line removed on 02/17. Drips: Levophed Vent: extubated on 02/18. CODE STATUS: Full Code Patient plan of care was discussed with the attending physician, Dr. Sethi & senior resident Dr. Bandar KOEHLER PGY-1 Attending Provider Attestation/Addendum Patient seen and examined with above resident, Clive Payne MD. I agree with the findings, assessment, and plan of care as document except for any differences below. Patient continues to show significant improvement with ability to wean oxygen requirements. She has been successfully weaned off Levophed although blood pressure remains low. Urine output continues to be variable and we will challenge her again with some maintenance fluids given the over net negative fluid balance in the previous few days. Patient's p.o. intake continues to be limited due to issues with swallowing and choking. Formal speech therapy suggested initiation of pur?ed diet and small sips of fluid. Patient continues to have good stool output from the colostomy bag. Will recheck lactate this afternoon while we tolerate a lower BP/MAP goal. Additional adjustments in antibiotics yesterday seem to have helped with adequate coverage for healthcare associated infections including potential for true Staph hominis bacteremia. Should the patient's lactate continue to show clearance and that she have adequate urine output as well as other signs of poor perfusion including mentation and capillary refill, the patient can be transferred out to medicine floor this evening. Total critical care time: I personally spent 45 minutes for review of physiologic parameters, directing plan of care throughout the day, coordination of care with other specialty, and counseling patient and her family at bedside. This is exclusive of time spent teaching of staff or performing separate billable procedures. The patient remains at significant risk for further morbidity and mortality warranting) care only available in the ICU. Patient required critical care services for acute on chronic hypoxic respiratory failure, septic shock, Staph hominis bacteremia/healthcare acquired pneumonia, and perforated viscus with feculent peritonitis.
[2025-02-19] MEDS: Magnesium Sulfate 2 GM Ivpb 2 GM/50 ML BAG IV (11:41)
[2025-02-19] MEDS: RINGERS LACTATED 1000 ML 500 ML 100 ML IV (11:45)
--- NOTE | 2025-02-19 15:31 | ESPR_ITS ---
Documentation for date of: 02/19/25 Subjective Subjective Interval history: Patient evaluated she is more alert Good activity in the colostomy bag Exam Vital Signs Temp Pulse Resp BP Pulse Ox O2 Del Method O2 Flow Rate 99 F 79 28 H 85/53 L 95 High Flow Nasal Cannula 20 02/19/25 12:00 02/19/25 12:45 02/19/25 13:36 02/19/25 12:45 02/19/25 13:36 02/19/25 12:00 02/19/25 13:36 FiO2 50 02/19/25 13:36 Objective Labs 02/19/25 04:24 02/19/25 04:24 Labs: Laboratory Results - last 24 hr 02/19/25 04:24 WBC 20.8 H RBC 3.84 L Hgb 10.4 L Hct 34.6 L MCV 90 MCH 27.1 MCHC 30.1 L RDW Std Deviation 57.1 H Plt Count 436 D Neut % (Auto) 86 H Lymph % (Auto) 7 L Humphreys % (Auto) 4 Eos % (Auto) 1 Baso % (Auto) 0 Neut # (Auto) 17.9 H Lymph # (Auto) 1.5 Humphreys # (Auto) 0.9 H Eos # (Auto) 0.1 Baso # (Auto) 0.1 Immature Gran # (Auto) 0.38 H Absolute Nucleated RBC 0.03 H Immature Gran % 2 H Nucleated RBC % 0 Sodium 146 H Potassium 3.5 Chloride 100 Carbon Dioxide 38.8 H Anion Gap 7 BUN 15 Creatinine 0.4 L Estim Creat Clear Calc 133.9 eGFR > 60 BUN/Creatinine Ratio 38 H Glucose 100 Calculated Osmolality 291 Calcium 8.5 Corrected Calcium 9.5 Phosphorus 2.1 L Magnesium 1.7 Total Bilirubin 0.4 AST 33 ALT 11 Alkaline Phosphatase 75 Total Protein 5.5 L Albumin 2.8 L Globulin 2.7 Albumin/Globulin Ratio 1.0 L Impressions Impression: # Sigmoid resection due to sigmoid perforation with peritoneal contamination with feces requiring end colostomy which is working very well Continue current management ABG Interpretation ABG results: 02/09/25 02/11/25 02/11/25 17:37 00:05 02:08 ABG pH 7.31 L 7.29 L 7.30 L ABG pCO2 77 H* 81 H* 79 H* ABG pO2 69 L 72 L 76 L ABG HCO3 39 H 39 H 39 H ABG O2 Saturation 93 94 95 ABG Base Excess 10 H 9 H 9 H VBG pH VBG pCO2 VBG pO2 VBG Base Excess 02/11/25 02/11/25 02/13/25 05:00 11:20 17:05 ABG pH 7.32 L 7.22 L D ABG pCO2 77 H* 89 H* D ABG pO2 73 L 86 ABG HCO3 39 H 36 H ABG O2 Saturation 95 96 ABG Base Excess 10 H 6 H VBG pH 7.47 VBG pCO2 53 VBG pO2 147 H VBG Base Excess 12 H 02/13/25 02/14/25 02/14/25 18:58 00:08 01:56 ABG pH 7.31 L 7.17 L* D ABG pCO2 70 H D 97 H* D ABG pO2 137 H D 95 D ABG HCO3 35 H 35 H ABG O2 Saturation 100 H 97 ABG Base Excess 7 H 4 H VBG pH 7.31 L VBG pCO2 70 H D VBG pO2 64 H D VBG Base Excess 7 H 02/14/25 02/14/25 02/14/25 04:50 13:37 Unknown ABG pH 7.35 D ABG pCO2 63 H D ABG pO2 129 H D ABG HCO3 35 H ABG O2 Saturation 100 H ABG Base Excess 7 H VBG pH 7.34 7.27 L VBG pCO2 55 D 70 H D VBG pO2 118 H D 44 D VBG Base Excess 2 3 02/15/25 02/15/25 02/15/25 04:06 10:13 15:32 ABG pH 7.39 7.24 L D ABG pCO2 57 H 83 H* D ABG pO2 63 L D 72 L ABG HCO3 35 H 35 H ABG O2 Saturation 93 92 ABG Base Excess 8 H 6 H VBG pH 7.42 VBG pCO2 58 H D VBG pO2 38 VBG Base Excess 12 H 02/16/25 02/18/25 02/18/25 05:30 00:26 04:20 ABG pH ABG pCO2 ABG pO2 ABG HCO3 ABG O2 Saturation ABG Base Excess VBG pH 7.38 7.39 7.40 VBG pCO2 65 H 64 H 60 H VBG pO2 49 44 90 H D VBG Base Excess 11 H 11 H 10 H 02/18/25 02/18/25 04:21 07:43 ABG pH 7.37 D 7.35 ABG pCO2 64 H D 67 H ABG pO2 84 63 L D ABG HCO3 37 H 37 H ABG O2 Saturation 97 95 ABG Base Excess 10 H 9 H VBG pH VBG pCO2 VBG pO2 VBG Base Excess Assessment & Plan Time Spent With Patient Time: Total time spent is greater than 50% in coordination of care (as documented) at patient's floor/unit and/or counseling patient:
--- NOTE | 2025-02-19 15:50 | PC.SS ---
Update: Patient extubated on 02-18-25. Patient on high flow nasal cannula 15L. Patient is NPO. Pending swallow evaluation. Afebrile.
[2025-02-19 17:44] LABS: Lactate (Lactic Acid) 0.7 mMol/L (0.4-2.0)
--- NOTE | 2025-02-19 18:04 | PD.RESPRO ---
Documentation for date of: 02/19/25 Exam Vital Signs Temp Pulse Resp BP Pulse Ox O2 Del Method O2 Flow Rate 98.6 F 81 16 87/51 L 92 L High Flow Nasal Cannula 20 02/19/25 16:00 02/19/25 17:00 02/19/25 17:00 02/19/25 17:00 02/19/25 17:00 02/19/25 16:00 02/19/25 16:00 FiO2 50 02/19/25 16:00 Objective Labs 02/19/25 04:24 02/19/25 04:24 Labs: Laboratory Results - last 24 hr 02/19/25 02/19/25 04:24 17:26 WBC 20.8 H RBC 3.84 L Hgb 10.4 L Hct 34.6 L MCV 90 MCH 27.1 MCHC 30.1 L RDW Std Deviation 57.1 H Plt Count 436 D Neut % (Auto) 86 H Lymph % (Auto) 7 L Rabun % (Auto) 4 Eos % (Auto) 1 Baso % (Auto) 0 Neut # (Auto) 17.9 H Lymph # (Auto) 1.5 Rabun # (Auto) 0.9 H Eos # (Auto) 0.1 Baso # (Auto) 0.1 Immature Gran # (Auto) 0.38 H Absolute Nucleated RBC 0.03 H Immature Gran % 2 H Nucleated RBC % 0 Sodium 146 H Potassium 3.5 Chloride 100 Carbon Dioxide 38.8 H Anion Gap 7 BUN 15 Creatinine 0.4 L Estim Creat Clear Calc 133.9 eGFR > 60 BUN/Creatinine Ratio 38 H Glucose 100 Calculated Osmolality 291 Lactic Acid 0.7 Calcium 8.5 Corrected Calcium 9.5 Phosphorus 2.1 L Magnesium 1.7 Total Bilirubin 0.4 AST 33 ALT 11 Alkaline Phosphatase 75 Total Protein 5.5 L Albumin 2.8 L Globulin 2.7 Albumin/Globulin Ratio 1.0 L ABG Interpretation ABG results: 02/09/25 02/11/25 02/11/25 17:37 00:05 02:08 ABG pH 7.31 L 7.29 L 7.30 L ABG pCO2 77 H* 81 H* 79 H* ABG pO2 69 L 72 L 76 L ABG HCO3 39 H 39 H 39 H ABG O2 Saturation 93 94 95 ABG Base Excess 10 H 9 H 9 H VBG pH VBG pCO2 VBG pO2 VBG Base Excess 10/12/25 10/12/25 10/14/25 05:00 11:20 17:05 ABG pH 7.32 L 7.22 L D ABG pCO2 77 H* 89 H* D ABG pO2 73 L 86 ABG HCO3 39 H 36 H ABG O2 Saturation 95 96 ABG Base Excess 10 H 6 H VBG pH 7.47 VBG pCO2 53 VBG pO2 147 H VBG Base Excess 12 H 02/13/25 02/14/25 02/14/25 18:58 00:08 01:56 ABG pH 7.31 L 7.17 L* D ABG pCO2 70 H D 97 H* D ABG pO2 137 H D 95 D ABG HCO3 35 H 35 H ABG O2 Saturation 100 H 97 ABG Base Excess 7 H 4 H VBG pH 7.31 L VBG pCO2 70 H D VBG pO2 64 H D VBG Base Excess 7 H 02/14/25 02/14/25 02/14/25 04:50 13:37 Unknown ABG pH 7.35 D ABG pCO2 63 H D ABG pO2 129 H D ABG HCO3 35 H ABG O2 Saturation 100 H ABG Base Excess 7 H VBG pH 7.34 7.27 L VBG pCO2 55 D 70 H D VBG pO2 118 H D 44 D VBG Base Excess 2 3 02/15/25 02/15/25 02/15/25 04:06 10:13 15:32 ABG pH 7.39 7.24 L D ABG pCO2 57 H 83 H* D ABG pO2 63 L D 72 L ABG HCO3 35 H 35 H ABG O2 Saturation 93 92 ABG Base Excess 8 H 6 H VBG pH 7.42 VBG pCO2 58 H D VBG pO2 38 VBG Base Excess 12 H 02/16/25 02/18/25 02/18/25 05:30 00:26 04:20 ABG pH ABG pCO2 ABG pO2 ABG HCO3 ABG O2 Saturation ABG Base Excess VBG pH 7.38 7.39 7.40 VBG pCO2 65 H 64 H 60 H VBG pO2 49 44 90 H D VBG Base Excess 11 H 11 H 10 H 02/18/25 02/18/25 04:21 07:43 ABG pH 7.37 D 7.35 ABG pCO2 64 H D 67 H ABG pO2 84 63 L D ABG HCO3 37 H 37 H ABG O2 Saturation 97 95 ABG Base Excess 10 H 9 H VBG pH VBG pCO2 VBG pO2 VBG Base Excess Quality Measures Quality Measures VTE prophylaxis Assessment & Plan Assessment Current Active Medications: Generic Name Dose Route Start Last Admin Trade Name Freq PRN Reason Stop Dose Admin Acetaminophen 650 mg 02/10/25 20:28 Acetaminophen 325 Mg Tablet PO 03/12/25 20:27 Q6H PRN Fever >100.4 Acetaminophen 650 mg 02/10/25 20:28 02/19/25 16:21 Acetaminophen 325 Mg Tablet PO 03/12/25 20:27 650 mg Q6H PRN Administration PAIN SCALE 1-3 (mild Albuterol/Ipratropium 3 ml 02/12/25 11:26 Albuterol/Ipratropium (Duoneb) Rt Quiana 3 Ml Nebu INH 03/14/25 12:59 Q6HRRT PRN wheezing and SOB Atorvastatin Calcium 20 mg 02/10/25 21:00 02/18/25 21:21 Atorvastatin Calcium 20 Mg Tablet PO 03/12/25 20:59 20 mg HS KATIE Administration Bumetanide 1 mg 02/18/25 09:00 02/18/25 08:39 Bumetanide Inj 0.25 Mg/Ml Vial 4 Ml IVP 03/20/25 08:59 1 mg On Hold: 02/19/25 06:52 QDAY KATIE Administration Enoxaparin Sodium 40 mg 02/17/25 11:15 02/19/25 08:37 Enoxaparin Sod Inj 40 Mg/0.4 Ml Syringe SC 03/03/25 11:14 40 mg QDAY KATIE Administration Fentanyl Citrate 25 mcg 02/15/25 16:43 02/18/25 16:09 Fentanyl Cit Inj 50 Mcg/Ml Amp 2ml IVP 02/20/25 10:45 25 mcg Q8H PRN Administration Breakthrough Pain or agitation Protocol Norepinephrine/Dextrose 8 mg in 250 mls @ 7.032 mls/hr 02/13/25 16:22 02/19/25 13:00 Levophed In D5w 8mg/250ml IV 03/15/25 16:21 0 mcg/kg/min .Q24H PRN 0 mls/hr PER PROTOCOL Titration Protocol 0.05 MCG/KG/MIN Propofol 1,000 mg in 100 mls @ 2.346 mls/hr 02/14/25 16:22 Diprivan Ivpb IV 03/16/25 16:21 .Q24H PRN PER PROTOCOL Protocol 5 MCG/KG/MIN Metronidazole 500 mg in 100 mls @ 200 mls/hr 02/17/25 09:38 02/19/25 14:55 Flagyl 500 Mg Iv IV 02/24/25 09:37 200 mls/hr Q8HR KATIE Administration Cefepime HCl 2 gm/ Sodium 50 mls @ 100 mls/hr 02/18/25 10:42 02/19/25 14:53 Chloride IV 02/25/25 10:41 100 mls/hr Q8HR KATIE Administration Vancomycin/Sodium Chloride 200 mls @ 120 mls/hr 02/19/25 09:00 02/19/25 14:54 Vancomycin/Ns 1 Gm Ivpb IV 02/26/25 08:59 120 mls/hr TID KATIE Administration Protocol Levothyroxine Sodium 112.5 mcg 02/14/25 01:20 02/19/25 10:22 Levothyroxine Inj 100 Mcg Vial IV 03/16/25 01:19 Not Given On Hold: 02/19/25 10:19 DAILY KATIE Comment: PO ORDER PLACED Levothyroxine Sodium 125 mcg/ 150 mcg 02/19/25 10:30 02/19/25 10:26 Levothyroxine Sodium 25 mcg NG 03/21/25 10:29 150 mcg ACBR KATIE Administration Metoclopramide HCl 10 mg 02/17/25 12:00 02/19/25 11:41 Metoclopramide Inj 5 Mg/Ml Vial 2 Ml IVP 03/19/25 11:59 10 mg Q6HR KATIE Administration Protocol Ondansetron HCl 4 mg 02/10/25 20:28 02/16/25 11:44 Ondansetron Inj 2 Mg/Ml Inj 2 Ml IVP 03/12/25 20:27 4 mg Q6H PRN Administration NAUSEA OR VOMITING Protocol Pantoprazole Sodium 40 mg 02/13/25 11:15 02/19/25 08:37 Pantoprazole Inj 40 Mg Vial IVP 03/15/25 11:14 40 mg QDAY KATIE Administration Pharmacy Consult 1 each 02/18/25 10:45 Vancomycin Pharmacy To Dose 1 Each Each IV 03/20/25 10:44 QDAY PRN CONSULT Sennosides 1 tab 02/10/25 20:28 02/13/25 05:37 Senna Tablet PO 03/12/25 20:27 1 tab QDAY PRN Administration constipation Protocol Sertraline HCl 50 mg 02/11/25 21:00 02/18/25 21:21 Sertraline Hcl 25 Mg Tablet PO 03/13/25 20:59 50 mg HS KATIE Administration
[2025-02-19] MEDS: ATORVASTATIN CALCIUM 20 MG TABLET PO (20:54)
[2025-02-19] MEDS: SERTRALINE HCL 25 MG TABLET 50 MG PO (20:54)
[2025-02-19 21:41] LABS: Vancomycin,Trough 24.2 mcg/mL (5.0-10.0)
[2025-02-20] VITALS (11 sets, daily range): BP systolic 83–100; BP diastolic 48–65; PULSE 81–90; RESP 10–28; TEMP 36.2–37.2; O2SAT 92–100; BMI 33.7
--- NOTE | 2025-02-20 00:35 | EVENTNT_ITS ---
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 Patient originally admitted for CHF exacerbation. Throughout hospital stay patient found to have a stone in the sigmoid colon which later became bowel perforation which required surgical intervention and ICU level of care for vasopressor therapy. Patient is extubated since 02/18 and was weaned off of vasopressor support and downgraded to team C as per ICU resident. Case discussed with my attending Dr. Margareth Martinez MD PGY-2
[2025-02-20] MEDS: CEFEPIME INJ 2 GM in SODIUM CHLORIDE 0.9% (Popper) 50 ML IV ×3 (05:28→21:13)
[2025-02-20] MEDS: METOCLOPRAMIDE INJ 5 MG/ML VIAL 2 ML 10 MG IVP ×4 (05:34→23:16)
[2025-02-20] MEDS: LEVOTHYROXINE SODIUM 125 MCG, LEVOTHYROXINE SODIUM 25 MCG 150 MCG NG (05:35)
[2025-02-20 05:43] LABS: Basophils # (Auto) 0.0 Thou/mm3 (0.0-0.2); Basophils % (Auto) 0 % (0-2.5); Eosinophils # (Auto) 0.2 Thou/mm3 (0.0-0.5); Eosinophils % (Auto) 1 % (0-10); Hematocrit 32.3 % (36.0-46.0); Hemoglobin 9.7 g/dL (12.0-16.0); Immature Granulocytes Auto 0.22 Thou/mm3 (0.00-0.00); Lymphocytes # (Auto) 1.1 Thou/mm3 (1.0-4.8); Lymphocytes % (Auto) 6 % (10-50); Mean Corpuscular HGB Conc 30.0 g/dl (31.0-37.0); Mean Corpuscular Hemoglobin 26.5 pg (25.0-35.0); Mean Corpuscular Volume 88 fL (80-100); Monocytes # (Auto) 0.8 Thou/mm3 (0.0-0.8); Monocytes % (Auto) 4 % (0-12); Neutrophils # (Auto) 16.0 Thou/mm3 (1.8-7.7); Neutrophils % (Auto) 88 % (37-80); Nucleated Red Blood Cell # 0.00 Thou/mm3 (0.00-0.00); Nucleated Red Blood Cell % 0 /100 WBC (0); Platelet Count 357 Thou/mm3 (140-440); RDW Standard Deviation 55.5 fL (36.4-46.3); Red Blood Count 3.66 Miln/mm3 (4.00-5.20); White Blood Count 18.3 Thou/mm3 (3.6-11.0)
[2025-02-20] MEDS: metroNIDAZOLE/NS 500 MG IVPB 500 MG/100 ML BAG 200 MG IV ×3 (05:43→21:14)
[2025-02-20 06:33] LABS: Alanine Aminotransferase 9 U/L (10-49); Albumin, Serum 2.5 gm/dL (3.4-4.8); Albumin/Globulin Ratio 1.0 (1.2-2.2); Alkaline Phosphatase 59 U/L (46-116); Anion Gap 6 (7-16); Aspartate Amino Transferase 28 U/L (0-34); BUN/Creatinine Ratio 40 Ratio (12-20); Bilirubin,Total 0.4 mg/dL (0.3-1.2); Blood Urea Nitrogen 12 mg/dL (9-23); Calcium 8.4 mg/dL (8.3-10.6); Calcium (Corrected) 9.6 mg/dL (8.5-10.1); Carbon Dioxide 35.5 mMol/L (20.0-31.0); Chloride 103 mMol/L (98-107); Creatinine (Component) 0.3 mg/dL (0.6-1.3); Estimated Creatinine Clearance 179.8 mL/min (>60); Globulin 2.4 gm/dL (2.3-3.5); Glucose 73 mg/dL (74-106); Magnesium 1.9 mg/dL (1.6-2.6); Osmolality,Calculated 285 (275-295); Phosphorous 1.9 mg/dL (2.4-5.1); Potassium 3.2 mMol/L (3.4-5.1); Sodium 144 mMol/L (136-145); Total Protein 4.9 gm/dL (5.7-8.2); eGFR > 60 See Note
[2025-02-20] MEDS: POT PHOS 15 mMol in NS 250 ML 15 MMOL/250 ML BAG 62.5 MMOL IV ×2 (08:10→12:38)
[2025-02-20] MEDS: ENOXAPARIN SOD INJ 40 MG/0.4 ML SYRINGE SC (08:11)
--- NOTE | 2025-02-20 10:07 | PD.SURPROG ---
Documentation for date of: 02/20/25 Subjective Subjective Narrative: Patient is seen and examined. She had been extubated and maintaining her airway. She is tolerating clear liquids and colostomy is functioning Exam Vital Signs Temp Pulse Resp BP Pulse Ox O2 Del Method O2 Flow Rate 98.3 F 89 15 97/55 L 98 High Flow Nasal Cannula 20 02/20/25 04:00 02/20/25 06:08 02/20/25 06:08 02/20/25 04:00 02/20/25 06:08 02/20/25 04:00 02/20/25 06:08 FiO2 45 02/20/25 06:08 Constitutional Constitutional: no acute distress Routine Abdominal Exam Comments: Abdomen is soft and nondistended. Colostomy is present, patent and productive Assessment & Plan Assessment Additional comments: Postop day #7 status post exploratory laparotomy with sigmoid colectomy and end colostomy Plan Continue IV antibiotics. DC NG tube, may advance to full liquids PROCEDURES: Procedures Exploratory laparotomy, sigmoid colectomy, end descending colostomy
[2025-02-20] MEDS: VANCOMYCIN/D5W 1,250 MG IVPB 250 ML 120 MG IV ×2 (10:45→21:14)
--- NOTE | 2025-02-20 13:05 | PC.SS ---
Update: Patient remains on high flow oxygen, 15L. Plan is for NG tube to be removed today. Patient receiving IV antibiotics. Surgery consulting. Patient has been downgraded from ICU.
--- NOTE | 2025-02-20 16:31 | ESPR_ITS ---
<Statement entered by Nadeem Dietz MD - 02/20/25 17:16> I have reviewed the note and agree with the resident's assessment & plan with exceptions as below. I have personally reviewed labs, imaging, home meds/prior records, examined the patient, formulated and discussed management plan with my attending Patient was seen and examined at bedside this morning. No acute night events. Patient was downgraded from the ICU overnight as patient was successfully extubated and was weaned off vasopressors. Patient's blood pressure still been in the lower end with a MAP of around 65-69. Patient is able to have p.o. intake at this time and she was stating that she still had some pain, but is AO x 3. Patient was transition from high flow nasal cannula to OxyMask by this afternoon. NG tube was also discontinued as patient did not have any nausea or vomiting at this time. Will continue with IV antibiotics for the time being. Nadeem Dietz PGY2 Disclaimer: Even though this this note was dictated by speech recognition and even though it was carefully revised there may still be minor errors in cardiac catheterization technologist due to voice recognition software. Documentation for date of: 02/20/25 Subjective Subjective Interval history: Patient downgraded to floors overnight. Patient seen and examined bedside in ICU. During ICU stay of significance, on 02/14, patient received shock from ADP desaturated rapidly after found climbing down on ET tube and found to be bradycardic to 30s as well as V. tach on telemetry with a pulse. And on 02/16, patient was placed on NG tube after patient had emesis following initiation of feeds, cleared to start liquid liquid diet on 02/18 and discontinued NG tube on 02/20 as patient is able to tolerate feeds. Patient extubated on 02/18 and weaned off pressors on 02/19. Today, patient endorses abdominal pain on incision site, not tender to palpation of lateral abdomen. Reports tolerating feeds well with no nausea or vomiting. Does endorse shortness of breath. Denies chest pain, palpitations or fever/chills. Vitals labs reviewed. Blood pressure soft SBP 1 80-90. Saturating 90% on high flow nasal cannula 20 L. WBC decreased from 20.8 now 18.3. Hemoglobin stable 9.7. Potassium 3.2 and phosphate 1.9, repleted with K-Phos 30 mEq, PE bicarb decreased from 38 now 35. Creatinine stable. Continue antibiotics of cefepime, metronidazole, vancomycin. Discontinue NG tube today as patient tolerating feeds well. Hold diuresis with bumex due to BP and contraction alkalosis. Exam Vital Signs Temp Pulse Resp BP Pulse Ox O2 Del Method O2 Flow Rate 97.2 F 89 22 H 100/63 100 Oxy Mask 10 02/20/25 12:00 02/20/25 12:00 02/20/25 12:00 02/20/25 12:00 02/20/25 12:00 02/20/25 12:00 02/20/25 12:00 FiO2 50 02/20/25 10:19 Narrative Exam GENERAL: AOx3, no acute distress HEENT: mucous membranes moist, bilateral sclera anicteric CARDIOVASCULAR: regular rate and rhythm, S1/S2 present, no murmurs appreciated PULMONARY: clear to auscultation bilaterally, no rales/rhonchi/wheezes ABDOMINAL: soft, TTP at incision site, non-distended, no rebound/guarding, bowel sounds present, vertical incision site dressing clean and intact, colostomy bag intact with brown output EXTREMITIES: trace BLE edema SKIN: warm and dry, intact, no rashes NEURO: CN II-XII grossly intact, alert, following commands Objective Labs 02/21/25 04:39 02/21/25 04:39 Labs: Laboratory Results - last 24 hr 02/19/25 02/19/25 02/20/25 17:26 20:52 04:28 WBC 18.3 H RBC 3.66 L Hgb 9.7 L Hct 32.3 L MCV 88 MCH 26.5 MCHC 30.0 L RDW Std Deviation 55.5 H Plt Count 357 D Neut % (Auto) 88 H Lymph % (Auto) 6 L [place] % (Auto) 4 Eos % (Auto) 1 Baso % (Auto) 0 Neut # (Auto) 16.0 H Lymph # (Auto) 1.1 [place] # (Auto) 0.8 Eos # (Auto) 0.2 Baso # (Auto) 0.0 Immature Gran # (Auto) 0.22 H Absolute Nucleated RBC 0.00 Immature Gran % 1 H Nucleated RBC % 0 Sodium 144 Potassium 3.2 L Chloride 103 Carbon Dioxide 35.5 H Anion Gap 6 L BUN 12 Creatinine 0.3 L Estim Creat Clear Calc 179.8 eGFR > 60 BUN/Creatinine Ratio 40 H Glucose 73 L Calculated Osmolality 285 Lactic Acid 0.7 Calcium 8.4 Corrected Calcium 9.6 Phosphorus 1.9 L Magnesium 1.9 Total Bilirubin 0.4 AST 28 ALT 9 L Alkaline Phosphatase 59 D Total Protein 4.9 L Albumin 2.5 L Globulin 2.4 Albumin/Globulin Ratio 1.0 L Vancomycin Trough 24.2 H* ABG Interpretation ABG results: 02/09/25 02/11/25 02/11/25 17:37 00:05 02:08 ABG pH 7.31 L 7.29 L 7.30 L ABG pCO2 77 H* 81 H* 79 H* ABG pO2 69 L 72 L 76 L ABG HCO3 39 H 39 H 39 H ABG O2 Saturation 93 94 95 ABG Base Excess 10 H 9 H 9 H VBG pH VBG pCO2 VBG pO2 VBG Base Excess 02/11/25 02/11/25 02/13/25 05:00 11:20 17:05 ABG pH 7.32 L 7.22 L D ABG pCO2 77 H* 89 H* D ABG pO2 73 L 86 ABG HCO3 39 H 36 H ABG O2 Saturation 95 96 ABG Base Excess 10 H 6 H VBG pH 7.47 VBG pCO2 53 VBG pO2 147 H VBG Base Excess 12 H 02/13/25 02/14/25 02/14/25 18:58 00:08 01:56 ABG pH 7.31 L 7.17 L* D ABG pCO2 70 H D 97 H* D ABG pO2 137 H D 95 D ABG HCO3 35 H 35 H ABG O2 Saturation 100 H 97 ABG Base Excess 7 H 4 H VBG pH 7.31 L VBG pCO2 70 H D VBG pO2 64 H D VBG Base Excess 7 H 02/14/25 02/14/25 02/14/25 04:50 13:37 Unknown ABG pH 7.35 D ABG pCO2 63 H D ABG pO2 129 H D ABG HCO3 35 H ABG O2 Saturation 100 H ABG Base Excess 7 H VBG pH 7.34 7.27 L VBG pCO2 55 D 70 H D VBG pO2 118 H D 44 D VBG Base Excess 2 3 02/15/25 02/15/25 02/15/25 04:06 10:13 15:32 ABG pH 7.39 7.24 L D ABG pCO2 57 H 83 H* D ABG pO2 63 L D 72 L ABG HCO3 35 H 35 H ABG O2 Saturation 93 92 ABG Base Excess 8 H 6 H VBG pH 7.42 VBG pCO2 58 H D VBG pO2 38 VBG Base Excess 12 H 02/16/25 02/18/25 02/18/25 05:30 00:26 04:20 ABG pH ABG pCO2 ABG pO2 ABG HCO3 ABG O2 Saturation ABG Base Excess VBG pH 7.38 7.39 7.40 VBG pCO2 65 H 64 H 60 H VBG pO2 49 44 90 H D VBG Base Excess 11 H 11 H 10 H 02/18/25 02/18/25 04:21 07:43 ABG pH 7.37 D 7.35 ABG pCO2 64 H D 67 H ABG pO2 84 63 L D ABG HCO3 37 H 37 H ABG O2 Saturation 97 95 ABG Base Excess 10 H 9 H VBG pH VBG pCO2 VBG pO2 VBG Base Excess Quality Measures Quality Measures VTE prophylaxis Assessment & Plan Assessment Current Active Medications: Generic Name Dose Route Start Last Admin Trade Name Freq PRN Reason Stop Dose Admin Acetaminophen 650 mg 02/10/25 20:28 02/19/25 16:21 Acetaminophen 325 Mg Tablet PO 03/12/25 20:27 650 mg Q6H PRN Administration PAIN SCALE 1-3 (mild Albuterol/Ipratropium 3 ml 02/12/25 11:26 Albuterol/Ipratropium (Duoneb) Rt Quiana 3 Ml Nebu INH 03/14/25 12:59 Q6HRRT PRN wheezing and SOB Atorvastatin Calcium 20 mg 02/10/25 21:00 02/19/25 20:54 Atorvastatin Calcium 20 Mg Tablet PO 03/12/25 20:59 20 mg HS KATIE Administration Bumetanide 1 mg 02/18/25 09:00 02/18/25 08:39 Bumetanide Inj 0.25 Mg/Ml Vial 4 Ml IVP 03/20/25 08:59 1 mg On Hold: 02/19/25 06:52 QDAY KATIE Administration Enoxaparin Sodium 40 mg 02/17/25 11:15 02/20/25 08:11 Enoxaparin Sod Inj 40 Mg/0.4 Ml Syringe SC 03/03/25 11:14 40 mg QDAY KATIE Administration Metronidazole 500 mg in 100 mls @ 200 mls/hr 02/17/25 09:38 02/20/25 14:44 Flagyl 500 Mg Iv IV 02/24/25 09:37 200 mls/hr Q8HR KATIE Administration Cefepime HCl 2 gm/ Sodium 50 mls @ 100 mls/hr 02/18/25 10:42 02/20/25 14:44 Chloride IV 02/25/25 10:41 100 mls/hr Q8HR KATIE Administration Vancomycin HCl/Dextrose 250 mls @ 120 mls/hr 02/20/25 10:00 02/20/25 10:45 Vancomycin/D5w 1,250 Mg Ivpb IV 02/27/25 09:59 120 mls/hr Q12H KATIE Administration Protocol Levothyroxine Sodium 112.5 mcg 02/14/25 01:20 02/19/25 10:22 Levothyroxine Inj 100 Mcg Vial IV 03/16/25 01:19 Not Given On Hold: 02/19/25 10:19 DAILY KATIE Comment: PO ORDER PLACED Levothyroxine Sodium 125 mcg/ 150 mcg 02/19/25 10:30 02/20/25 05:35 Levothyroxine Sodium 25 mcg NG 03/21/25 10:29 150 mcg ACBR KATIE Administration Metoclopramide HCl 10 mg 02/17/25 12:00 02/20/25 12:38 Metoclopramide Inj 5 Mg/Ml Vial 2 Ml IVP 03/19/25 11:59 10 mg Q6HR KATIE Administration Protocol Ondansetron HCl 4 mg 02/10/25 20:28 02/16/25 11:44 Ondansetron Inj 2 Mg/Ml Inj 2 Ml IVP 03/12/25 20:27 4 mg Q6H PRN Administration NAUSEA OR VOMITING Protocol Pantoprazole Sodium 40 mg 02/13/25 11:15 02/20/25 08:11 Pantoprazole Inj 40 Mg Vial IVP 03/15/25 11:14 40 mg QDAY KATIE Administration Pharmacy Consult 1 each 02/18/25 10:45 Vancomycin Pharmacy To Dose 1 Each Each IV 02/25/25 10:44 QDAY PRN CONSULT Sennosides 1 tab 02/10/25 20:28 02/13/25 05:37 Senna Tablet PO 03/12/25 20:27 1 tab QDAY PRN Administration constipation Protocol Sertraline HCl 50 mg 02/11/25 21:00 02/19/25 20:54 Sertraline Hcl 25 Mg Tablet PO 03/13/25 20:59 50 mg HS KATIE Administration Plan Tyra Larkin 59F pmhx significant for HFpEF (60-65%, 07/2023), 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 ED 02/11 with lower abdominal pain, SOB, BLE swelling, and dysuria, admitted for acute on chronic HFpEF and for 28mm suspected GB stone in sigmoid colon, course complicated by bowel perforation s/p ex lap with bowel resection and end colostomy on 02/13. Course complicated by iCU upgrade post surgery due to post anesthesia effects with patietn's hx of pulmonary fibrosis, and was intubated requiring pressors. Extubated on 02/18 and on 02/20, weaned off pressors and downgraded to floors. #Sigmoid bowel perforation s/p exploratory laparotomy with bowel resection and end colostomy (02/13/25) #Sepsis 2/2 feculent peritonitis #Severe lower abdominal pain #28mm calcified mass on sigmoid colon causing perforation, likely gallstone #Acute Encephalopathy (resolved) #Hypotension, resolved On admission patient had pain after meals since 2 weeks 02/09 at lower abdomen/suprapubic area. Extremely tender to palpation. Stated no BM for the past 5 days prior to admission. Denies hx of cholcystectomy. On admission, 02/10 CTA chest/AP: GB not visualized, 28mm calcified mass in sigmoid colon w/o visualization of GB; and MRCP: GB not visualized, common hepatic duct common bile duct normal size no stones, neg pancreatitis, no free fluid in abdomen, aorta normal size, minimal bilateral hydrenophrosis, edema in subcutaneous fatty tissues at the flanks; GB US: GB not visualized. On 02/13, patient became disoriented with significant abdominal pain. CXR showed pneumoperitoneum, with confirmation of CTAP showing extensive pneumoperitoneum, cholelithiasis but gallbladder wall appears thickened but no abnormal small air and fluid distended with prominent wall thickening, remains calcified mass in sigmoid colon 26 mm, consider gallstone ileus. Patient subsequently underwent ex lap with sigmoid bowel resection and end colostomy and removal of gallstone. Post surgery, patient was upgraded to ICU for concern of post anesthesia ability to protect airway due to pulmonary fibrosis. During ICU stay, of significance on 02/14, patient received shock from AED for desaturation rapidly after jaw found clamping down on ET tube and found to be bradycardic to 30s and Vtach on telemetry with a pulse. 02/13 BCx 1/2 grew staph hominis, likely contaminant. 02/17 repeat BCx NGTD. On 02/16, NG tube was placed per surgical team after patient had emesis following initiation of feeds, cleared to start liquid diet 02/18, and discontinued 02/20 as patient is able to tolerate feeds. Cefepime (02/10 - 02/13). Azithromycin (02/11-02/13). Ceftriaxone (02/13-02/18). Plan: - Surgery consulted, recs appreciated - Cefepime for pseudomonal coverage (switched from ceftriaxone) (02/18-02/25) - Flagyl continued for anaerobic coverage (02/13 - 02/25). - Vancomycin for Staph hominis on blood culture (02/18- ). - Will continue abx through 02/25 - Sputum culture pending - if positive for pseudomonas, will treat as new pneumonia (7-day course). #Acute hypoxic respiratory failure (resolved) 2/2 post anesthesia extubated 02/18 #Pulmonary fibrosis 2/2 pesticides #Acute on chronic HFpEF (60-65%, 07/2023) #Severe pulmonary hypertension Presents with dyspnea at rest, worsening SOB, BLE swelling, and facial swelling on home O2 4L. Patient reports rehab center occasionally holds her Lasix due to soft BP. On admission saturating 88% on 4 L of oxygen, HR 100, WBC 14.8, BNP 1165, D-dimer 368, troponin 0.055->0.028, ABG 7.31/77/69/39 with repeat ABGs pH 7.29-7.32. On physical examination bilateral crackles over the both lungs. Follows Dr. Garrido and Dr. Kim outpatient. 02/09 CXR bilateral pulmonary congestion and enlarged cardiac contour. 02/09 CTA chest/AP showed prominent CHF, negative for PE, bilateral hilar lymphadenopathy, GB not visualized, 28mm calcified mass in sigmoid colon wo visualization of GB 02/10 TTE Normal LV size, wall thickness. Normal LV diastolic filling pattern for age. Estimated EF at 55-60 %. The RV size is moderately increased with moderately decreases systolic function. The estimated RVSP, 72 mmHg. RAP 15. The RA cavity size is severely increased. Moderate TR. Less than 50% respiratory change in dimension of the inferior vena cava abnormal. CXR 02/17: severe bilateral pneumonia/ARDS. DDx: combination of acute on chronic heart failure exacerbation vs worsening pulmonary fibrosis vs aspiration PNA vs CAP, less likely PE. Plan: - Abx as above - Supplemental O2 as needed to keep SpO2 >90% - Strict I&Os, daily weights. - 1.8L fluid restriction. - Fluid balance -12.132 mL as of 02/18. - Duoneb Q6H PRN. #Acute kidney injury (resolved) On 02/14, Cr increased to 1.0 BL 0.5-0.7. DDx: pre-renal vs intra-renal. fluid losses from surgery vs dehydration vs contrast use vs abdominal compartment syndrome. Patient did have surgery and has been NPO. Patient was given contrast for scans. Patient's abdomen is not hard or distended, less likely abd compartment syndrome. Plan: - Holding Bumex today 2/2 patient BP #NSTEMI likely type II, 2/2 fluid overload (resolved) Admission troponin 0.055->0.028. #Hyperlipidemia Lipid panel unremarkable. Plan: - Continue home med atorvastatin 20 mg PO HS. #Normocytic anemia DDx: surgery vs IV fluids. Hemoglobin on admission 12.1. No signs of bleeding Plan: - Continue to trend Hgb - Monitor for signs of bleeding #Hypothyroidism Home med levothyroxine 150 mcg ACBR. 02/11: TSH 0.36, T4 1.39 Plan: - Continue home levothyroxine 150 mcg PO, will give through NG tube Hospital management: Lines: PIV Diet: dysphagia 1, ensure Bowel: Senna prn GI prophylaxis: IV pantoprazole 40 mg QD DVT prophylaxis: Lovenox Disposition: tele, IV abx and weaning off HFNC O2 CODE STATUS: FULL CODE Plan of care discussed with attending Dr. Monahan, and PGY-2 Dr. Hanna. Shaina Scott, DO PGY-1 Internal Medicine Attending Provider Attestation/Addendum I have seen and examined the patient. I was physically present for the dodge portions of the services provided including history, physical exam, diagnosis, treatment plans and orders. I agree with assessment and plan of care as documented by residents. Patient is a 59 years old female with past medical history of HFpEF, pulmonary fibrosis on home oxygen, cervical cancer status post chemoradiation, hypothyroidism and anxiety who initially presented to the ED with complaint of shortness of breath, leg swelling, abdominal pain, urinary frequency. She was initially admitted to telemetry for management of acute hypoxic respiratory failure secondary to CHF exacerbation and pneumonia. There was also concern for 28 mm calcified mass on sigmoid colon and patient had been complaining of right upper quadrant pain. She was later on found to have pneumoperitoneum secondary to colonic perforation from gallstone and underwent exploratory laparotomy on 02/13/2025. There was moderate amount of feculent fluid in pelvis and throughout the abdomen. With the patient's underlying pulmonary fibrosis from prior pesticide exposure, extubation was expected to be difficult and patient was transferred to ICU following surgery. She was also started on vasopressors for septic shock. Patient received broad-spectrum IV antibiotics in the ICU. She started improving, vasopressors were discontinued, patient was extubated and switched to high flow nasal cannula and eventually to OxyMask. Patient is then transferred to telemetry for further management. At bedside, patient appears comfortable, complains of pain around incision site, has tenderness around the same area but mild. She has been tolerating diet well, denies any nausea or vomiting, did not have fever/chills. We will continue with cefepime, vancomycin and metronidazole to cover peritonitis and pneumonia. We will continue with supplemental oxygen, monitor her fluid balance closely. Patient's blood pressure has been soft, we will continue to hold diuretics. Even though this this note was carefully revised there may still be minor errors in cardiac catheterization technologist due to voice recognition software. Marianna Monahan MD
--- NOTE | 2025-02-20 20:44 | PD.IMPROG ---
Documentation for date of: 02/20/25 Subjective Subjective Interval history: Patient evaluated good activity in the colostomy bag Exam Vital Signs Temp Pulse Resp BP Pulse Ox O2 Del Method O2 Flow Rate 98.9 F 90 20 93/65 100 Nasal Cannula 10 02/20/25 16:00 02/20/25 18:31 02/20/25 18:31 02/20/25 16:00 02/20/25 18:31 02/20/25 16:00 02/20/25 18:31 FiO2 50 02/20/25 10:19 Objective Labs 02/20/25 04:28 02/20/25 04:28 Labs: Laboratory Results - last 24 hr 02/19/25 02/20/25 20:52 04:28 WBC 18.3 H RBC 3.66 L Hgb 9.7 L Hct 32.3 L MCV 88 MCH 26.5 MCHC 30.0 L RDW Std Deviation 55.5 H Plt Count 357 D Neut % (Auto) 88 H Lymph % (Auto) 6 L [place] % (Auto) 4 Eos % (Auto) 1 Baso % (Auto) 0 Neut # (Auto) 16.0 H Lymph # (Auto) 1.1 [place] # (Auto) 0.8 Eos # (Auto) 0.2 Baso # (Auto) 0.0 Immature Gran # (Auto) 0.22 H Absolute Nucleated RBC 0.00 Immature Gran % 1 H Nucleated RBC % 0 Sodium 144 Potassium 3.2 L Chloride 103 Carbon Dioxide 35.5 H Anion Gap 6 L BUN 12 Creatinine 0.3 L Estim Creat Clear Calc 179.8 eGFR > 60 BUN/Creatinine Ratio 40 H Glucose 73 L Calculated Osmolality 285 Calcium 8.4 Corrected Calcium 9.6 Phosphorus 1.9 L Magnesium 1.9 Total Bilirubin 0.4 AST 28 ALT 9 L Alkaline Phosphatase 59 D Total Protein 4.9 L Albumin 2.5 L Globulin 2.4 Albumin/Globulin Ratio 1.0 L Vancomycin Trough 24.2 H* Impressions Impression: Status post exploratory laparotomy for sigmoid perforation sigmoid colectomy and end colostomy Good activity in the colostomy bag Encourage p.o. intake ABG Interpretation ABG results: 02/09/25 02/11/25 02/11/25 17:37 00:05 02:08 ABG pH 7.31 L 7.29 L 7.30 L ABG pCO2 77 H* 81 H* 79 H* ABG pO2 69 L 72 L 76 L ABG HCO3 39 H 39 H 39 H ABG O2 Saturation 93 94 95 ABG Base Excess 10 H 9 H 9 H VBG pH VBG pCO2 VBG pO2 VBG Base Excess 02/11/25 02/11/25 02/13/25 05:00 11:20 17:05 ABG pH 7.32 L 7.22 L D ABG pCO2 77 H* 89 H* D ABG pO2 73 L 86 ABG HCO3 39 H 36 H ABG O2 Saturation 95 96 ABG Base Excess 10 H 6 H VBG pH 7.47 VBG pCO2 53 VBG pO2 147 H VBG Base Excess 12 H 02/13/25 02/14/25 02/14/25 18:58 00:08 01:56 ABG pH 7.31 L 7.17 L* D ABG pCO2 70 H D 97 H* D ABG pO2 137 H D 95 D ABG HCO3 35 H 35 H ABG O2 Saturation 100 H 97 ABG Base Excess 7 H 4 H VBG pH 7.31 L VBG pCO2 70 H D VBG pO2 64 H D VBG Base Excess 7 H 02/14/25 02/14/25 02/14/25 04:50 13:37 Unknown ABG pH 7.35 D ABG pCO2 63 H D ABG pO2 129 H D ABG HCO3 35 H ABG O2 Saturation 100 H ABG Base Excess 7 H VBG pH 7.34 7.27 L VBG pCO2 55 D 70 H D VBG pO2 118 H D 44 D VBG Base Excess 2 3 02/15/25 02/15/25 02/15/25 04:06 10:13 15:32 ABG pH 7.39 7.24 L D ABG pCO2 57 H 83 H* D ABG pO2 63 L D 72 L ABG HCO3 35 H 35 H ABG O2 Saturation 93 92 ABG Base Excess 8 H 6 H VBG pH 7.42 VBG pCO2 58 H D VBG pO2 38 VBG Base Excess 12 H 02/16/25 02/18/25 02/18/25 05:30 00:26 04:20 ABG pH ABG pCO2 ABG pO2 ABG HCO3 ABG O2 Saturation ABG Base Excess VBG pH 7.38 7.39 7.40 VBG pCO2 65 H 64 H 60 H VBG pO2 49 44 90 H D VBG Base Excess 11 H 11 H 10 H 02/18/25 02/18/25 04:21 07:43 ABG pH 7.37 D 7.35 ABG pCO2 64 H D 67 H ABG pO2 84 63 L D ABG HCO3 37 H 37 H ABG O2 Saturation 97 95 ABG Base Excess 10 H 9 H VBG pH VBG pCO2 VBG pO2 VBG Base Excess Assessment & Plan Time Spent With Patient Time: Total time spent is greater than 50% in coordination of care (as documented) at patient's floor/unit and/or counseling patient:
[2025-02-20] MEDS: ATORVASTATIN CALCIUM 20 MG TABLET PO (21:13)
[2025-02-20] MEDS: SERTRALINE HCL 25 MG TABLET 50 MG PO (21:14)
[2025-02-21] VITALS (11 sets, daily range): BP systolic 84–93; BP diastolic 46–65; PULSE 80–94; RESP 1–26; TEMP 36.4–36.9; O2SAT 94–100; BMI 33.7
[2025-02-21] MEDS: CEFEPIME INJ 2 GM in SODIUM CHLORIDE 0.9% (Popper) 50 ML IV ×3 (05:16→21:08)
[2025-02-21] MEDS: METOCLOPRAMIDE INJ 5 MG/ML VIAL 2 ML 10 MG IVP ×3 (05:16→17:44)
[2025-02-21] MEDS: metroNIDAZOLE/NS 500 MG IVPB 500 MG/100 ML BAG 200 MG IV ×3 (05:17→21:09)
[2025-02-21] MEDS: LEVOTHYROXINE SODIUM 125 MCG, LEVOTHYROXINE SODIUM 25 MCG 150 MCG NG (05:17)
[2025-02-21 06:03] LABS: Basophils # (Auto) 0.0 Thou/mm3 (0.0-0.2); Basophils % (Auto) 0 % (0-2.5); Eosinophils # (Auto) 0.2 Thou/mm3 (0.0-0.5); Eosinophils % (Auto) 2 % (0-10); Hematocrit 35.4 % (36.0-46.0); Hemoglobin 10.4 g/dL (12.0-16.0); Immature Granulocytes Auto 0.16 Thou/mm3 (0.00-0.00); Lymphocytes # (Auto) 1.1 Thou/mm3 (1.0-4.8); Lymphocytes % (Auto) 7 % (10-50); Mean Corpuscular HGB Conc 29.4 g/dl (31.0-37.0); Mean Corpuscular Hemoglobin 26.6 pg (25.0-35.0); Mean Corpuscular Volume 91 fL (80-100); Monocytes # (Auto) 0.8 Thou/mm3 (0.0-0.8); Monocytes % (Auto) 5 % (0-12); Neutrophils # (Auto) 14.1 Thou/mm3 (1.8-7.7); Neutrophils % (Auto) 86 % (37-80); Nucleated Red Blood Cell # 0.00 Thou/mm3 (0.00-0.00); Nucleated Red Blood Cell % 0 /100 WBC (0); Platelet Count 345 Thou/mm3 (140-440); RDW Standard Deviation 57.6 fL (36.4-46.3); Red Blood Count 3.91 Miln/mm3 (4.00-5.20); White Blood Count 16.3 Thou/mm3 (3.6-11.0)
[2025-02-21 06:32] LABS: Alanine Aminotransferase 11 U/L (10-49); Albumin, Serum 2.7 gm/dL (3.4-4.8); Albumin/Globulin Ratio 1.1 (1.2-2.2); Alkaline Phosphatase 63 U/L (46-116); Anion Gap 6 (7-16); Aspartate Amino Transferase 37 U/L (0-34); BUN/Creatinine Ratio 23 Ratio (12-20); Bilirubin,Total 0.3 mg/dL (0.3-1.2); Blood Urea Nitrogen 9 mg/dL (9-23); Calcium 8.2 mg/dL (8.3-10.6); Calcium (Corrected) 9.2 mg/dL (8.5-10.1); Carbon Dioxide 32.6 mMol/L (20.0-31.0); Chloride 104 mMol/L (98-107); Creatinine (Component) 0.4 mg/dL (0.6-1.3); Estimated Creatinine Clearance 134.9 mL/min (>60); Globulin 2.4 gm/dL (2.3-3.5); Glucose 86 mg/dL (74-106); Magnesium 1.9 mg/dL (1.6-2.6); Osmolality,Calculated 282 (275-295); Phosphorous 2.3 mg/dL (2.4-5.1); Potassium 3.9 mMol/L (3.4-5.1); Sodium 143 mMol/L (136-145); Total Protein 5.1 gm/dL (5.7-8.2); eGFR > 60 See Note
[2025-02-21] MEDS: NAPH,KPH MBDB 1 PACKET (1.5 GM) PO (08:34)
[2025-02-21] MEDS: ENOXAPARIN SOD INJ 40 MG/0.4 ML SYRINGE SC (08:35)
[2025-02-21] MEDS: VANCOMYCIN/D5W 1,250 MG IVPB 250 ML 120 MG IV ×2 (10:28→21:55)
[2025-02-21] MEDS: guaiFENesin SYRUP 200 MG/10 ML UDC 100 MG PO (11:45)
--- NOTE | 2025-02-21 13:59 | ESPR_ITS ---
<Statement entered by Nadeem Dietz MD - 02/21/25 16:02> I have reviewed the note and agree with the resident's assessment & plan with exceptions as below. I have personally reviewed labs, imaging, home meds/prior records, examined the patient, formulated and discussed management plan with my attending Patient was seen and examined at bedside this morning. No acute overnight events. Patient's blood pressure continues to be on the lower end therefore we will continue holding Bumex at this time. Patient does have significant bilateral pitting edema, but is bedbound at baseline and is back at her baseline O2 requirements therefore we will hold off on diuresis for now. Patient is tolerating oral feeds. Will do some hypertonic saline breathing treatments along with CPT as patient was complaining of cough and increased sputum production. Will likely discontinue IV antibiotics except Vancomycin tomorrow. Nadeem Dietz PGY2 Disclaimer: Even though this this note was dictated by speech recognition and even though it was carefully revised there may still be minor errors in bank teller due to voice recognition software. Documentation for date of: 02/21/25 Subjective Subjective Interval history: Yesterday evening, patient weaned off high flow nasal cannula. However overnight patient desaturated 92 to 94% and was increased from 4 to 5 L nasal cannula. Patient seen examined at bedside in ICU. Reports abdominal pain at incision site as well as increased secretions. However per patient she has experienced excessive secretions before due to her pulmonary fibrosis. Endorses improved shortness of breath but still persistent. Tolerating feeds well and colostomy bag present with good output. Denies chest pain, palpitations, fever. Vitals labs reviewed. SBP 90s. WBC downtrending from 18 now 16.3. Hemoglobin stable 10.4, potassium 3.9, bicarb 32, phosphate 2.3, repleted with 1 packet of Neutra-Phos. Sputum culture still pending. Continue IV antibiotics for now. Continue holding Bumex due to soft blood pressures although patient does have significant BLE pitting edema and is bed bound at baseline. For secretions start hypertonic saline breathing treatments and guaifenesin. Incentive spirometer given. Exam Vital Signs Temp Pulse Resp BP Pulse Ox O2 Del Method O2 Flow Rate 98.4 F 80 22 H 86/59 L 98 Nasal Cannula 4 02/21/25 12:00 02/21/25 12:00 02/21/25 12:00 02/21/25 12:00 02/21/25 12:00 02/21/25 04:00 02/21/25 12:00 FiO2 50 02/20/25 10:19 Narrative Exam GENERAL: AOx3, no acute distress HEENT: mucous membranes moist, bilateral sclera anicteric CARDIOVASCULAR: regular rate and rhythm, S1/S2 present, no murmurs appreciated PULMONARY: clear to auscultation bilaterally, no rales/rhonchi/wheezes ABDOMINAL: soft, TTP at incision site, non-distended, no rebound/guarding, bowel sounds present, vertical incision site dressing clean and intact, colostomy bag intact with brown output EXTREMITIES: 2+ BLE edema SKIN: warm and dry, intact, no rashes NEURO: CN II-XII grossly intact, alert, following commands Objective Labs 02/21/25 04:39 02/21/25 04:39 Labs: Laboratory Results - last 24 hr 02/21/25 04:39 WBC 16.3 H RBC 3.91 L Hgb 10.4 L Hct 35.4 L MCV 91 MCH 26.6 MCHC 29.4 L RDW Std Deviation 57.6 H Plt Count 345 Neut % (Auto) 86 H Lymph % (Auto) 7 L [place] % (Auto) 5 Eos % (Auto) 2 Baso % (Auto) 0 Neut # (Auto) 14.1 H Lymph # (Auto) 1.1 [place] # (Auto) 0.8 Eos # (Auto) 0.2 Baso # (Auto) 0.0 Immature Gran # (Auto) 0.16 H Absolute Nucleated RBC 0.00 Immature Gran % 1 H Nucleated RBC % 0 Sodium 143 Potassium 3.9 D Chloride 104 Carbon Dioxide 32.6 H Anion Gap 6 L BUN 9 Creatinine 0.4 L Estim Creat Clear Calc 134.9 eGFR > 60 BUN/Creatinine Ratio 23 H Glucose 86 Calculated Osmolality 282 Calcium 8.2 L Corrected Calcium 9.2 Phosphorus 2.3 L Magnesium 1.9 Total Bilirubin 0.3 AST 37 H ALT 11 Alkaline Phosphatase 63 Total Protein 5.1 L Albumin 2.7 L Globulin 2.4 Albumin/Globulin Ratio 1.1 L ABG Interpretation ABG results: 02/09/25 02/11/25 02/11/25 17:37 00:05 02:08 ABG pH 7.31 L 7.29 L 7.30 L ABG pCO2 77 H* 81 H* 79 H* ABG pO2 69 L 72 L 76 L ABG HCO3 39 H 39 H 39 H ABG O2 Saturation 93 94 95 ABG Base Excess 10 H 9 H 9 H VBG pH VBG pCO2 VBG pO2 VBG Base Excess 02/11/25 02/11/25 02/13/25 05:00 11:20 17:05 ABG pH 7.32 L 7.22 L D ABG pCO2 77 H* 89 H* D ABG pO2 73 L 86 ABG HCO3 39 H 36 H ABG O2 Saturation 95 96 ABG Base Excess 10 H 6 H VBG pH 7.47 VBG pCO2 53 VBG pO2 147 H VBG Base Excess 12 H 02/13/25 02/14/25 02/14/25 18:58 00:08 01:56 ABG pH 7.31 L 7.17 L* D ABG pCO2 70 H D 97 H* D ABG pO2 137 H D 95 D ABG HCO3 35 H 35 H ABG O2 Saturation 100 H 97 ABG Base Excess 7 H 4 H VBG pH 7.31 L VBG pCO2 70 H D VBG pO2 64 H D VBG Base Excess 7 H 02/14/25 02/14/25 02/14/25 04:50 13:37 Unknown ABG pH 7.35 D ABG pCO2 63 H D ABG pO2 129 H D ABG HCO3 35 H ABG O2 Saturation 100 H ABG Base Excess 7 H VBG pH 7.34 7.27 L VBG pCO2 55 D 70 H D VBG pO2 118 H D 44 D VBG Base Excess 2 3 02/15/25 02/15/25 02/15/25 04:06 10:13 15:32 ABG pH 7.39 7.24 L D ABG pCO2 57 H 83 H* D ABG pO2 63 L D 72 L ABG HCO3 35 H 35 H ABG O2 Saturation 93 92 ABG Base Excess 8 H 6 H VBG pH 7.42 VBG pCO2 58 H D VBG pO2 38 VBG Base Excess 12 H 02/16/25 02/18/25 02/18/25 05:30 00:26 04:20 ABG pH ABG pCO2 ABG pO2 ABG HCO3 ABG O2 Saturation ABG Base Excess VBG pH 7.38 7.39 7.40 VBG pCO2 65 H 64 H 60 H VBG pO2 49 44 90 H D VBG Base Excess 11 H 11 H 10 H 02/18/25 02/18/25 04:21 07:43 ABG pH 7.37 D 7.35 ABG pCO2 64 H D 67 H ABG pO2 84 63 L D ABG HCO3 37 H 37 H ABG O2 Saturation 97 95 ABG Base Excess 10 H 9 H VBG pH VBG pCO2 VBG pO2 VBG Base Excess Quality Measures Quality Measures VTE prophylaxis Assessment & Plan Assessment Current Active Medications: Generic Name Dose Route Start Last Admin Trade Name Freq PRN Reason Stop Dose Admin Acetaminophen 650 mg 02/10/25 20:28 02/19/25 16:21 Acetaminophen 325 Mg Tablet PO 03/12/25 20:27 650 mg Q6H PRN Administration PAIN SCALE 1-3 (mild Albuterol/Ipratropium 3 ml 02/12/25 11:26 Albuterol/Ipratropium (Duoneb) Rt Quiana 3 Ml Nebu INH 03/14/25 12:59 Q6HRRT PRN wheezing and SOB Atorvastatin Calcium 20 mg 02/10/25 21:00 02/20/25 21:13 Atorvastatin Calcium 20 Mg Tablet PO 03/12/25 20:59 20 mg HS KATIE Administration Bumetanide 1 mg 02/18/25 09:00 02/18/25 08:39 Bumetanide Inj 0.25 Mg/Ml Vial 4 Ml IVP 03/20/25 08:59 1 mg On Hold: 02/19/25 06:52 QDAY KATIE Administration Docusate Sodium 100 mg 02/21/25 11:33 Docusate Sod 100 Mg Capsule PO 03/23/25 11:32 BID PRN CONSTIPATION Protocol Enoxaparin Sodium 40 mg 02/17/25 11:15 02/21/25 08:35 Enoxaparin Sod Inj 40 Mg/0.4 Ml Syringe SC 03/03/25 11:14 40 mg QDAY KATIE Administration Guaifenesin 100 mg 02/21/25 11:29 02/21/25 11:45 Guaifenesin Syrup 200 Mg/10 Ml Udc PO 03/23/25 11:28 100 mg QID PRN Administration COUGH Protocol Metronidazole 500 mg in 100 mls @ 200 mls/hr 02/17/25 09:38 02/21/25 05:17 Flagyl 500 Mg Iv IV 02/24/25 09:37 200 mls/hr Q8HR KATIE Administration Cefepime HCl 2 gm/ Sodium 50 mls @ 100 mls/hr 02/18/25 10:42 02/21/25 13:53 Chloride IV 02/25/25 10:41 100 mls/hr Q8HR KATIE Administration Vancomycin HCl/Dextrose 250 mls @ 120 mls/hr 02/20/25 10:00 02/21/25 10:28 Vancomycin/D5w 1,250 Mg Ivpb IV 02/27/25 09:59 120 mls/hr Q12H KATIE Administration Protocol Levothyroxine Sodium 112.5 mcg 02/14/25 01:20 02/19/25 10:22 Levothyroxine Inj 100 Mcg Vial IV 03/16/25 01:19 Not Given On Hold: 02/19/25 10:19 DAILY KATIE Comment: PO ORDER PLACED Levothyroxine Sodium 125 mcg/ 150 mcg 02/19/25 10:30 02/21/25 05:17 Levothyroxine Sodium 25 mcg NG 03/21/25 10:29 150 mcg ACBR KATIE Administration Metoclopramide HCl 10 mg 02/17/25 12:00 02/21/25 11:45 Metoclopramide Inj 5 Mg/Ml Vial 2 Ml IVP 03/19/25 11:59 10 mg Q6HR KATIE Administration Protocol Ondansetron HCl 4 mg 02/10/25 20:28 02/16/25 11:44 Ondansetron Inj 2 Mg/Ml Inj 2 Ml IVP 03/12/25 20:27 4 mg Q6H PRN Administration NAUSEA OR VOMITING Protocol Pantoprazole Sodium 40 mg 02/13/25 11:15 02/21/25 08:34 Pantoprazole Inj 40 Mg Vial IVP 03/15/25 11:14 40 mg QDAY KATIE Administration Pharmacy Consult 1 each 02/18/25 10:45 Vancomycin Pharmacy To Dose 1 Each Each IV 02/25/25 10:44 QDAY PRN CONSULT Sennosides 1 tab 02/10/25 20:28 02/13/25 05:37 Senna Tablet PO 03/12/25 20:27 1 tab QDAY PRN Administration constipation Protocol Sertraline HCl 50 mg 02/11/25 21:00 02/20/25 21:14 Sertraline Hcl 25 Mg Tablet PO 03/13/25 20:59 50 mg HS KATIE Administration Sodium Chloride 4 ml 02/21/25 13:00 Sodium Cl Rt [place] 3% 4 Ml Nebu (Non-Formulary) INH 03/23/25 12:59 Q6HRRT KATIE Plan Tyra Larkin 59F pmhx significant for HFpEF (60-65%, 07/2023), 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 Course complicated by iCU upgrade post surgery due to post anesthesia effects with patietn's hx of pulmonary fibrosis, and was intubated requiring pressors. Extubated on 02/18 and on 02/20, weaned off pressors and downgraded to floors. #Sigmoid bowel perforation s/p exploratory laparotomy with bowel resection and end colostomy (02/13/25) #Sepsis 2/2 feculent peritonitis #Severe lower abdominal pain #28mm calcified mass on sigmoid colon causing perforation, likely gallstone #Acute Encephalopathy (resolved) #Hypotension, resolved On admission patient had pain after meals since 2 weeks 02/09 at lower abdomen/suprapubic area. Extremely tender to palpation. Stated no BM for the past 5 days prior to admission. Denies hx of cholcystectomy. On admission, 02/10 CTA chest/AP: GB not visualized, 28mm calcified mass in sigmoid colon w/o visualization of GB; and MRCP: GB not visualized, common hepatic duct common bile duct normal size no stones, neg pancreatitis, no free fluid in abdomen, aorta normal size, minimal bilateral hydrenophrosis, edema in subcutaneous fatty tissues at the flanks; GB US: GB not visualized. On 02/13, patient became disoriented with significant abdominal pain. CXR showed pneumoperitoneum, with confirmation of CTAP showing extensive pneumoperitoneum, cholelithiasis but gallbladder wall appears thickened but no abnormal small air and fluid distended with prominent wall thickening, remains calcified mass in sigmoid colon 26 mm, consider gallstone ileus. Patient subsequently underwent ex lap with sigmoid bowel resection and end colostomy and removal of gallstone. Post surgery, patient was upgraded to ICU for concern of post anesthesia ability to protect airway due to pulmonary fibrosis. During ICU stay, of significance on 02/14, patient received shock from AED for desaturation rapidly after jaw found clamping down on ET tube and found to be bradycardic to 30s and Vtach on telemetry with a pulse. 02/13 BCx 1/2 grew staph hominis, likely contaminant. 02/17 repeat BCx NGTD. On 02/16, NG tube was placed per surgical team after patient had emesis following initiation of feeds, cleared to start liquid diet 02/18, and discontinued 02/20 as patient is able to tolerate feeds. Cefepime (02/10 - 02/13). Azithromycin (02/11-02/13). Ceftriaxone (02/13-02/18). Plan: - Surgery consulted, recs appreciated - Cefepime for pseudomonal coverage (switched from ceftriaxone) (02/18-02/25) - Flagyl continued for anaerobic coverage (02/13 - 02/25). - Vancomycin for Staph hominis on blood culture (02/18- ). - Will continue abx through 02/25 per ICU - Sputum culture pending - if positive for pseudomonas, will treat as new pneumonia (7-day course). #Acute hypoxic respiratory failure (resolved) 2/2 post anesthesia extubated 02/18 #Pulmonary fibrosis 2/2 pesticides #Acute on chronic HFpEF (60-65%, 07/2023) #Severe pulmonary hypertension Presents with dyspnea at rest, worsening SOB, BLE swelling, and facial swelling on home O2 4L. Patient reports rehab center occasionally holds her Lasix due to soft BP. On admission saturating 88% on 4 L of oxygen, HR 100, WBC 14.8, BNP 1165, D-dimer 368, troponin 0.055->0.028, ABG 7.31/77/69/39 with repeat ABGs pH 7.29-7.32. On physical examination bilateral crackles over the both lungs. Follows Dr. Garrido and Dr. Kim outpatient. 02/09 CXR bilateral pulmonary congestion and enlarged cardiac contour. 02/09 CTA chest/AP showed prominent CHF, negative for PE, bilateral hilar lymphadenopathy, GB not visualized, 28mm calcified mass in sigmoid colon wo visualization of GB 02/10 TTE Normal LV size, wall thickness. Normal LV diastolic filling pattern for age. Estimated EF at 55-60 %. The RV size is moderately increased with moderately decreases systolic function. The estimated RVSP, 72 mmHg. RAP 15. The RA cavity size is severely increased. Moderate TR. Less than 50% respiratory change in dimension of the inferior vena cava abnormal. CXR 02/17: severe bilateral pneumonia/ARDS. DDx: combination of acute on chronic heart failure exacerbation vs worsening pulmonary fibrosis vs aspiration PNA vs CAP, less likely PE. Plan: - Abx as above - Supplemental O2 as needed to keep SpO2 >90% - Strict I&Os, daily weights. - 1.8L fluid restriction - Fluid balance -12.132 mL as of 02/18. - Duoneb Q6H PRN - Start hypertonic saline breathing treatment and guaifenesin for oral secretions #Acute kidney injury (resolved) On 02/14, Cr increased to 1.0 BL 0.5-0.7. DDx: pre-renal vs intra-renal. fluid losses from surgery vs dehydration vs contrast use vs abdominal compartment syndrome. Patient did have surgery and has been NPO. Patient was given contrast for scans. Patient's abdomen is not hard or distended, less likely abd compartment syndrome. Plan: - Holding Bumex, pedal edema likely secondary to chronic bedbound status #NSTEMI likely type II, 2/2 fluid overload (resolved) Admission troponin 0.055->0.028. #Hyperlipidemia Lipid panel unremarkable. Plan: - Continue home med atorvastatin 20 mg PO HS. #Normocytic anemia DDx: surgery vs IV fluids. Hemoglobin on admission 12.1. No signs of bleeding Plan: - Continue to trend Hgb - Monitor for signs of bleeding #Hypothyroidism Home med levothyroxine 150 mcg ACBR. 02/11: TSH 0.36, T4 1.39 Plan: - Continue home levothyroxine 150 mcg PO, will give through NG tube Hospital management: Lines: PIV Diet: dysphagia 1, ensure Bowel: Senna prn GI prophylaxis: IV pantoprazole 40 mg QD DVT prophylaxis: Lovenox Disposition: tele, IV abx and weaning off HFNC O2 CODE STATUS: FULL CODE Plan of care discussed with attending Dr. Monahan, and PGY-2 Dr. Hanna. Shaina Scott DO PGY-1 Internal Medicine Attending Provider Attestation/Addendum I have seen and examined the patient. I was physically present for the dodge portions of the services provided including history, physical exam, diagnosis, treatment plans and orders. I agree with assessment and plan of care as documented by residents. Patient seen and examined at bedside this morning. Appears comfortable continues to complain of mild abdominal pain around the incision side and has been having cough with sputum. Has been transition from high flow nasal cannula to oxy mask to nasal cannula, saturating well on 4 to 5 L/min. Blood pressure remains soft, patient has bilateral pedal edema but no crackles on chest auscultation. Bilateral pedal edema possibly secondary to chronic bedbound status, we will continue to hold Bumex. WBC continues to downtrend. Noted to have phosphate of 2.3, repleted accordingly. Continues to be on IV antibiotics covering peritonitis and pneumonia, awaiting sputum culture. Even though this this note was carefully revised there may still be minor errors in bank teller due to voice recognition software. Marianna Mnoahan MD
[2025-02-21] MEDS: SODIUM CL RT SOL 3% 4 ML NEBU (NON-FORMULARY) INH (19:38)
[2025-02-21] MEDS: ATORVASTATIN CALCIUM 20 MG TABLET PO (20:28)
--- NOTE | 2025-02-21 21:26 | PD.IMPROG ---
Documentation for date of: 02/21/25 Subjective Subjective Interval history: P.o. intake about 25 to 50% Good activity in the colostomy bag More alert Exam Vital Signs Temp Pulse Resp BP Pulse Ox O2 Del Method O2 Flow Rate 98 F 94 26 H 88/53 L 94 L Nasal Cannula 6 02/21/25 16:00 02/21/25 19:44 02/21/25 19:44 02/21/25 16:00 02/21/25 19:44 02/21/25 04:00 02/21/25 19:44 FiO2 50 02/20/25 10:19 Objective Labs 02/21/25 04:39 02/21/25 04:39 Labs: Laboratory Results - last 24 hr 02/21/25 04:39 WBC 16.3 H RBC 3.91 L Hgb 10.4 L Hct 35.4 L MCV 91 MCH 26.6 MCHC 29.4 L RDW Std Deviation 57.6 H Plt Count 345 Neut % (Auto) 86 H Lymph % (Auto) 7 L [place] % (Auto) 5 Eos % (Auto) 2 Baso % (Auto) 0 Neut # (Auto) 14.1 H Lymph # (Auto) 1.1 [place] # (Auto) 0.8 Eos # (Auto) 0.2 Baso # (Auto) 0.0 Immature Gran # (Auto) 0.16 H Absolute Nucleated RBC 0.00 Immature Gran % 1 H Nucleated RBC % 0 Sodium 143 Potassium 3.9 D Chloride 104 Carbon Dioxide 32.6 H Anion Gap 6 L BUN 9 Creatinine 0.4 L Estim Creat Clear Calc 134.9 eGFR > 60 BUN/Creatinine Ratio 23 H Glucose 86 Calculated Osmolality 282 Calcium 8.2 L Corrected Calcium 9.2 Phosphorus 2.3 L Magnesium 1.9 Total Bilirubin 0.3 AST 37 H ALT 11 Alkaline Phosphatase 63 Total Protein 5.1 L Albumin 2.7 L Globulin 2.4 Albumin/Globulin Ratio 1.1 L Impressions Impression: Status post left colonic resection with end colostomy in the setting of sigmoid perforation Poor p.o. intake Good activity in the colostomy bag Continue current management ABG Interpretation ABG results: 02/09/25 02/11/25 02/11/25 17:37 00:05 02:08 ABG pH 7.31 L 7.29 L 7.30 L ABG pCO2 77 H* 81 H* 79 H* ABG pO2 69 L 72 L 76 L ABG HCO3 39 H 39 H 39 H ABG O2 Saturation 93 94 95 ABG Base Excess 10 H 9 H 9 H VBG pH VBG pCO2 VBG pO2 VBG Base Excess 02/11/25 02/11/25 02/13/25 05:00 11:20 17:05 ABG pH 7.32 L 7.22 L D ABG pCO2 77 H* 89 H* D ABG pO2 73 L 86 ABG HCO3 39 H 36 H ABG O2 Saturation 95 96 ABG Base Excess 10 H 6 H VBG pH 7.47 VBG pCO2 53 VBG pO2 147 H VBG Base Excess 12 H 02/13/25 02/14/25 02/14/25 18:58 00:08 01:56 ABG pH 7.31 L 7.17 L* D ABG pCO2 70 H D 97 H* D ABG pO2 137 H D 95 D ABG HCO3 35 H 35 H ABG O2 Saturation 100 H 97 ABG Base Excess 7 H 4 H VBG pH 7.31 L VBG pCO2 70 H D VBG pO2 64 H D VBG Base Excess 7 H 02/14/25 02/14/25 02/14/25 04:50 13:37 Unknown ABG pH 7.35 D ABG pCO2 63 H D ABG pO2 129 H D ABG HCO3 35 H ABG O2 Saturation 100 H ABG Base Excess 7 H VBG pH 7.34 7.27 L VBG pCO2 55 D 70 H D VBG pO2 118 H D 44 D VBG Base Excess 2 3 02/15/25 02/15/25 02/15/25 04:06 10:13 15:32 ABG pH 7.39 7.24 L D ABG pCO2 57 H 83 H* D ABG pO2 63 L D 72 L ABG HCO3 35 H 35 H ABG O2 Saturation 93 92 ABG Base Excess 8 H 6 H VBG pH 7.42 VBG pCO2 58 H D VBG pO2 38 VBG Base Excess 12 H 02/16/25 02/18/25 02/18/25 05:30 00:26 04:20 ABG pH ABG pCO2 ABG pO2 ABG HCO3 ABG O2 Saturation ABG Base Excess VBG pH 7.38 7.39 7.40 VBG pCO2 65 H 64 H 60 H VBG pO2 49 44 90 H D VBG Base Excess 11 H 11 H 10 H 02/18/25 02/18/25 04:21 07:43 ABG pH 7.37 D 7.35 ABG pCO2 64 H D 67 H ABG pO2 84 63 L D ABG HCO3 37 H 37 H ABG O2 Saturation 97 95 ABG Base Excess 10 H 9 H VBG pH VBG pCO2 VBG pO2 VBG Base Excess Assessment & Plan Time Spent With Patient Time: Total time spent is greater than 50% in coordination of care (as documented) at patient's floor/unit and/or counseling patient:
[2025-02-21 22:21] LABS: Vancomycin,Trough 19.0 mcg/mL (5.0-10.0)
[2025-02-22] VITALS (12 sets, daily range): BP systolic 88–143; BP diastolic 60–68; PULSE 82–97; RESP 13–31; TEMP 36.6–36.7; O2SAT 94–99; BMI 33.7
[2025-02-22] MEDS: METOCLOPRAMIDE INJ 5 MG/ML VIAL 2 ML 10 MG IVP ×4 (00:37→18:03)
[2025-02-22] MEDS: LEVOTHYROXINE SODIUM 125 MCG, LEVOTHYROXINE SODIUM 25 MCG 150 MCG NG (05:07)
[2025-02-22] MEDS: metroNIDAZOLE/NS 500 MG IVPB 500 MG/100 ML BAG 200 MG IV ×3 (05:10→21:09)
[2025-02-22] MEDS: CEFEPIME INJ 2 GM in SODIUM CHLORIDE 0.9% (Popper) 50 ML IV ×3 (05:21→21:09)
[2025-02-22 06:12] LABS: Basophils # (Auto) 0.0 Thou/mm3 (0.0-0.2); Basophils % (Auto) 0 % (0-2.5); Eosinophils # (Auto) 0.2 Thou/mm3 (0.0-0.5); Eosinophils % (Auto) 1 % (0-10); Hematocrit 34.9 % (36.0-46.0); Hemoglobin 10.1 g/dL (12.0-16.0); Immature Granulocytes Auto 0.14 Thou/mm3 (0.00-0.00); Lymphocytes # (Auto) 1.1 Thou/mm3 (1.0-4.8); Lymphocytes % (Auto) 5 % (10-50); Mean Corpuscular HGB Conc 28.9 g/dl (31.0-37.0); Mean Corpuscular Hemoglobin 26.4 pg (25.0-35.0); Mean Corpuscular Volume 91 fL (80-100); Monocytes # (Auto) 0.8 Thou/mm3 (0.0-0.8); Monocytes % (Auto) 4 % (0-12); Neutrophils # (Auto) 17.4 Thou/mm3 (1.8-7.7); Neutrophils % (Auto) 89 % (37-80); Nucleated Red Blood Cell # 0.00 Thou/mm3 (0.00-0.00); Nucleated Red Blood Cell % 0 /100 WBC (0); Platelet Count 373 Thou/mm3 (140-440); RDW Standard Deviation 59.0 fL (36.4-46.3); Red Blood Count 3.83 Miln/mm3 (4.00-5.20); White Blood Count 19.6 Thou/mm3 (3.6-11.0)
[2025-02-22 06:42] LABS: Alanine Aminotransferase 15 U/L (10-49); Albumin, Serum 2.6 gm/dL (3.4-4.8); Albumin/Globulin Ratio 1.1 (1.2-2.2); Alkaline Phosphatase 68 U/L (46-116); Anion Gap 9 (7-16); Aspartate Amino Transferase 36 U/L (0-34); BUN/Creatinine Ratio 30 Ratio (12-20); Bilirubin,Total 0.2 mg/dL (0.3-1.2); Blood Urea Nitrogen 12 mg/dL (9-23); Calcium 7.8 mg/dL (8.3-10.6); Calcium (Corrected) 8.9 mg/dL (8.5-10.1); Carbon Dioxide 34.4 mMol/L (20.0-31.0); Chloride 100 mMol/L (98-107); Creatinine (Component) 0.4 mg/dL (0.6-1.3); Estimated Creatinine Clearance 134.9 mL/min (>60); Globulin 2.3 gm/dL (2.3-3.5); Glucose 76 mg/dL (74-106); Magnesium 1.9 mg/dL (1.6-2.6); Osmolality,Calculated 283 (275-295); Phosphorous 2.3 mg/dL (2.4-5.1); Potassium 4.3 mMol/L (3.4-5.1); Sodium 143 mMol/L (136-145); Total Protein 4.9 gm/dL (5.7-8.2); eGFR > 60 See Note
[2025-02-22] MEDS: NAPH,KPH MBDB 1 PACKET (1.5 GM) PO (09:32)
[2025-02-22] MEDS: ENOXAPARIN SOD INJ 40 MG/0.4 ML SYRINGE SC (09:32)
[2025-02-22] MEDS: VANCOMYCIN/NS 1 GM IVPB 200 ML IV ×2 (11:24→21:10)
--- NOTE | 2025-02-22 13:20 | PCS.ST ---
New order received. Pt is currently on ST service, being seen daily for swallowing tx and diet consistencies. See treatment notes.
--- NOTE | 2025-02-22 14:29 | ESPR_ITS ---
<Statement entered by Nadeem Dietz MD - 02/22/25 14:38> I have reviewed the note and agree with the resident's assessment & plan with exceptions as below. I have personally reviewed labs, imaging, home meds/prior records, examined the patient, formulated and discussed management plan with my attending. Patient was seen and examined at bedside this morning. No acute overnight events. Patient continues to improve, but today her WBCs slightly up trended therefore we will continue with IV antibiotics until the 26 to complete the full course for patient's pneumonia. Patient's fever did show some budding yeast in the Gram stain, but no thrush was seen in the mouth. If patient's WBC continue to uptrend or if patient deteriorates or spikes any fever will start coverage for fungal infection. Patient also was complaining of sore throat therefore this was given Chloraseptic oral and speech therapy was ordered. Expect possible discharge in the next 2 or 3 days if okay by surgery. Nadeem Dietz PGY2 Disclaimer: Even though this this note was dictated by speech recognition and even though it was carefully revised there may still be minor errors in aeronautics commission director due to voice recognition software. Documentation for date of: 02/22/25 Subjective Subjective Interval history: Overnight, patient desaturated to 94% and was increased on 4 L to 6 L O2. Patient examined at bedside in ICU. Patient reports oral secretions and decreased and abdominal pain is tolerable. Reports that if she tries to eat more abdominal pain worsens, but is tolerating meals. Endorses legs feeling heavy. Labs and vitals reviewed. SBP 90-115 in room SBP 143. WBC increased from 16 now 19.6, hemoglobin stable 10.1, bicarb 34, phosphate 2.3 given 1 packet of Neutra-Phos. Sputum culture still pending. Continue broad-spectrum antibiotics with cefepime Flagyl and vancomycin. Give Lasix x 1 for lower leg edema. CROSSTIE INSPECTOR consulted. Exam Vital Signs Temp Pulse Resp BP Pulse Ox O2 Del Method O2 Flow Rate 98.0 F 82 20 114/66 98 Nasal Cannula 6 02/22/25 04:00 02/22/25 04:00 02/22/25 04:00 02/22/25 04:00 02/22/25 04:00 02/21/25 04:00 02/22/25 04:00 FiO2 50 02/20/25 10:19 Narrative Exam GENERAL: AOx3, no acute distress HEENT: mucous membranes moist, bilateral sclera anicteric CARDIOVASCULAR: regular rate and rhythm, S1/S2 present, no murmurs appreciated PULMONARY: clear to auscultation bilaterally, no rales/rhonchi/wheezes ABDOMINAL: soft, TTP at incision site, non-distended, no rebound/guarding, bowel sounds present, vertical incision site dressing clean and intact, colostomy bag intact with brown output EXTREMITIES: 2+ BLE edema SKIN: warm and dry, intact, no rashes NEURO: CN II-XII grossly intact, alert, following commands Objective Labs 02/22/25 04:10 02/22/25 04:10 Labs: Laboratory Results - last 24 hr 02/21/25 02/22/25 21:53 04:10 WBC 19.6 H RBC 3.83 L Hgb 10.1 L Hct 34.9 L MCV 91 MCH 26.4 MCHC 28.9 L RDW Std Deviation 59.0 H Plt Count 373 Neut % (Auto) 89 H Lymph % (Auto) 5 L [place] % (Auto) 4 Eos % (Auto) 1 Baso % (Auto) 0 Neut # (Auto) 17.4 H Lymph # (Auto) 1.1 [place] # (Auto) 0.8 Eos # (Auto) 0.2 Baso # (Auto) 0.0 Immature Gran # (Auto) 0.14 H Absolute Nucleated RBC 0.00 Immature Gran % 1 H Nucleated RBC % 0 Sodium 143 Potassium 4.3 Chloride 100 Carbon Dioxide 34.4 H Anion Gap 9 BUN 12 Creatinine 0.4 L Estim Creat Clear Calc 134.9 eGFR > 60 BUN/Creatinine Ratio 30 H Glucose 76 Calculated Osmolality 283 Calcium 7.8 L Corrected Calcium 8.9 Phosphorus 2.3 L Magnesium 1.9 Total Bilirubin 0.2 L AST 36 H ALT 15 Alkaline Phosphatase 68 Total Protein 4.9 L Albumin 2.6 L Globulin 2.3 Albumin/Globulin Ratio 1.1 L Vancomycin Trough 19.0 H ABG Interpretation ABG results: 02/09/25 02/11/25 02/11/25 17:37 00:05 02:08 ABG pH 7.31 L 7.29 L 7.30 L ABG pCO2 77 H* 81 H* 79 H* ABG pO2 69 L 72 L 76 L ABG HCO3 39 H 39 H 39 H ABG O2 Saturation 93 94 95 ABG Base Excess 10 H 9 H 9 H VBG pH VBG pCO2 VBG pO2 VBG Base Excess 02/11/25 02/11/25 02/13/25 05:00 11:20 17:05 ABG pH 7.32 L 7.22 L D ABG pCO2 77 H* 89 H* D ABG pO2 73 L 86 ABG HCO3 39 H 36 H ABG O2 Saturation 95 96 ABG Base Excess 10 H 6 H VBG pH 7.47 VBG pCO2 53 VBG pO2 147 H VBG Base Excess 12 H 02/13/25 02/14/25 02/14/25 18:58 00:08 01:56 ABG pH 7.31 L 7.17 L* D ABG pCO2 70 H D 97 H* D ABG pO2 137 H D 95 D ABG HCO3 35 H 35 H ABG O2 Saturation 100 H 97 ABG Base Excess 7 H 4 H VBG pH 7.31 L VBG pCO2 70 H D VBG pO2 64 H D VBG Base Excess 7 H 02/14/25 02/14/25 02/14/25 04:50 13:37 Unknown ABG pH 7.35 D ABG pCO2 63 H D ABG pO2 129 H D ABG HCO3 35 H ABG O2 Saturation 100 H ABG Base Excess 7 H VBG pH 7.34 7.27 L VBG pCO2 55 D 70 H D VBG pO2 118 H D 44 D VBG Base Excess 2 3 02/15/25 02/15/25 02/15/25 04:06 10:13 15:32 ABG pH 7.39 7.24 L D ABG pCO2 57 H 83 H* D ABG pO2 63 L D 72 L ABG HCO3 35 H 35 H ABG O2 Saturation 93 92 ABG Base Excess 8 H 6 H VBG pH 7.42 VBG pCO2 58 H D VBG pO2 38 VBG Base Excess 12 H 02/16/25 02/18/25 02/18/25 05:30 00:26 04:20 ABG pH ABG pCO2 ABG pO2 ABG HCO3 ABG O2 Saturation ABG Base Excess VBG pH 7.38 7.39 7.40 VBG pCO2 65 H 64 H 60 H VBG pO2 49 44 90 H D VBG Base Excess 11 H 11 H 10 H 02/18/25 02/18/25 04:21 07:43 ABG pH 7.37 D 7.35 ABG pCO2 64 H D 67 H ABG pO2 84 63 L D ABG HCO3 37 H 37 H ABG O2 Saturation 97 95 ABG Base Excess 10 H 9 H VBG pH VBG pCO2 VBG pO2 VBG Base Excess Quality Measures Quality Measures VTE prophylaxis Assessment & Plan Assessment Current Active Medications: Generic Name Dose Route Start Last Admin Trade Name Freq PRN Reason Stop Dose Admin Acetaminophen 650 mg 02/10/25 20:28 02/19/25 16:21 Acetaminophen 325 Mg Tablet PO 03/12/25 20:27 650 mg Q6H PRN Administration PAIN SCALE 1-3 (mild Albuterol/Ipratropium 3 ml 02/12/25 11:26 Albuterol/Ipratropium (Duoneb) Rt Quiana 3 Ml Nebu INH 03/14/25 12:59 Q6HRRT PRN wheezing and SOB Atorvastatin Calcium 20 mg 02/10/25 21:00 02/21/25 20:28 Atorvastatin Calcium 20 Mg Tablet PO 03/12/25 20:59 20 mg HS KATIE Administration Benzocaine 1 lozenge 02/22/25 12:02 Benzocaine/Menthol 1 Lozenge PO 03/24/25 12:01 Q4HR PRN sore throat Bumetanide 1 mg 02/18/25 09:00 02/18/25 08:39 Bumetanide Inj 0.25 Mg/Ml Vial 4 Ml IVP 03/20/25 08:59 1 mg On Hold: 02/19/25 06:52 QDAY KATIE Administration Docusate Sodium 100 mg 02/21/25 11:33 Docusate Sod 100 Mg Capsule PO 03/23/25 11:32 BID PRN CONSTIPATION Protocol Enoxaparin Sodium 40 mg 02/17/25 11:15 02/22/25 09:32 Enoxaparin Sod Inj 40 Mg/0.4 Ml Syringe SC 03/03/25 11:14 40 mg QDAY KATIE Administration Guaifenesin 100 mg 02/21/25 11:29 02/21/25 11:45 Guaifenesin Syrup 200 Mg/10 Ml Udc PO 03/23/25 11:28 100 mg QID PRN Administration COUGH Protocol Metronidazole 500 mg in 100 mls @ 200 mls/hr 02/17/25 09:38 02/22/25 05:10 Flagyl 500 Mg Iv IV 02/24/25 09:37 200 mls/hr Q8HR KATIE Administration Cefepime HCl 2 gm/ Sodium 50 mls @ 100 mls/hr 02/18/25 10:42 02/22/25 05:21 Chloride IV 02/25/25 10:41 100 mls/hr Q8HR KATIE Administration Vancomycin/Sodium Chloride 200 mls @ 120 mls/hr 02/22/25 10:00 02/22/25 11:24 Vancomycin/Ns 1 Gm Ivpb IV 03/01/25 09:59 120 mls/hr Q12H KATIE Administration Levothyroxine Sodium 112.5 mcg 02/14/25 01:20 02/19/25 10:22 Levothyroxine Inj 100 Mcg Vial IV 03/16/25 01:19 Not Given On Hold: 02/19/25 10:19 DAILY KATIE Comment: PO ORDER PLACED Levothyroxine Sodium 125 mcg/ 150 mcg 02/19/25 10:30 02/22/25 05:07 Levothyroxine Sodium 25 mcg NG 03/21/25 10:29 150 mcg ACBR KATIE Administration Metoclopramide HCl 10 mg 02/17/25 12:00 02/22/25 11:23 Metoclopramide Inj 5 Mg/Ml Vial 2 Ml IVP 03/19/25 11:59 10 mg Q6HR KATIE Administration Protocol Ondansetron HCl 4 mg 02/10/25 20:28 02/16/25 11:44 Ondansetron Inj 2 Mg/Ml Inj 2 Ml IVP 03/12/25 20:27 4 mg Q6H PRN Administration NAUSEA OR VOMITING Protocol Pantoprazole Sodium 40 mg 02/13/25 11:15 02/22/25 09:31 Pantoprazole Inj 40 Mg Vial IVP 03/15/25 11:14 40 mg QDAY KATIE Administration Pharmacy Consult 1 each 02/18/25 10:45 Vancomycin Pharmacy To Dose 1 Each Each IV 02/25/25 10:44 QDAY PRN CONSULT Sennosides 1 tab 02/10/25 20:28 02/13/25 05:37 Senna Tablet PO 03/12/25 20:27 1 tab QDAY PRN Administration constipation Protocol Sertraline HCl 50 mg 02/11/25 21:00 02/21/25 20:28 Sertraline Hcl 25 Mg Tablet PO 03/13/25 20:59 Not Given HS KATIE Sodium Chloride 4 ml 02/21/25 13:00 02/22/25 12:36 Sodium Cl Rt Quiana 3% 4 Ml Nebu (Non-Formulary) INH 03/23/25 12:59 Not Given Q6HRRT KATIE Plan Tyra Larkin 59F pmhx significant for HFpEF (60-65%, 07/2023), 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 Course complicated by iCU upgrade post surgery due to post anesthesia effects with patietn's hx of pulmonary fibrosis, and was intubated requiring pressors. Extubated on 02/18 and on 02/20, weaned off pressors and downgraded to floors. #Sigmoid bowel perforation s/p exploratory laparotomy with bowel resection and end colostomy (02/13/25) #Sepsis 2/2 feculent peritonitis #Severe lower abdominal pain #28mm calcified mass on sigmoid colon causing perforation, likely gallstone #Acute Encephalopathy (resolved) #Hypotension, resolved On admission patient had pain after meals since 2 weeks 02/09 at lower abdomen/suprapubic area. Extremely tender to palpation. Stated no BM for the past 5 days prior to admission. Denies hx of cholcystectomy. On admission, 02/10 CTA chest/AP: GB not visualized, 28mm calcified mass in sigmoid colon w/o visualization of GB; and MRCP: GB not visualized, common hepatic duct common bile duct normal size no stones, neg pancreatitis, no free fluid in abdomen, aorta normal size, minimal bilateral hydrenophrosis, edema in subcutaneous fatty tissues at the flanks; GB US: GB not visualized. On 02/13, patient became disoriented with significant abdominal pain. CXR showed pneumoperitoneum, with confirmation of CTAP showing extensive pneumoperitoneum, cholelithiasis but gallbladder wall appears thickened but no abnormal small air and fluid distended with prominent wall thickening, remains calcified mass in sigmoid colon 26 mm, consider gallstone ileus. Patient subsequently underwent ex lap with sigmoid bowel resection and end colostomy and removal of gallstone. Post surgery, patient was upgraded to ICU for concern of post anesthesia ability to protect airway due to pulmonary fibrosis. During ICU stay, of significance on 02/14, patient received shock from AED for desaturation rapidly after jaw found clamping down on ET tube and found to be bradycardic to 30s and Vtach on telemetry with a pulse. 02/13 BCx 1/2 grew staph hominis, likely contaminant. 02/17 repeat BCx NGTD. On 02/16, NG tube was placed per surgical team after patient had emesis following initiation of feeds, cleared to start liquid diet 02/18, and discontinued 02/20 as patient is able to tolerate feeds. Cefepime (02/10 - 02/13). Azithromycin (02/11-02/13). Ceftriaxone (02/13-02/18). Plan: - Surgery consulted, recs appreciated - Cefepime for pseudomonal coverage (switched from ceftriaxone) (02/18-02/25) - Flagyl continued for anaerobic coverage (02/13 - 02/25). - Vancomycin for Staph hominis on blood culture (02/18- ). - Will continue abx through 02/25 per ICU - Sputum culture pending - if positive for pseudomonas, will treat as new pneumonia (7-day course). #Acute hypoxic respiratory failure (resolved) 2/2 post anesthesia extubated 02/18 #LLL PNA, VAP vs HCAP vs aspiration #Pulmonary fibrosis 2/2 pesticides #Acute on chronic HFpEF (60-65%, 07/2023) #Severe pulmonary hypertension Presents with dyspnea at rest, worsening SOB, BLE swelling, and facial swelling on home O2 4L. Patient reports rehab center occasionally holds her Lasix due to soft BP. On admission saturating 88% on 4 L of oxygen, HR 100, WBC 14.8, BNP 1165, D-dimer 368, troponin 0.055->0.028, ABG 7.31/77/69/39 with repeat ABGs pH 7.29-7.32. On physical examination bilateral crackles over the both lungs. Follows Dr. Garrido and Dr. Kim outpatient. 02/09 CXR bilateral pulmonary congestion and enlarged cardiac contour. 02/09 CTA chest/AP showed prominent CHF, negative for PE, bilateral hilar lymphadenopathy, GB not visualized, 28mm calcified mass in sigmoid colon wo visualization of GB 02/10 TTE Normal LV size, wall thickness. Normal LV diastolic filling pattern for age. Estimated EF at 55-60 %. The RV size is moderately increased with moderately decreases systolic function. The estimated RVSP, 72 mmHg. RAP 15. The RA cavity size is severely increased. Moderate TR. Less than 50% respiratory change in dimension of the inferior vena cava abnormal. CXR 02/17: severe bilateral pneumonia/ARDS. DDx: combination of acute on chronic heart failure exacerbation vs worsening pulmonary fibrosis vs aspiration PNA vs CAP, less likely PE. Plan: - Abx as above - Supplemental O2 as needed to keep SpO2 >90% - Strict I&Os, daily weights. - 1.8L fluid restriction - Duoneb Q6H PRN - Hypertonic saline breathing treatment and guaifenesin for oral secretions - Benzocaine lozenge - CROSSTIE INSPECTOR consulted #Acute kidney injury (resolved) On 02/14, Cr increased to 1.0 BL 0.5-0.7. DDx: pre-renal vs intra-renal. fluid losses from surgery vs dehydration vs contrast use vs abdominal compartment syndrome. Patient did have surgery and has been NPO. Patient was given contrast for scans. Patient's abdomen is not hard or distended, less likely abd compartment syndrome. Plan: - Holding Bumex, pedal edema likely secondary to chronic bedbound status - Lasix 40 mg x1 #NSTEMI likely type II, 2/2 fluid overload (resolved) Admission troponin 0.055->0.028. #Hyperlipidemia Lipid panel unremarkable. Plan: - Continue home med atorvastatin 20 mg PO HS. #Normocytic anemia, stable DDx: surgery vs IV fluids. Hemoglobin on admission 12.1. No signs of bleeding Plan: - Continue to trend Hgb - Monitor for signs of bleeding #Hypothyroidism Home med levothyroxine 150 mcg ACBR. 02/11: TSH 0.36, T4 1.39 Plan: - Continue home levothyroxine 150 mcg PO, will give through NG tube Hospital management: Lines: PIV Diet: dysphagia 1, ensure Bowel: Senna prn GI prophylaxis: IV pantoprazole 40 mg QD DVT prophylaxis: Lovenox Disposition: tele, IV abx and weaning off HFNC O2 CODE STATUS: FULL CODE Plan of care discussed with attending Dr. Monahan, and PGY-2 Dr. Hanna. Shaina Scott, DO PGY-1 Internal Medicine Attending Provider Attestation/Addendum I have seen and examined the patient. I was physically present for the dodge portions of the services provided including history, physical exam, diagnosis, treatment plans and orders. I agree with assessment and plan of care as documented by residents. Patient seen and examined at bedside this morning. Appears comfortable and denies any new complaints. No acute overnight events. States that her cough has improved slightly compared to yesterday. Patient continues to complain of difficulty speaking and sore throat, we will start Chloraseptic and discussed with speech therapy. Abdominal pain has been tolerable. Tolerating diet well, denies any nausea or vomiting. Blood pressure has been improving. Noted to have mild bilateral crackles, continues to have bilateral pedal edema, requirement increased from 4 L to 6 L nasal cannula, we will add Lasix 40 x 1 monitor her blood pressure and fluid status closely. BC count noted to have increased to 19.6, patient continues to be on broad-spectrum IV antibiotics, did not have any febrile episode or any new/worsening symptoms we will continue to monitor closely. General surgery following closely, appreciate recommendations. Even though this this note was carefully revised there may still be minor errors in aeronautics commission director due to voice recognition software. Marianna Monahan MD
[2025-02-22] MEDS: FUROSEMIDE INJ 10 MG/ML 4ML VIAL 40 MG IVP (14:49)
--- NOTE | 2025-02-22 16:03 | PC.SS ---
Update: Patient remains on 6L of oxygen. D/C [facility].
--- NOTE | 2025-02-22 20:00 | ESPR_ITS ---
Documentation for date of: 02/22/25 Subjective Subjective Interval history: Surgical specimen shows 3.1 cm but no evidence of any carcinoma Postprandial pain White count on the rise in spite of cefepime Flagyl and vancomycin Exam Vital Signs Temp Pulse Resp BP Pulse Ox O2 Del Method O2 Flow Rate 98.0 F 93 28 H 88/60 L 99 Nasal Cannula 6 02/22/25 04:00 02/22/25 18:37 02/22/25 18:37 02/22/25 16:00 02/22/25 18:37 02/21/25 04:00 02/22/25 18:37 FiO2 50 02/20/25 10:19 Objective Labs 02/22/25 04:10 02/22/25 04:10 Labs: Laboratory Results - last 24 hr 02/21/25 02/22/25 21:53 04:10 WBC 19.6 H RBC 3.83 L Hgb 10.1 L Hct 34.9 L MCV 91 MCH 26.4 MCHC 28.9 L RDW Std Deviation 59.0 H Plt Count 373 Neut % (Auto) 89 H Lymph % (Auto) 5 L [place] % (Auto) 4 Eos % (Auto) 1 Baso % (Auto) 0 Neut # (Auto) 17.4 H Lymph # (Auto) 1.1 [place] # (Auto) 0.8 Eos # (Auto) 0.2 Baso # (Auto) 0.0 Immature Gran # (Auto) 0.14 H Absolute Nucleated RBC 0.00 Immature Gran % 1 H Nucleated RBC % 0 Sodium 143 Potassium 4.3 Chloride 100 Carbon Dioxide 34.4 H Anion Gap 9 BUN 12 Creatinine 0.4 L Estim Creat Clear Calc 134.9 eGFR > 60 BUN/Creatinine Ratio 30 H Glucose 76 Calculated Osmolality 283 Calcium 7.8 L Corrected Calcium 8.9 Phosphorus 2.3 L Magnesium 1.9 Total Bilirubin 0.2 L AST 36 H ALT 15 Alkaline Phosphatase 68 Total Protein 4.9 L Albumin 2.6 L Globulin 2.3 Albumin/Globulin Ratio 1.1 L Vancomycin Trough 19.0 H Impressions Impression: # Sigmoid perforation status post sigmoid resection with end colostomy Sigmoid resection was about 13 cm long # Leukocytosis Trend WBC count # Postprandial pain probably due to surgical intervention etiology obscure No plans for any invasive GI workup at this time will continue to monitor ABG Interpretation ABG results: 02/09/25 02/11/25 02/11/25 17:37 00:05 02:08 ABG pH 7.31 L 7.29 L 7.30 L ABG pCO2 77 H* 81 H* 79 H* ABG pO2 69 L 72 L 76 L ABG HCO3 39 H 39 H 39 H ABG O2 Saturation 93 94 95 ABG Base Excess 10 H 9 H 9 H VBG pH VBG pCO2 VBG pO2 VBG Base Excess 02/11/25 02/11/25 02/13/25 05:00 11:20 17:05 ABG pH 7.32 L 7.22 L D ABG pCO2 77 H* 89 H* D ABG pO2 73 L 86 ABG HCO3 39 H 36 H ABG O2 Saturation 95 96 ABG Base Excess 10 H 6 H VBG pH 7.47 VBG pCO2 53 VBG pO2 147 H VBG Base Excess 12 H 02/13/25 02/14/25 02/14/25 18:58 00:08 01:56 ABG pH 7.31 L 7.17 L* D ABG pCO2 70 H D 97 H* D ABG pO2 137 H D 95 D ABG HCO3 35 H 35 H ABG O2 Saturation 100 H 97 ABG Base Excess 7 H 4 H VBG pH 7.31 L VBG pCO2 70 H D VBG pO2 64 H D VBG Base Excess 7 H 02/14/25 02/14/25 02/14/25 04:50 13:37 Unknown ABG pH 7.35 D ABG pCO2 63 H D ABG pO2 129 H D ABG HCO3 35 H ABG O2 Saturation 100 H ABG Base Excess 7 H VBG pH 7.34 7.27 L VBG pCO2 55 D 70 H D VBG pO2 118 H D 44 D VBG Base Excess 2 3 02/15/25 02/15/25 02/15/25 04:06 10:13 15:32 ABG pH 7.39 7.24 L D ABG pCO2 57 H 83 H* D ABG pO2 63 L D 72 L ABG HCO3 35 H 35 H ABG O2 Saturation 93 92 ABG Base Excess 8 H 6 H VBG pH 7.42 VBG pCO2 58 H D VBG pO2 38 VBG Base Excess 12 H 02/16/25 02/18/25 02/18/25 05:30 00:26 04:20 ABG pH ABG pCO2 ABG pO2 ABG HCO3 ABG O2 Saturation ABG Base Excess VBG pH 7.38 7.39 7.40 VBG pCO2 65 H 64 H 60 H VBG pO2 49 44 90 H D VBG Base Excess 11 H 11 H 10 H 02/18/25 02/18/25 04:21 07:43 ABG pH 7.37 D 7.35 ABG pCO2 64 H D 67 H ABG pO2 84 63 L D ABG HCO3 37 H 37 H ABG O2 Saturation 97 95 ABG Base Excess 10 H 9 H VBG pH VBG pCO2 VBG pO2 VBG Base Excess Assessment & Plan Time Spent With Patient Time: Total time spent is greater than 50% in coordination of care (as documented) at patient's floor/unit and/or counseling patient:
[2025-02-23] VITALS (11 sets, daily range): BP systolic 90–102; BP diastolic 56–73; PULSE 86–96; RESP 16–20; TEMP 36.1–37.1; O2SAT 93–100
[2025-02-23] MEDS: METOCLOPRAMIDE INJ 5 MG/ML VIAL 2 ML 10 MG IVP ×4 (00:55→17:17)
[2025-02-23] MEDS: metroNIDAZOLE/NS 500 MG IVPB 500 MG/100 ML BAG 200 MG IV ×3 (05:22→21:34)
[2025-02-23] MEDS: LEVOTHYROXINE SODIUM 125 MCG, LEVOTHYROXINE SODIUM 25 MCG 150 MCG NG (05:22)
[2025-02-23] MEDS: CEFEPIME INJ 2 GM in SODIUM CHLORIDE 0.9% (Popper) 50 ML IV ×3 (05:23→21:34)
[2025-02-23 07:47] LABS: Basophils # (Auto) 0.1 Thou/mm3 (0.0-0.2); Basophils % (Auto) 0 % (0-2.5); Eosinophils # (Auto) 0.1 Thou/mm3 (0.0-0.5); Eosinophils % (Auto) 0 % (0-10); Hematocrit 36.8 % (36.0-46.0); Hemoglobin 10.5 g/dL (12.0-16.0); Immature Granulocytes Auto 0.16 Thou/mm3 (0.00-0.00); Lymphocytes # (Auto) 1.1 Thou/mm3 (1.0-4.8); Lymphocytes % (Auto) 4 % (10-50); Mean Corpuscular HGB Conc 28.5 g/dl (31.0-37.0); Mean Corpuscular Hemoglobin 26.6 pg (25.0-35.0); Mean Corpuscular Volume 93 fL (80-100); Monocytes # (Auto) 0.8 Thou/mm3 (0.0-0.8); Monocytes % (Auto) 3 % (0-12); Neutrophils # (Auto) 22.6 Thou/mm3 (1.8-7.7); Neutrophils % (Auto) 91 % (37-80); Nucleated Red Blood Cell # 0.00 Thou/mm3 (0.00-0.00); Nucleated Red Blood Cell % 0 /100 WBC (0); Platelet Count 481 Thou/mm3 (140-440); RDW Standard Deviation 59.7 fL (36.4-46.3); Red Blood Count 3.94 Miln/mm3 (4.00-5.20); White Blood Count 24.8 Thou/mm3 (3.6-11.0)
[2025-02-23 08:07] LABS: Alanine Aminotransferase 10 U/L (10-49); Albumin, Serum 2.9 gm/dL (3.4-4.8); Albumin/Globulin Ratio 1.2 (1.2-2.2); Alkaline Phosphatase 64 U/L (46-116); Anion Gap 6 (7-16); Aspartate Amino Transferase 28 U/L (0-34); BUN/Creatinine Ratio 23 Ratio (12-20); Bilirubin,Total 0.3 mg/dL (0.3-1.2); Blood Urea Nitrogen 9 mg/dL (9-23); Calcium 8.0 mg/dL (8.3-10.6); Calcium (Corrected) 8.9 mg/dL (8.5-10.1); Carbon Dioxide > 40.0 mMol/L (20.0-31.0); Chloride 98 mMol/L (98-107); Creatinine (Component) 0.4 mg/dL (0.6-1.3); Estimated Creatinine Clearance 136.4 mL/min (>60); Globulin 2.5 gm/dL (2.3-3.5); Glucose 89 mg/dL (74-106); Osmolality,Calculated 284 (275-295); Potassium 3.8 mMol/L (3.4-5.1); Sodium 144 mMol/L (136-145); Total Protein 5.4 gm/dL (5.7-8.2); eGFR > 60 See Note
--- NOTE | 2025-02-23 08:40 | XR_ITS ---
EXAMINATION: AP chest single view TECHNIQUE: AP portable upright chest single view Date and time: February 23, 2025, 0857 hours, comparison December 18, 2024 INDICATIONS: Diagnosis CHF exacerbation, pneumonia FINDINGS: Mild heart failure. Mild enlargement cardiac contour. Prominent vascular congestion with perihilar edema. Air bronchograms left base consistent with pneumonia. Severe osteopenia IMPRESSION: Mild heart failure. Left base pneumonia
[2025-02-23] MEDS: ENOXAPARIN SOD INJ 40 MG/0.4 ML SYRINGE SC (09:38)
[2025-02-23] MEDS: VANCOMYCIN/NS 1 GM IVPB 200 ML IV ×2 (09:38→22:25)
[2025-02-23 11:24] LABS: Magnesium 1.8 mg/dL (1.6-2.6); Phosphorous 2.1 mg/dL (2.4-5.1)
[2025-02-23 11:54] LABS: Base Excess, Venous 14 (-3-3); O2 Saturation, Venous 96 % (96-97); PCO2, Venous 58 mmHg (36-56); PO2, Venous 66 mmHg (15-58); pH, Venous 7.45 (7.33-7.66)
--- NOTE | 2025-02-23 12:52 | ESPR_ITS ---
<Statement entered by Nadeem Dietz MD - 02/23/25 17:41> I have reviewed the note and agree with the resident's assessment & plan with exceptions as below. I have personally reviewed labs, imaging, home meds/prior records, examined the patient, formulated and discussed management plan with my attending Patient was seen and examined at bedside this morning. No acute overnight events. This morning patient's labs showed some metabolic alkalosis likely secondary to diuresis. Patient still has some lower extremity swelling therefore will give albumin at this time. Has been tolerating p.o. intake with some cramping, but otherwise pain is well-controlled. WBC did increase to 24, but at this time we will continue to monitor as patient is clinically improving. Will also start midodrine 10 mg 3 times daily for soft BP. Will continue with Flagyl, cefepime, and Vanco. In the evening patient was noted to be having some discharge from the wound was seen mildly purulent/serous, but no pain or erythema in the wound. Made surgery aware. Otherwise no other complaints at this time. Nadeem Dietz PGY2 Disclaimer: Even though this this note was dictated by speech recognition and even though it was carefully revised there may still be minor errors in contact worker due to voice recognition software. Documentation for date of: 02/23/25 Subjective Subjective Interval history: No acute overnight events. Patient was examined at bedside. Patient was feeling increased cramping while eating, but is able to keep down food. Colostomy output good. Vitals labs reviewed, SBP 90s, heart rate in 90s. WBC increased from 19 now 24, hemoglobin stable 10.5, bicarb greater than 40. Sputum culture pending. Increased bicarb likely secondary to Lasix given yesterday. Continue antibiotics of cefepime Flagyl and vancomycin until 02/25. VBG ordered due to increased bicarb. pH 7.45. Started midodrine 10 mg 3 times daily and albumin 75 g x 1. Exam Vital Signs Temp Pulse Resp BP Pulse Ox O2 Del Method O2 Flow Rate 97.9 F 91 20 91/64 97 Nasal Cannula 6 02/23/25 08:00 02/23/25 08:00 02/23/25 08:00 02/23/25 08:00 02/23/25 08:00 02/23/25 08:00 02/23/25 08:00 FiO2 50 02/20/25 10:19 Narrative Exam GENERAL: AOx3, no acute distress HEENT: mucous membranes moist, bilateral sclera anicteric CARDIOVASCULAR: regular rate and rhythm, S1/S2 present, no murmurs appreciated PULMONARY: clear to auscultation bilaterally, no rales/rhonchi/wheezes ABDOMINAL: soft, TTP at incision site, non-distended, no rebound/guarding, bowel sounds present, vertical incision site dressing clean and intact, colostomy bag intact with brown output EXTREMITIES: 2+ BLE edema SKIN: warm and dry, intact, no rashes NEURO: CN II-XII grossly intact, alert, following commands Objective Labs 02/23/25 07:23 02/23/25 07:23 Labs: Laboratory Results - last 24 hr 02/23/25 02/23/25 07:23 11:30 WBC 24.8 H D RBC 3.94 L Hgb 10.5 L Hct 36.8 MCV 93 MCH 26.6 MCHC 28.5 L RDW Std Deviation 59.7 H Plt Count 481 H D Neut % (Auto) 91 H Lymph % (Auto) 4 L [place] % (Auto) 3 Eos % (Auto) 0 Baso % (Auto) 0 Neut # (Auto) 22.6 H Lymph # (Auto) 1.1 [place] # (Auto) 0.8 Eos # (Auto) 0.1 Baso # (Auto) 0.1 Immature Gran # (Auto) 0.16 H Absolute Nucleated RBC 0.00 Immature Gran % 1 H Nucleated RBC % 0 VBG pH 7.45 VBG pCO2 58 H VBG pO2 66 H VBG O2 Sat ([place]) 96 VBG Base Excess 14 H Sodium 144 Potassium 3.8 D Chloride 98 Carbon Dioxide > 40.0 H Anion Gap 6 L BUN 9 Creatinine 0.4 L Estim Creat Clear Calc 136.4 eGFR > 60 BUN/Creatinine Ratio 23 H Glucose 89 Calculated Osmolality 284 Calcium 8.0 L Corrected Calcium 8.9 Phosphorus 2.1 L Magnesium 1.8 Total Bilirubin 0.3 AST 28 ALT 10 Alkaline Phosphatase 64 Total Protein 5.4 L Albumin 2.9 L Globulin 2.5 Albumin/Globulin Ratio 1.2 ABG Interpretation ABG results: 02/09/25 02/11/25 02/11/25 17:37 00:05 02:08 ABG pH 7.31 L 7.29 L 7.30 L ABG pCO2 77 H* 81 H* 79 H* ABG pO2 69 L 72 L 76 L ABG HCO3 39 H 39 H 39 H ABG O2 Saturation 93 94 95 ABG Base Excess 10 H 9 H 9 H VBG pH VBG pCO2 VBG pO2 VBG Base Excess 02/11/25 02/11/25 02/13/25 05:00 11:20 17:05 ABG pH 7.32 L 7.22 L D ABG pCO2 77 H* 89 H* D ABG pO2 73 L 86 ABG HCO3 39 H 36 H ABG O2 Saturation 95 96 ABG Base Excess 10 H 6 H VBG pH 7.47 VBG pCO2 53 VBG pO2 147 H VBG Base Excess 12 H 02/13/25 02/14/25 02/14/25 18:58 00:08 01:56 ABG pH 7.31 L 7.17 L* D ABG pCO2 70 H D 97 H* D ABG pO2 137 H D 95 D ABG HCO3 35 H 35 H ABG O2 Saturation 100 H 97 ABG Base Excess 7 H 4 H VBG pH 7.31 L VBG pCO2 70 H D VBG pO2 64 H D VBG Base Excess 7 H 02/14/25 02/14/25 02/14/25 04:50 13:37 Unknown ABG pH 7.35 D ABG pCO2 63 H D ABG pO2 129 H D ABG HCO3 35 H ABG O2 Saturation 100 H ABG Base Excess 7 H VBG pH 7.34 7.27 L VBG pCO2 55 D 70 H D VBG pO2 118 H D 44 D VBG Base Excess 2 3 02/15/25 02/15/25 02/15/25 04:06 10:13 15:32 ABG pH 7.39 7.24 L D ABG pCO2 57 H 83 H* D ABG pO2 63 L D 72 L ABG HCO3 35 H 35 H ABG O2 Saturation 93 92 ABG Base Excess 8 H 6 H VBG pH 7.42 VBG pCO2 58 H D VBG pO2 38 VBG Base Excess 12 H 02/16/25 02/18/25 02/18/25 05:30 00:26 04:20 ABG pH ABG pCO2 ABG pO2 ABG HCO3 ABG O2 Saturation ABG Base Excess VBG pH 7.38 7.39 7.40 VBG pCO2 65 H 64 H 60 H VBG pO2 49 44 90 H D VBG Base Excess 11 H 11 H 10 H 02/18/25 02/18/25 02/23/25 04:21 07:43 11:30 ABG pH 7.37 D 7.35 ABG pCO2 64 H D 67 H ABG pO2 84 63 L D ABG HCO3 37 H 37 H ABG O2 Saturation 97 95 ABG Base Excess 10 H 9 H VBG pH 7.45 VBG pCO2 58 H VBG pO2 66 H VBG Base Excess 14 H Quality Measures Quality Measures VTE prophylaxis Assessment & Plan Assessment Current Active Medications: Generic Name Dose Route Start Last Admin Trade Name Freq PRN Reason Stop Dose Admin Acetaminophen 650 mg 02/10/25 20:28 02/19/25 16:21 Acetaminophen 325 Mg Tablet PO 03/12/25 20:27 650 mg Q6H PRN Administration PAIN SCALE 1-3 (mild Albuterol/Ipratropium 3 ml 02/12/25 11:26 Albuterol/Ipratropium (Duoneb) Rt Quiana 3 Ml Nebu INH 03/14/25 12:59 Q6HRRT PRN wheezing and SOB Atorvastatin Calcium 20 mg 02/10/25 21:00 02/22/25 20:24 Atorvastatin Calcium 20 Mg Tablet PO 03/12/25 20:59 Not Given HS KATIE Benzocaine 1 lozenge 02/22/25 12:02 Benzocaine/Menthol 1 Lozenge PO 03/24/25 12:01 Q4HR PRN sore throat Bumetanide 1 mg 02/18/25 09:00 02/18/25 08:39 Bumetanide Inj 0.25 Mg/Ml Vial 4 Ml IVP 03/20/25 08:59 1 mg On Hold: 02/19/25 06:52 QDAY KATIE Administration Docusate Sodium 100 mg 02/21/25 11:33 Docusate Sod 100 Mg Capsule PO 03/23/25 11:32 BID PRN CONSTIPATION Protocol Enoxaparin Sodium 40 mg 02/17/25 11:15 02/23/25 09:38 Enoxaparin Sod Inj 40 Mg/0.4 Ml Syringe SC 03/03/25 11:14 40 mg QDAY KATIE Administration Guaifenesin 100 mg 02/21/25 11:29 02/21/25 11:45 Guaifenesin Syrup 200 Mg/10 Ml Udc PO 03/23/25 11:28 100 mg QID PRN Administration COUGH Protocol Metronidazole 500 mg in 100 mls @ 200 mls/hr 02/17/25 09:38 02/23/25 05:22 Flagyl 500 Mg Iv IV 02/24/25 09:37 200 mls/hr Q8HR KATIE Administration Cefepime HCl 2 gm/ Sodium 50 mls @ 100 mls/hr 02/18/25 10:42 02/23/25 05:23 Chloride IV 02/25/25 10:41 100 mls/hr Q8HR KATIE Administration Vancomycin/Sodium Chloride 200 mls @ 120 mls/hr 02/22/25 10:00 02/23/25 09:38 Vancomycin/Ns 1 Gm Ivpb IV 03/01/25 09:59 120 mls/hr Q12H KATIE Administration Protocol Albumin Human 25 gm in 100 mls @ 100 mls/hr 02/23/25 09:41 Albuminex 25% Ivpb IV 02/26/25 09:40 QDAY KATIE Albumin Human 25 gm in 100 mls @ 100 mls/hr 02/23/25 09:42 Albuminex 25% Ivpb IV 02/26/25 09:41 QDAY KATIE Albumin Human 25 gm in 100 mls @ 100 mls/hr 02/23/25 10:42 Albuminex 25% Ivpb IV 02/26/25 10:41 QDAY KATIE Levothyroxine Sodium 112.5 mcg 02/14/25 01:20 02/19/25 10:22 Levothyroxine Inj 100 Mcg Vial IV 03/16/25 01:19 Not Given On Hold: 02/19/25 10:19 DAILY KATIE Comment: PO ORDER PLACED Levothyroxine Sodium 125 mcg/ 150 mcg 02/19/25 10:30 02/23/25 05:22 Levothyroxine Sodium 25 mcg NG 03/21/25 10:29 150 mcg ACBR KATIE Administration Metoclopramide HCl 10 mg 02/17/25 12:00 02/23/25 05:23 Metoclopramide Inj 5 Mg/Ml Vial 2 Ml IVP 03/19/25 11:59 10 mg Q6HR KATIE Administration Protocol Midodrine 10 mg 02/23/25 08:49 Midodrine 5 Mg Tablet PO 03/25/25 08:44 TID KATIE Ondansetron HCl 4 mg 02/10/25 20:28 02/16/25 11:44 Ondansetron Inj 2 Mg/Ml Inj 2 Ml IVP 03/12/25 20:27 4 mg Q6H PRN Administration NAUSEA OR VOMITING Protocol Pantoprazole Sodium 40 mg 02/13/25 11:15 02/23/25 09:38 Pantoprazole Inj 40 Mg Vial IVP 03/15/25 11:14 40 mg QDAY KATIE Administration Pharmacy Consult 1 each 02/18/25 10:45 Vancomycin Pharmacy To Dose 1 Each Each IV 02/25/25 10:44 QDAY PRN CONSULT Sennosides 1 tab 02/10/25 20:28 02/13/25 05:37 Senna Tablet PO 03/12/25 20:27 1 tab QDAY PRN Administration constipation Protocol Sertraline HCl 50 mg 02/11/25 21:00 02/22/25 20:25 Sertraline Hcl 25 Mg Tablet PO 03/13/25 20:59 Not Given HS KATIE Sodium Chloride 4 ml 02/22/25 20:44 Sodium Cl Rt Quiana 3% 4 Ml Nebu (Non-Formulary) INH 03/23/25 12:59 Q6HRRT PRN SECRETIONS Plan Tyra Larkin 59F pmhx significant for HFpEF (60-65%, 07/2023), 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 Course complicated by iCU upgrade post surgery due to post anesthesia effects with patietn's hx of pulmonary fibrosis, and was intubated requiring pressors. Extubated on 02/18 and on 02/20, weaned off pressors and downgraded to floors. #Sigmoid bowel perforation s/p exploratory laparotomy with bowel resection and end colostomy (02/13/25) #Sepsis 2/2 feculent peritonitis #Severe lower abdominal pain #28mm calcified mass on sigmoid colon causing perforation, likely gallstone #Acute Encephalopathy (resolved) #Hypotension, resolved On admission patient had pain after meals since 2 weeks 02/09 at lower abdomen/suprapubic area. Extremely tender to palpation. Stated no BM for the past 5 days prior to admission. Denies hx of cholcystectomy. On admission, 02/10 CTA chest/AP: GB not visualized, 28mm calcified mass in sigmoid colon w/o visualization of GB; and MRCP: GB not visualized, common hepatic duct common bile duct normal size no stones, neg pancreatitis, no free fluid in abdomen, aorta normal size, minimal bilateral hydrenophrosis, edema in subcutaneous fatty tissues at the flanks; GB US: GB not visualized. On 02/13, patient became disoriented with significant abdominal pain. CXR showed pneumoperitoneum, with confirmation of CTAP showing extensive pneumoperitoneum, cholelithiasis but gallbladder wall appears thickened but no abnormal small air and fluid distended with prominent wall thickening, remains calcified mass in sigmoid colon 26 mm, consider gallstone ileus. Patient subsequently underwent ex lap with sigmoid bowel resection and end colostomy and removal of gallstone. Post surgery, patient was upgraded to ICU for concern of post anesthesia ability to protect airway due to pulmonary fibrosis. During ICU stay, of significance on 02/14, patient received shock from AED for desaturation rapidly after jaw found clamping down on ET tube and found to be bradycardic to 30s and Vtach on telemetry with a pulse. 02/13 BCx 1/2 grew staph hominis, likely contaminant. 02/17 repeat BCx NGTD. On 02/16, NG tube was placed per surgical team after patient had emesis following initiation of feeds, cleared to start liquid diet 02/18, and discontinued 02/20 as patient is able to tolerate feeds. Cefepime (02/10 - 02/13). Azithromycin (02/11-02/13). Ceftriaxone (02/13-02/18). Plan: - Surgery consulted, recs appreciated - Cefepime for pseudomonal coverage (switched from ceftriaxone) (02/18-02/25) - Flagyl continued for anaerobic coverage (02/13 - 02/25). - Vancomycin for Staph hominis on blood culture (02/18- ). - Will continue abx through 02/25 per ICU - Sputum culture pending - if positive for pseudomonas, will treat as new pneumonia (7-day course). - Start midodrine 10 mg TID - s/p albumin 75g today #Acute hypoxic respiratory failure (resolved) 2/2 post anesthesia extubated 02/18 #LLL PNA, VAP vs HCAP vs aspiration #Pulmonary fibrosis 2/2 pesticides #Acute on chronic HFpEF (60-65%, 07/2023) #Severe pulmonary hypertension Presents with dyspnea at rest, worsening SOB, BLE swelling, and facial swelling on home O2 4L. Patient reports rehab center occasionally holds her Lasix due to soft BP. On admission saturating 88% on 4 L of oxygen, HR 100, WBC 14.8, BNP 1165, D-dimer 368, troponin 0.055->0.028, ABG 7.31/77/69/39 with repeat ABGs pH 7.29-7.32. On physical examination bilateral crackles over the both lungs. Follows Dr. Garrido and Dr. Kim outpatient. 02/09 CXR bilateral pulmonary congestion and enlarged cardiac contour. 02/09 CTA chest/AP showed prominent CHF, negative for PE, bilateral hilar lymphadenopathy, GB not visualized, 28mm calcified mass in sigmoid colon wo visualization of GB 02/10 TTE Normal LV size, wall thickness. Normal LV diastolic filling pattern for age. Estimated EF at 55-60 %. The RV size is moderately increased with moderately decreases systolic function. The estimated RVSP, 72 mmHg. RAP 15. The RA cavity size is severely increased. Moderate TR. Less than 50% respiratory change in dimension of the inferior vena cava abnormal. CXR 02/17: severe bilateral pneumonia/ARDS. DDx: combination of acute on chronic heart failure exacerbation vs worsening pulmonary fibrosis vs aspiration PNA vs CAP, less likely PE. Plan: - Abx as above - Supplemental O2 as needed to keep SpO2 >90% - Strict I&Os, daily weights. - 1.8L fluid restriction - Duoneb Q6H PRN - Hypertonic saline breathing treatment and guaifenesin for oral secretions - Benzocaine lozenge - RETAIL SU[employer] MANAGER consulted #Acute kidney injury (resolved) On 02/14, Cr increased to 1.0 BL 0.5-0.7. DDx: pre-renal vs intra-renal. fluid losses from surgery vs dehydration vs contrast use vs abdominal compartment syndrome. Patient did have surgery and has been NPO. Patient was given contrast for scans. Patient's abdomen is not hard or distended, less likely abd compartment syndrome. Plan: - Holding Bumex, pedal edema likely secondary to chronic bedbound status #NSTEMI likely type II, 2/2 fluid overload (resolved) Admission troponin 0.055->0.028. #Hyperlipidemia Lipid panel unremarkable. Plan: - Continue home med atorvastatin 20 mg PO HS. #Normocytic anemia, stable DDx: surgery vs IV fluids. Hemoglobin on admission 12.1. No signs of bleeding Plan: - Continue to trend Hgb - Monitor for signs of bleeding #Hypothyroidism Home med levothyroxine 150 mcg ACBR. 02/11: TSH 0.36, T4 1.39 Plan: - Continue home levothyroxine 150 mcg PO, will give through NG tube Hospital management: Lines: PIV Diet: dysphagia 1, ensure Bowel: Senna prn GI prophylaxis: IV pantoprazole 40 mg QD DVT prophylaxis: Lovenox Disposition: tele, IV abx and inc PO intake CODE STATUS: FULL CODE Plan of care discussed with attending Dr. Torres, and PGY-2 Dr. Hanna. Shaina Scott DO PGY-1 Internal Medicine Attending Provider Attestation/Addendum Ju, Debby Torres DO, attest that I was physically present for the dodge portions of the service and evaluated the patient with the resident and I reviewed and discussed the case with the resident and agree with the resident's findings and plans of care as documented above Patient seen and evaluated this AM. She complains of sore throat and voice remains sore. She also states that her b/l LE are still edematous. Will give albumin as patient albumin levels remain low. Patient has been tolerating oral intake and states she is eating well. Patient has 2+ pitting edema in b/l LE. However, developing contractile alkalosis due to lasix yesterady. Will monitor fluid status closely and restart if needed. She is currently on 5L/NC (baseline home o2 needs:4L). Will continue with current management. Patient has been afebrile despite leukocytosis. She remains on IV abx. Encourage IS
[2025-02-23] MEDS: ALBUMIN HUMAN-KJDA 25% IVPB 25 GM/100 ML BTL IV ×3 (13:05→15:26)
[2025-02-23] MEDS: MIDODRINE 5 MG TABLET 10 MG PO ×2 (13:14→21:34)
[2025-02-23] MEDS: ACETAMINOPHEN 325 MG TABLET 650 MG PO ×2 (13:41→20:24)
--- NOTE | 2025-02-23 15:08 | PC.SS ---
rounding note: Post op day 10. Patient remains on i.v. antibiotics. Patient will return to [facility] once stable.
--- NOTE | 2025-02-23 18:50 | PD.IMPROG ---
Documentation for date of: 02/23/25 Subjective Subjective Interval history: Rising WBC count to 24.8 from 19.8 this is concerning as patient is already on 3 antibiotics cefepime Flagyl and vancomycin patient clinically improving P.o. intake is improving and the pain postprandial is very well-controlled Good activity in the colostomy bag Exam Vital Signs Temp Pulse Resp BP Pulse Ox O2 Del Method O2 Flow Rate 97.5 F 88 19 94/58 L 97 Nasal Cannula 6 02/23/25 16:00 02/23/25 16:00 02/23/25 16:00 02/23/25 16:00 02/23/25 16:00 02/23/25 16:00 02/23/25 16:00 FiO2 50 02/20/25 10:19 Objective Labs 02/23/25 07:23 02/23/25 07:23 Labs: Laboratory Results - last 24 hr 02/23/25 02/23/25 07:23 11:30 WBC 24.8 H D RBC 3.94 L Hgb 10.5 L Hct 36.8 MCV 93 MCH 26.6 MCHC 28.5 L RDW Std Deviation 59.7 H Plt Count 481 H D Neut % (Auto) 91 H Lymph % (Auto) 4 L [place] % (Auto) 3 Eos % (Auto) 0 Baso % (Auto) 0 Neut # (Auto) 22.6 H Lymph # (Auto) 1.1 [place] # (Auto) 0.8 Eos # (Auto) 0.1 Baso # (Auto) 0.1 Immature Gran # (Auto) 0.16 H Absolute Nucleated RBC 0.00 Immature Gran % 1 H Nucleated RBC % 0 VBG pH 7.45 VBG pCO2 58 H VBG pO2 66 H VBG O2 Sat (Alexsander) 96 VBG Base Excess 14 H Sodium 144 Potassium 3.8 D Chloride 98 Carbon Dioxide > 40.0 H Anion Gap 6 L BUN 9 Creatinine 0.4 L Estim Creat Clear Calc 136.4 eGFR > 60 BUN/Creatinine Ratio 23 H Glucose 89 Calculated Osmolality 284 Calcium 8.0 L Corrected Calcium 8.9 Phosphorus 2.1 L Magnesium 1.8 Total Bilirubin 0.3 AST 28 ALT 10 Alkaline Phosphatase 64 Total Protein 5.4 L Albumin 2.9 L Globulin 2.5 Albumin/Globulin Ratio 1.2 Impressions Impression: # Status post sigmoid resection and colostomy working well # Leukocytosis rising WBC count on 3 antibiotics will continue to monitor Continue current management ABG Interpretation ABG results: 02/09/25 02/11/25 02/11/25 17:37 00:05 02:08 ABG pH 7.31 L 7.29 L 7.30 L ABG pCO2 77 H* 81 H* 79 H* ABG pO2 69 L 72 L 76 L ABG HCO3 39 H 39 H 39 H ABG O2 Saturation 93 94 95 ABG Base Excess 10 H 9 H 9 H VBG pH VBG pCO2 VBG pO2 VBG Base Excess 02/11/25 02/11/25 02/13/25 05:00 11:20 17:05 ABG pH 7.32 L 7.22 L D ABG pCO2 77 H* 89 H* D ABG pO2 73 L 86 ABG HCO3 39 H 36 H ABG O2 Saturation 95 96 ABG Base Excess 10 H 6 H VBG pH 7.47 VBG pCO2 53 VBG pO2 147 H VBG Base Excess 12 H 02/13/25 02/14/25 02/14/25 18:58 00:08 01:56 ABG pH 7.31 L 7.17 L* D ABG pCO2 70 H D 97 H* D ABG pO2 137 H D 95 D ABG HCO3 35 H 35 H ABG O2 Saturation 100 H 97 ABG Base Excess 7 H 4 H VBG pH 7.31 L VBG pCO2 70 H D VBG pO2 64 H D VBG Base Excess 7 H 02/14/25 02/14/25 02/14/25 04:50 13:37 Unknown ABG pH 7.35 D ABG pCO2 63 H D ABG pO2 129 H D ABG HCO3 35 H ABG O2 Saturation 100 H ABG Base Excess 7 H VBG pH 7.34 7.27 L VBG pCO2 55 D 70 H D VBG pO2 118 H D 44 D VBG Base Excess 2 3 02/15/25 02/15/25 02/15/25 04:06 10:13 15:32 ABG pH 7.39 7.24 L D ABG pCO2 57 H 83 H* D ABG pO2 63 L D 72 L ABG HCO3 35 H 35 H ABG O2 Saturation 93 92 ABG Base Excess 8 H 6 H VBG pH 7.42 VBG pCO2 58 H D VBG pO2 38 VBG Base Excess 12 H 02/16/25 02/18/25 02/18/25 05:30 00:26 04:20 ABG pH ABG pCO2 ABG pO2 ABG HCO3 ABG O2 Saturation ABG Base Excess VBG pH 7.38 7.39 7.40 VBG pCO2 65 H 64 H 60 H VBG pO2 49 44 90 H D VBG Base Excess 11 H 11 H 10 H 02/18/25 02/18/25 02/23/25 04:21 07:43 11:30 ABG pH 7.37 D 7.35 ABG pCO2 64 H D 67 H ABG pO2 84 63 L D ABG HCO3 37 H 37 H ABG O2 Saturation 97 95 ABG Base Excess 10 H 9 H VBG pH 7.45 VBG pCO2 58 H VBG pO2 66 H VBG Base Excess 14 H Assessment & Plan Time Spent With Patient Time: Total time spent is greater than 50% in coordination of care (as documented) at patient's floor/unit and/or counseling patient:
[2025-02-23] MEDS: ATORVASTATIN CALCIUM 20 MG TABLET PO (20:24)
[2025-02-23 21:57] LABS: Vancomycin,Trough 18.6 mcg/mL (5.0-10.0)
[2025-02-24] VITALS (12 sets, daily range): BP systolic 90–112; BP diastolic 60–72; PULSE 88–94; RESP 12–28; TEMP 36.1–36.6; O2SAT 93–96; BMI 36.1
[2025-02-24] MEDS: METOCLOPRAMIDE INJ 5 MG/ML VIAL 2 ML 10 MG IVP ×4 (01:51→17:55)
[2025-02-24] MEDS: CEFEPIME INJ 2 GM in SODIUM CHLORIDE 0.9% (Popper) 50 ML IV ×3 (05:12→21:43)
[2025-02-24] MEDS: LEVOTHYROXINE SODIUM 125 MCG, LEVOTHYROXINE SODIUM 25 MCG 150 MCG NG (05:13)
[2025-02-24] MEDS: MIDODRINE 5 MG TABLET 10 MG PO ×3 (05:13→21:44)
[2025-02-24] MEDS: metroNIDAZOLE/NS 500 MG IVPB 500 MG/100 ML BAG 200 MG IV (05:14)
[2025-02-24 08:06] LABS: Basophils # (Auto) 0.0 Thou/mm3 (0.0-0.2); Basophils % (Auto) 0 % (0-2.5); Eosinophils # (Auto) 0.1 Thou/mm3 (0.0-0.5); Eosinophils % (Auto) 0 % (0-10); Hematocrit 32.0 % (36.0-46.0); Hemoglobin 9.2 g/dL (12.0-16.0); Immature Granulocytes Auto 0.13 Thou/mm3 (0.00-0.00); Lymphocytes # (Auto) 0.8 Thou/mm3 (1.0-4.8); Lymphocytes % (Auto) 4 % (10-50); Mean Corpuscular HGB Conc 28.8 g/dl (31.0-37.0); Mean Corpuscular Hemoglobin 26.9 pg (25.0-35.0); Mean Corpuscular Volume 94 fL (80-100); Monocytes # (Auto) 0.8 Thou/mm3 (0.0-0.8); Monocytes % (Auto) 4 % (0-12); Neutrophils # (Auto) 22.4 Thou/mm3 (1.8-7.7); Neutrophils % (Auto) 92 % (37-80); Nucleated Red Blood Cell # 0.00 Thou/mm3 (0.00-0.00); Nucleated Red Blood Cell % 0 /100 WBC (0); Platelet Count 423 Thou/mm3 (140-440); RDW Standard Deviation 61.1 fL (36.4-46.3); Red Blood Count 3.42 Miln/mm3 (4.00-5.20); White Blood Count 24.3 Thou/mm3 (3.6-11.0)
[2025-02-24] MEDS: ENOXAPARIN SOD INJ 40 MG/0.4 ML SYRINGE SC (08:06)
[2025-02-24] MEDS: ALBUMIN HUMAN-KJDA 25% IVPB 25 GM/100 ML BTL IV (08:06)
[2025-02-24 08:08] LABS: Anion Gap 6 (7-16); BUN/Creatinine Ratio 22 Ratio (12-20); Blood Urea Nitrogen 11 mg/dL (9-23); Calcium 8.5 mg/dL (8.3-10.6); Carbon Dioxide 38.5 mMol/L (20.0-31.0); Chloride 100 mMol/L (98-107); Creatinine (Component) 0.5 mg/dL (0.6-1.3); Estimated Creatinine Clearance 112.1 mL/min (>60); Glucose 98 mg/dL (74-106); Osmolality,Calculated 286 (275-295); Potassium 4.4 mMol/L (3.4-5.1); Sodium 144 mMol/L (136-145); eGFR > 60 See Note
--- NOTE | 2025-02-24 08:10 | PD.SURPROG ---
Documentation for date of: 02/24/25 Subjective Subjective Narrative: Patient is seen and examined on telemetry unit, she is resting comfortably. She is tolerating diet and colostomy is functioning Exam Vital Signs Temp Pulse Resp BP Pulse Ox O2 Del Method O2 Flow Rate 97.2 F 88 20 94/66 95 Nasal Cannula 6 02/24/25 04:00 02/24/25 05:13 02/24/25 04:00 02/24/25 05:13 02/24/25 04:00 02/24/25 00:00 02/24/25 00:00 FiO2 50 02/20/25 10:19 Constitutional Constitutional: no acute distress Routine Abdominal Exam Comments: Abdomen is soft and nondistended. Incision is clean and intact with some clear drainage, no evidence of infection at this time. Colostomy is present and functioning Assessment & Plan Assessment Additional comments: status post exploratory laparotomy with sigmoid colectomy and end colostomy Plan Continue care as directed PROCEDURES: Procedures Exploratory laparotomy, sigmoid colectomy, end descending colostomy
--- NOTE | 2025-02-24 09:39 | ESPR_ITS ---
Documentation for date of: 02/24/25 Subjective Subjective Interval history: Overnight events, labs reviewed. The patient examined this a.m. at bedside. Lying in bed on 5 L of oxygen, in slight distress due to pain, ileostomy bag full with fecal material, I did notice some improvement in the patient's abdominal incision, which was erythematous yesterday and had yellowish fluid on discharge. This morning dressing was changed, dressing is soiled on the lower edge, general surgeon Dr Velez saw the patient this morning, no concern about surgical site infection at this point. Patient had no fever overnight, blood pressure 94/66, on midodrine 10 mg 3 times daily, Tmax 97.2 F. Continued IV antibiotics for HCAP and abdominal infection vancomycin and cefepime and Flagyl, antibiotic therapy to rate stop date tomorrow 02/25/25. Exam Vital Signs Temp Pulse Resp BP Pulse Ox O2 Del Method O2 Flow Rate 97.8 F 91 18 112/72 94 L Nasal Cannula 4 02/24/25 08:00 02/24/25 09:15 02/24/25 09:15 02/24/25 08:00 02/24/25 09:15 02/24/25 08:00 02/24/25 09:15 FiO2 50 02/20/25 10:19 Narrative Exam GENERAL: AOx3, no acute distress HEENT: mucous membranes moist, bilateral sclera anicteric CARDIOVASCULAR: regular rate and rhythm, S1/S2 present, no murmurs appreciated PULMONARY: clear to auscultation bilaterally, no rales/rhonchi/wheezes ABDOMINAL: soft, slightly tender lower abdomen, slightly erythematous incsion , yellowish fluid discharge noted on the lower end, dressing soiled. EXTREMITIES: 2+ BLE edema SKIN: warm and dry, intact, no rashes NEURO: CN II-XII grossly intact, alert, following commands Objective Labs 02/25/25 08:20 02/25/25 08:20 Labs: Laboratory Results - last 24 hr 02/23/25 02/23/25 02/23/25 07:23 11:30 21:17 WBC RBC Hgb Hct MCV MCH MCHC RDW Std Deviation Plt Count Neut % (Auto) Lymph % (Auto) [place] % (Auto) Eos % (Auto) Baso % (Auto) Neut # (Auto) Lymph # (Auto) [place] # (Auto) Eos # (Auto) Baso # (Auto) Immature Gran # (Auto) Absolute Nucleated RBC Immature Gran % Nucleated RBC % VBG pH 7.45 VBG pCO2 58 H VBG pO2 66 H VBG O2 Sat ([place]) 96 VBG Base Excess 14 H Sodium Potassium Chloride Carbon Dioxide Anion Gap BUN Creatinine Estim Creat Clear Calc eGFR BUN/Creatinine Ratio Glucose Calculated Osmolality Calcium Phosphorus 2.1 L Magnesium 1.8 Vancomycin Trough 18.6 H 02/24/25 07:36 WBC 24.3 H RBC 3.42 L Hgb 9.2 L Hct 32.0 L MCV 94 MCH 26.9 MCHC 28.8 L RDW Std Deviation 61.1 H Plt Count 423 D Neut % (Auto) 92 H Lymph % (Auto) 4 L [place] % (Auto) 4 Eos % (Auto) 0 Baso % (Auto) 0 Neut # (Auto) 22.4 H Lymph # (Auto) 0.8 L [place] # (Auto) 0.8 Eos # (Auto) 0.1 Baso # (Auto) 0.0 Immature Gran # (Auto) 0.13 H Absolute Nucleated RBC 0.00 Immature Gran % 1 H Nucleated RBC % 0 VBG pH VBG pCO2 VBG pO2 VBG O2 Sat ([place]) VBG Base Excess Sodium 144 Potassium 4.4 D Chloride 100 Carbon Dioxide 38.5 H Anion Gap 6 L BUN 11 Creatinine 0.5 L Estim Creat Clear Calc 112.1 eGFR > 60 BUN/Creatinine Ratio 22 H Glucose 98 Calculated Osmolality 286 Calcium 8.5 Phosphorus Magnesium Vancomycin Trough ABG Interpretation ABG results: 02/09/25 02/11/25 02/11/25 17:37 00:05 02:08 ABG pH 7.31 L 7.29 L 7.30 L ABG pCO2 77 H* 81 H* 79 H* ABG pO2 69 L 72 L 76 L ABG HCO3 39 H 39 H 39 H ABG O2 Saturation 93 94 95 ABG Base Excess 10 H 9 H 9 H VBG pH VBG pCO2 VBG pO2 VBG Base Excess 02/11/25 02/11/25 02/13/25 05:00 11:20 17:05 ABG pH 7.32 L 7.22 L D ABG pCO2 77 H* 89 H* D ABG pO2 73 L 86 ABG HCO3 39 H 36 H ABG O2 Saturation 95 96 ABG Base Excess 10 H 6 H VBG pH 7.47 VBG pCO2 53 VBG pO2 147 H VBG Base Excess 12 H 02/13/25 02/14/25 02/14/25 18:58 00:08 01:56 ABG pH 7.31 L 7.17 L* D ABG pCO2 70 H D 97 H* D ABG pO2 137 H D 95 D ABG HCO3 35 H 35 H ABG O2 Saturation 100 H 97 ABG Base Excess 7 H 4 H VBG pH 7.31 L VBG pCO2 70 H D VBG pO2 64 H D VBG Base Excess 7 H 02/14/25 02/14/25 02/14/25 04:50 13:37 Unknown ABG pH 7.35 D ABG pCO2 63 H D ABG pO2 129 H D ABG HCO3 35 H ABG O2 Saturation 100 H ABG Base Excess 7 H VBG pH 7.34 7.27 L VBG pCO2 55 D 70 H D VBG pO2 118 H D 44 D VBG Base Excess 2 3 02/15/25 02/15/25 02/15/25 04:06 10:13 15:32 ABG pH 7.39 7.24 L D ABG pCO2 57 H 83 H* D ABG pO2 63 L D 72 L ABG HCO3 35 H 35 H ABG O2 Saturation 93 92 ABG Base Excess 8 H 6 H VBG pH 7.42 VBG pCO2 58 H D VBG pO2 38 VBG Base Excess 12 H 02/16/25 02/18/25 02/18/25 05:30 00:26 04:20 ABG pH ABG pCO2 ABG pO2 ABG HCO3 ABG O2 Saturation ABG Base Excess VBG pH 7.38 7.39 7.40 VBG pCO2 65 H 64 H 60 H VBG pO2 49 44 90 H D VBG Base Excess 11 H 11 H 10 H 02/18/25 02/18/25 02/23/25 04:21 07:43 11:30 ABG pH 7.37 D 7.35 ABG pCO2 64 H D 67 H ABG pO2 84 63 L D ABG HCO3 37 H 37 H ABG O2 Saturation 97 95 ABG Base Excess 10 H 9 H VBG pH 7.45 VBG pCO2 58 H VBG pO2 66 H VBG Base Excess 14 H Quality Measures Quality Measures VTE prophylaxis Assessment & Plan Assessment Current Active Medications: Generic Name Dose Route Start Last Admin Trade Name Freq PRN Reason Stop Dose Admin Acetaminophen 650 mg 02/10/25 20:28 02/23/25 20:24 Acetaminophen 325 Mg Tablet PO 03/12/25 20:27 650 mg Q6H PRN Administration PAIN SCALE 1-3 (mild Albuterol/Ipratropium 3 ml 02/12/25 11:26 Albuterol/Ipratropium (Duoneb) Rt Quiana 3 Ml Nebu INH 03/14/25 12:59 Q6HRRT PRN wheezing and SOB Atorvastatin Calcium 20 mg 02/10/25 21:00 02/23/25 20:24 Atorvastatin Calcium 20 Mg Tablet PO 03/12/25 20:59 20 mg HS KATIE Administration Benzocaine 1 lozenge 02/22/25 12:02 Benzocaine/Menthol 1 Lozenge PO 03/24/25 12:01 Q4HR PRN sore throat Bumetanide 1 mg 02/18/25 09:00 02/18/25 08:39 Bumetanide Inj 0.25 Mg/Ml Vial 4 Ml IVP 03/20/25 08:59 1 mg On Hold: 02/19/25 06:52 QDAY KATIE Administration Docusate Sodium 100 mg 02/21/25 11:33 Docusate Sod 100 Mg Capsule PO 03/23/25 11:32 BID PRN CONSTIPATION Protocol Enoxaparin Sodium 40 mg 02/17/25 11:15 02/24/25 08:06 Enoxaparin Sod Inj 40 Mg/0.4 Ml Syringe SC 03/03/25 11:14 40 mg QDAY KATIE Administration Guaifenesin 100 mg 02/21/25 11:29 02/21/25 11:45 Guaifenesin Syrup 200 Mg/10 Ml Udc PO 03/23/25 11:28 100 mg QID PRN Administration COUGH Protocol Cefepime HCl 2 gm/ Sodium 50 mls @ 100 mls/hr 02/18/25 10:42 02/24/25 05:12 Chloride IV 02/25/25 10:41 100 mls/hr Q8HR KATIE Administration Vancomycin/Sodium Chloride 200 mls @ 120 mls/hr 02/22/25 10:00 02/23/25 22:25 Vancomycin/Ns 1 Gm Ivpb IV 03/01/25 09:59 120 mls/hr Q12H KATIE Administration Protocol Levothyroxine Sodium 112.5 mcg 02/14/25 01:20 02/19/25 10:22 Levothyroxine Inj 100 Mcg Vial IV 03/16/25 01:19 Not Given On Hold: 02/19/25 10:19 DAILY KATIE Comment: PO ORDER PLACED Levothyroxine Sodium 125 mcg/ 150 mcg 02/19/25 10:30 02/24/25 05:13 Levothyroxine Sodium 25 mcg NG 03/21/25 10:29 150 mcg ACBR KATIE Administration Metoclopramide HCl 10 mg 02/17/25 12:00 02/24/25 05:12 Metoclopramide Inj 5 Mg/Ml Vial 2 Ml IVP 03/19/25 11:59 10 mg Q6HR KATIE Administration Protocol Midodrine 10 mg 02/23/25 08:49 02/24/25 05:13 Midodrine 5 Mg Tablet PO 03/25/25 08:44 10 mg TID KATIE Administration Ondansetron HCl 4 mg 02/10/25 20:28 02/16/25 11:44 Ondansetron Inj 2 Mg/Ml Inj 2 Ml IVP 03/12/25 20:27 4 mg Q6H PRN Administration NAUSEA OR VOMITING Protocol Pantoprazole Sodium 40 mg 02/13/25 11:15 02/24/25 08:06 Pantoprazole Inj 40 Mg Vial IVP 03/15/25 11:14 40 mg QDAY KATIE Administration Pharmacy Consult 1 each 02/18/25 10:45 Vancomycin Pharmacy To Dose 1 Each Each IV 02/25/25 10:44 QDAY PRN CONSULT Sennosides 1 tab 02/10/25 20:28 02/13/25 05:37 Senna Tablet PO 03/12/25 20:27 1 tab QDAY PRN Administration constipation Protocol Sertraline HCl 50 mg 02/11/25 21:00 02/23/25 20:25 Sertraline Hcl 25 Mg Tablet PO 03/13/25 20:59 Not Given HS KATIE Sodium Chloride 4 ml 02/22/25 20:44 Sodium Cl Rt [place] 3% 4 Ml Nebu (Non-Formulary) INH 03/23/25 12:59 Q6HRRT PRN SECRETIONS Plan Tyra Larkin 59F pmhx significant for HFpEF (60-65%, 07/2023), 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 Course complicated by iCU upgrade post surgery due to post anesthesia effects with patietn's hx of pulmonary fibrosis, and was intubated requiring pressors. Extubated on 02/18 and on 02/20, weaned off pressors and downgraded to floors. #Sigmoid bowel perforation s/p exploratory laparotomy with bowel resection and end colostomy (02/13/25) #Sepsis 2/2 feculent peritonitis #Severe lower abdominal pain #28mm calcified mass on sigmoid colon causing perforation, likely gallstone #Acute Encephalopathy (resolved) #Hypotension, resolved On admission patient had pain after meals since 2 weeks 02/09 at lower abdomen/suprapubic area. Extremely tender to palpation. Stated no BM for the past 5 days prior to admission. Denies hx of cholcystectomy. On admission, 02/10 CTA chest/AP: GB not visualized, 28mm calcified mass in sigmoid colon w/o visualization of GB; and MRCP: GB not visualized, common hepatic duct common bile duct normal size no stones, neg pancreatitis, no free fluid in abdomen, aorta normal size, minimal bilateral hydrenophrosis, edema in subcutaneous fatty tissues at the flanks; GB US: GB not visualized. On 02/13, patient became disoriented with significant abdominal pain. CXR showed pneumoperitoneum, with confirmation of CTAP showing extensive pneumoperitoneum, cholelithiasis but gallbladder wall appears thickened but no abnormal small air and fluid distended with prominent wall thickening, remains calcified mass in sigmoid colon 26 mm, consider gallstone ileus. Patient subsequently underwent ex lap with sigmoid bowel resection and end colostomy and removal of gallstone. Post surgery, patient was upgraded to ICU for concern of post anesthesia ability to protect airway due to pulmonary fibrosis. During ICU stay, of significance on 02/14, patient received shock from AED for desaturation rapidly after jaw found clamping down on ET tube and found to be bradycardic to 30s and Vtach on telemetry with a pulse. 02/13 BCx 1/2 grew staph hominis, likely contaminant. 02/17 repeat BCx NGTD. On 02/16, NG tube was placed per surgical team after patient had emesis following initiation of feeds, cleared to start liquid diet 02/18, and discontinued 02/20 as patient is able to tolerate feeds. Cefepime (02/10 - 02/13). Azithromycin (02/11-02/13). Ceftriaxone (02/13-02/18). Plan: - Surgery consulted, recs appreciated - Cefepime for pseudomonal coverage (switched from ceftriaxone) (02/18-02/25) - Flagyl continued for anaerobic coverage (02/13 - 02/25). - Vancomycin for Staph hominis on blood culture (02/18- ). - Will continue abx through 02/25 per ICU - Sputum culture pending - if positive for pseudomonas, will treat as new pneumonia (7-day course). - Start midodrine 10 mg TID - s/p albumin 75g yesterday #Acute hypoxic respiratory failure (resolved) 2/2 post anesthesia extubated 02/18 #LLL PNA, VAP vs HCAP vs aspiration #Pulmonary fibrosis 2/2 pesticides #Acute on chronic HFpEF (60-65%, 07/2023) #Severe pulmonary hypertension Presents with dyspnea at rest, worsening SOB, BLE swelling, and facial swelling on home O2 4L. Patient reports rehab center occasionally holds her Lasix due to soft BP. On admission saturating 88% on 4 L of oxygen, HR 100, WBC 14.8, BNP 1165, D-dimer 368, troponin 0.055->0.028, ABG 7.31/77/69/39 with repeat ABGs pH 7.29-7.32. On physical examination bilateral crackles over the both lungs. Follows Dr. Garrido and Dr. Kim outpatient. 02/09 CXR bilateral pulmonary congestion and enlarged cardiac contour. 02/09 CTA chest/AP showed prominent CHF, negative for PE, bilateral hilar lymphadenopathy, GB not visualized, 28mm calcified mass in sigmoid colon wo visualization of GB 02/10 TTE Normal LV size, wall thickness. Normal LV diastolic filling pattern for age. Estimated EF at 55-60 %. The RV size is moderately increased with moderately decreases systolic function. The estimated RVSP, 72 mmHg. RAP 15. The RA cavity size is severely increased. Moderate TR. Less than 50% respiratory change in dimension of the inferior vena cava abnormal. CXR 02/17: severe bilateral pneumonia/ARDS. DDx: combination of acute on chronic heart failure exacerbation vs worsening pulmonary fibrosis vs aspiration PNA vs CAP, less likely PE. Plan: - Abx as above - Supplemental O2 as needed to keep SpO2 >90% - Strict I&Os, daily weights. - 1.8L fluid restriction - Duoneb Q6H PRN - Hypertonic saline breathing treatment and guaifenesin for oral secretions - Benzocaine lozenge - POOL COORDINATOR consulted #Acute kidney injury (resolved) On 02/14, Cr increased to 1.0 BL 0.5-0.7. DDx: pre-renal vs intra-renal. fluid losses from surgery vs dehydration vs contrast use vs abdominal compartment syndrome. Patient did have surgery and has been NPO. Patient was given contrast for scans. Patient's abdomen is not hard or distended, less likely abd compartment syndrome. Plan: - Holding Bumex, pedal edema likely secondary to chronic bedbound status #NSTEMI likely type II, 2/2 fluid overload (resolved) Admission troponin 0.055->0.028. #Hyperlipidemia Lipid panel unremarkable. Plan: - Continue home med atorvastatin 20 mg PO HS. #Normocytic anemia, stable DDx: surgery vs IV fluids. Hemoglobin on admission 12.1. No signs of bleeding Plan: - Continue to trend Hgb - Monitor for signs of bleeding #Hypothyroidism Home med levothyroxine 150 mcg ACBR. 02/11: TSH 0.36, T4 1.39 Plan: - Continue home levothyroxine 150 mcg PO, will give through NG tube Hospital management: Lines: PIV Diet: dysphagia 1, ensure Bowel: Senna prn GI prophylaxis: IV pantoprazole 40 mg QD DVT prophylaxis: Lovenox Disposition: tele, IV abx and inc PO intake CODE STATUS: FULL CODE Plan of care discussed with attending Dimitri Gallardo pgy 3 Attending Provider Attestation/Addendum Debby Dodd DO, attest that I was physically present for the dodge portions of the service and evaluated the patient with the resident and I reviewed and discussed the case with the resident and agree with the resident's findings and plans of care as documented above Patient seen and evaluated this AM. B/l le edema appears improved. Overnight, incision was noted to have some serous drainage. Mild erythema noted at lower aspect of incision. Nesha are otherwise intact. Case discussed with surgeon, not concerned for infection. Patient has been afebrile. She reports some pain at site of incision. However, she states she does not need morphine and pain is currently tolerable. Encourage IS. She is currrentlyon 5L/NC. She is to complete one more day of antibiotics.
[2025-02-24] MEDS: VANCOMYCIN/NS 1 GM IVPB 200 ML IV ×2 (10:30→21:44)
--- NOTE | 2025-02-24 14:59 | PC.SS ---
Rounding note: pending surgery recommendation, Dr. Velez following.
--- NOTE | 2025-02-24 18:31 | ESPR_ITS ---
Documentation for date of: 02/24/25 Subjective Subjective Interval history: Malfunctioning colostomy Tolerating p.o. diet Exam Vital Signs Temp Pulse Resp BP Pulse Ox O2 Del Method O2 Flow Rate 97.4 F 92 26 H 101/67 93 L Nasal Cannula 4 02/24/25 16:00 02/24/25 16:00 02/24/25 16:00 02/24/25 16:00 02/24/25 16:00 02/24/25 16:00 02/24/25 16:00 FiO2 50 02/24/25 16:00 Objective Labs 02/24/25 07:36 02/24/25 07:36 Labs: Laboratory Results - last 24 hr 02/23/25 02/24/25 21:17 07:36 WBC 24.3 H RBC 3.42 L Hgb 9.2 L Hct 32.0 L MCV 94 MCH 26.9 MCHC 28.8 L RDW Std Deviation 61.1 H Plt Count 423 D Neut % (Auto) 92 H Lymph % (Auto) 4 L [place] % (Auto) 4 Eos % (Auto) 0 Baso % (Auto) 0 Neut # (Auto) 22.4 H Lymph # (Auto) 0.8 L [place] # (Auto) 0.8 Eos # (Auto) 0.1 Baso # (Auto) 0.0 Immature Gran # (Auto) 0.13 H Absolute Nucleated RBC 0.00 Immature Gran % 1 H Nucleated RBC % 0 Sodium 144 Potassium 4.4 D Chloride 100 Carbon Dioxide 38.5 H Anion Gap 6 L BUN 11 Creatinine 0.5 L Estim Creat Clear Calc 112.1 eGFR > 60 BUN/Creatinine Ratio 22 H Glucose 98 Calculated Osmolality 286 Calcium 8.5 Vancomycin Trough 18.6 H Impressions Impression: Status post exploratory laparotomy sigmoid colectomy end colostomy which is functioning very well Oral intake improving Continue current management ABG Interpretation ABG results: 02/09/25 02/11/25 02/11/25 17:37 00:05 02:08 ABG pH 7.31 L 7.29 L 7.30 L ABG pCO2 77 H* 81 H* 79 H* ABG pO2 69 L 72 L 76 L ABG HCO3 39 H 39 H 39 H ABG O2 Saturation 93 94 95 ABG Base Excess 10 H 9 H 9 H VBG pH VBG pCO2 VBG pO2 VBG Base Excess 02/11/25 02/11/25 02/13/25 05:00 11:20 17:05 ABG pH 7.32 L 7.22 L D ABG pCO2 77 H* 89 H* D ABG pO2 73 L 86 ABG HCO3 39 H 36 H ABG O2 Saturation 95 96 ABG Base Excess 10 H 6 H VBG pH 7.47 VBG pCO2 53 VBG pO2 147 H VBG Base Excess 12 H 02/13/25 02/14/25 02/14/25 18:58 00:08 01:56 ABG pH 7.31 L 7.17 L* D ABG pCO2 70 H D 97 H* D ABG pO2 137 H D 95 D ABG HCO3 35 H 35 H ABG O2 Saturation 100 H 97 ABG Base Excess 7 H 4 H VBG pH 7.31 L VBG pCO2 70 H D VBG pO2 64 H D VBG Base Excess 7 H 02/14/25 02/14/25 02/14/25 04:50 13:37 Unknown ABG pH 7.35 D ABG pCO2 63 H D ABG pO2 129 H D ABG HCO3 35 H ABG O2 Saturation 100 H ABG Base Excess 7 H VBG pH 7.34 7.27 L VBG pCO2 55 D 70 H D VBG pO2 118 H D 44 D VBG Base Excess 2 3 02/15/25 02/15/25 02/15/25 04:06 10:13 15:32 ABG pH 7.39 7.24 L D ABG pCO2 57 H 83 H* D ABG pO2 63 L D 72 L ABG HCO3 35 H 35 H ABG O2 Saturation 93 92 ABG Base Excess 8 H 6 H VBG pH 7.42 VBG pCO2 58 H D VBG pO2 38 VBG Base Excess 12 H 02/16/25 02/18/25 02/18/25 05:30 00:26 04:20 ABG pH ABG pCO2 ABG pO2 ABG HCO3 ABG O2 Saturation ABG Base Excess VBG pH 7.38 7.39 7.40 VBG pCO2 65 H 64 H 60 H VBG pO2 49 44 90 H D VBG Base Excess 11 H 11 H 10 H 02/18/25 02/18/25 02/23/25 04:21 07:43 11:30 ABG pH 7.37 D 7.35 ABG pCO2 64 H D 67 H ABG pO2 84 63 L D ABG HCO3 37 H 37 H ABG O2 Saturation 97 95 ABG Base Excess 10 H 9 H VBG pH 7.45 VBG pCO2 58 H VBG pO2 66 H VBG Base Excess 14 H Assessment & Plan Time Spent With Patient Time: Total time spent is greater than 50% in coordination of care (as documented) at patient's floor/unit and/or counseling patient:
[2025-02-24] MEDS: ATORVASTATIN CALCIUM 20 MG TABLET PO (21:44)
[2025-02-25] VITALS (11 sets, daily range): BP systolic 96–108; BP diastolic 59–95; PULSE 61–101; RESP 14–29; TEMP 35.9–36.8; O2SAT 92–97; BMI 34.1
[2025-02-25] MEDS: METOCLOPRAMIDE INJ 5 MG/ML VIAL 2 ML 10 MG IVP ×5 (00:39→23:42)
[2025-02-25] MEDS: CEFEPIME INJ 2 GM in SODIUM CHLORIDE 0.9% (Popper) 50 ML IV (05:35)
[2025-02-25] MEDS: LEVOTHYROXINE SODIUM 125 MCG, LEVOTHYROXINE SODIUM 25 MCG 150 MCG NG ×2 (05:36)
[2025-02-25] MEDS: MIDODRINE 5 MG TABLET 10 MG PO ×3 (05:37→21:50)
[2025-02-25] MEDS: ENOXAPARIN SOD INJ 40 MG/0.4 ML SYRINGE SC (08:28)
[2025-02-25] MEDS: FLUCONAZOLE 100 MG TABLET 200 MG PO (08:28)
[2025-02-25 09:13] LABS: Basophils # (Auto) 0.0 Thou/mm3 (0.0-0.2); Basophils % (Auto) 0 % (0-2.5); Eosinophils # (Auto) 0.0 Thou/mm3 (0.0-0.5); Eosinophils % (Auto) 0 % (0-10); Hematocrit 33.7 % (36.0-46.0); Hemoglobin 9.6 g/dL (12.0-16.0); Immature Granulocytes Auto 0.16 Thou/mm3 (0.00-0.00); Lymphocytes # (Auto) 0.8 Thou/mm3 (1.0-4.8); Lymphocytes % (Auto) 3 % (10-50); Mean Corpuscular HGB Conc 28.5 g/dl (31.0-37.0); Mean Corpuscular Hemoglobin 26.6 pg (25.0-35.0); Mean Corpuscular Volume 93 fL (80-100); Monocytes # (Auto) 0.8 Thou/mm3 (0.0-0.8); Monocytes % (Auto) 3 % (0-12); Neutrophils # (Auto) 21.6 Thou/mm3 (1.8-7.7); Neutrophils % (Auto) 92 % (37-80); Nucleated Red Blood Cell # 0.00 Thou/mm3 (0.00-0.00); Nucleated Red Blood Cell % 0 /100 WBC (0); Platelet Count 403 Thou/mm3 (140-440); RDW Standard Deviation 61.3 fL (36.4-46.3); Red Blood Count 3.61 Miln/mm3 (4.00-5.20); White Blood Count 23.4 Thou/mm3 (3.6-11.0)
[2025-02-25 09:41] LABS: Alanine Aminotransferase 9 U/L (10-49); Albumin, Serum 3.5 gm/dL (3.4-4.8); Albumin/Globulin Ratio 1.8 (1.2-2.2); Alkaline Phosphatase 57 U/L (46-116); Anion Gap 8 (7-16); Aspartate Amino Transferase 23 U/L (0-34); BUN/Creatinine Ratio 53 Ratio (12-20); Bilirubin,Total 0.3 mg/dL (0.3-1.2); Blood Urea Nitrogen 16 mg/dL (9-23); Calcium 8.5 mg/dL (8.3-10.6); Calcium (Corrected) 8.9 mg/dL (8.5-10.1); Carbon Dioxide 36.5 mMol/L (20.0-31.0); Chloride 100 mMol/L (98-107); Creatinine (Component) 0.3 mg/dL (0.6-1.3); Estimated Creatinine Clearance 180.8 mL/min (>60); Globulin 1.9 gm/dL (2.3-3.5); Glucose 79 mg/dL (74-106); Osmolality,Calculated 287 (275-295); Phosphorous 1.7 mg/dL (2.4-5.1); Potassium 4.3 mMol/L (3.4-5.1); Sodium 144 mMol/L (136-145); Total Protein 5.4 gm/dL (5.7-8.2); Vancomycin,Trough 18.6 mcg/mL (5.0-10.0); eGFR > 60 See Note
--- NOTE | 2025-02-25 09:57 | PC.SS ---
rounding note: Patient is a resident from [facility] and is expected to return. Colostomy bag in place. On i.v. antibiotics.
[2025-02-25] MEDS: NAPH,KPH MBDB 1 PACKET (1.5 GM) 2 PACKET PO (10:26)
[2025-02-25] MEDS: VANCOMYCIN/NS 1 GM IVPB 200 ML IV ×2 (10:26→21:50)
--- NOTE | 2025-02-25 11:58 | ESPR_ITS ---
<Statement entered by Nadeem Dietz MD - 02/25/25 14:18> I have reviewed the note and agree with the resident's assessment & plan with exceptions as below. I have personally reviewed labs, imaging, home meds/prior records, examined the patient, formulated and discussed management plan with my attending Patient was seen and examined at bedside this morning. No acute overnight events. Patient's trachea culture grew harjinder therefore started fluconazole 220mg qday given elevated WBC that have not improved with antibiotic and pulmonary fibrosis. Patient finished full course of antibiotics. Incision looks clean still some serous discharge. Expect Dc in the next 24-48 hrs. Nadeem Dietz PGY2 Disclaimer: Even though this this note was dictated by speech recognition and even though it was carefully revised there may still be minor errors in cleaning attendant due to voice recognition software. Documentation for date of: 02/25/25 Subjective Subjective Interval history: No acute overnight events. Patient seen examined at bedside. Patient reports continued but improved abdominal pain especially as incisional site and while eating. Reports secretions are little to none. Colostomy bag with good output. Vitals labs reviewed. SBP 90-100, heart rate 90s mildly tachycardic RR high 20s. Saturating 97% on 4 L. Hemoglobin stable 11.6, bicarb 36.5, creatinine 0.3 phosphorus 1.7 repleted with 2 packets of Neutra-Phos. Antibiotics to finish today. Started fluconazole 200 mg daily for positive sputum culture Harjinder, iso pulmonary fibrosis. CTM incision site, which has improved since yesterday. Exam Vital Signs Temp Pulse Resp BP Pulse Ox O2 Del Method O2 Flow Rate 98.2 F 91 18 103/63 93 L Nasal Cannula 4 02/25/25 08:00 02/25/25 08:00 02/25/25 08:00 02/25/25 08:00 02/25/25 08:00 02/25/25 08:00 02/25/25 08:00 FiO2 50 02/25/25 08:00 Narrative Exam GENERAL: AOx3, no acute distress HEENT: mucous membranes moist, bilateral sclera anicteric CARDIOVASCULAR: regular rate and rhythm, S1/S2 present, no murmurs appreciated PULMONARY: clear to auscultation bilaterally, no rales/rhonchi/wheezes ABDOMINAL: soft, slightly tender lower abdomen, slightly erythematous incsion, serosanguineous discharge noted on the lower end, no blood EXTREMITIES: 2+ BLE edema SKIN: warm and dry, intact, no rashes NEURO: CN II-XII grossly intact, alert, following commands Objective Labs 02/25/25 08:20 02/25/25 08:20 Labs: Laboratory Results - last 24 hr 02/25/25 08:20 WBC 23.4 H RBC 3.61 L Hgb 9.6 L Hct 33.7 L MCV 93 MCH 26.6 MCHC 28.5 L RDW Std Deviation 61.3 H Plt Count 403 Neut % (Auto) 92 H Lymph % (Auto) 3 L [place] % (Auto) 3 Eos % (Auto) 0 Baso % (Auto) 0 Neut # (Auto) 21.6 H Lymph # (Auto) 0.8 L [place] # (Auto) 0.8 Eos # (Auto) 0.0 Baso # (Auto) 0.0 Immature Gran # (Auto) 0.16 H Absolute Nucleated RBC 0.00 Immature Gran % 1 H Nucleated RBC % 0 Sodium 144 Potassium 4.3 Chloride 100 Carbon Dioxide 36.5 H Anion Gap 8 BUN 16 Creatinine 0.3 L Estim Creat Clear Calc 180.8 eGFR > 60 BUN/Creatinine Ratio 53 H Glucose 79 Calculated Osmolality 287 Calcium 8.5 Corrected Calcium 8.9 Phosphorus 1.7 L Total Bilirubin 0.3 AST 23 ALT 9 L Alkaline Phosphatase 57 Total Protein 5.4 L Albumin 3.5 D Globulin 1.9 L Albumin/Globulin Ratio 1.8 Vancomycin Trough 18.6 H ABG Interpretation ABG results: 02/09/25 02/11/25 02/11/25 17:37 00:05 02:08 ABG pH 7.31 L 7.29 L 7.30 L ABG pCO2 77 H* 81 H* 79 H* ABG pO2 69 L 72 L 76 L ABG HCO3 39 H 39 H 39 H ABG O2 Saturation 93 94 95 ABG Base Excess 10 H 9 H 9 H VBG pH VBG pCO2 VBG pO2 VBG Base Excess 02/11/25 02/11/25 02/13/25 05:00 11:20 17:05 ABG pH 7.32 L 7.22 L D ABG pCO2 77 H* 89 H* D ABG pO2 73 L 86 ABG HCO3 39 H 36 H ABG O2 Saturation 95 96 ABG Base Excess 10 H 6 H VBG pH 7.47 VBG pCO2 53 VBG pO2 147 H VBG Base Excess 12 H 02/13/25 02/14/25 02/14/25 18:58 00:08 01:56 ABG pH 7.31 L 7.17 L* D ABG pCO2 70 H D 97 H* D ABG pO2 137 H D 95 D ABG HCO3 35 H 35 H ABG O2 Saturation 100 H 97 ABG Base Excess 7 H 4 H VBG pH 7.31 L VBG pCO2 70 H D VBG pO2 64 H D VBG Base Excess 7 H 02/14/25 02/14/25 02/14/25 04:50 13:37 Unknown ABG pH 7.35 D ABG pCO2 63 H D ABG pO2 129 H D ABG HCO3 35 H ABG O2 Saturation 100 H ABG Base Excess 7 H VBG pH 7.34 7.27 L VBG pCO2 55 D 70 H D VBG pO2 118 H D 44 D VBG Base Excess 2 3 02/15/25 02/15/25 02/15/25 04:06 10:13 15:32 ABG pH 7.39 7.24 L D ABG pCO2 57 H 83 H* D ABG pO2 63 L D 72 L ABG HCO3 35 H 35 H ABG O2 Saturation 93 92 ABG Base Excess 8 H 6 H VBG pH 7.42 VBG pCO2 58 H D VBG pO2 38 VBG Base Excess 12 H 02/16/25 02/18/25 02/18/25 05:30 00:26 04:20 ABG pH ABG pCO2 ABG pO2 ABG HCO3 ABG O2 Saturation ABG Base Excess VBG pH 7.38 7.39 7.40 VBG pCO2 65 H 64 H 60 H VBG pO2 49 44 90 H D VBG Base Excess 11 H 11 H 10 H 02/18/25 02/18/25 02/23/25 04:21 07:43 11:30 ABG pH 7.37 D 7.35 ABG pCO2 64 H D 67 H ABG pO2 84 63 L D ABG HCO3 37 H 37 H ABG O2 Saturation 97 95 ABG Base Excess 10 H 9 H VBG pH 7.45 VBG pCO2 58 H VBG pO2 66 H VBG Base Excess 14 H Quality Measures Quality Measures VTE prophylaxis Assessment & Plan Assessment Current Active Medications: Generic Name Dose Route Start Last Admin Trade Name Freq PRN Reason Stop Dose Admin Acetaminophen 650 mg 02/10/25 20:28 02/23/25 20:24 Acetaminophen 325 Mg Tablet PO 03/12/25 20:27 650 mg Q6H PRN Administration PAIN SCALE 1-3 (mild Albuterol/Ipratropium 3 ml 02/12/25 11:26 Albuterol/Ipratropium (Duoneb) Rt Quiana 3 Ml Nebu INH 03/14/25 12:59 Q6HRRT PRN wheezing and SOB Atorvastatin Calcium 20 mg 02/10/25 21:00 02/24/25 21:44 Atorvastatin Calcium 20 Mg Tablet PO 03/12/25 20:59 20 mg HS KATIE Administration Benzocaine 1 lozenge 02/22/25 12:02 Benzocaine/Menthol 1 Lozenge PO 03/24/25 12:01 Q4HR PRN sore throat Bumetanide 1 mg 02/18/25 09:00 02/18/25 08:39 Bumetanide Inj 0.25 Mg/Ml Vial 4 Ml IVP 03/20/25 08:59 1 mg On Hold: 02/19/25 06:52 QDAY KATIE Administration Docusate Sodium 100 mg 02/21/25 11:33 Docusate Sod 100 Mg Capsule PO 03/23/25 11:32 BID PRN CONSTIPATION Protocol Enoxaparin Sodium 40 mg 02/17/25 11:15 02/25/25 08:28 Enoxaparin Sod Inj 40 Mg/0.4 Ml Syringe SC 03/03/25 11:14 40 mg QDAY KATIE Administration Fluconazole 200 mg 02/25/25 09:00 02/25/25 08:28 Fluconazole 100 Mg Tablet PO 03/04/25 08:59 200 mg QDAY KATIE Administration Guaifenesin 100 mg 02/21/25 11:29 02/21/25 11:45 Guaifenesin Syrup 200 Mg/10 Ml Udc PO 03/23/25 11:28 100 mg QID PRN Administration COUGH Protocol Vancomycin/Sodium Chloride 200 mls @ 120 mls/hr 02/22/25 10:00 02/25/25 10:26 Vancomycin/Ns 1 Gm Ivpb IV 03/01/25 09:59 120 mls/hr Q12H KATIE Administration Protocol Levothyroxine Sodium 112.5 mcg 02/14/25 01:20 02/19/25 10:22 Levothyroxine Inj 100 Mcg Vial IV 03/16/25 01:19 Not Given On Hold: 02/19/25 10:19 DAILY KATIE Comment: PO ORDER PLACED Levothyroxine Sodium 125 mcg/ 150 mcg 02/19/25 10:30 02/25/25 05:36 Levothyroxine Sodium 25 mcg NG 03/21/25 10:29 150 mcg ACBR KATIE Administration Metoclopramide HCl 10 mg 02/17/25 12:00 02/25/25 05:35 Metoclopramide Inj 5 Mg/Ml Vial 2 Ml IVP 03/19/25 11:59 10 mg Q6HR KATIE Administration Protocol Midodrine 10 mg 02/23/25 08:49 02/25/25 05:37 Midodrine 5 Mg Tablet PO 03/25/25 08:44 10 mg TID KATIE Administration Morphine Sulfate 2 mg 02/24/25 09:45 Morphine Sulf Inj 4 Mg/Ml Vial IVP Q4HR PRN PAIN SCALE 4-10(Mod-Sev Ondansetron HCl 4 mg 02/10/25 20:28 02/16/25 11:44 Ondansetron Inj 2 Mg/Ml Inj 2 Ml IVP 03/12/25 20:27 4 mg Q6H PRN Administration NAUSEA OR VOMITING Protocol Pantoprazole Sodium 40 mg 02/13/25 11:15 02/25/25 08:28 Pantoprazole Inj 40 Mg Vial IVP 03/15/25 11:14 40 mg QDAY KATIE Administration Sennosides 1 tab 02/10/25 20:28 02/13/25 05:37 Senna Tablet PO 03/12/25 20:27 1 tab QDAY PRN Administration constipation Protocol Sertraline HCl 50 mg 02/11/25 21:00 02/24/25 21:45 Sertraline Hcl 25 Mg Tablet PO 03/13/25 20:59 Not Given HS KATIE Sodium Chloride 4 ml 02/22/25 20:44 Sodium Cl Rt Quiana 3% 4 Ml Nebu (Non-Formulary) INH 03/23/25 12:59 Q6HRRT PRN SECRETIONS Plan Tyra Larkin 59F pmhx significant for HFpEF (60-65%, 07/2023), 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 Course complicated by iCU upgrade post surgery due to post anesthesia effects with patietn's hx of pulmonary fibrosis, and was intubated requiring pressors. Extubated on 02/18 and on 02/20, weaned off pressors and downgraded to floors. #Sigmoid bowel perforation s/p exploratory laparotomy with bowel resection and end colostomy (02/13/25) #Sepsis 2/2 feculent peritonitis #Severe lower abdominal pain #28mm calcified mass on sigmoid colon causing perforation, likely gallstone #Acute Encephalopathy (resolved) #Hypotension, resolved On admission patient had pain after meals since 2 weeks 02/09 at lower abdomen/suprapubic area. Extremely tender to palpation. Stated no BM for the past 5 days prior to admission. Denies hx of cholcystectomy. On admission, 02/10 CTA chest/AP: GB not visualized, 28mm calcified mass in sigmoid colon w/o visualization of GB; and MRCP: GB not visualized, common hepatic duct common bile duct normal size no stones, neg pancreatitis, no free fluid in abdomen, aorta normal size, minimal bilateral hydrenophrosis, edema in subcutaneous fatty tissues at the flanks; GB US: GB not visualized. On 02/13, patient became disoriented with significant abdominal pain. CXR showed pneumoperitoneum, with confirmation of CTAP showing extensive pneumoperitoneum, cholelithiasis but gallbladder wall appears thickened but no abnormal small air and fluid distended with prominent wall thickening, remains calcified mass in sigmoid colon 26 mm, consider gallstone ileus. Patient subsequently underwent ex lap with sigmoid bowel resection and end colostomy and removal of gallstone. Post surgery, patient was upgraded to ICU for concern of post anesthesia ability to protect airway due to pulmonary fibrosis. During ICU stay, of significance on 02/14, patient received shock from AED for desaturation rapidly after jaw found clamping down on ET tube and found to be bradycardic to 30s and Vtach on telemetry with a pulse. 02/13 BCx 1/2 grew staph hominis, likely contaminant. 02/17 repeat BCx NGTD. On 02/16, NG tube was placed per surgical team after patient had emesis following initiation of feeds, cleared to start liquid diet 02/18, and discontinued 02/20 as patient is able to tolerate feeds. Cefepime (02/10 - 02/13). Azithromycin (02/11-02/13). Ceftriaxone (02/13-02/18). Cefepime (02/18-02/25). Flagyl (02/13-02/25). Vanc (02/18-02/25). Plan: - Surgery consulted, recs appreciated - Fluconazole 200 mg QD for sputum culture + for Harjinder - Midodrine 10 mg TID - Wound clean and intact, continue wound care #Acute hypoxic respiratory failure (resolved) 2/2 post anesthesia extubated 02/18 #LLL PNA, VAP vs HCAP vs aspiration #Pulmonary fibrosis 2/2 pesticides #Acute on chronic HFpEF (60-65%, 07/2023) #Severe pulmonary hypertension Presents with dyspnea at rest, worsening SOB, BLE swelling, and facial swelling on home O2 4L. Patient reports rehab center occasionally holds her Lasix due to soft BP. On admission saturating 88% on 4 L of oxygen, HR 100, WBC 14.8, BNP 1165, D-dimer 368, troponin 0.055->0.028, ABG 7.31/77/69/39 with repeat ABGs pH 7.29-7.32. On physical examination bilateral crackles over the both lungs. Follows Dr. Garrido and Dr. Kim outpatient. 02/09 CXR bilateral pulmonary congestion and enlarged cardiac contour. 02/09 CTA chest/AP showed prominent CHF, negative for PE, bilateral hilar lymphadenopathy, GB not visualized, 28mm calcified mass in sigmoid colon wo visualization of GB 02/10 TTE Normal LV size, wall thickness. Normal LV diastolic filling pattern for age. Estimated EF at 55-60 %. The RV size is moderately increased with moderately decreases systolic function. The estimated RVSP, 72 mmHg. RAP 15. The RA cavity size is severely increased. Moderate TR. Less than 50% respiratory change in dimension of the inferior vena cava abnormal. CXR 02/17: severe bilateral pneumonia/ARDS. DDx: combination of acute on chronic heart failure exacerbation vs worsening pulmonary fibrosis vs aspiration PNA vs CAP, less likely PE. Plan: - Abx as above - Supplemental O2 as needed to keep SpO2 >90% - Strict I&Os, daily weights, 1.8L fluid restriction - Duoneb Q6H PRN - Hypertonic saline breathing treatment and guaifenesin for oral secretions - Benzocaine lozenge - [employer]GER consulted #Acute kidney injury (resolved) On 02/14, Cr increased to 1.0 BL 0.5-0.7. DDx: pre-renal vs intra-renal. fluid losses from surgery vs dehydration vs contrast use vs abdominal compartment syndrome. Patient did have surgery and has been NPO. Patient was given contrast for scans. Patient's abdomen is not hard or distended, less likely abd compartment syndrome. Plan: - Holding Bumex, pedal edema likely secondary to chronic bedbound status #NSTEMI likely type II, 2/2 fluid overload (resolved) Admission troponin 0.055->0.028. #Hyperlipidemia Lipid panel unremarkable. Plan: - Continue home med atorvastatin 20 mg PO HS. #Normocytic anemia, stable DDx: surgery vs IV fluids. Hemoglobin on admission 12.1. No signs of bleeding Plan: - Continue to trend Hgb - Monitor for signs of bleeding #Hypothyroidism Home med levothyroxine 150 mcg ACBR. 02/11: TSH 0.36, T4 1.39 Plan: - Continue home levothyroxine 150 mcg PO Hospital management: Lines: PIV Diet: dysphagia 1, ensure Bowel: Senna prn GI prophylaxis: IV pantoprazole 40 mg QD DVT prophylaxis: Lovenox Disposition: tele, IV abx and inc PO intake CODE STATUS: FULL CODE Shaina Scott DO Internal Medicine PGY-1 Attending Provider Attestation/Addendum I, Debby Torres DO, attest that I was physically present for the dodge portions of the service and evaluated the patient with the resident and I reviewed and discussed the case with the resident and agree with the resident's findings and plans of care as documented above Patient seen and evaluated this AM. She states her pain is improved and tolerable. Dressing has mild, dried serousanguinous drainage noted at the bottom. Pt stated dressing was changed from last night. [place] over incision are clean,dry and intact. Erythema appears improved. Colostomy functioning well. 1+ pitting edema in b/l LE. Patient states she has been tolerating diet well. She is to complete abx today. Fluconazole was started due to harjinder noted in sputum culture. Will continue with current management. Anticipate DC to SNF within next 24-48h.
--- NOTE | 2025-02-25 18:30 | PD.IMPROG ---
Documentation for date of: 02/25/25 Subjective Subjective Interval history: 59 years old female evaluated Good activity in the colostomy bag Slight drop in the WBC count to 23.4 Still has incisional pain especially postprandially Exam Vital Signs Temp Pulse Resp BP Pulse Ox O2 Del Method O2 Flow Rate 96.7 F L 96 16 100/70 95 Nasal Cannula 4 02/25/25 16:00 02/25/25 16:00 02/25/25 16:00 02/25/25 16:00 02/25/25 16:00 02/25/25 16:00 02/25/25 16:00 FiO2 50 02/25/25 08:00 Objective Labs 02/25/25 08:20 02/25/25 08:20 Labs: Laboratory Results - last 24 hr 02/25/25 08:20 WBC 23.4 H RBC 3.61 L Hgb 9.6 L Hct 33.7 L MCV 93 MCH 26.6 MCHC 28.5 L RDW Std Deviation 61.3 H Plt Count 403 Neut % (Auto) 92 H Lymph % (Auto) 3 L [place] % (Auto) 3 Eos % (Auto) 0 Baso % (Auto) 0 Neut # (Auto) 21.6 H Lymph # (Auto) 0.8 L [place] # (Auto) 0.8 Eos # (Auto) 0.0 Baso # (Auto) 0.0 Immature Gran # (Auto) 0.16 H Absolute Nucleated RBC 0.00 Immature Gran % 1 H Nucleated RBC % 0 Sodium 144 Potassium 4.3 Chloride 100 Carbon Dioxide 36.5 H Anion Gap 8 BUN 16 Creatinine 0.3 L Estim Creat Clear Calc 180.8 eGFR > 60 BUN/Creatinine Ratio 53 H Glucose 79 Calculated Osmolality 287 Calcium 8.5 Corrected Calcium 8.9 Phosphorus 1.7 L Total Bilirubin 0.3 AST 23 ALT 9 L Alkaline Phosphatase 57 Total Protein 5.4 L Albumin 3.5 D Globulin 1.9 L Albumin/Globulin Ratio 1.8 Vancomycin Trough 18.6 H Impressions Impression: Status post exploratory laparotomy sigmoid resection and end colostomy Good activity in the colostomy bag Leukocytosis Incisional pain Continue to encourage p.o. intake ABG Interpretation ABG results: 02/09/25 02/11/25 02/11/25 17:37 00:05 02:08 ABG pH 7.31 L 7.29 L 7.30 L ABG pCO2 77 H* 81 H* 79 H* ABG pO2 69 L 72 L 76 L ABG HCO3 39 H 39 H 39 H ABG O2 Saturation 93 94 95 ABG Base Excess 10 H 9 H 9 H VBG pH VBG pCO2 VBG pO2 VBG Base Excess 02/11/25 02/11/25 02/13/25 05:00 11:20 17:05 ABG pH 7.32 L 7.22 L D ABG pCO2 77 H* 89 H* D ABG pO2 73 L 86 ABG HCO3 39 H 36 H ABG O2 Saturation 95 96 ABG Base Excess 10 H 6 H VBG pH 7.47 VBG pCO2 53 VBG pO2 147 H VBG Base Excess 12 H 02/13/25 02/14/25 02/14/25 18:58 00:08 01:56 ABG pH 7.31 L 7.17 L* D ABG pCO2 70 H D 97 H* D ABG pO2 137 H D 95 D ABG HCO3 35 H 35 H ABG O2 Saturation 100 H 97 ABG Base Excess 7 H 4 H VBG pH 7.31 L VBG pCO2 70 H D VBG pO2 64 H D VBG Base Excess 7 H 02/14/25 02/14/25 02/14/25 04:50 13:37 Unknown ABG pH 7.35 D ABG pCO2 63 H D ABG pO2 129 H D ABG HCO3 35 H ABG O2 Saturation 100 H ABG Base Excess 7 H VBG pH 7.34 7.27 L VBG pCO2 55 D 70 H D VBG pO2 118 H D 44 D VBG Base Excess 2 3 02/15/25 02/15/25 02/15/25 04:06 10:13 15:32 ABG pH 7.39 7.24 L D ABG pCO2 57 H 83 H* D ABG pO2 63 L D 72 L ABG HCO3 35 H 35 H ABG O2 Saturation 93 92 ABG Base Excess 8 H 6 H VBG pH 7.42 VBG pCO2 58 H D VBG pO2 38 VBG Base Excess 12 H 02/16/25 02/18/25 02/18/25 05:30 00:26 04:20 ABG pH ABG pCO2 ABG pO2 ABG HCO3 ABG O2 Saturation ABG Base Excess VBG pH 7.38 7.39 7.40 VBG pCO2 65 H 64 H 60 H VBG pO2 49 44 90 H D VBG Base Excess 11 H 11 H 10 H 02/18/25 02/18/25 02/23/25 04:21 07:43 11:30 ABG pH 7.37 D 7.35 ABG pCO2 64 H D 67 H ABG pO2 84 63 L D ABG HCO3 37 H 37 H ABG O2 Saturation 97 95 ABG Base Excess 10 H 9 H VBG pH 7.45 VBG pCO2 58 H VBG pO2 66 H VBG Base Excess 14 H Assessment & Plan Time Spent With Patient Time: Total time spent is greater than 50% in coordination of care (as documented) at patient's floor/unit and/or counseling patient:
[2025-02-25] MEDS: ACETAMINOPHEN 325 MG TABLET 650 MG PO (19:47)
[2025-02-25] MEDS: ATORVASTATIN CALCIUM 20 MG TABLET PO (21:51)
[2025-02-26] VITALS (12 sets, daily range): BP systolic 88–103; BP diastolic 60–68; PULSE 89–97; RESP 16–25; TEMP 35.9–36.8; O2SAT 90–99; BMI 33.9
[2025-02-26] MEDS: LEVOTHYROXINE SODIUM 125 MCG, LEVOTHYROXINE SODIUM 25 MCG 150 MCG NG (05:46)
[2025-02-26] MEDS: MIDODRINE 5 MG TABLET 10 MG PO ×3 (05:46→21:00)
[2025-02-26] MEDS: METOCLOPRAMIDE INJ 5 MG/ML VIAL 2 ML 10 MG IVP ×4 (05:46→23:52)
[2025-02-26 08:01] LABS: Basophils # (Auto) 0.0 Thou/mm3 (0.0-0.2); Basophils % (Auto) 0 % (0-2.5); Eosinophils # (Auto) 0.0 Thou/mm3 (0.0-0.5); Eosinophils % (Auto) 0 % (0-10); Hematocrit 36.9 % (36.0-46.0); Hemoglobin 10.3 g/dL (12.0-16.0); Immature Granulocytes Auto 0.11 Thou/mm3 (0.00-0.00); Lymphocytes # (Auto) 0.9 Thou/mm3 (1.0-4.8); Lymphocytes % (Auto) 5 % (10-50); Mean Corpuscular HGB Conc 27.9 g/dl (31.0-37.0); Mean Corpuscular Hemoglobin 26.3 pg (25.0-35.0); Mean Corpuscular Volume 94 fL (80-100); Monocytes # (Auto) 0.7 Thou/mm3 (0.0-0.8); Monocytes % (Auto) 4 % (0-12); Neutrophils # (Auto) 17.2 Thou/mm3 (1.8-7.7); Neutrophils % (Auto) 91 % (37-80); Nucleated Red Blood Cell # 0.00 Thou/mm3 (0.00-0.00); Nucleated Red Blood Cell % 0 /100 WBC (0); Platelet Count 469 Thou/mm3 (140-440); RDW Standard Deviation 63.7 fL (36.4-46.3); Red Blood Count 3.91 Miln/mm3 (4.00-5.20); White Blood Count 19.0 Thou/mm3 (3.6-11.0)
[2025-02-26 08:28] LABS: Alanine Aminotransferase 8 U/L (10-49); Albumin, Serum 3.6 gm/dL (3.4-4.8); Albumin/Globulin Ratio 1.5 (1.2-2.2); Alkaline Phosphatase 62 U/L (46-116); Anion Gap 5 (7-16); Aspartate Amino Transferase 23 U/L (0-34); BUN/Creatinine Ratio 35 Ratio (12-20); Bilirubin,Total 0.3 mg/dL (0.3-1.2); Blood Urea Nitrogen 14 mg/dL (9-23); Calcium 8.4 mg/dL (8.3-10.6); Calcium (Corrected) 8.7 mg/dL (8.5-10.1); Carbon Dioxide 38.3 mMol/L (20.0-31.0); Chloride 99 mMol/L (98-107); Creatinine (Component) 0.4 mg/dL (0.6-1.3); Estimated Creatinine Clearance 135.1 mL/min (>60); Globulin 2.4 gm/dL (2.3-3.5); Glucose 97 mg/dL (74-106); Magnesium 1.6 mg/dL (1.6-2.6); Osmolality,Calculated 283 (275-295); Phosphorous 1.6 mg/dL (2.4-5.1); Potassium 4.4 mMol/L (3.4-5.1); Sodium 142 mMol/L (136-145); Total Protein 6.0 gm/dL (5.7-8.2); eGFR > 60 See Note
[2025-02-26] MEDS: ENOXAPARIN SOD INJ 40 MG/0.4 ML SYRINGE SC (09:12)
[2025-02-26] MEDS: ACETAMINOPHEN 325 MG TABLET 650 MG PO ×2 (09:12→21:00)
[2025-02-26] MEDS: FLUCONAZOLE 100 MG TABLET 200 MG PO (09:13)
[2025-02-26] MEDS: SOD PHOS ADDITIVE 30 MMOL in SODIUM CHLORIDE 0.9% 500 ML 500 ML 62.5 MMOL IV (10:54)
[2025-02-26] MEDS: Magnesium Sulfate 2 GM Ivpb 2 GM/50 ML BAG IV (10:54)
--- NOTE | 2025-02-26 11:23 | ESPR_ITS ---
<Statement entered by Nadeem Dietz MD - 02/26/25 16:42> I have reviewed the note and agree with the resident's assessment & plan with exceptions as below. I have personally reviewed labs, imaging, home meds/prior records, examined the patient, formulated and discussed management plan with my attending Patient was seen and examined bedside's morning. No acute overnight events. Patient's WBC has been downtrending. Still having some cirrhosis fluid from the wound, but was seen by general surgery today. Pain is well controlled. Gave Diamox to 50 mg x 1 due to bilateral lower extremity swelling and to help with metabolic alkalosis. Possible discharge in the next 24 to 40 hours if WBC continues to downtrend. Nadeem Dietz PGY2 Disclaimer: Even though this this note was dictated by speech recognition and even though it was carefully revised there may still be minor errors in entertainer or variety artist due to voice recognition software. Documentation for date of: 02/26/25 Subjective Subjective Interval history: No acute overnight events. Patient seen examined at bedside. Patient reports tolerating p.o. diet with continued mild abdominal pain. Patient reports taking short breaths due to abdominal pain at times. Colostomy bag with good output and incision draining serosanguineous fluid. Vitals and labs reviewed. SBP 100s on midodrine, heart rate high 90s sinus, saturating 93% on 5 L. WBC downtrending from 23 now 19, hemoglobin stable 10.3, bicarb stable elevated 38. Continue fluconazole as white count has started downtrending. Given diamox 250 mg x1 for BLE swelling. Continue to monitor WBC and anticipate discharge within next 24-48h. Exam Vital Signs Temp Pulse Resp BP Pulse Ox O2 Del Method O2 Flow Rate 96.7 F L 92 21 H 102/67 90 L Humidified Nasal Cannula 5 02/26/25 08:00 02/26/25 08:00 02/26/25 08:00 02/26/25 08:00 02/26/25 08:00 02/26/25 08:00 02/26/25 08:00 FiO2 50 02/26/25 08:00 Narrative Exam GENERAL: AOx3, no acute distress HEENT: mucous membranes moist, bilateral sclera anicteric CARDIOVASCULAR: regular rate and rhythm, S1/S2 present, no murmurs appreciated PULMONARY: mild dry crackles bilaterally ABDOMINAL: soft, slightly tender lower abdomen, slightly erythematous incsion, serosanguineous discharge noted on the lower end, no blood EXTREMITIES: 2+ BLE edema, 3+ at feet SKIN: warm and dry, intact, no rashes NEURO: CN II-XII grossly intact, alert, following commands Objective Labs 02/26/25 07:37 02/26/25 07:37 Labs: Laboratory Results - last 24 hr 02/26/25 07:37 WBC 19.0 H RBC 3.91 L Hgb 10.3 L Hct 36.9 MCV 94 MCH 26.3 MCHC 27.9 L RDW Std Deviation 63.7 H Plt Count 469 H D Neut % (Auto) 91 H Lymph % (Auto) 5 L Warren % (Auto) 4 Eos % (Auto) 0 Baso % (Auto) 0 Neut # (Auto) 17.2 H Lymph # (Auto) 0.9 L Warren # (Auto) 0.7 Eos # (Auto) 0.0 Baso # (Auto) 0.0 Immature Gran # (Auto) 0.11 H Absolute Nucleated RBC 0.00 Immature Gran % 1 H Nucleated RBC % 0 Sodium 142 Potassium 4.4 Chloride 99 Carbon Dioxide 38.3 H Anion Gap 5 L BUN 14 Creatinine 0.4 L Estim Creat Clear Calc 135.1 eGFR > 60 BUN/Creatinine Ratio 35 H Glucose 97 Calculated Osmolality 283 Calcium 8.4 Corrected Calcium 8.7 Phosphorus 1.6 L Magnesium 1.6 Total Bilirubin 0.3 AST 23 ALT 8 L Alkaline Phosphatase 62 Total Protein 6.0 Albumin 3.6 Globulin 2.4 Albumin/Globulin Ratio 1.5 ABG Interpretation ABG results: 02/09/25 02/11/25 02/11/25 17:37 00:05 02:08 ABG pH 7.31 L 7.29 L 7.30 L ABG pCO2 77 H* 81 H* 79 H* ABG pO2 69 L 72 L 76 L ABG HCO3 39 H 39 H 39 H ABG O2 Saturation 93 94 95 ABG Base Excess 10 H 9 H 9 H VBG pH VBG pCO2 VBG pO2 VBG Base Excess 02/11/25 02/11/25 02/13/25 05:00 11:20 17:05 ABG pH 7.32 L 7.22 L D ABG pCO2 77 H* 89 H* D ABG pO2 73 L 86 ABG HCO3 39 H 36 H ABG O2 Saturation 95 96 ABG Base Excess 10 H 6 H VBG pH 7.47 VBG pCO2 53 VBG pO2 147 H VBG Base Excess 12 H 02/13/25 02/14/25 02/14/25 18:58 00:08 01:56 ABG pH 7.31 L 7.17 L* D ABG pCO2 70 H D 97 H* D ABG pO2 137 H D 95 D ABG HCO3 35 H 35 H ABG O2 Saturation 100 H 97 ABG Base Excess 7 H 4 H VBG pH 7.31 L VBG pCO2 70 H D VBG pO2 64 H D VBG Base Excess 7 H 02/14/25 02/14/25 02/14/25 04:50 13:37 Unknown ABG pH 7.35 D ABG pCO2 63 H D ABG pO2 129 H D ABG HCO3 35 H ABG O2 Saturation 100 H ABG Base Excess 7 H VBG pH 7.34 7.27 L VBG pCO2 55 D 70 H D VBG pO2 118 H D 44 D VBG Base Excess 2 3 02/15/25 02/15/25 02/15/25 04:06 10:13 15:32 ABG pH 7.39 7.24 L D ABG pCO2 57 H 83 H* D ABG pO2 63 L D 72 L ABG HCO3 35 H 35 H ABG O2 Saturation 93 92 ABG Base Excess 8 H 6 H VBG pH 7.42 VBG pCO2 58 H D VBG pO2 38 VBG Base Excess 12 H 02/16/25 02/18/25 02/18/25 05:30 00:26 04:20 ABG pH ABG pCO2 ABG pO2 ABG HCO3 ABG O2 Saturation ABG Base Excess VBG pH 7.38 7.39 7.40 VBG pCO2 65 H 64 H 60 H VBG pO2 49 44 90 H D VBG Base Excess 11 H 11 H 10 H 02/18/25 02/18/25 02/23/25 04:21 07:43 11:30 ABG pH 7.37 D 7.35 ABG pCO2 64 H D 67 H ABG pO2 84 63 L D ABG HCO3 37 H 37 H ABG O2 Saturation 97 95 ABG Base Excess 10 H 9 H VBG pH 7.45 VBG pCO2 58 H VBG pO2 66 H VBG Base Excess 14 H Quality Measures Quality Measures VTE prophylaxis Assessment & Plan Assessment Current Active Medications: Generic Name Dose Route Start Last Admin Trade Name Freq PRN Reason Stop Dose Admin Acetaminophen 650 mg 02/10/25 20:28 02/26/25 09:12 Acetaminophen 325 Mg Tablet PO 03/12/25 20:27 650 mg Q6H PRN Administration PAIN SCALE 1-3 (mild Albuterol/Ipratropium 3 ml 02/12/25 11:26 Albuterol/Ipratropium (Duoneb) Rt Quiana 3 Ml Nebu INH 03/14/25 12:59 Q6HRRT PRN wheezing and SOB Atorvastatin Calcium 20 mg 02/10/25 21:00 02/25/25 21:51 Atorvastatin Calcium 20 Mg Tablet PO 03/12/25 20:59 20 mg HS KATIE Administration Benzocaine 1 lozenge 02/22/25 12:02 Benzocaine/Menthol 1 Lozenge PO 03/24/25 12:01 Q4HR PRN sore throat Docusate Sodium 100 mg 02/21/25 11:33 Docusate Sod 100 Mg Capsule PO 03/23/25 11:32 BID PRN CONSTIPATION Protocol Enoxaparin Sodium 40 mg 02/17/25 11:15 02/26/25 09:12 Enoxaparin Sod Inj 40 Mg/0.4 Ml Syringe SC 03/03/25 11:14 40 mg QDAY KATIE Administration Fluconazole 200 mg 02/25/25 09:00 02/26/25 09:13 Fluconazole 100 Mg Tablet PO 03/04/25 08:59 200 mg QDAY KATIE Administration Guaifenesin 100 mg 02/21/25 11:29 02/21/25 11:45 Guaifenesin Syrup 200 Mg/10 Ml Udc PO 03/23/25 11:28 100 mg QID PRN Administration COUGH Protocol Sodium Phosphate 30 mmol/ 510 mls @ 62.5 mls/hr 02/26/25 09:42 02/26/25 10:54 Sodium Chloride IV 02/26/25 17:51 62.5 mls/hr X1 ONE Administration Magnesium Sulfate 2 gm in 50 mls @ 25 mls/hr 02/26/25 09:42 02/26/25 10:54 Magnesium Sulfate Ivpb IV 02/26/25 11:41 25 mls/hr X1 ONE Administration Levothyroxine Sodium 125 mcg/ 150 mcg 02/19/25 10:30 02/26/25 05:46 Levothyroxine Sodium 25 mcg NG 03/21/25 10:29 150 mcg ACBR KATIE Administration Metoclopramide HCl 10 mg 02/17/25 12:00 02/26/25 05:46 Metoclopramide Inj 5 Mg/Ml Vial 2 Ml IVP 03/19/25 11:59 10 mg Q6HR KATIE Administration Protocol Midodrine 10 mg 02/23/25 08:49 02/26/25 05:46 Midodrine 5 Mg Tablet PO 03/25/25 08:44 10 mg TID KATIE Administration Morphine Sulfate 2 mg 02/24/25 09:45 Morphine Sulf Inj 4 Mg/Ml Vial IVP Q4HR PRN PAIN SCALE 4-10(Mod-Sev Ondansetron HCl 4 mg 02/10/25 20:28 02/16/25 11:44 Ondansetron Inj 2 Mg/Ml Inj 2 Ml IVP 03/12/25 20:27 4 mg Q6H PRN Administration NAUSEA OR VOMITING Protocol Pantoprazole Sodium 40 mg 02/13/25 11:15 02/26/25 09:13 Pantoprazole Inj 40 Mg Vial IVP 03/15/25 11:14 40 mg QDAY KATIE Administration Sennosides 1 tab 02/10/25 20:28 02/13/25 05:37 Senna Tablet PO 03/12/25 20:27 1 tab QDAY PRN Administration constipation Protocol Sertraline HCl 50 mg 02/11/25 21:00 02/25/25 23:42 Sertraline Hcl 25 Mg Tablet PO 03/13/25 20:59 Not Given HS KATIE Sodium Chloride 4 ml 02/22/25 20:44 Sodium Cl Rt Quiana 3% 4 Ml Nebu (Non-Formulary) INH 03/23/25 12:59 Q6HRRT PRN SECRETIONS Plan Tyra Larkin 59F pmhx significant for HFpEF (60-65%, 07/2023), 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 Course complicated by iCU upgrade post surgery due to post anesthesia effects with patietn's hx of pulmonary fibrosis, and was intubated requiring pressors. Extubated on 02/18 and on 02/20, weaned off pressors and downgraded to floors. #Sigmoid bowel perforation s/p exploratory laparotomy with bowel resection and end colostomy (02/13/25) #Sepsis 2/2 feculent peritonitis #Severe lower abdominal pain #28mm calcified mass on sigmoid colon causing perforation, likely gallstone #Acute Encephalopathy (resolved) #Hypotension, resolved On admission patient had pain after meals since 2 weeks 02/09 at lower abdomen/suprapubic area. Extremely tender to palpation. Stated no BM for the past 5 days prior to admission. Denies hx of cholcystectomy. On admission, 02/10 CTA chest/AP: GB not visualized, 28mm calcified mass in sigmoid colon w/o visualization of GB; and MRCP: GB not visualized, common hepatic duct common bile duct normal size no stones, neg pancreatitis, no free fluid in abdomen, aorta normal size, minimal bilateral hydrenophrosis, edema in subcutaneous fatty tissues at the flanks; GB US: GB not visualized. On 02/13, patient became disoriented with significant abdominal pain. CXR showed pneumoperitoneum, with confirmation of CTAP showing extensive pneumoperitoneum, cholelithiasis but gallbladder wall appears thickened but no abnormal small air and fluid distended with prominent wall thickening, remains calcified mass in sigmoid colon 26 mm, consider gallstone ileus. Patient subsequently underwent ex lap with sigmoid bowel resection and end colostomy and removal of gallstone. Post surgery, patient was upgraded to ICU for concern of post anesthesia ability to protect airway due to pulmonary fibrosis. During ICU stay, of significance on 02/14, patient received shock from AED for desaturation rapidly after jaw found clamping down on ET tube and found to be bradycardic to 30s and Vtach on telemetry with a pulse. 02/13 BCx 1/2 grew staph hominis, likely contaminant. 02/17 repeat BCx NGTD. On 02/16, NG tube was placed per surgical team after patient had emesis following initiation of feeds, cleared to start liquid diet 02/18, and discontinued 02/20 as patient is able to tolerate feeds. Cefepime (02/10 - 02/13). Azithromycin (02/11-02/13). Ceftriaxone (02/13-02/18). Cefepime (02/18-02/25). Flagyl (02/13-02/25). Vanc (02/18-02/25). Plan: - Surgery consulted, recs appreciated - Fluconazole 200 mg QD for sputum culture + for Harjinder (02/25- - Midodrine 10 mg TID - Wound clean and intact, continue wound care #Acute hypoxic respiratory failure (resolved) 2/2 post anesthesia extubated 02/18 #LLL PNA, VAP vs HCAP vs aspiration #Pulmonary fibrosis 2/ pesticides #Acute on chronic HFpEF (60-65%, 07/2023) #Severe pulmonary hypertension Presents with dyspnea at rest, worsening SOB, BLE swelling, and facial swelling on home O2 4L. Patient reports rehab center occasionally holds her Lasix due to soft BP. On admission saturating 88% on 4 L of oxygen, HR 100, WBC 14.8, BNP 1165, D-dimer 368, troponin 0.055->0.028, ABG 7.31/77/69/39 with repeat ABGs pH 7.29-7.32. On physical examination bilateral crackles over the both lungs. Follows Dr. Garrido and Dr. Kim outpatient. 02/09 CXR bilateral pulmonary congestion and enlarged cardiac contour. 02/09 CTA chest/AP showed prominent CHF, negative for PE, bilateral hilar lymphadenopathy, GB not visualized, 28mm calcified mass in sigmoid colon wo visualization of GB 02/10 TTE Normal LV size, wall thickness. Normal LV diastolic filling pattern for age. Estimated EF at 55-60 %. The RV size is moderately increased with moderately decreases systolic function. The estimated RVSP, 72 mmHg. RAP 15. The RA cavity size is severely increased. Moderate TR. Less than 50% respiratory change in dimension of the inferior vena cava abnormal. CXR 02/17: severe bilateral pneumonia/ARDS. DDx: combination of acute on chronic heart failure exacerbation vs worsening pulmonary fibrosis vs aspiration PNA vs CAP, less likely PE. Sputum Cx grew harjinder and staph aureus Plan: - Abx as above - Supplemental O2 as needed to keep SpO2 >90% - Strict I&Os, daily weights, 1.8L fluid restriction - Duoneb Q6H PRN - Hypertonic saline breathing treatment and guaifenesin for oral secretions - Benzocaine spray - DIETITIAN THERAPEUTIC consulted #Acute kidney injury (resolved) On 02/14, Cr increased to 1.0 BL 0.5-0.7. DDx: pre-renal vs intra-renal. fluid losses from surgery vs dehydration vs contrast use vs abdominal compartment syndrome. Patient did have surgery and has been NPO. Patient was given contrast for scans. Patient's abdomen is not hard or distended, less likely abd compartment syndrome. Plan: - Holding Bumex, pedal edema likely secondary to chronic bedbound status - Acetazolamide 250 mg x1 #NSTEMI likely type II, 2/2 fluid overload (resolved) Admission troponin 0.055->0.028. #Hyperlipidemia Lipid panel unremarkable. Plan: - Continue home med atorvastatin 20 mg PO HS. #Normocytic anemia, stable DDx: surgery vs IV fluids. Hemoglobin on admission 12.1. No signs of bleeding Plan: - Continue to trend Hgb - Monitor for signs of bleeding #Hypothyroidism Home med levothyroxine 150 mcg ACBR. 02/11: TSH 0.36, T4 1.39 Plan: - Continue home levothyroxine 150 mcg PO Hospital management: Lines: PIV Diet: dysphagia 1, ensure Bowel: Senna prn GI prophylaxis: IV pantoprazole 40 mg QD DVT prophylaxis: Lovenox Disposition: tele, IV abx and inc PO intake CODE STATUS: FULL CODE Shaina Scott DO Internal Medicine PGY-1 Attending Provider Attestation/Addendum Debby Dodd DO, attest that I was physically present for the dodge portions of the service and evaluated the patient with the resident and I reviewed and discussed the case with the resident and agree with the resident's findings and plans of care as documented above Patient seen and eval this a.m. She states that she is feeling better today. She has been tolerating p.o. intake. She complains of pain in her incision after surgeon had evaluated this morning. There is mild serous fluid noted from incision. Mild erythema and swelling noted around base of incision. Patient states that pain is tolerable with Tylenol. Leukocytosis improved. Will continue with current management. If leukocytosis continues to downtrend and patient condition remains stable/improved, anticipate discharge within the next 24 hours. Patient continues to have some 2+ bilateral lower extremity pitting edema, worse than yesterday. Will give 1 dose of Diamox. Metabolic alkalosis likely compensatory due to patient's underlying pulmonary fibrosis.
--- NOTE | 2025-02-26 11:53 | PC.SS ---
rounding note: SS spoke to physician and patient's d/c is on hold and will d/c tomorrow back to [facility]
[2025-02-26] MEDS: BENZOCAINE 20% (Hurricaine) SPRAY 1 DOSE TOP (12:32)
[2025-02-26] MEDS: ATORVASTATIN CALCIUM 20 MG TABLET PO (20:56)
--- NOTE | 2025-02-26 21:45 | PD.IMPROG ---
Documentation for date of: 02/26/25 Subjective Subjective Interval history: WBC count dropping to 19.0 from 23.0 Relatively stable hemoglobin hematocrit Well-functioning colostomy Some postprandial pain but patient eating Exam Vital Signs Temp Pulse Resp BP Pulse Ox O2 Del Method O2 Flow Rate 98.3 F 91 25 H 93/60 91 L Humidified Nasal Cannula 4.5 02/26/25 20:00 02/26/25 21:00 02/26/25 20:00 02/26/25 21:00 02/26/25 20:00 02/26/25 20:00 02/26/25 20:00 FiO2 50 02/26/25 20:00 Objective Labs 02/26/25 07:37 02/26/25 07:37 Labs: Laboratory Results - last 24 hr 02/26/25 07:37 WBC 19.0 H RBC 3.91 L Hgb 10.3 L Hct 36.9 MCV 94 MCH 26.3 MCHC 27.9 L RDW Std Deviation 63.7 H Plt Count 469 H D Neut % (Auto) 91 H Lymph % (Auto) 5 L [place] % (Auto) 4 Eos % (Auto) 0 Baso % (Auto) 0 Neut # (Auto) 17.2 H Lymph # (Auto) 0.9 L [place] # (Auto) 0.7 Eos # (Auto) 0.0 Baso # (Auto) 0.0 Immature Gran # (Auto) 0.11 H Absolute Nucleated RBC 0.00 Immature Gran % 1 H Nucleated RBC % 0 Sodium 142 Potassium 4.4 Chloride 99 Carbon Dioxide 38.3 H Anion Gap 5 L BUN 14 Creatinine 0.4 L Estim Creat Clear Calc 135.1 eGFR > 60 BUN/Creatinine Ratio 35 H Glucose 97 Calculated Osmolality 283 Calcium 8.4 Corrected Calcium 8.7 Phosphorus 1.6 L Magnesium 1.6 Total Bilirubin 0.3 AST 23 ALT 8 L Alkaline Phosphatase 62 Total Protein 6.0 Albumin 3.6 Globulin 2.4 Albumin/Globulin Ratio 1.5 Impressions Impression: Sigmoid resection with end colostomy for perforated sigmoid colon Postoperative course going well Improving leukocytosis Postprandial pain which is improving Continue current management ABG Interpretation ABG results: 02/09/25 02/11/25 02/11/25 17:37 00:05 02:08 ABG pH 7.31 L 7.29 L 7.30 L ABG pCO2 77 H* 81 H* 79 H* ABG pO2 69 L 72 L 76 L ABG HCO3 39 H 39 H 39 H ABG O2 Saturation 93 94 95 ABG Base Excess 10 H 9 H 9 H VBG pH VBG pCO2 VBG pO2 VBG Base Excess 02/11/25 02/11/25 02/13/25 05:00 11:20 17:05 ABG pH 7.32 L 7.22 L D ABG pCO2 77 H* 89 H* D ABG pO2 73 L 86 ABG HCO3 39 H 36 H ABG O2 Saturation 95 96 ABG Base Excess 10 H 6 H VBG pH 7.47 VBG pCO2 53 VBG pO2 147 H VBG Base Excess 12 H 02/13/25 02/14/25 02/14/25 18:58 00:08 01:56 ABG pH 7.31 L 7.17 L* D ABG pCO2 70 H D 97 H* D ABG pO2 137 H D 95 D ABG HCO3 35 H 35 H ABG O2 Saturation 100 H 97 ABG Base Excess 7 H 4 H VBG pH 7.31 L VBG pCO2 70 H D VBG pO2 64 H D VBG Base Excess 7 H 02/14/25 02/14/25 02/14/25 04:50 13:37 Unknown ABG pH 7.35 D ABG pCO2 63 H D ABG pO2 129 H D ABG HCO3 35 H ABG O2 Saturation 100 H ABG Base Excess 7 H VBG pH 7.34 7.27 L VBG pCO2 55 D 70 H D VBG pO2 118 H D 44 D VBG Base Excess 2 3 02/15/25 02/15/25 02/15/25 04:06 10:13 15:32 ABG pH 7.39 7.24 L D ABG pCO2 57 H 83 H* D ABG pO2 63 L D 72 L ABG HCO3 35 H 35 H ABG O2 Saturation 93 92 ABG Base Excess 8 H 6 H VBG pH 7.42 VBG pCO2 58 H D VBG pO2 38 VBG Base Excess 12 H 02/16/25 02/18/25 02/18/25 05:30 00:26 04:20 ABG pH ABG pCO2 ABG pO2 ABG HCO3 ABG O2 Saturation ABG Base Excess VBG pH 7.38 7.39 7.40 VBG pCO2 65 H 64 H 60 H VBG pO2 49 44 90 H D VBG Base Excess 11 H 11 H 10 H 02/18/25 02/18/25 02/23/25 04:21 07:43 11:30 ABG pH 7.37 D 7.35 ABG pCO2 64 H D 67 H ABG pO2 84 63 L D ABG HCO3 37 H 37 H ABG O2 Saturation 97 95 ABG Base Excess 10 H 9 H VBG pH 7.45 VBG pCO2 58 H VBG pO2 66 H VBG Base Excess 14 H Assessment & Plan Time Spent With Patient Time: Total time spent is greater than 50% in coordination of care (as documented) at patient's floor/unit and/or counseling patient:
[2025-02-26] MEDS: ALBUTEROL/IPRATROPIUM (Duoneb) RT SOL 3 ML NEBU INH (22:26)
[2025-02-27] VITALS (7 sets, daily range): BP systolic 86–99; BP diastolic 57–63; PULSE 87–92; RESP 15–28; TEMP 36.1–36.2; O2SAT 90–99; BMI 35.8
[2025-02-27] MEDS: LEVOTHYROXINE SODIUM 125 MCG, LEVOTHYROXINE SODIUM 25 MCG 150 MCG NG (05:49)
[2025-02-27] MEDS: METOCLOPRAMIDE INJ 5 MG/ML VIAL 2 ML 10 MG IVP ×2 (05:50→11:07)
[2025-02-27] MEDS: MIDODRINE 5 MG TABLET 10 MG PO (05:50)
[2025-02-27 05:52] LABS: Basophils # (Auto) 0.0 Thou/mm3 (0.0-0.2); Basophils % (Auto) 0 % (0-2.5); Eosinophils # (Auto) 0.0 Thou/mm3 (0.0-0.5); Eosinophils % (Auto) 0 % (0-10); Hematocrit 37.1 % (36.0-46.0); Hemoglobin 10.5 g/dL (12.0-16.0); Immature Granulocytes Auto 0.07 Thou/mm3 (0.00-0.00); Lymphocytes # (Auto) 1.2 Thou/mm3 (1.0-4.8); Lymphocytes % (Auto) 8 % (10-50); Mean Corpuscular HGB Conc 28.3 g/dl (31.0-37.0); Mean Corpuscular Hemoglobin 27.1 pg (25.0-35.0); Mean Corpuscular Volume 96 fL (80-100); Monocytes # (Auto) 0.7 Thou/mm3 (0.0-0.8); Monocytes % (Auto) 4 % (0-12); Neutrophils # (Auto) 13.5 Thou/mm3 (1.8-7.7); Neutrophils % (Auto) 87 % (37-80); Nucleated Red Blood Cell # 0.00 Thou/mm3 (0.00-0.00); Nucleated Red Blood Cell % 0 /100 WBC (0); Platelet Count 444 Thou/mm3 (140-440); RDW Standard Deviation 64.1 fL (36.4-46.3); Red Blood Count 3.88 Miln/mm3 (4.00-5.20); White Blood Count 15.5 Thou/mm3 (3.6-11.0)
[2025-02-27 06:13] LABS: Alanine Aminotransferase 9 U/L (10-49); Albumin, Serum 3.5 gm/dL (3.4-4.8); Albumin/Globulin Ratio 1.3 (1.2-2.2); Alkaline Phosphatase 62 U/L (46-116); Anion Gap 3 (7-16); Aspartate Amino Transferase 21 U/L (0-34); BUN/Creatinine Ratio 48 Ratio (12-20); Bilirubin,Total 0.2 mg/dL (0.3-1.2); Blood Urea Nitrogen 19 mg/dL (9-23); Calcium 8.3 mg/dL (8.3-10.6); Calcium (Corrected) 8.7 mg/dL (8.5-10.1); Carbon Dioxide 38.2 mMol/L (20.0-31.0); Chloride 100 mMol/L (98-107); Creatinine (Component) 0.4 mg/dL (0.6-1.3); Estimated Creatinine Clearance 139.3 mL/min (>60); Globulin 2.7 gm/dL (2.3-3.5); Glucose 95 mg/dL (74-106); Magnesium 1.9 mg/dL (1.6-2.6); Osmolality,Calculated 283 (275-295); Phosphorous 2.4 mg/dL (2.4-5.1); Potassium 4.6 mMol/L (3.4-5.1); Sodium 141 mMol/L (136-145); Total Protein 6.2 gm/dL (5.7-8.2); eGFR > 60 See Note
[2025-02-27] MEDS: ENOXAPARIN SOD INJ 40 MG/0.4 ML SYRINGE SC (08:55)
[2025-02-27] MEDS: FLUCONAZOLE 100 MG TABLET 200 MG PO (08:55)
--- NOTE | 2025-02-27 09:52 | PCS.ST ---
ST services for the last 8 days following intubation. Persisting aphonia. Mild globus sensation with solids. No s/s of aspiration. Recommend an ENT referral as o/p.
--- NOTE | 2025-02-27 14:07 | ESDS_ITS ---
<Statement entered by Debby Torres DO - 02/28/25 08:08> I, Debby Torres DO, attest that I was physically present for the [place]odge portions of the service and evaluated the patient with the resident and I reviewed and discussed the case with the resident and agree with the resident's findings and plans of care as documented above Planned Discharge Date 02/27/25 DS: Providers Provider Date of admission: 02/10/25 20:28 Primary care physician: Physician No Primary/Family Admitting Provider: Debby Torres DO Attending Provider on Admission: Debby Torres DO Consults: 02/10/25 20:46 Referral Physical Therapy Stat Comment: Physician Instructions: 02/11/25 01:14 Health Equity Referral - Knowledge Deficit Routine Comment: Positive screening for knowledge deficit needs. 02/11/25 06:05 Consult to Gastroenterology Stat Comment: Consulting Provider: Naima Washington 02/13/25 10:28 Consult to General Surgery Stat Comment: Consulting Provider: Jossie Velez 02/19/25 10:38 Referral Speech Therapy Routine Comment: Swallow Evaluation please; post extubation 02/22/25 12:03 Referral Speech Therapy Routine Comment: 02/27/25 09:49 Referral Speech Therapy Urgent Comment: post op hoarness of voice and cough on water sips Attending Provider on DC: Debby Torres DO Discharging Provider: Debby Torres DO DS: Diagnosis Problem List Completed Was Problem List Reviewed/Reconciled?: Yes Hospital Course Hospital Course Hospital course: Summary: Tyra Larkin 59F pmhx significant for HFpEF (60-65%, 07/2023), 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 On admission patient had pain after meals for 2 weeks rated 10/10 at lower abdomen/suprapubic area, extremely tender to palpation. Patient reports no BM for the past 5 days prior to admission. Denies hx of cholcystectomy. On admission, 02/10 CTA chest/AP showed gallbladder not visualized, 28mm calcified mass in sigmoid colon w/o visualization of gallbladder, concerning for gallstone ileus. Patient was treated with antibiotics however on 02/13, patient became disoriented with significant abdominal pain with ERMELINDA. CXR showed pneumoperitoneum, with confirmation of CTAP showing extensive pneumoperitoneum, cholelithiasis but gallbladder wall appears thickened but no abnormal small air and fluid distended with prominent wall thickening, remains calcified mass in sigmoid colon 26 mm, consider gallstone ileus. Patient subsequently underwent ex lap with sigmoid bowel resection and end colostomy and removal of gallstone. Post surgery, patient was upgraded to ICU for concern of post anesthesia inability to protect airway due to pulmonary fibrosis. During ICU stay, of significance on 02/14, patient received shock from AED for desaturation rapidly after jaw found clamping down on ET tube and found to be bradycardic to 30s and Vtach on telemetry with a pulse. Patient then stabilized and extubated on 02/18 and on 02/20, weaned off pressors and downgraded to floors for further monitoring and management. In the ICU, patient developed left lower lobe pneumonia, ventilator associated pneumonia versus hospital-acquired pneumonia versus aspiration pneumonia and was treated with appropriate antibiotics as well as supplemental oxygen. Sputum culture grew Allie albicans and Staph aureus and patient was treated with antibiotics and antifungal. Of note, postintubation, patient developed hoarse voice mild pain on swallowing. Expected post intubation recovery , however recommend outpatient ENT follow-up if patient's hoarseness and pain does not improve. Following surgery, patient's diet was advanced as tolerated with good colostomy output. On discharge, patient is hemodynamically stable, labs and vitals reviewed and patient discharged back to SNF. Imagin/10 CXR bilateral pulmonary congestion and enlarged cardiac contour. 02/09 CTA chest/AP showed prominent CHF, negative for PE, bilateral hilar lymphadenopathy, GB not visualized, 28mm calcified mass in sigmoid colon wo visualization of GB 02/10 CTA chest/AP: GB not visualized, 28mm calcified mass in sigmoid colon w/o visualization of GB 02/10 MRCP: GB not visualized, common hepatic duct common bile duct normal size no stones, neg pancreatitis, no free fluid in abdomen, aorta normal size, minimal bilateral hydrenophrosis, edema in subcutaneous fatty tissues at the flanks 02/10 GB US: GB not visualized. 02/10 TTE Normal LV size, wall thickness. Normal LV diastolic filling pattern for age. Estimated EF at 55-60 %. The RV size is moderately increased with moderately decreases systolic function. The estimated RVSP, 72 mmHg. RAP 15. The RA cavity size is severely increased. Moderate TR. Less than 50% respiratory change in dimension of the inferior vena cava abnormal. CXR 02/17: severe bilateral pneumonia/ARDS. 02/13 CTAP showing extensive pneumoperitoneum, cholelithiasis but gallbladder wall appears thickened but no abnormal small air and fluid distended with prominent wall thickening, remains calcified mass in sigmoid colon 26 mm, c onsider gallstone ileus. Discharge Recommendations: - Please take all medications as prescribed - You have been started on fluconazole 200 mg daily, take for 11 more days, end (03/10/25) - You have been started on midodrine 10 mg 3 times daily for soft blood pressure - You have been prescribed Reglan as needed for nausea and vomiting - If your voice hoarseness and pain on swallowing worsen or continue to persist without improvement, consider referral to ENT for further evaluation. - We have held your spironolactone 25 mg continue follow-up with cardiology - We have discontinued diclofenac sodium due to increased risk of ulcers and decreased wound healing - Continue all home medications except as above - Please follow up with your PCP within one week of discharge - Please follow up with your surgeon Dr Velez within two weeks of discharge - Please follow up with your dietitian teaching within one week of discharge - Routine colostomy care - If your symptoms worsen, please seek immediate medical attention and return to your nearest emergency room. - If you do not have a PCP, you may follow up at the [facility] at [address] [place] [address] [address] [id number], Hospital Diagnoses: #Sigmoid bowel perforation s/p exploratory laparotomy with bowel resection and end colostomy (02/13/25) #Sepsis 2/2 feculent peritonitis #Severe lower abdominal pain #28mm calcified mass on sigmoid colon causing perforation, likely gallstone #Acute Encephalopathy (resolved) #Hypotension, resolved #Acute hypoxic respiratory failure (resolved) 2/2 post anesthesia extubated 02/18 #LLL PNA, VAP vs HCAP vs aspiration #Pulmonary fibrosis 2/2 pesticides #Acute on chronic HFpEF (60-65%, 07/2023) #Severe pulmonary hypertension #Acute kidney injury (resolved) #NSTEMI likely type II, 2/2 fluid overload (resolved) #Hyperlipidemia #Normocytic anemia, stable #Hypothyroidism Plan of care discussed with attending Dr. Torres, and PGY-3 Dr. Mosley. Shaina Scott, DO Internal Medicine, PGY-1 Senior resident attestation: Patient evaluated and examined at the bedside, plan of care discussed with rest of the team including my attending physician, except as noted. Dimitri PGY3 Time Spent with Patient Time attestation: Total time spent providing and/or coordinating discharge services: Time spent: Greater than 30 minutes Exam Vital Signs Temp Pulse Resp BP Pulse Ox O2 Del Method O2 Flow Rate 97.2 F 88 25 H 86/57 L 90 L Nasal Cannula 6 02/27/25 12:00 02/27/25 12:00 02/27/25 12:00 02/27/25 12:00 02/27/25 12:00 02/27/25 12:00 02/27/25 12:00 FiO2 50 02/27/25 12:00 Narrative Exam GENERAL: AOx3, no acute distress HEENT: mucous membranes moist, bilateral sclera anicteric CARDIOVASCULAR: regular rate and rhythm, S1/S2 present, no murmurs appreciated PULMONARY: dry crackles bilaterally ABDOMINAL: soft, TTP at incision site, clean, serosanguineous discharge noted on the lower end, no blood EXTREMITIES: 1+ BLE edema, 2+ at feet SKIN: warm and dry, intact, no rashes NEURO: CN II-XII grossly intact, alert, following commands Discharge Plan Plan Patient Disposition: Xfer Skilled Nsg Fac (SNF) Care Plan Goals: Please follow-up with primary care physician within 3 days upon discharge Please follow-up with your general surgeon within 7 days upon discharge Recommend to follow-up outpatient with your dietitian teaching within 7 days upon discharge You have been started on fluconazole 200 mg daily, take for 11 more days, end (03/10/25) You have been started on midodrine 10 mg 3 times daily for soft blood pressure You have been prescribed Reglan as needed for nausea and vomiting If your voice hoarseness and pain on swallowing worsen or continue to persist without improvement, consider referral to ENT for further evaluation. We have held your spironolactone 25 mg continue follow-up with cardiology We have discontinued diclofenac sodium due to increased risk of ulcers and decreased wound healing We have discontinued your antibiotics Please continue all the home medications as prescribed Please come back to the ER if symptoms persist or worsen Prescriptions/Referrals Prescriptions/Med Rec: New midodrine 5 mg Tablet 10 mg PO TID 30 Days Qty: 180 0RF fluconazole 200 mg tablet 200 mg PO QDAY Qty: 11 0RF metoclopramide HCl [Reglan] 5 mg tablet 5 mg PO Q8H MDD if nausea take one tab PRN (Reason: nausea and vomiting) Qty: 10 0RF Continued furosemide 40 mg tablet 40 mg PO QAM Rx Instructions: Hold if sbp<100 or dbp<60 atorvastatin [Lipitor] 20 mg tablet 20 mg PO QHS tizanidine 2 mg tablet 2 mg PO Q8H PRN (Reason: muscle spasms) zinc oxide Paste 1 ea topical .q shift Rx Instructions: Cleanse coccyx area with wound cleanser and apply zinc oxide with every brief change and after every shower. every shift for excoriation to coccyx. albuterol-budesonide 90-80 mcg/actuation HFA aerosol inhaler 2 inh inhalation Q4H PRN (Reason: shortness of breath) alum-mag hydroxide-simeth [Advanced Antacid-Antigas] 200-200-20 mg/5 mL suspension 10 ml PO Q8HR PRN (Reason: acid indigestion) Rx Instructions: administer between meals and at bedtime Artificial Tears(cn-lltx-odig) 1-0.2-0.2 % drops 1 drp ophthalmic (eye) Q4H PRN (Reason: dry eyes) Rx Instructions: 1 drop in both eyes cranberry 1 tab PO DAILY Rx Instructions: (Vaccinium macrocarpon) bisacodyl [Dulcolax (bisacodyl)] 10 mg suppository 10 mg IL Q72H PRN (Reason: constipation) Rx Instructions: if mom ineffective ipratropium-albuterol 0.5 mg-3 mg(2.5 mg base)/3 mL solution for nebulization 3 ml inhalation Q6H PRN (Reason: shortness of breath) Rx Instructions: Q6hrs PRN, and 1 vial inhale orally TID for SOB supervised self administration. lactobacillus 1 cap PO DAILY levothyroxine [Synthroid] 150 mcg tablet 150 mcg PO QDAY Rx Instructions: levothyroxine sodium magnesium hydroxide 400 mg/5 mL suspension 30 ml PO Q72H PRN (Reason: constipation) Rx Instructions: if no bm for 3 consecutive days sertraline 25 mg tablet 50 mg PO HS simethicone 2 tab PO Q4HR PRN (Reason: gas) Rx Instructions: chewable tablet calcium carbonate 500 mg calcium (1,250 mg) tablet 1,000 mg PO Q8HR PRN (Reason: acid reflux) Rx Instructions: Tums chewable dextromethorphan HBr 15 ml PO [id number] PRN (Reason: cough) Rx Instructions: Tussin cough oral syrup acetaminophen 325 mg tablet 650 mg PO Q6H PRN (Reason: fever or pain) Rx Instructions: for moderate pain (1-3) and/or Temp 100.4 or Higher ascorbic acid (vitamin C) [Vitamin C] 500 mg tablet 1,000 mg PO QDAY ondansetron 4 mg tablet,disintegrating 4 mg PO Q8H MDD no more than 4 tabs a day PRN (Reason: nausea and vomiting) Qty: 20 0RF Held spironolactone 25 mg tablet 25 mg PO QDAY Hold Instructions: Resume on 03/05/25. hold until follow up with machine ironer Discontinued Levothyroxine * (SYNTHROID *) 125 MCG tablet 125 mcg PO ACBR Qty: 0 azithromycin 250 mg tablet 250 mg PO QDAY Rx Instructions: for 4 days. Start date: 02/07/25 End date:02/11/25 ceftriaxone-lidocaine 1 g IM .pm Rx Instructions: ceftriaxone sodium injection solution reconstituted 1 gram Inject 1 gram intramuscularly in the afternoon for 7 days until finished Reconstitute with 2.1ml of lidocaine 1% Start date: 02/06/25 End date: 02/13/25 diclofenac sodium [Arthritis Pain (diclofenac)] 1 % gel 1 ea topical Q12HR PRN (Reason: mild pain) Rx Instructions: apply to L outer thigh topically Enema 19-7 gram/118 mL enema 118 ml IL Q72H PRN (Reason: constipation) Rx Instructions: if mom/dulcolax suppository ineffective levofloxacin 750 mg tablet 750 mg PO Q24H Qty: 7 0RF Referrals: Jossie Velez MD [Physician, General Surgery] No Primary/Family,Physician [Primary Care Provider] Patient/Caregiver Discharge Instructions Other Discharge Activity Instructions:: Please follow-up with primary care physician within 3 days upon discharge Please follow-up with your general surgeon within 7 days upon discharge Recommend to follow-up outpatient with your dietitian teaching within 7 days upon discharge You have been started on fluconazole 200 mg daily, take for 11 more days, end (03/10/25) You have been started on midodrine 10 mg 3 times daily for soft blood pressure You have been prescribed Reglan as needed for nausea and vomiting If your voice hoarseness and pain on swallowing worsen or continue to persist without improvement, consider referral to ENT for further evaluation. We have held your spironolactone 25 mg continue follow-up with cardiology We have discontinued diclofenac sodium due to increased risk of ulcers and decreased wound healing We have discontinued your antibiotics Please continue all the home medications as prescribed Please come back to the ER if symptoms persist or worsen Education Materials: Types of Colon Resections, What Is a Colostomy?, Discharge Instructions for ... Print Language: [place] Islander Stand Alone Forms: Tammi Award Info., Patient Portal Info Letter Discharge Order Discharge Orders: Discharge (Routine); Ordered 02/27/25 Ordered By: Nadeem Dietz Quality Discharge Quality Measures VTE prophylaxis
--- NOTE | 2025-02-27 14:46 | PC.SS ---
follow up note: Patient has d/c orders for today. SS confirmed with patient's son, Carlo, the d/c plan for today. Carlo was agreeable to discharge. SS set up gurney transport through [facility] with [facility], Ref# [id number] for 2p.m. Floor nurse aware
== END 2025-02-27 13:50 | disposition skilled nursing facility (03) | DRG 853 ==
LOC: SERX 18:20 → SERHOLD 02-10 21:08 → S3NX 02-10 22:44 → S2SX 02-13 15:58 → S2NX 02-22 19:30 → S3NX 02-27 04:03
PROVIDERS: Family Medicine; Internal Medicine Critical Care Medicine; Student in an Organized Health Care Education/Training Program; Surgery; Admitting Provider Internal Medicine; Emergency Provider Emergency Medicine; Visit Provider Internal Medicine
PROC: 0DTE4ZZ Resection of Large Intestine, Percutaneous Endoscopic Approach (ICD-10-PCS; principal; 2025-02-13 13:00)
DX: A41.9 Sepsis, unspecified organism (principal); G93.41 Metabolic encephalopathy; I50.33 Acute on chronic diastolic (congestive) heart failure; J15.69 Pneumonia due to other Gram-negative bacteria; J96.21 Acute and chronic respiratory failure with hypoxia; K65.8 Other peritonitis; R65.21 Severe sepsis with septic shock; K63.1 Perforation of intestine (nontraumatic); J69.0 Pneumonitis due to inhalation of food and vomit; E87.4 Mixed disorder of acid-base balance; J95.851 Ventilator associated pneumonia; N17.9 Acute kidney failure, unspecified; I47.20 Ventricular tachycardia, unspecified; K56.3 Gallstone ileus; I11.0 Hypertensive heart disease with heart failure; E03.9 Hypothyroidism, unspecified; F41.9 Anxiety disorder, unspecified; Z79.890 Hormone replacement therapy; I27.20 Pulmonary hypertension, unspecified; J84.10 Pulmonary fibrosis, unspecified; Z92.3 Personal history of irradiation; Z92.21 Personal history of antineoplastic chemotherapy; Z85.41 Personal history of malignant neoplasm of cervix uteri; Z88.5 Allergy status to narcotic agent; K80.20 Calculus of gallbladder without cholecystitis without obstruction; F32.A Depression, unspecified; I48.91 Unspecified atrial fibrillation; Y84.8 Other medical procedures as the cause of abnormal reaction of the patient, or of later complication, without mention of misadventure at the time of the procedure; T50.1X5A Adverse effect of loop [high-ceiling] diuretics, initial encounter; K66.8 Other specified disorders of peritoneum; Y95 Nosocomial condition; Z22.322 Carrier or suspected carrier of Methicillin resistant Staphylococcus aureus; Z74.01 Bed confinement status; Z77.098 Contact with and (suspected) exposure to other hazardous, chiefly nonmedicinal, chemicals; Z79.899 Other long term (current) drug therapy; E78.5 Hyperlipidemia, unspecified; D64.9 Anemia, unspecified
CPT/HCPCS: 36415; 36600; 71045; 71275; 74174; 74176; 74181; 76705; 78227; 80048; 80053; 80061; 80069; 80202; 81001; 82140; 82436; 82803; 83605; 83735; 83880; 84100; 84133; 84145; 84300; 84439; 84443; 84484; 85025; 85379; 85610; 85730; 87040; 87077; 87081; 87106; 87186; 87205; 87502; 87811; 92526; 92610; 93005; 93225; 93306; 94002; 94003; 94640; 94660; 94664; 94667; 99285; A4216; A4314; A4649; A5063; A9270; A9537; J0131; J0168; J0282; J0283; J0456; J0692; J0696; J1100; J1120; J1171; J1644; J1650; J1885; J1938; J2250; J2251; J2405; J2470; J2598; J2704; J2765; J3010; J3373; J3475; J3490; J7030; J7050; J7120; J7999; P9047; Q9967; J1836; P0947

== ENCOUNTER → 2025-03-27 | Outpatient (BNVA) | payer MEDICARE, MEDICAID, SELFPAY | END | disposition home or self-care (01) | PROVIDERS: PCP Internal Medicine; Referring Provider Internal Medicine; Visit Provider Physician Assistant | DX: N39.41 Urge incontinence (principal); I50.22 Chronic systolic (congestive) heart failure; J84.10 Pulmonary fibrosis, unspecified; J91.8 Pleural effusion in other conditions classified elsewhere; K21.9 Gastro-esophageal reflux disease without esophagitis; F33.9 Major depressive disorder, recurrent, unspecified; C53.9 Malignant neoplasm of cervix uteri, unspecified; M62.81 Muscle weakness (generalized); F43.23 Adjustment disorder with mixed anxiety and depressed mood; Z87.440 Personal history of urinary (tract) infections | CPT/HCPCS: Q3014 ==